=== PATIENT | male | born 1960 | race Caucasian/White ===

== ENCOUNTER 2022-08-03 06:51 | Outpatient (OUT) | payer BC, SELFPAY ==
[2022-08-03 07:19] LABS: Basophils Absolute Auto 0.1 10^3/uL (0.0-0.1); Basophils Percent Auto 0.8 % (0.2-2.0); Eosinophils Absolute Auto 0.3 10^3/uL (0.0-0.7); Hematocrit 49.6 % (42.0-54.0); Hemoglobin 17.1 g/dL (14.0-18.0); Immature Granulocytes Abs Auto 0.03 10^3/uL (0.00-0.03); Immature Granulocytes Pct Auto 0.4 % (0.0-0.5); Lymphocytes Absolute Auto 1.8 10^3/uL (1.2-3.8); Lymphocytes Percent Auto 22.9 % (20.5-60.0); Mean Corpuscular HGB Conc 34.5 g/dL (29.9-35.2); Mean Corpuscular Hemoglobin 31.5 pg (25.9-34.0); Mean Corpuscular Volume 91.5 fL (80.0-94.0); Mean Platelet Volume 8.3 fL (9.5-13.5); Monocytes Absolute Auto 0.8 10^3/uL (0.3-0.8); Monocytes Percent Auto 9.4 % (1.7-12.0); Neutrophils Percent Auto 62.5 % (43.0-75.0); Platelet Count 388 10^3/uL (150-450); Red Blood Count 5.42 10^6/uL (4.70-6.10); Red Cell Distribution Width 13.6 % (11.0-15.0)
[2022-08-03 07:29] LABS: Alanine Aminotransferase 37 U/L (16-63); Albumin Globulin Ratio 1.1; Albumin Level 3.7 g/dL (3.4-5.0); Alkaline Phosphatase 89 U/L (46-116); Anion Gap 12.3; Aspartate Amino Transferase 21 U/L (15-37); BUN Creatinine Ratio 7.9; Bilirubin Total 1.4 mg/dL (0.2-1.0); Calcium 9.3 mg/dL (8.5-10.1); Carbon Dioxide 29.2 mmol/L (21.0-32.0); Chloride 104 mmol/L (98-107); Chol HDL Ratio 2.3; Cholesterol 180 mg/dL (<=200); Estimated GFR (African America >60 (>=60); Estimated GFR (Non-African Ame >60 (>=60); Globulin 3.5 g/dL; Glucose 109 mg/dL (74-106); HDL Cholesterol 79 mg/dL (40-60); Potassium 4.5 mmol/L (3.5-5.1); Sodium 141 mmol/L (136-145); Total Protein 7.2 g/dL (6.4-8.2); Triglycerides 49 mg/dL (<=150); VLDL CHOLESTEROL 9.8 mg/dL
== END 2022-08-03 06:52 ==
LOC: LAB 06:57
PROVIDERS: PCP Internal Medicine; Visit Provider Internal Medicine
DX: Z00.00 Encounter for general adult medical examination without abnormal findings (principal)
CPT/HCPCS: 36415; 80053; 80061; 85025

== ENCOUNTER 2022-08-14 22:33 | Emergency (ER) | payer BC, SELFPAY | END 2022-08-14 23:55 | disposition left against medical advice (07) | PROVIDERS: Emergency Provider Internal Medicine; PCP Internal Medicine | DX: Z53.21 Procedure and treatment not carried out due to patient leaving prior to being seen by health care provider (principal) ==

== ENCOUNTER 2022-09-24 06:18 | Emergency (ER) | payer BC, SELFPAY ==
[2022-09-24 06:24] VITALS: BP 112/76; PULSE 62; RESP 20; TEMP 36.5; O2SAT 98; BMI 22.4
--- NOTE | 2022-09-24 06:39 | ED_ITS ---
Documented by User: Ponce Colon MD 09/24/22 09:25 HPI - General Adult General Chief complaint: Chest Pain Stated complaint: Dysphagia Time Seen by Provider: 09/24/22 06:38 History of Present Illness HPI narrative: Patient is a 62-year-old male who is presenting to the Emergency Room with chief complaint of midepigastric and midsternal Discomfort this been intermittent but consistent since yesterday morning. Patient states he drinks 3-4 beers at least a day, smokes half a pack of cigarettes a day. Patient works construction. Patient has never had a EGD. Patient has been told that he's had acid reflux years ago, patient uses Tums. Patient does not take daily antacid medication. Patient has never had EGD. Patient did have a scope by Dr. Dorantes 2 years ago secondary to M?ni?re's of rectal bleeding, no acute findings were noted, patient does have hemorrhoids. Patient still has his gallbladder and appendix. Patient's had no history of gallbladder issues, no hepatitis or gallbladder or liver problems in the past. Patient denies any melena, hematochezia, no other acute complaints. Patient states all his pain is centralized, no pain to the right upper or left upper quadrant, no other acute complaints. No history kidney stones. Patient is a sister of Isabelle FUENTES from [facility], she has been in room to see the pt. Patient does take Tylenol daily for diffuse chronic pain, arthralgia. Patient does not take significant, anti-inflammatories daily. patient's had previous enlargement of prostate,Patient will have to intermittently self catheter secondary to his bladder, pulse 70 mL of urine secondary to previous history of surgery with Dr. Muse, urology. Patient has no bowel or bladder changes or concerns or complaints today. . All systems are negative except as noted/marked. All systems reviewed and otherwise negative. . Nurses note and vital signs reviewed and patient is not hypoxic. General: The patient appears well and in no apparent distress. Patient is resting comfortably on cart. Patient is not toxic, lethargic, or listless Skin: Warm, dry, no pallor noted. There is no rash noted. No petechiae, purpura. Head: Normocephalic, atraumatic Eye: Normal conjunctiva, no drainage, EOMI. PERRL Ears, Nose, Mouth, and Throat: oral mucosa is moist. Nares patent. Mouth without vesicles. Cardiovascular: Regular Rate and Rhythm, no murmur, gallop, rub. Patient has no reproducible tenderness to palpation to the mid sternum. Anterior, lateral, posterior chest wall pain. Respiratory: Patient is in no distress, no accessory muscle use, lungs are clear to auscultation, no wheezing, rales or rhonchi Back: non-tender, no CVA tenderness bilaterally to percussion. No CT LS midline pain GI: soft, Midepigastric mild tenderness to palpation, no rash,No tenderness to palpation to the right upper quadrant and left upper quadrant, negative Nick sign, no flank pain bilateral, no peritoneal signs, otherwise no tenderness to palpation, no masses appreciated. No rebound, guarding, or rigidity noted. No flank pain bilateral, No distention Musculoskeletal: Patient has full range of motion of all of the extremities, no motor, sensory, or focal neurological deficits Neurological: A&O x3, normal speech Psychiatric: Cooperative Related Data Home Medications Medication Instructions Recorded Confirmed tramadol 50 mg tablet mg 09/24/22 Allergies Allergy/AdvReac Type Severity Reaction Status Date / Time ciprofloxacin [From Cipro] Allergy Unknown Verified 09/24/22 06:32 sulfamethoxazole Allergy Unknown Verified 09/24/22 06:32 [From Bactrim] trimethoprim [From Bactrim] Allergy Unknown Verified 09/24/22 06:32 [facility] Social History Smoking status: Current every day smoker Exam Constitutional Vital Signs, click to edit/add: Last Vital Signs Temp 97.7 F 09/24/22 06:24 Pulse 54 L 09/24/22 09:28 Resp 14 09/24/22 09:28 BP 110/78 09/24/22 09:28 Pulse Ox 97 09/24/22 09:28 O2 Del Method Room Air 09/24/22 08:15 Course Vital Signs Vital signs: Vital Signs Temperature 97.7 F 09/24/22 06:24 Pulse Rate 62 09/24/22 06:24 Respiratory Rate 20 09/24/22 06:24 Blood Pressure 112/76 09/24/22 06:24 Pulse Oximetry 98 09/24/22 06:24 Oxygen Delivery Method Room Air 09/24/22 06:24 Temperature 97.7 F 09/24/22 06:24 Pulse Rate 54 L 09/24/22 09:28 Respiratory Rate 14 09/24/22 09:28 Blood Pressure 110/78 09/24/22 09:28 Pulse Oximetry 97 09/24/22 09:28 Oxygen Delivery Method Room Air 09/24/22 08:15 Medical Decision Making MDM Narrative Medical decision making narrative: Patient was actually pleasant take care of. Patient was given gastrointestinal cocktail and Pepcid. Patient will start taking Pepcid daily [id number]. Patient will call Dr. Burger for follow-up for EGD if needed. Patient does drink alcohol and smoke daily. Patient's testing was negative. Patient has slight elevation of LFTs, he has no tenderness to palpation to the right upper quadrant, or significant midepigastric tenderness palpation at this time. Patient is given a copy of his x-ray report. Patient was educated that the slight elevation of these may be secondary to history of daily alcohol use. Patient will follow-up with PCP and Dr. fowler. No questions at discharge Lab Data Lab results reviewed: Yes I reviewed the patient's lab results Labs: Lab Results 09/24/22 Range/Units 06:45 WBC 10.9 (4.0-11.0) 10^3/uL RBC 4.91 (4.70-6.10) 10^6/uL Hgb 15.4 (14.0-18.0) g/dL Hct 45.2 (42.0-54.0) % MCV 92.1 (80.0-94.0) fL MCH 31.4 (25.9-34.0) pg MCHC 34.1 (29.9-35.2) g/dL RDW 13.5 (11.0-15.0) % Plt Count 355 (150-450) 10^3/uL MPV 8.5 L (9.5-13.5) fL Neut % (Auto) 68.7 (43.0-75.0) % Lymph % (Auto) 13.8 L (20.5-60.0) % Patrick % (Auto) 10.8 (1.7-12.0) % Eos % (Auto) 5.9 (0.9-7.0) % Baso % (Auto) 0.5 (0.2-2.0) % Neut # (Auto) 7.5 H (1.4-6.5) 10^3/uL Lymph # (Auto) 1.5 (1.2-3.8) 10^3/uL Patrick # (Auto) 1.2 H (0.3-0.8) 10^3/uL Eos # (Auto) 0.6 (0.0-0.7) 10^3/uL Baso # (Auto) 0.1 (0.0-0.1) 10^3/uL Abs Immat Gran (auto) 0.03 (0.00-0.03) 10^3/uL Imm/Tot Granulo (auto) 0.3 (0.0-0.5) % Sodium 137 (136-145) mmol/L Potassium 4.1 (3.5-5.1) mmol/L Chloride 104 (98-107) mmol/L Carbon Dioxide 27.7 (21.0-32.0) mmol/L Anion Gap 9.4 BUN 10.0 (7.0-18.0) mg/dL Creatinine 0.81 (0.70-1.30) mg/dL Est GFR ( Amer) >60 (>=60) Est GFR (Non-Af Amer) >60 (>=60) BUN/Creatinine Ratio 12.3 Glucose 109 H (74-106) mg/dL Calcium 8.8 (8.5-10.1) mg/dL Total Bilirubin 1.5 H (0.2-1.0) mg/dL AST 23 (15-37) U/L ALT 60 (16-63) U/L Alkaline Phosphatase 180 H (46-116) U/L Troponin I High Sens 4.9 (4.0-76.1) pg/mL Total Protein 6.5 (6.4-8.2) g/dL Albumin 3.4 (3.4-5.0) g/dL Globulin 3.1 g/dL Albumin/Globulin Ratio 1.1 Lipase 108.0 (73.0-393.0) U/L ECG Data Attestation: I personally reviewed and interpreted this ECG as follows: Interpretation: EKG interpretation. Normal sinus rhythm at 50 beats a minute. Left axis deviation. No acute ST elevation, no acute ectopy. Incomplete right bundle- branch block noted, QTC of 387. Discharge Plan Discharge Chief Complaint: Chest Pain Clinical Impression: Elevated LFTs, Gastritis, Atypical chest pain Patient Disposition: Home, Self-Care Condition: Good Prescriptions / Home Meds: No Action tramadol 50 mg tablet Instructions: Chest Pain (ED), Gastritis (ED), Esophagitis (ED) Additional Instructions: Start taking Pepcid daily, use [id number] generic Pepcid. Follow-up with Dr. Burger for outpatient EGD if needed. Attempt to limit smoking and alcohol intake daily if possible that may be causing issues to gastritis. Slight elevation in her liver function tests, . No pain to the right upper quadrant or any significant pain with the midepigastric area is with activity gallbladder issue. Follow-up with PCP or Dr. Burger if symptoms get worse as well. Stand Alone Forms: Portal Instructions Referrals: Claudio Soto DO [Primary Care Provider] - 1 week Lico Burger MD [Physician] - 1 week Discharge Date/Time: 09/24/22 09:46 Documented by User: Connie Parsons MD 09/30/22 00:43 HPI - General Adult General Chief complaint: Chest Pain Stated complaint: Dysphagia Time Seen by Provider: 09/24/22 06:38 Source: patient Mode of arrival: walk-in Limitations: no limitations Related Data Home Medications Medication Instructions Recorded Confirmed tramadol 50 mg tablet mg 09/24/22 Allergies Allergy/AdvReac Type Severity Reaction Status Date / Time ciprofloxacin [From Cipro] Allergy Unknown Verified 09/24/22 06:32 sulfamethoxazole Allergy Unknown Verified 09/24/22 06:32 [From Bactrim] trimethoprim [From Bactrim] Allergy Unknown Verified 09/24/22 06:32 PFSH PFSH Social History Smoking status: Current every day smoker Exam Constitutional Vital Signs, click to edit/add: Last Vital Signs Temp 97.7 F 09/24/22 06:24 Pulse 54 L 09/24/22 09:28 Resp 14 09/24/22 09:28 BP 110/78 09/24/22 09:28 Pulse Ox 97 09/24/22 09:28 O2 Del Method Room Air 09/24/22 08:15 Course Vital Signs Vital signs: Vital Signs Temperature 97.7 F 09/24/22 06:24 Pulse Rate 62 09/24/22 06:24 Respiratory Rate 20 09/24/22 06:24 Blood Pressure 112/76 09/24/22 06:24 Pulse Oximetry 98 09/24/22 06:24 Oxygen Delivery Method Room Air 09/24/22 06:24 Temperature 97.7 F 09/24/22 06:24 Pulse Rate 54 L 09/24/22 09:28 Respiratory Rate 14 09/24/22 09:28 Blood Pressure 110/78 09/24/22 09:28 Pulse Oximetry 97 09/24/22 09:28 Oxygen Delivery Method Room Air 09/24/22 08:15 Medical Decision Making Lab Data Labs: Lab Results 09/24/22 Range/Units 06:45 WBC 10.9 (4.0-11.0) 10^3/uL RBC 4.91 (4.70-6.10) 10^6/uL Hgb 15.4 (14.0-18.0) g/dL Hct 45.2 (42.0-54.0) % MCV 92.1 (80.0-94.0) fL MCH 31.4 (25.9-34.0) pg MCHC 34.1 (29.9-35.2) g/dL RDW 13.5 (11.0-15.0) % Plt Count 355 (150-450) 10^3/uL MPV 8.5 L (9.5-13.5) fL Neut % (Auto) 68.7 (43.0-75.0) % Lymph % (Auto) 13.8 L (20.5-60.0) % Patrick % (Auto) 10.8 (1.7-12.0) % Eos % (Auto) 5.9 (0.9-7.0) % Baso % (Auto) 0.5 (0.2-2.0) % Neut # (Auto) 7.5 H (1.4-6.5) 10^3/uL Lymph # (Auto) 1.5 (1.2-3.8) 10^3/uL Patrick # (Auto) 1.2 H (0.3-0.8) 10^3/uL Eos # (Auto) 0.6 (0.0-0.7) 10^3/uL Baso # (Auto) 0.1 (0.0-0.1) 10^3/uL Abs Immat Gran (auto) 0.03 (0.00-0.03) 10^3/uL Imm/Tot Granulo (auto) 0.3 (0.0-0.5) % Sodium 137 (136-145) mmol/L Potassium 4.1 (3.5-5.1) mmol/L Chloride 104 (98-107) mmol/L Carbon Dioxide 27.7 (21.0-32.0) mmol/L Anion Gap 9.4 BUN 10.0 (7.0-18.0) mg/dL Creatinine 0.81 (0.70-1.30) mg/dL Est GFR ( Amer) >60 (>=60) Est GFR (Non-Af Amer) >60 (>=60) BUN/Creatinine Ratio 12.3 Glucose 109 H (74-106) mg/dL Calcium 8.8 (8.5-10.1) mg/dL Total Bilirubin 1.5 H (0.2-1.0) mg/dL AST 23 (15-37) U/L ALT 60 (16-63) U/L Alkaline Phosphatase 180 H (46-116) U/L Troponin I High Sens 4.9 (4.0-76.1) pg/mL Total Protein 6.5 (6.4-8.2) g/dL Albumin 3.4 (3.4-5.0) g/dL Globulin 3.1 g/dL Albumin/Globulin Ratio 1.1 Lipase 108.0 (73.0-393.0) U/L Discharge Plan Discharge Chief Complaint: Chest Pain Clinical Impression: Elevated LFTs, Gastritis, Atypical chest pain Patient Disposition: Home, Self-Care Condition: Good Prescriptions / Home Meds: No Action tramadol 50 mg tablet Instructions: Chest Pain (ED), Gastritis (ED), Esophagitis (ED) Additional Instructions: Start taking Pepcid daily, use [id number] generic Pepcid. Follow-up with Dr. Burger for outpatient EGD if needed. Attempt to limit smoking and alcohol intake daily if possible that may be causing issues to gastritis. Slight elevation in her liver function tests, . No pain to the right upper quadrant or any significant pain with the midepigastric area is with activity gallbladder issue. Follow-up with PCP or Dr. Burger if symptoms get worse as well. Stand Alone Forms: Portal Instructions Referrals: Claudio Soto DO [Primary Care Provider] - 1 week Lico Burger MD [Physician] - 1 week Discharge Date/Time: 09/24/22 09:46
--- NOTE | 2022-09-24 06:54 | XR_ITS ---
The [address] [address] Patient Name: SHAW GALVAN MRN: [id number] date: 1960 Sex: M Assigned Patient Location: ER Current Patient Location: ER Accession/Order Number: [id number] Exam Date: 09/24/2022 07:11 Report Date: 09/24/2022 07:42 At the request of: ELVIA MARKER Procedure: XR acute abdomen series EXAMINATION: XR acute abdomen series HISTORY: CP/abd pain COMPARISON: No relevant comparison available. FINDINGS: LUNGS: No infiltrate, pneumothorax, or pleural effusion. MEDIASTINUM: No abnormal widening. BOWEL GAS PATTERN: Non-obstructed. Numerous loops of air-filled bowel throughout the abdomen; no abnormal dilation or suspicious fluid levels. FREE AIR: None. CALCIFICATIONS: None significant. BONES: No fracture or visible bone lesion. OTHER: Negative. XR/XR acute abdomen series IMPRESSION: 1. No acute cardiopulmonary process. 2. No bowel obstruction or appreciable acute abdominal findings. Electronically authenticated by: THALIA KERN Date: 09/24/2022 07:42
--- NOTE | 2022-09-24 06:54 | ECG_ITS ---
The [facility] Test Date: 2022-09-24 Pat Name: SHAW GALVAN Department: Room: - Gender: Male [employer] Work[employer]: : 1960 Requested By: PAULO POE Order Number: [id number] Reading MD: PAULO POE Measurements Intervals [place] Rate: 58 P: 66 MD: 198 QRS: 249 QRSD: 116 T: 61 QT: 390 QTc: 387 Interpretive Statements 1100 Sinus bradycardia 2440 Incomplete right bundle branch block 5130 Right ventricular hypertrophy 8003 Consistent with pulmonary disease 9150 abnormal ECG No previous ECG available for comparison Electronically Signed On 09-24-2022 7:24:29 EDT by PAULO POE
[2022-09-24 07:01] VITALS: BP 118/81
[2022-09-24 07:02] LABS: Basophils Absolute Auto 0.1 10^3/uL (0.0-0.1); Basophils Percent Auto 0.5 % (0.2-2.0); Eosinophils Absolute Auto 0.6 10^3/uL (0.0-0.7); Eosinophils Percent Auto 5.9 % (0.9-7.0); Hematocrit 45.2 % (42.0-54.0); Hemoglobin 15.4 g/dL (14.0-18.0); Immature Granulocytes Abs Auto 0.03 10^3/uL (0.00-0.03); Immature Granulocytes Pct Auto 0.3 % (0.0-0.5); Lymphocytes Absolute Auto 1.5 10^3/uL (1.2-3.8); Lymphocytes Percent Auto 13.8 % (20.5-60.0); Mean Corpuscular HGB Conc 34.1 g/dL (29.9-35.2); Mean Corpuscular Hemoglobin 31.4 pg (25.9-34.0); Mean Corpuscular Volume 92.1 fL (80.0-94.0); Mean Platelet Volume 8.5 fL (9.5-13.5); Monocytes Absolute Auto 1.2 10^3/uL (0.3-0.8); Monocytes Percent Auto 10.8 % (1.7-12.0); Neutrophils Absolute Auto 7.5 10^3/uL (1.4-6.5); Neutrophils Percent Auto 68.7 % (43.0-75.0); Platelet Count 355 10^3/uL (150-450); Red Blood Count 4.91 10^6/uL (4.70-6.10); Red Cell Distribution Width 13.5 % (11.0-15.0); White Blood Count 10.9 10^3/uL (4.0-11.0)
[2022-09-24 07:22] LABS: Alanine Aminotransferase 60 U/L (16-63); Albumin Globulin Ratio 1.1; Albumin Level 3.4 g/dL (3.4-5.0); Alkaline Phosphatase 180 U/L (46-116); Anion Gap 9.4; Aspartate Amino Transferase 23 U/L (15-37); BUN Creatinine Ratio 12.3; Bilirubin Total 1.5 mg/dL (0.2-1.0); Calcium 8.8 mg/dL (8.5-10.1); Carbon Dioxide 27.7 mmol/L (21.0-32.0); Chloride 104 mmol/L (98-107); Estimated GFR (African America >60 (>=60); Estimated GFR (Non-African Ame >60 (>=60); Globulin 3.1 g/dL; Glucose 109 mg/dL (74-106); Potassium 4.1 mmol/L (3.5-5.1); Sodium 137 mmol/L (136-145); Total Protein 6.5 g/dL (6.4-8.2); Troponin I High Sensitivity 4.9 pg/mL (4.0-76.1)
[2022-09-24 08:14] VITALS: PULSE 51
[2022-09-24 08:15] VITALS: BP 120/82; PULSE 54; RESP 12; O2SAT 97
[2022-09-24 09:28] VITALS: BP 110/78; PULSE 54; RESP 14; O2SAT 97
[2022-09-24] MEDS: FAMOTIDINE 20 MG TABLET 40 MG PO (09:33)
[2022-09-24] MEDS: HYOSCYAMINE SULFATE 0.125 MG TAB.SUBL 0.25 MG PO (09:40)
[2022-09-24] MEDS: MAALOX (MAG HYDROX/ALUMINUM HYD/SIMETH) 30 ML ORAL.SUSP PO (09:40)
[2022-09-24] MEDS: LIDOCAINE 2% JELLY 15 ML MM (09:40)
== END 2022-09-24 09:46 | disposition home or self-care (01) ==
PROVIDERS: Emergency Medicine; Emergency Provider Emergency Medicine; PCP Internal Medicine
DX: K29.70 Gastritis, unspecified, without bleeding (principal); R07.89 Other chest pain; R79.89 Other specified abnormal findings of blood chemistry; F17.210 Nicotine dependence, cigarettes, uncomplicated
CPT/HCPCS: 36415; 74022; 80053; 83690; 84484; 85025; 93005; 99285

== ENCOUNTER 2022-12-21 06:18 | Outpatient (OUT) | payer BC, SELFPAY ==
[2022-12-21 07:14] LABS: Bilirubin Urine NEGATIVE (NEGATIVE); Blood Urine NEGATIVE (NEGATIVE); Clarity Urine CLEAR (CLEAR); Color Urine LT. YELLOW (YELLOW); Glucose Urine UA NEGATIVE (NEGATIVE); Ketones Urine NEGATIVE (NEGATIVE); Leukocyte Esterase Urine TRACE (NEGATIVE); Nitrite Urine NEGATIVE (NEGATIVE); Protein Urine NEGATIVE (NEG/TRACE); Urobilinogen Urine 0.2 EU/dL (0.2-1.0); pH Urine 6.5 (5.0-9.0)
[2022-12-21 07:23] LABS: Bacteria Urine NONE SEEN #/HPF (NONE SEEN); Cast Seen? NONE SEEN #/LPF (NONE SEEN); Crystals Seen? None Seen #/HPF (None Seen); Mucus Urine NONE SEEN (NONE SEEN); RBC Urine NONE SEEN #/HPF (0-2); Squamous Epithelial Cell Urine RARE #/LPF (NONE/RARE)
== END 2022-12-21 06:19 | disposition home or self-care (01) ==
LOC: LAB 06:19
PROVIDERS: PCP Internal Medicine; Visit Provider Internal Medicine
DX: N41.0 Acute prostatitis (principal)
CPT/HCPCS: 81001; 87086; 87150; 87186

== ENCOUNTER 2023-03-04 08:52 | Outpatient (OUT) | payer BC, SELFPAY ==
--- OUTSIDE RECORDS SUMMARY | 2023-03-04 09:16 | XMS_ITS | CCD ---
Author Name Unknown Address [address] [place] [address] Organization [facility] Care Team Providers Care Matcher Offbearer Name Role Phone FRANCIA SHAW Unavailable Unavailable LURIA, CARLSON S Unavailable Unavailable LURIA, CARLSON S Unavailable Unavailable BALLNATASHA Unavailable Unavailab le LURIA, CARLSON S Unavailable Unavailable LURIA, CARLSON S Unavailable Unavailable CLAUDIO SOTO Primary Care Physician Claudio Soto Unavailable Patricia Olmos Unavailable MIGUELINA ., DR JOHNSON Attending Unavailable DEEPIKA, DR BATES Primary Care Unavailable MUSE ., DR JOHNSON Consulting Unavailable MUSE ., DR JOHNSON Admitting Unavailable DEEPIKA, DR BATES Primary Care Unavailable HILDA ANTOINE Admitting Unavailable ELINAHILDA VENTURA Attending Unavailable ELINAHILDA VENTURA Consulting Unavailable MUSE ., DR JOHNSON Admitting Unavailable MUSE ., DR JOHNSON Attending Unavailable DEEPIKA, DR BATES Primary Care Unavailable MUSE ., DR JOHNSON Consulting Unavailable SHAW BLEVINS Consulting Unavailable TERESA ., CARLOS Admitting Unavailable GERMAIN, DR PADMINI Shepherd Consulting Unavailable DEEPIKA, DR BATES Primary Care Unavailable TERESA ., CARLOS Attending Unavailable TERESA ., CARLOS Consulting Unavailable HAY ., DR RIOJAS Attending Unavailable HAY ., DR RIOJAS Admitting Unavailable NISHI ., DR RIOJAS Consulting Unavailable DEEPIKA, DR BATES Primary Care Unavailable MAY, DR MARK Kraft Admitting Unavailabl e MAY, DR MARK Kraft Attending Unavailabl e MAY, DR MARK Kraft Consulting Unavailabl e DEEPIKA, DR BATES Primary Care Unavailable MIGUELINA ., DR JOHNSON Attending Unavailable DEEPIKA, DR BATES Primary Care Unavailable MIGUELINA ., DR JOHNSON Consulting Unavailable MIGUELINA ., DR JOHNSON Admitting Unavailable DEEPIKA, DR BATES Attending Unavailable DEEPIKA, DR BATES Primary Care Unavailable DEEPIKA, DR BATES Admitting Unavailable DEEPIKA, DR BATES Primary Care Unavailable TERESA ., CARLOS Admitting Unavailable TERESA ., CARLOS Attending Unavailable TERESA ., CARLOS Consulting Unavailable NILAdenike, Lico Julien Attending Unavailable MUSEAlex Attending Unavailable MUSE, Alex Julien Attending Unavailable MUSE, Alex Julien Attending Unavailable HILDA ANTOINE Attending Unavailable MUSE, Alex Julien Attending Unavailable ELINA, HILDA Giron Admitting Unavailable ELINAHILDA VENTURA Attending Unavailable Alex MUSE Admitting Unavailable Alex MUSE Attending Unavailable Allergies Allergy Classification Reported Allergen(s) Allergy Type Date of Onset Reaction(s) Facility (20 sources) ciprofloxacin; Translations: [CIPROFLOXACIN] Drug Allergy 02-16-20 13 [facility] (disorder) [facility] Repository (2 sources) ondansetron; Translations: [ONDANSETRON HCL] Drug Allergy 07-26-19 15 [facility] Repository (2 sources) sulfamethoxazole / trimethoprim; Translations: [SULFAMETHOXAZOLE-TR IMETHOPRIM] Drug Allergy 07-23-19 15 [facility] Repository (7 sources) Sulfamethoxazole; Translations: [sulfamethoxazole] Drug Allergy Unknown (qualifier value) [facility] [employer] (16 sources) Sulfamethoxazole / Trimethoprim Drug Allergy Unknown [facility] Other (2 sources) Ciprofloxacin Drug Allergy 10-22-19 13 [facility] Repository (2 sources) Sulfamethoxazole / Trimethoprim Drug Allergy 07-03-19 15 [facility] Rep[facility] (1 source) Penicillin; Translations: [penicillin] Drug Allergy [facility] Repository Medications Current Medications Medication Drug Class(es) Dates Sig (Normalized) Sig (Original) cefdinir 300 mg oral capsule (4 sources) Cephalosporin Antibacterial Start: 12-23-2022 Cefdinir 300 MG as directed Orally bid for 28 days Nov, Active doxycycline hyclate 100 mg oral capsule (7 sources) Tetracycline-class Drug Start: 11-02-2022 take 1 capsule by mouth every twelve hours Doxycycline Hyclate 100 MG 1 capsule Orally Twice a day for 7 days Oct, Active Start: 05-21-2022 [facility]xy[facility]ine hyclate 100 mg Cap 100 mg = 1 cap(s), Oral, Daily, Take 1 pill the day before the procedure and 1 pill after the procedure, # 2 cap(s), Refills(s) 0, Pharmacy: [id number], 184, cm, 05/11/22 8:37:00 EDT, Height/Length Dosing, 76, kg, 05/11/22 8:37:00 EDT, Weigh... Start Date: 05/21/22 Status: Ordered hyoscyamine sulfate 0.12 mg / methenamine 118 mg / methylene blue 10 mg / phenyl salicylate 36 mg / sodium phosphate, monobasic 40.8 mg oral capsule (1 source) Oxidation-Reduction Agent Start: 06-23-2022 take 1 capsule by mouth four times daily Uribel oral capsule 1 cap(s), Oral, QID bladder spasms, 30 cap(s), Refill(s) 0, [facility], 184, cm, 05/11/22 8:37:00 EDT, Height/Length Dosing, 76, kg, 05/11/22 8:37:00 EDT, Weight Dosing Start Date: 06/23/22 Status: Ordered nitrofurantoin, macrocrystals 25 mg / nitrofurantoin, monohydrate 75 mg oral capsule (10 sources) Nitrofuran Antibacterial take 1 capsule by mouth every twelve hours Nitrofurantoin Monohyd Macro 100 MG 1 capsule Orally every 12 hrs w/ food for 7 days Active tamsulosin hydrochloride 0.4 mg oral capsule (16 sources) alpha-Adrenergic Alberto take 1 capsule by mouth every twenty-four hours Tamsulosin HCl 0.4 MG 1 capsule Orally Once a day Active traMADol hydrochloride 50 mg oral tablet (20 sources) Opioid Agonist Start: 01-28-2023 take 1 tablet by mouth every six hours traMADol HCl 50 MG 1 tablet as needed Orally qid for 30 days start 01/28 w/ 2RF Jan, Active Start: 11-02-2022 take 1 tablet by rachid th every six hours traMADol HCl 50 MG 1 tablet as needed Orally qid for 30 days p/u 10/28, start 10/30Oct, Active Start: 10-28-2022 take 1 tablet by rachid th every six hours traMADol HCl 50 MG 1 tablet as needed Orally qid for 30 days p/u 10/28, start 10/30Sep, Active Start: 08-20-2022 traMADOL 50 mg Tab Refills(s) 0 Start Date: 08/20/22 Status: Ordered Start: 08-02-2022 take 1 tablet by rachid th every six hours traMADol HCl 50 MG 1 tablet as needed Orally qid for 30 days p/u 06/30, start 07/02Jul, Active Start: 06-30-2022 take 1 tablet by rachid th every six hours traMADol HCl 50 MG 1 tablet as needed Orally qid p/u 06/30, start 07/02June, Active Start: 06-01-2022 take 1 tablet by rachid th four times daily traMADol HCl 50 mg 1 tablet Orally four times daily for 30 days p/u 06/01, start 06/02May, Active Start: 05-06-2022 TRAMADOL HYDRO CHLORIDE TRAMADOL HYDROCHLORIDE Start Date: 05/06/22 Status: Ordered Start: 05-03-2022 traMADol HCl 5 0 mg TAKE ONE TABLET BY MOUTH FOUR TIMES A DAY FOR 30 DAYS for 30 Apr, Active Completed/Discontinued Medications Medication Drug Class(es) Dates Sig (Normalized) Sig (Original) amoxicillin 875 mg / clavulanate 125 mg oral tablet (8 sources) Penicillin-class Antibacterial take 1 tablet by mouth every twelve hours Amoxicillin-Pot Clavulanate 875-125 MG 1 tablet Orally every 12 hrs Not-Taking Problems Active Problems Problem Classification Problem Date Documented Date Episodic/Chronic Complications of surgical procedures or medical care (16 sources) Other postprocedural complications and disorders of genitourinary system; Translations: [Other postprocedural complications and disorders of genitourinary system] Episodic Diseases of white blood cells (1 source) Elevated white blood cell count, unspecified; Translations: [ELEVATED WHITE BLOOD CELL COUNT UNS] Onset: 04-05-2022 Chronic Genitourinary symptoms and ill-defined conditions (20 sources) History of urinary tract infection; Translations: [Personal history of urinary (tract) infections] Onset: 08-19-2021 Episodic Hyperplasia of prostate (20 sources) Benign prostatic hypertrophy with outflow obstruction; Translations: [Benign prostatic hyperplasia with lower urinary tract symptoms] Onset: 08-19-2021 Chronic Inflammatory conditions of male genital organs (19 sources) Acute prostatitis; Translations: [Acute prostatitis] Episodic Nausea and vomiting (16 sources) Nausea and vomiting; Translations: [Nausea with vomiting, unspecified] Episodic Osteoarthritis (6 sources) Arthritis 05-08-2020 Chronic Other connective tissue disease (16 sources) Bursitis of right hip; Translations: [Other bursitis of hip, right hip] Episodic Other diseases of bladder and urethra (9 sources) Flaccid neurogenic bladder; Translations: [Flaccid neuropathic bladder, not elsewhere classified] Onset: 08-19-2021 Chronic Other diseases of bladder and urethra (11 sources) Neurogenic bladder; Translations: [Neuromuscular dysfunction of bladder, unspecified] Chronic Other diseases of bladder and urethra (4 sources) Neuromuscular dysfunction of bladder, unspecified; Translations: [NEUROMUSCULR DYSFNCTION BLADDER UNS] Onset: 06-14-2022 Chronic Other diseases of bladder and urethra (1 source) Other specified disorders of bladder; Translations: [OTHER SPECIFIED DISORDERS BLADDER] Onset: 06-15-2022 Chronic Other diseases of bladder and urethra (1 source) Diverticulum of bladder; Translations: [DIVERTICULUM OF BLADDER] Onset: 06-15-2022 Chronic Other diseases of kidney and ureters (7 sources) Hydronephrosis; Translations: [Unspecified hydronephrosis] Onset: 05-11-2022 Episodic Other diseases of kidney and ureters (2 sources) Acquired renal cyst without neoplastic change; Translations: [Cyst of kidney, acquired] Onset: 05-11-2022 Episodic Other diseases of kidney and ureters (5 sources) Cyst of kidney 05-11-2022 Episodic Other male genital disorders (7 sources) Induratio penis plastica; Translations: [Induration penis plastica] Onset: 05-11-2022 Chronic Other male genital disorders (1 source) Induration penis plastica; Translations: [INDURATION PENIS PLASTICA] Onset: 06-15-2022 Chronic Other male genital disorders (7 sources) Painful ejaculation; Translations: [Painful ejaculation] Onset: 05-11-2022 Episodic Other nervous system disorders (16 sources) Narcolepsy; Translations: [Narcolepsy without cataplexy] Chronic Other skin disorders (16 sources) Seborrheic keratosis of scalp; Translations: [Other seborrheic keratosis] Episodic Residual codes; unclassified (16 sources) Obstructive sleep apnea syndrome; Translations: [Obstructive sleep apnea (adult) (pediatric)] Chronic Residual codes; unclassified (2 sources) Obstructive sleep apnea (adult) (pediatric) Chronic Residual codes; unclassified (6 sources) Chronic back pain 05-08-2020 Episodic Spondylosis; intervertebral disc disorders; other back problems (20 sources) Lumbar spondylosis; Translations: [Spondylosis without myelopathy or radiculopathy, lumbar region] Chronic Spondylosis; intervertebral disc disorders; other back problems (20 sources) Neck pain; Translations: [Cervicalgia] Episodic Substance-related disorders (1 source) Nicotine dependence, cigarettes, uncomplicated; Translations: [NICOTINE DEPEND CIGARETTES UNCOMP] Onset: 06-15-2022 Chronic Unclassified (2 sources) Encounter for screening for other disorder; Translations: [Encounter for screening for malignant neoplasm of prostate] Onset: 03-11-2017 Episodic Unclassified (1 source) Unknown / UNK(Unknown) Onset: 06-28-2017 Unclassified (1 source) CONTACT W/AND (SUSP) EXPOS COVID-19; Translations: [CONTACT W/AND (SUSP) EXPOS COVID-19] Onset: 04-05-2022 Urinary tract infections (11 sources) Acute pyelonephritis; Translations: [Urinary tract infectious disease] Onset: 10-07-2021 Episodic Past or Other Problems Problem Classification Problem Date Documented Date Episodic/Chronic Fever of unknown origin (4 sources) Fever, unspecified; Translations: [FEVER UNSPECIFIED] Onset: 03-31-2022 Episodic Other diseases of kidney and ureters (1 source) Hydronephrosis with renal and ureteral calculous obstruction; Translations: [HYDRONPHROS RENL AND URETRL CALCUL OBST] Onset: 08-20-2021 Episodic Residual codes; unclassified (1 source) Procedure and treatment not carried out due to patient leaving prior to being seen by health care provider; Translations: [PROC AND TX NOT CARRIED OUT PT LEAVE] Onset: 04-02-2022 Episodic Results Test Name Value Interpretation Reference Range Facility Urinalysis - DIPSTICKon - Appearance (U) cloudy [employer] Other Bilirubin Ql (U) Negative [employer] Other Color (U) yellow [facility] Other Glucose Ql (U) Negative [employer] Other Hemoglobin Ql (U) Negative [facility] Other Ketones Ql (U) trace [employer] Other Leukocyte esterase Test strip Ql (U) small [employer] Other Nitrite Ql (U) Positive [employer] Other pH (U) 5.0 [pH] [facility] Other Protein Ql (U) Negative [employer] Other Specific gravity (U) [Rel density] 1.010 [facility] Other Urobilinogen (U) [Mass/Vol] 0.5 mg/dL [facility] Other Urinalysis - DIPSTICK [facility] Other ED Note-Physicianon 09-28-19 ED Note-Physician [id number]: 127 Normal [facility] Ambulatory Visit Summaryon 0 08-20-2022 Ambulatory Visit Summary SHAW GALVAN :1960 Visit Date:08/20/2022 Ambulatory Visit Instructions Your Diagnosis Neurogenic bladder, flaccid Benign prostatic hyperplasia (BPH) with post-void dribbling Painful ejaculation Renal cyst Peyronie's disease Hydronephrosis Your Care Team Attending Physician - MIGUELINA SNIDER, Alex Julein Primary Care Physician - CLAUDIO SOTO DO This Is Your Medications List tramadol (traMADOL 50 mg Tab) Procedures Performed Cystoscopy (06/14/2022), Cystoscopy (07/12/2014), Removal of stent (07/23/2008), Cystoscopy (04/25/2008), Tonsillectomy, Vasectomy. Discharge Vitals Heart Rate (Peripheral) 70 Respiratory Rate 16 Blood Pressure 120/68 Height 183 cm Height 72 in Weight 73 kg Weight 160.6 lb BMI 21.8 What to do next Scheduled Follow-Up Appointments Tuesday 8:00 AM EST With: MIGUELINA SNIDER, Alex Julien Where: [facility] [place] Normal [facility] CHEMISTRYOrdered By: SYSTEM SYSTEM on 08-20-2022 Prostate specific Ag [Mass/Vol] 0.8 ng/mL Normal 0.1 - 3.5 ng/mL [facility] Remisol PSA Totalon 08-20-2022 Prostate specific Ag [Mass/Vol] 0.8 ng/mL Normal 0.1-3.5 [facility] Comment on above: Result Comment: The concentration of PSA determined by different manufacturers can vary due to differences in assay methods and reagent specificity. Values obtained from different assay methods cannot be used interchangeably. The methodology used for this result was chemiluminescence using [employer] PSA reagent. Performed By: #### [id number] ####[facility] [id number] [place] [address] Patient Educationon 08-21-19 Patient Education Urology Clean Intermittent Catheterization, Male Clean intermittent catheterization (CIC) is a procedure to remove urine from the bladder by placing a small, flexible tube (catheter) into the bladder though the urethra. The urethra is a tube in the body that carries urine from the bladder out of the body. CIC may be done when: ? You cannot completely empty your bladder on your own. This may be due to a blockage in the bladder or urethra. ? Your bladder leaks urine. This may happen when the muscles or nerves near the bladder are not working normally, so the bladder overflows. Your health care provider will show you how to perform CIC and will help you to become comfortable performing this procedure at home. Your health care provider will also help you to get the home care supplies that are needed for this procedure. Supplies needed: ? Germ-free (sterile), water-based lubricant. ? A container for urine collection. You may also use the toilet to dispose of urine from the catheter. ? A catheter. Your health care provider will determine the best size for you. ? Use this catheter size: ? Clean gloves. ? Soap and water. ? Towel. How to perform this procedure: Most people need CIC at least 4 times per day to adequately empty the bladder. Your health care provider will tell you how often you should perform CIC. ? Number of times per day to perform CIC: To perform CIC, follow these steps: 1. Wash your hands with soap and water. If soap and water are not available, use hand trailer steerer. 2. Clean your penis with soap and water. Dry the tip of your penis completely. 3. Prepare the supplies that you will use during the procedure. Open the catheter package and lubricant. 4. Get in a comfortable position. Possible positions include: ? Sitting on a toilet, a chair, or the edge of a bed. ? Standing near a toilet. ? Lying down with your head raised on pillows and your knees pointing to the ceiling. You may wish to place a waterproof mat or pad under you. 5. If you are using a urine collection container, position it between your legs. 6. Urinate, if you are able. 7. Put on gloves. 8. Apply lubricant to about 2 inches (5 cm) of the tip of the catheter. 9. Set the catheter down on a clean, dry surface within reach. 10. Gently stretch your penis out from your body. Pull back any skin that covers the end of your penis (foreskin). Clean the end of your penis with medicated sterile swabs as told by your health care provider. 11. Hold your penis upward at a 45?60 degree angle. This helps to straighten the urethra. 12. Slowly insert the lubricated catheter straight into your urethra until urine flows freely. This is usually about 6?8 inches (15?20 cm). 13. When urine starts to flow freely, insert the catheter 1 inch (3 cm) more. Allow urine to drain into the toilet or the urine collection container. 14. When urine stops flowing, slowly remove the catheter. 15. Note the color, amount, and odor of the urine. 16. Measure your urine and note the amount, if told by your health care provider. 17. Discard the urine in the toilet. 18. Clean your penis using soap and water. 19. Move the foreskin back in place, if applicable. 20. If you are using a single-use catheter, discard the catheter and supplies. 21. Wash your hands with soap and water. 22. If you are using a reusable catheter, follow package instructions about how to clean the catheter after each use. How often should I perform this procedure? ? Do CIC to empty your bladder every 4?6 hours or as often as told by your health care provider. ? If you have symptoms of too much urine in your bladder (overdistension) and you are not able to urinate, perform CIC. Symptoms of overdistension may include: ? Restlessness. ? Sweating or chills. ? Headache. ? Flushed or pale skin. ? Bloated lower abdomen. What are the risks? Generally, this is a safe procedure, however problems may occur, including: ? Infection. ? Injury to the urethra. ? Irritation of the urethra. Follow these instructions at home General instructions ? Drink enough fluid to keep your urine pale yellow. ? Dispose of a multiple use catheter when it becomes dry, brittle, or cloudy. This usually happens after you use the catheter for 1 week. ? Avoid caffeine. Caffeine may make you need to urinate more frequently and more urgently. ? When traveling, bring extra supplies with you in case of delays. Keep supplies with you in a place that you can access easily. If traveling by plane: ? Make sure that the lubricant in your carry-on bag is less than 3.4 ounces (100 mL). ? Use a single-use catheter. It may be difficult to clean a reusable catheter in a small bathroom. ? Take [id number] and prescription medicines only as told by your he (more content not included)... Normal [facility] Urology Office/Clinic Noteon 08-20-2022 Urology Office/Clinic Note Chief Complaint S/P Cysto HPI Staff 1 year f/u to encounter with [facility] 08/19/21, with PSA. DX: neurogenic bladder, recurrent UTI, BPH. PSA 08/19/21- 1.01 BMP 08/19/21 Went to [facility] 10/06/21 due to UTI./Urinary Retention. Refused Catheter. [facility] 04/01/22 due to Lt flank pain & left without being treated. Last seen in our office by [facility] on 05/11/22 due to NGB, recurrent UTI, BPH, post void dribbling, painful ejaculation, renal cyst, Peyronie's disease and hydronephrosis.. CIC 3x/day at that time. +C&S at time of office visit. * Klebsiella oxytoca. Tx'd with Keflex 500mg BID x1wk Pt then had Cysto done by [facility] 06/14/22. Catheter was inserted at that time. Augmentin 500mg QD x2m Pt's had called 06/23/22 stating the pain was having bladder & kidney pain. As well as morning erections with catheter. Uribel was then sent to pt's pharmacy. Pt did not take due to cost. Renal US 07/12/22 Catheter changed in our office 07/13/22 Pt denies any complications with catheter. States he is here today to get catheter removed. Bladder/Kidney pain has subsided. PSA not drawn for today's appt. History of Present Illness Tests reviewed: reviewed UA, PSA I have reviewed the previous health record information and history for this patient from Dr. Muse. I have reviewed and verified the staff HPI to be accurate for this encounter. There have been no associated fever, chills, flank pain, or blood in the urine. Denies any urinary infections since last encounter. Review of Systems PHQ Score Initial Depression Screen Score: 0 ROS - Provider Constitutional: denies weight loss, denies hot flashes. Eyes: denies eye problems. Gastrointestinal: denies nausea, denies vomiting. Cardiovascular: denies chest pain or angina. Integumentary: no dryness Musculoskeletal: denies musculoskeletal symptoms. ENMT: denies otolaryngeal symptoms. Respiratory: no shortness of breath. Heme/Lymph: denies easy bleeding tendency, denies easy bruising tendency. Psychiatric: no confusion, no anxiety. Genitourinary: denies dysuria, denies hematuria, denies discharge, denies urinary frequency, denies urinary hesitancy, denies nocturia, denies incontinence, denies genital sores, denies decreased libido, and denies erectile dysfunction. Physical Exam Vitals & Measurements HR: 70(Peripheral) RR: 16 BP: 120/68 HT: 72 in HT: 183 cm WT: 73 kg WT: 160.6 lb BMI: 21.8 General Appearance: alert, no distress, well nourished, well developed male. Genitourinary: normal scrotum, normal testes, normal urethra, normal epididymis, normal vas deferens/spermatic cord. Flank Pain: none. Bladder: nonpalpable. Assessment/Plan 1. 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 Educated pt to consistently do catheterizations 4x/day to prevent further dysfunction of the kidneys. Pt states he was thinking about a suprapubic catheter but only like to proceed if catheter fails again. Recommended pt to increase fluid intake to ten to twelve 16oz bottles a day; preferably water, clear pop, and sugar free lemonade. Pt's catheter has been removed in office with no complications. They have been advised to drink plenty of fluids. Pt. has been instructed to call the office in the event that they are not able to void in the next 4-6 hrs. Advised pt. to go to the ER if they experience any severe bleeding, fever over 101, and/or shaking chills. Follow up in 6 months or sooner if needed. Pt understands and agrees with plan. 2. Benign prostatic hyperplasia (BPH) with post-void dribbling (N40.1: Benign prostatic hyperplasia with lower urinary tract symptoms) S/p TUIP 04/25/2008. S/p Cysto 06/14/22 - diffuse inflammatory changes throughout the bladder, severe bladder damage with thick exaggerated trabeculation and multiple deep diverticula, no evidence of bladder tumors. Pt denies any recent complications. Pt not taking any BPH medications at this time. PSA 08/19/21 - 1.01 Pt did not obtain PSA for today's visit. Pt to get blood drawn IO today. If unable to, will order PSA. 3. Painful ejaculation (N53.12: Painful ejaculation) Mentions he has pain with ejaculation, feels like I'm passing a kidney stone when I have an orgasm . Says the pain is at the tip of the penis, not perineal/rectal/prostate area. Denies pain with sitting for extended time, denies painful BMs, denies perineal pain at rest. No blood in ejaculate. No hx prostatitis. 4. Renal cyst (N28.1: Cyst of kidney, acquired) CT AP wo contrast 10/06/21 shows right renal cortical hypodensity is a cyst is favored. Neg for stones. No indication for tx. Metabolic workup 08/19/21 - Creatinine and EGFR within normal limits Renal US 07/12/22 - right renal 1.4 x 1.0 x 1.1cm anechoic lesion with posterior acoustic enhancement, consistent with a cyst. Neg for stones. 5. Peyronie's disease (N48.6: Induration penis plastica) Accident as a (more content not included)... Normal [facility] Comment on above: Result Comment: Elec tronically Signed By: Alex MUSE MD\.br\Date and Time Signed: 08/20/22 09:47 EDT\.br\Electronically Co-Signed By: Megha Schwarz\.br\Date and Time Co-Signed: 08/20/22 09:43 EDT RAD - Ultrasound Reporton RAD - Ultrasound Report [id number]#[id number]: 127 Normal [facility] Progress Note-Nurseon 2022 Progress Note-Nurse CARLJOSRSHAW :1960 Visit Date:07/12/2022 Ambulatory Visit Instructions Your Care Team Attending Physician - Alex MUSE MD Primary Care Physician - CLAUDIO SOTO DO This Is Your Medications List Misc Prescription (TRAMADOL HYDROCHLORIDE) doxycycline (doxycycline hyclate 100 mg Cap) hyoscyamine/methena/mblu e/phenylsal/sodbiphos (Uribel oral capsule) Procedures Performed Cystoscopy (07/12/2014), Removal of stent (07/23/2008), Cystoscopy (04/25/2008), Tonsillectomy, Vasectomy. What to do next Scheduled Follow-Up Appointments Tuesday 8:30 AM EDT With: MIGUELINA SNIDER, Alex Julien Where: [facility] US KIDNEYSon 07-12-2022 US KIDNEYS EXAM: US KIDNEYS HISTORY: Urinary tract infectious disease COMPARISON: None. TECHNIQUE: Real-time ultrasound imaging of the kidneys. Findings: The right and left kidneys measure 10.0 and 10.4 cm. Good corticomedullary differentiation bilaterally. No renal stones. Within the lower pole of the right kidney there is a 1.4 x 1.0 x 1.1 cm anechoic lesion with posterior acoustic enhancement most consistent with a cyst. Mild left-sided pelviectasis. No perinephric fluid collection. The bladder is decompressed and contains a Palm catheter. IMPRESSION: 1. Right renal cysts. 2. Mild left pelviectasis. Findings may relate to normal variant, obstruction or reflux. Electronically authenticated by: SHAW BLEVINS Date: 2022-07-12 10:09 Normal [facility] Historical Records Officeon 06-15-2022 Historical Records Office [id number]#[id number]: 127 [facility] Operative Reporton Operative Report [id number]#1.00CD: 127 [facility] Pre-Certification Formon Pre-Certification Form [id number]#[id number]:1 27 [facility] ED Note-Physicianon 05-22-19 ED Note-Physician [id number]#[id number]:1 27 [facility] Lab Reportson 05-21-2022 Lab Reports [id number]#1.00CD: 127 [facility] Coding Summary.on 05-20-2022 Coding Summary. CD:[id number] Ww+P GhlYWQ+XE5OELLuD06ghIEwv Q2oM6GFEEmWTsukMDEXKThVA nAczpSzXX4fzLAoGEJv IC8+MQ1iKPHnFfdgwEAxv3E4 mDO7N28trt5nMCijmTL4DKZf YhIqgupqn8hifYc1JCuvSjql OyBt QOFivN48VJA4rG67If38rJFu cWNbk9zkpFo7FyXsOBWvHWY1 sHdcXEcut9FlRPWxR88rnUHl c2U6 NBWspSynwSGhSmEzmPU0tE6p QXkwsmfot0mmrxthXyi1rm78 iZXyp3B0sXE4W4NvflH1YCAn bGQg ChjdnBQCyS4eqqwts3altvgy DcCzMLGhBRc5JEc1DBLyaGmm TuOdAC77GZD8KUXwqjMbT6Yo LWFs gJhzWrM1x8Q5Iz0AM4PVTxvi B1BJQSCOWUnwhTR+WM43pn94 J2NwXefzKfb2HAEyRGO7nVG1 aD0n JWYaHUgfd8E8lKP2Y3UduaXw yl2nu0kkWZOwGHosI06mcLHs k7C8KYChbQR9GNBhvWegYbLh aG93 Oyc+ODWstKuyd6AcKbfyc9sr h8odfMq7ZswlPWVnrlYnuDhy HWO6y4ZmYv3oGIAehKS2mZU4 aD0i OyNaEvE3LXqaN104VxHhcVNi LbrkI98zR4XyfVL+PHRyPjx0 MNRmzOluYL9zA5XsFEFxpjbu bGVm vRunEN7xSEHemlxaJEPfkJ6s PTMdT9k4JzVoLbI1IMjlA8Qa UUBlppesOn29mA9vYrIzViT1 MGlu R4HqeeW6PEXocXNiDSgdBQT0 A82wy2E4YOWsZUUqQEI6iWI5 wI0qhXpwejoikFVgrOpgquBg dGlj KQatLRsrL869WNOkgZvcZpBk ZGluZyBEYXRlOiAgMDMvMjMv MjAyMzwvdGQ+LBCaGUY9oPza PSAn vZBtNJxlWm9jwMzkeQbpKJ0r EAPncevlNXUjaS4qFBTbhEAc yWixCK1cYKQpawxtr373ZlCe MHB0 GHNdoZVhZ1SxuV9pUjKyWMXv JXUtI8ZrfLTkTWgdK345VJee OfO2PLBbajMpX4UzZQClyZmi OiB0 p0M0Lu1Ut1SljvzwN4VioZYz EmTgQxjqAYr0I3XkClddwPF+ JY69XZTkAI26WUl8KRW4cMzp PSdi NETuH8TnbP8jDfPeAGIiHCJc Oyc+PHRhYmxlIHdpZHRoPScx IVXyOkOkoKskCV3mLi7eTTLf LWNv jRzutZUeVsYee1twCSFtJAgz RA5ywKsjA9JklLG5FHIqo7j1 Uw39P57jL7UgvZC+PGNvbCB3 aWR0 aR2gXpGuGhT0UNbuA077AiEb yIIuCjars3acs8fdxEk2YvH5 IRQsfzDriSrdENJ0z3RbXc64 Y29s IHdpZHRoPSIxNSUiIHZhbGln wp5gfZ8aEu3+OUQvbJV9kMS7 iU9cXfNhYcT0UEtxV609KuGo cCIv Giapq2yay4vkgSz0ErNtFUCp exCqjWomXBX7y5JkVs49W0Zo jAaiy1EuPga5qc32nSBcd3R4 bGU9 M8HrBDYqnekouDYbiGhwGR2w CTLhgqczGDHkqV9vSTYvR9r1 CoTwXqX6LWqdS6QexrK4WSBn bGQg SIUzvSPHlA9erdqzu7ppcdvl GzNnTPQeZZg5AQi3RIGptMis OmKpHTY9OsW3FQI8kGHsnU1c bGln rdwpyM8pByd+LXN6jSKbqUMW JK6pHvazyLG+OTQrKNR9gXyz LQylOZFojM6kNAJgZ2x8TvLz LjA1 IFgeP6FyxyW0FBJvtLVhDERd wDKLrM7sthsrq3ccltctPjDe ZMMjVGr1NKe4GOOckGibYzWa ZWZ0 CfV9EIX5hVBjmY6srYklueia kO9bFlh+MaokgUbgBAL4IEn1 H3HeBgk1TQBxaXacLA3hkVWw ZGlu Zu0nyJyfdEyoNC3eMZQrguvj f731UsFis6dwSMFrdYYpQUkk DIG6S05tb9S8SJIeCYDmCUB4 dGV4 aS5qiCsqtockkLVmhBwoasBy uAikOTggRVcaY128JJOqtRqq WsEpVWe4G7VoSjk7UEPmxVna ZT0n nBZfCZfzCg8ffCcqrNvcNB9s DRAhxbeys825QrZbl1kgGEBd xULoKRxeLJM9U76yq1Z7SJMf MDAw NIQ0rDI8oO2heSonssqheKSw oKcbnvElsUjfQNuqAAchA759 JHYkeSysHjEquKa1J3KzRsl7 ZCBz eQslNJ6zjYRzBCbuUi0xeRfv qOnkKK1kMJKumvvkl476IuRb o4yuOUWzwIQoBVucWGT9D90q b3I6 QHMaKFNvDTB1oAN4jZ8gjLzv bjogbGVmdDsgdmVydGljYWwt GMeiC472PJEhgGseHiQmhEgc bnQg NGceUYe5N7IqDejtuRJ+PC90 XRMpKA75lHQhkLRfa9vkwTx0 KwCuDMXkDGE0tMmvUThtf0Sg ZXIt L25zmUZzg2X7PWStyQbkmEJc PqLogNC9wK8mWVtykvsiy2dw azglMoqpe0zvog21gX68D74w IHdp ONEzOBDwJAClBVYclQwkfn9q dX2lSm1+VJVqcGM1nBU4mJ6x UFHmAkV2VGtzZ097EuQdoOTd Pjxj e0ibd1thyWy8GzU0JSLeukNh nIkfEUK9i5EhVy98G11sNZwc GHUoTJSoJJFwEMYhkOgydy1x dG9w Ii8+TXPorBI0lOL7pT7zTqQx YwE6DGlbC999QxIcbEHwKxar V05iM3DowVA+PXFaGwu8JQVp dHls GS4wmXShGForIb4tBSE3BnGe GkXjDWteN7QlLFSqzkfszhjn qVD5MOJqJFEwdV71Dz5wiThl MTBw sYJIkU9lexwin4buqealByIl DNYeOMr4CWr6VTIalYhmZyOv UDW2PcP0NJU0pCFulL7oaMuq bjog qQ1zG8BoGFUoudztLj21sC7a KzIpEhW2HJfcKou+VElQUElF LDGVBG2JGvITQH15WJ20sNTo c3R5 sGD2J6IdBWJwrzpjjylmaNL0 KVSeGHCzdH85dUOeGXsgDu0d g6D8l324RXNmMUOyfT25Wg3l dDog PUXxrQZBzD9lruswc3lflyal XdKbCFRxNKl1VEr7DGVdlGvq BuAnYUE6GjL2ZVH4sNRkzD0w bGln omwsyY0mWzj+MDUvMDUvMTk2 MzwvdGQ+EAOkYYM3lDspBSqe YYShkA5kLYHfB7s5UzOnAyT7 MGlu T8DmTCOlvvvnWy98dX9dJwOi LgK3WYtpL4TdbmE0FOJmsMNr UOmcHDN6Q10uw8P4MLCjNZJp MDA7 nUA8mK6wsNcllukenGBtlSvv jhPrlJlrMAhmHUpaD430MNEt sVwjRgC4IMgoNMRfPG94US15 dGQg p3Y0gZT6L9UdVQQbvxdkihjy lTV2JCQpAGMfrM57sDWwXZjr Np4ht2T0i740HFTaSOJgzY16 Zm9u nOakYRKtqHQVoI5bhutgu2gs kvycWaWsPVWuVKr6BBr8NOXv dLdmSwIdEBT8LbQ3LTO1dPHr bC1h tOutwqydkA1jEsb+TWFsZTwv dGQ+UYHmCGL7iRbzANjzFCPg pQ9vUDViA4n3PnAcDlQ0MHsd O3Bh AURugvpdCk75kO5xFvPeKcP3 YDmwQ4OmyfW2TUWifLHiTRjw MDH1F82qt7V7XHBkGPBpPNG9 dGV4 aJ4htCrbnlowiAYkoRevcfHz tUpuCQfpNNiiQ123IBPnrGft ScftNuRHxw8mZL8pQwfmvYV+ PC90 km60A7RdKjkhXdn8FWQbPSI6 rHF5vU0uOAFkNDvey9J7iQM0 B3HjzpWlwo1dq6cvDRHnFObh Y29s jKHsm2J9YUNitMD1VCSzpHou VdTsoX13Wvi+OGMkvUmfz2Qx Bipki8sja2hmlAh7ZfUwNTJj dmFs qOuzRBA7k0XnWn86R61cUVba LFRiCXIlJERfCAKpwGhxod0q vB7kNb4+IRUxmOM1tXB9qQ3h MjAl YkU1DIapS669QyJxaLHqNkjn o0vjs4ltrLs1PyLjQLTtghBp jEgwUXE0e4SjIv53P0UbkVph b3Vw Iyl1nk70kDJqt9P0pXM9P6Nr PRRccmrzxPOcwOsiIT9bKXKt zhorAABbtS5cOYFeI9q9GdKo LjA1 MDopB0BmfwZ6OQAmkFVqYFMt bNPHfJ5zryhlm8evyvjpZdBy FDJtRUx8JQz1GYYkrTipOuYg ZWZ0 XxO3RPX0rASxoF9qoTdcmvit uU5zYlz+BDq6p2begUYdCQ1j jTC6RQ28AY74tWOqa6Z7tBK6 J3Bh RXYbpbqbrwomsTP5HMFiRQYb lM26Eo5tsNhdNg2hITQxOKM4 QCHvvZWrH1ItyL6mPlBqAPXj MDAw S9GmsJAvGMzjD761NQuaYwO1 OFQjzeOuG7YwPENgvIkzUmV9 n0V0Vv5TRV89JK13HE43rHNm c3R5 tIX9E5RsUFBfsaypykibtDZ3 RQVwIRUddZ92Yz5iqEqsSi4h NMOfQQS6SCPunWHaX3JwfX6w OiAj QQYaNAPrI1JidGHoFTamT453 QKjvGkN5MZTmkhRyB2VeVYOg aWdmXxB6a1Z0Fl9XBi52XQ50 ZD48 lUOsz4H0pMV9J6NnDAHlowib gttdbLF2GOPlUYGvmM32Oz0d sTlxIf1oUQYqYDR7QTWqaCUm O2Nv kS9rXfTwVXYxRBRyZ2AitYMz QEumH046WWxrIuM9LPCguuYw F6FtBFLewLwyKuS3p7S6Oz8U YXll tjd9O1BxKjbnyKN+MV54TPCr MW66nDXwcATpg3vlkHg1LwVt YPYmUXT3uFczAEros0TlMTSx Y29s cUJwg1V9 (more content not included)... [facility] May 18, 2022 SHAW GALVAN [address] [place] [address] SHAW GALVAN 1960 Dear Shaw Galvan , We have been trying to reach you with no success. It is important that you return our call upon receiving this letter. Also, at the time of your call, please provide us with your current information. Thank you for your prompt attention to this matter. Sincerely, [facility] [address] [place] [address] [place], [address] [facility] C Urineon 05-13-2022 Bacteria identified Cx Nom (U) Microbiology PROCEDURE: Urine Culture [R1] SOURCE: U Random BODY SITE: COLLECTED DATE/TIME: 05/11/2022 09:12 EDT RECEIVED DATE/TIME: 05/11/2022 18:10 EDT START DATE/TIME: 05/11/2022 18:10 EDT FREE TEXT SOURCE: HILDA ANTOINE PA-C, PA-C, JENNIFER E FINAL REPORTS Final Report [] Verified Date/Time: 05/13/2022 08:56 EDT >100,000 cfu/ml Klebsiella oxytoca SUSCEPTIBILITY RESULTS ___ LEGEND: S=Susceptible, N/R=Not Reported, Blank=Data not available, or drug not advisable or tested, I=Intermediate, ESBL=Extended spectrum beta-lactamase, R=Resistant, TFG=Thymidine-dependent strain, DESTINEY=Beta-lactamase positive, JIGNA=mcg/m;(mg/L), S*=Predicted susceptible interp, R*=Predicted resistant interp Kleoxy Antibiotic JIGNA Dilutn JIGNA Interp Amikacin <=16 S Ampicillin >16 R Ampicillin/ <=8/4 S Sulbactam Aztreonam <=4 S Cefazolin 8 S Cefepime <=2 S Cefoxitin <=8 S Ceftazidime <=1 S Ceftazidime/ <=8 S Avibactam Ceftriaxone <=1 S Ciprofloxacin <=1 S Ertapenem <=0.5 S Gentamicin <=4 S Levofloxacin <=2 S Meropenem <=1 S Nitrofurantoin >64 R Piperacillin/ <=16 S Tazobactam Tetracycline <=4 S Tigecycline <=2 S Tobramycin <=4 S Trimethoprim/ <=2/38 S Sulfa Performing Locations R1: This test was performed at: [facility], [address] [place] [address], [facility]- , , [facility] Comment on above: Performed By: #### [id number] ####[facility] [address] [place] [address] Ambulatory Visit Summaryon 0 05-11-2022 Ambulatory Visit Summary SHAW GALVAN :1960 Visit Date:05/11/2022 Ambulatory Visit Instructions Your Diagnosis Neurogenic bladder, flaccid Recurrent UTI Benign prostatic hyperplasia (BPH) with post-void dribbling Painful ejaculation Renal cyst Peyronie's disease Hydronephrosis Tests Performed Urnls Dip Stick Auto w/o Microscopy POC 69270 Your Care Team Attending Physician - ELINA PARIKH, HILDA Giron Primary Care Physician - CLAUDIO SOTO DO This Is Your Medications List Contact prescribing physician if questions or concerns Misc Prescription (TRAMADOL HYDROCHLORIDE) [Image Removed: STOP]Stop taking these medications tamsulosin (tamsulosin 0.4 mg Cap) Procedures Performed Cystoscopy (07/12/2014), Removal of stent (07/23/2008), Cystoscopy (04/25/2008), Tonsillectomy, Vasectomy. Discharge Vitals Heart Rate (Peripheral) 70 Blood Pressure 140/90 Height 184 cm Height 72 in Weight 76 kg Weight 167.2 lb BMI 22.45 What to do next Scheduled Follow-Up Appointments Tuesday 8:30 AM EDT With: MIGUELINA SNIDER, Alex Julien Where: [facility] Patient Educationon 05-12-19 Patient Education Obstetrics and Gynecology Urinary Tract Infection, Adult A urinary tract infection (UTI) is an infection of any part of the urinary tract. The urinary tract includes the kidneys, ureters, bladder, and urethra. These organs make, store, and get rid of urine in the body. Your health care provider may use other names to describe the infection. An upper UTI affects the ureters and kidneys (pyelonephritis). A lower UTI affects the bladder (cystitis) and urethra (urethritis). What are the causes? Most urinary tract infections are caused by bacteria in your genital area, around the entrance to your urinary tract (urethra). These bacteria grow and cause inflammation of your urinary tract. What increases the risk? You are more likely to develop this condition if: ? You have a urinary catheter that stays in place (indwelling). ? You are not able to control when you urinate or have a bowel movement (you have incontinence). ? You are female and you: ? Use a spermicide or diaphragm for control. ? Have low estrogen levels. ? Are . ? You have certain genes that increase your risk (genetics). ? You are sexually active. ? You take antibiotic medicines. ? You have a condition that causes your flow of urine to slow down, such as: ? An enlarged prostate, if you are male. ? Blockage in your urethra (stricture). ? A kidney stone. ? A nerve condition that affects your bladder control (neurogenic bladder). ? Not getting enough to drink, or not urinating often. ? You have certain medical conditions, such as: ? Diabetes. ? A weak disease-fighting system (immunesystem). ? Sickle cell disease. ? Gout. ? Spinal cord injury. What are the signs or symptoms? Symptoms of this condition include: ? Needing to urinate right away (urgently). ? Frequent urination or passing small amounts of urine frequently. ? Pain or burning with urination. ? Blood in the urine. ? Urine that smells bad or unusual. ? Trouble urinating. ? Cloudy urine. ? Vaginal discharge, if you are female. ? Pain in the abdomen or the lower back. You may also have: ? Vomiting or a decreased appetite. ? Confusion. ? Irritability or tiredness. ? A fever. ? Diarrhea. The first symptom in older adults may be confusion. In some cases, they may not have any symptoms until the infection has worsened. How is this diagnosed? This condition is diagnosed based on your medical history and a physical exam. You may also have other tests, including: ? Urine tests. ? Blood tests. ? Tests for sexually transmitted infections (STIs). If you have had more than one UTI, a cystoscopy or imaging studies may be done to determine the cause of the infections. How is this treated? Treatment for this condition includes: ? Antibiotic medicine. ? Zwuf-oee-pqxfaxn medicines to treat discomfort. ? Drinking enough water to stay hydrated. If you have frequent infections or have other conditions such as a kidney stone, you may need to see a health care provider who specializes in the urinary tract (urologist). In rare cases, urinary tract infections can cause sepsis. Sepsis is a life-threatening condition that occurs when the body responds to an infection. Sepsis is treated in the hospital with IV antibiotics, fluids, and other medicines. Follow these instructions at home: Medicines ? Take qgir-rug-owkvwwb and prescription medicines only as told by your health care provider. ? If you were prescribed an antibiotic medicine, take it as told by your health care provider. Do not stop using the antibiotic even if you start to feel better. General instructions ? Make sure you: ? Empty your bladder often and completely. Do not hold urine for long periods of time. ? Empty your bladder after sex. ? Wipe from front to back after a bowel movement if you are female. Use each tissue one time when you wipe. ? Drink enough fluid to keep your urine pale yellow. ? Keep all follow-up visits as told by your health care provider. This is important. Contact a health care provider if: ? Your symptoms do not get better after 1?2 days. ? Your symptoms go away and then return. Get help right away if you have: ? Severe pain in your back or your lower abdomen. ? A fever. ? Nausea or vomiting. Summary ? A urinary tract infection (UTI) is an infection of any part of the urinary tract, which includes the kidneys, ureters, bladder, and urethra. ? Most urinary tract infections are caused by bacteria in your genital area, around the entrance to your urinary tract (urethra). ? Treatment for this condition often includes antibiotic medicines. ? If you were prescribed an antibiotic medicine, take it as told by your health care provider. Do not stop using the antibiotic even if you start to feel better. ? Keep all follow-up visits as told by your health care provider. This is important. This in (more content not included)... Normal [facility] Urology Office/Clinic Noteon 05-11-2022 Urology Office/Clinic Note Chief Complaint Patient here for frequent UTI's HPI Staff PRW pt here today due to recurrent infections. Pt is CIC Pt went to [facility] ER 04/01/22 due to BL flank pain, muscle aches, dysuria, vomitting and diarrhea, 03/31/22 but left without being seen, & on 10/06/21 due to fever & generalized malaise. At the 04/01/22 visit, pt unable to provide urine for C&S, did culture the blood. (NEG) Pt was given IV Rocephin & Given Keflex script. CT done at time of visit on 10/06/21 Was given IV Rocephin at time of visit on 10/06/21. Advised to have indwelling cath, pt refused. Per ER note pt had reported he was CIC BID. NEG C&S at that time. Last seen in our office 08/19/2021 due to NGB, BPH & Hx of UTI. Last PSA done 08/19/21- 1.01 Pt is scheduled for annual f/u w/PSA 08/20/22 Dysuria: yes Incomplete bladder emptying: empty only if CIC Hematuria: no Urgency: no Abdominal pain: yes Flank pain: yes History of Present Illness staff HPI reviewed and agree. Review of Systems PHQ Score Initial Depression Screen Score: 0 no fever, chills, malaise, myalgia. no rash/lesions. no chest pain, palpitations, or SOB. no abdominal pain, nausea, vomiting. no unilateral calf swelling, redness, pain Physical Exam Vitals & Measurements HR: 70(Peripheral) BP: 140/90 HT: 72 in HT: 184 cm WT: 76 kg WT: 167.2 lb BMI: 22.45 General: nontoxic, NAD Mouth: moist mucosa Lungs: normal respiratory effort Cardio: regular rate, good distal perfusion Abdomen: nondistended, no suprapubic distention or tenderness, no CVA tenderness Neurologic: Grossly normal Skin: No rashes or suspicious lesions Assessment/Plan Recommend Cysto, agrees w/ plan. Will schedule with Dr. Muse. The risks and benefits for cystoscopy have been discussed. The risks include bleeding, infection, and irritation of the bladder and urinary channel, among others. The patient, after being informed of procedural details and after questions have been answered, wishes to proceed. Full informed consent has been obtained. Will order Local anesthesia. Will hold off on pre-op abx at this time as we are sending cx today to treat suspected current UTI. 1. 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 No issues with advancing catheter. Shares he does not measure output. Pt to be sent home with a graduated cylinder and to record times & volumes for at least a few days. Bring diary to next appointment. I suspect he may have to CIC more often. See #2. 2. Recurrent UTI (N39.0: Urinary tract infection, site not specified) At the 04/01/22 ER visit, pt unable to provide urine for C&S, blood culture obtained which was neg. Pt was given IV Rocephin and given Keflex script. Shares he has been getting infections at least monthly. C/o dysuria, cloudy urine, foul smelling urine, low back pain, abdominal pain. UA today shows trace blood, positive nitrates, and ANTONIO. Will send culture today, to be called with results and started on abx once sensitivity available. See #1, may need to CIC more often. Ordered: Urine Culture Urnls Dip Stick Auto w/o Microscopy POC 91204 3. Benign prostatic hyperplasia (BPH) with post-void dribbling (N40.1: Benign prostatic hyperplasia with lower urinary tract symptoms) S/p TUIP 04/25/2008. Not taking any prostate medications. Latest PSA 1.01 drawn 08/19/21. Appointment scheduled 08/20/22 w/ Dr. Muse for annual PSA check. 4. Painful ejaculation (N53.12: Painful ejaculation) Mentions he has pain with ejaculation, feels like I'm passing a kidney stone when I have an orgasm . Says the pain is at the tip of the penis, not perineal/rectal/prostate area. Denies pain with sitting for extended time, denies painful BMs, denies perineal pain at rest. No blood in ejaculate. No hx prostatitis. 5. Renal cyst (N28.1: Cyst of kidney, acquired) CT AP wo contrast 10/06/21 shows right renal cortical hypodensity is a cyst is favored. Neg for stones. No indication for tx. 6. 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 No pain w/ sexual intercourse. Able to penetrate despite curve. Does not seem to be worsening. 7. Hydronephrosis (N13.30: Unspecified hydronephrosis) CT AP wo contrast 10/06/21 - mild left hydroureteronephrosis extending to the urinary bladder, possibly related to adjacent bladder diverticulum, largest along the left adjacent to the ureter measuring 2.6 cm axial 3. Follow-up With When Contact Information MIGUELINA SNIDER, Alex Julien, URL [address] [place] [address]- Additional Instructions: Schedule Cysto w/ Dr. Muse Patient Education Urinary Tract Infection, Adult Documentation recorded by the scribe Gianna Maldonado accurately reflects the services(s) I performed and decisions made by me. Authenticated by Hilda Antoine PA-C on 05/11/2022 09:33:25. I, Gianna Maldonado, personally scribed (more content not included)... Normal [facility] Comment on above: Result Comment: Elec tronically Signed By: HILDA ANTOINE PA-C\.br\Date and Time Signed: 05/11/22 09:34 EDT\.br\Electronically Co-Signed By: Gianna Maldonado\.br\Date and Time Co-Signed: 05/11/22 09:00 EDT\.br\Electronically Co-Signed By: Gianna Maldonado\.br\Date and Time Co-Signed: 05/11/22 09:11 EDT [facility] Provider Letter [facility] May 05, 2022 SHAW GALVAN [address] [place] [address] SHAW GALVAN 1960 Dear Shaw Galvan, We have been trying to reach you with no success. It is important that you return our call upon receiving this letter. Also, at the time of your call, please provide us with your current information. Thank you for your prompt attention to this matter. Sincerely, [facility] [address] [facility] [place],[address] Normal [facility] CBC W MANUAL DIFFon 04-01-19 23 ATYPICAL LYMPH # Normal [facility] Comment on above: Performed By: #### C BCMAN #### [facility] [address] [place] [address] Dr. Destin López ATYPICAL LYMPH % Normal [facility] Comment on above: Performed By: #### C BCMAN #### [facility] [address] [address] [address] Destin López BAND # Normal 0.0-0.3 [facility] Comment on above: Performed By: #### C BCMAN #### [facility] [address] [address] [address] Destin López BAND % Normal 0-5 [facility] Comment on above: Performed By: #### C BCMAN #### [facility] [address] [address] [address] Destin López BASOM # 0.00 103/ul Normal 0.00-0.10 [facility] Comment on above: Performed By: #### C BCMAN #### [facility] [address] [address] [address] Destin López BASOM % 0.0 % Critically low 0.2-2.0 [facility] Comment on above: Performed By: #### C BCMAN #### [facility] [address] [address] [address] Destin López BLAST # Normal [facility] Comment on above: Performed By: #### C BCMAN #### [facility] [address] [place] [address] Dr. Destin López BLAST % Normal [facility] Comment on above: Performed By: #### C BCNORMA #### [facility] [address] [place] [address] Dr. Destin López CORRECTED WBC Normal 4.0-11.0 [facility] Comment on above: Performed By: #### C PRIMITIVO #### [facility] [address] [place] [address] Dr. Destin López EOS # 0.16 103/ul Normal 0.00-0.70 [facility] Comment on above: Performed By: #### C BCNORMA #### [facility] [address] [place] [address] Dr. Destin López EOS% 1.0 % Normal 0.9-7.0 [facility] Comment on above: Performed By: #### C PRIMITIVO #### [facility] [address] [place] [address] Dr. Destin López HCT 48.7 % Normal 42.0-54.0 [facility] - [place] Comment on above: Performed By: #### C BCNORMA #### [facility] [address] [place] [address] Dr. Destin López HGB 16.0 g/dl Normal 14.0-18.0 [facility] [place] Comment on above: Performed By: #### C BCMAN #### [facility] [address] [place] [address] Dr. Destin López LYMPHM # 0.65 103/ul Critically low 1.20-3.80 [facility] Comment on above: Performed By: #### C PRIMITIVO #### [facility] [address] [address] [address] Destin López LYMPHM% 4.0 % Critically low 20.5-60.0 [facility] Comment on above: Performed By: #### C PRIMITIVO #### [facility] [address] [place] [address] Dr. Destin López MCH 31.3 pg Normal 25.9-34.0 [facility] [place] Comment on above: Performed By: #### C PRIMITIVO #### [facility] [address] [address] [address] Destin López MCHC 32.9 g/dl Normal 29.9-35.2 [facility] [place] Comment on above: Performed By: #### C PRIMITIVO #### [facility] [address] [place] [address] Dr. Destin López MCV 95.3 fL Critically high 80.0-94.0 [facility] Comment on above: Performed By: #### C PRIMITIVO #### [facility] [address] [place] [address] Dr. Destin López METAMYELOCYTE # Normal [facility] Comment on above: Performed By: #### C PRIMITIVO #### [facility] [address] [place] [address] Dr. Destin López METAMYELOCYTE % Normal [facility] Comment on above: Performed By: #### C PRIMITIVO #### [facility] [address] [place] [address] Dr. Destin López MONOM# 0.81 103/ul Critically high 0.30-0.80 [facility] Comment on above: Performed By: #### C PRIMITIVO #### [facility] [address] [place] [address] Dr. Destin López MONOM% 5.0 % Normal 1.7-12.0 [facility] [place] Comment on above: Performed By: #### C PRIMITIVO #### [facility] [address] [place] [address] Dr. Destin López MPV 9.1 fL Critically low 9.5-13.5 [facility] Comment on above: Performed By: #### C PRIMITIVO #### [facility] [address] [address] [address] Destin Lpóez MYELOCYTE # Normal [facility] [place] Comment on above: Performed By: #### C PRIMITIVO #### [facility] [address] [address] [address] Destin López MYELOCYTE % Normal [facility] [place] Comment on above: Performed By: #### C PRIMITIVO #### [facility] [address] [address] [address] Destin López NRBC Normal [facility] [place] Comment on above: Performed By: #### C PRIMITIVO #### [facility] [address] [place] [address] Dr. Destin López PLT 291 103/ul Normal 150-450 [facility] [place] Comment on above: Performed By: #### C PRIMITIVO #### [facility] [address] [address] [address] Destin López RBC 5.11 106/ul Normal 4.70-6.10 [facility] [place] Comment on above: Performed By: #### C PRIMITIVO #### [facility] [address] [place] [address] Dr. Destin López RDW 13.3 % Normal 11.0-15.0 [facility] [place] Comment on above: Performed By: #### C PRIMITIVO #### [facility] [address] [place] [address] Dr. Destin López SEG # 14.58 103/ul Critically high 1.40-6.50 [facility] Comment on above: Performed By: #### C PRIMITIVO #### [facility] [address] [address] [address] Destin López SEG % 90.0 % Critically high 43.0-75.0 [facility] Comment on above: Performed By: #### C PRIMITIVO #### [facility] [address] [address] [address] Destin López WBC 16.2 103/ul Critically high 4.0-11.0 [facility] Comment on above: Performed By: #### C BCMAN #### [facility] [address] [place] [address] Dr. Destin López CULTURE BLOODon 04-01-2022 Microscopic examination of blood, culture Culture Observations: NO GROWTH AT 5 DAYS. Normal [facility] [place] Comment on above: Performed By: #### B [id number] #### [facility] [address] [place] [address] Dr. Destin López Microscopic examination of blood, culture Culture Observations: NO GROWTH AT 5 DAYS. Normal [facility] [place] Comment on above: Performed By: #### C MP #### [facility] [address] [place] [address] Dr. Destin López Covid-19 PCR (CVDTB)on SARS-CoV-2 (COVID-19) RNA ILSA+probe Ql (Unsp spec) Not detected Normal NOT DETECTED [facility] Comment on above: Result Comment: When diagnostic testing is negative, the possibility of a false negative should be considered in the context of a patient's recent exposures and the presence of clinical signs and symptoms consistent with SARS-CoV-2. This test is not yet approved or cleared by the [place] FDA. When there are no FDA-approved or cleared tests available, and other criteria are met, FDA can make tests available under an emergency access mechanism called an Emergency Use Authorization (EUA). The EUA for this test is supported by the [place] of Health and Human Service's declaration that circumstances exist to justify the emergency use of in vitro diagnostics for the detection and/or diagnosis of the virus that causes COVID-19. This EUA will remain in effect for the duration of the COVID-19 declaration justifying emergency of IVDs, unless it is terminated or revoked by the FDA (after which the test may no longer be used). Performed By: #### C VDTBH #### [facility] [address] [place] [address] Dr. Destin López INFLUENZA A AND B AGon 04-01 INFLUANEGH SEE BELOW Normal [facility] [place] Comment on above: Result Comment: Nega tive for Flu A protein angiten. Infection due to Flu A cannot be ruled out. Flu A angiten in the sample may be below the detection limit of the test. Performed By: #### C MP #### [facility] [address] [place] [address] Dr. Destin López [facility] SEE BELOW Normal [facility] [place] Comment on above: Result Comment: Nega tive for Flu B protein antigen. Infection due to Flu B cannot be ruled out. Flu B antigen in the sample may be below the detection limit of the test. Performed By: #### C MP #### [facility] [address] [place] [address] Dr. Destin López INFLUENZA A AG Negative Normal NEGATIVE SEE COMMENT [facility] [place] Comment on above: Performed By: #### C MP #### [facility] [address] [place] [address] Dr. Destin López INFLUENZA B AG Negative Normal NEGATIVE SEE COMMENT [facility] [place] Comment on above: Performed By: #### C MP #### [facility] [address] [place] [address] Dr. Destin López LACTATE/LACTIC ACIDon 2022 Lactate [Moles/Vol] 0.9 mmol/L Normal 0.4-1.9 [facility] Comment on above: Performed By: #### C MP #### [facility] [address] [place] [address] Dr. Destin López PROF 14(COMP METB)on 023 Albumin [Mass/Vol] 3.5 g/dL Normal 3.4-5.0 [facility] Comment on above: Performed By: #### C MP #### [facility] [address] [place] [address] Dr. Destin López Albumin/Globulin [Mass ratio] 1.1 {ratio} Normal [facility] [place] Comment on above: Performed By: #### C MP #### [facility] [address] [place] [address] Dr. Destin López ALP [Catalytic activity/Vol] 80 U/L Normal 46-116 [facility] [place] Comment on above: Performed By: #### C MP #### [facility] [address] [address] [address] Destin López ALT [Catalytic activity/Vol] 33 U/L Normal 16-63 [facility] Comment on above: Performed By: #### C MP #### [facility] [address] [place] [address] Dr. Destin López Anion gap [Moles/Vol] 11.6 mmol/L Normal [facility] [place] Comment on above: Performed By: #### C MP #### [facility] [address] [address] [address] Destin López AST [Catalytic activity/Vol] 19 U/L Normal 15-37 [facility] Comment on above: Performed By: #### C MP #### [facility] [address] [address] [address] Destin López Bilirubin [Mass/Vol] 1.4 mg/dL Critically high 0.2-1.0 [facility] [place] Comment on above: Performed By: #### C MP #### [facility] [address] [place] [address] Dr. Destin López Calcium [Mass/Vol] 9.0 mg/dL Normal 8.5-10.1 [facility] Comment on above: Performed By: #### C MP #### [facility] [address] [place] [address] Dr. Destin López Chloride [Moles/Vol] 101 mmol/L Normal 98-107 [facility] Comment on above: Performed By: #### C MP #### [facility] [address] [address] [address] Destin López CO2 [Moles/Vol] 26.9 mmol/L Normal 21.0-32.0 [facility] Comment on above: Performed By: #### C MP #### [facility] [address] [place] [address] Dr. Destin López Creatinine [Mass/Vol] 0.92 mg/dL Normal 0.70-1.30 [facility] Comment on above: Performed By: #### C MP #### [facility] [address] [place] [address] Dr. Destin López EGFR-AF NORWEGIAN >60 Normal >=60 [facility] Comment on above: Performed By: #### C MP #### [facility] [address] [address] [address] Destin López EGFR-NON AF NORWEGIAN >60 Normal >=60 [facility] [place] Comment on above: Performed By: #### C MP #### [facility] [address] [address] [address] Destin López Globulin (S) [Mass/Vol] 3.1 g/dL Normal [facility] [place] Comment on above: Performed By: #### C MP #### [facility] [address] [address] [address] Destin López Glucose [Mass/Vol] 120 mg/dL Critically high 74-106 [facility] Comment on above: Performed By: #### C MP #### [facility] [address] [address] [address] Destin López Potassium [Moles/Vol] 3.5 mmol/L Normal 3.5-5.1 [facility] [place] Comment on above: Performed By: #### C MP #### [facility] [address] [address] [address] Destin López Protein [Mass/Vol] 6.6 g/dL Normal 6.4-8.2 [facility] Comment on above: Performed By: #### C MP #### [facility] [address] [address] [address] Destin López Sodium [Moles/Vol] 136 mmol/L Normal 136-145 [facility] Comment on above: Performed By: #### C MP #### [facility] [address] [address] [address] Destin López Urea nitrogen [Mass/Vol] 7.0 mg/dL Normal 7.0-18.0 [facility] [place] Comment on above: Performed By: #### C MP #### [facility] [address] [address] [address] Destin López Urea nitrogen/Creatinine [Mass ratio] 7.6 mg/mg Normal [facility] [place] Comment on above: Performed By: #### C MP #### [facility] [address] [place] [address] Dr. Destin López XR Ribs w/ PA Chest Right*on 01-14-2022 XR Ribs w/ PA Chest Right* HISTORY: Right lateral rib pain. COMPARISON: None RESULT: No consolidation. No pleural effusion. No pneumothorax. Normal cardiomediastinal silhouette. No distinct acute osseous findings. No acute displaced rib fracture. No other significant abnormality. IMPRESSION: No acute radiographic abnormality. Report reported and signed by Berry Glover on 01/14/2022 1225 Normal [facility] [employer] CBC W MANUAL DIFFon 10-07-19 22 ATYPICAL LYMPH # Normal [facility] Comment on above: Performed By: #### C MP #### [facility] [address] [place] [address] Dr. Destin López ATYPICAL LYMPH % Normal [facility] Comment on above: Performed By: #### C MP #### [facility] [address] [place] [address] Dr. Destin López BAND # 0.4 103/ul Critically high 0.0-0.3 [facility] Comment on above: Performed By: #### C MP #### [facility] [address] [place] [address] Dr. Destin López BAND % 2 % Normal 0-5 [facility] [place] Comment on above: Performed By: #### C MP #### [facility] [address] [place] [address] Dr. Destin López BASOM # 0.00 103/ul Normal 0.00-0.10 [facility] [place] Comment on above: Performed By: #### C MP #### [facility] [address] [place] [address] Dr. Destin López BASOM % 0.0 % Critically low 0.2-2.0 [facility] Comment on above: Performed By: #### C MP #### [facility] [address] [place] [address] Dr. Destin López BLAST # Normal [facility] [place] Comment on above: Performed By: #### C MP #### [facility] [address] [address] [address] Destin López BLAST % Normal [facility] [place] Comment on above: Performed By: #### C MP #### [facility] [address] [address] [address] Destin López CORRECTED WBC Normal 4.0-11.0 [facility] Comment on above: Performed By: #### C MP #### [facility] [address] [place] [address] Dr. Destin López EOS # 0.00 103/ul Normal 0.00-0.70 [facility] [place] Comment on above: Performed By: #### C MP #### [facility] [address] [place] [address] Dr. Destin López EOS% 0.0 % Critically low 0.9-7.0 [facility] Comment on above: Performed By: #### C MP #### [facility] [address] [place] [address] Dr. Destin López HCT 44.6 % Normal 42.0-54.0 [facility] [place] Comment on above: Performed By: #### C MP #### [facility] [address] [place] [address] Dr. Destin López HGB 15.3 g/dl Normal 14.0-18.0 [facility] [place] Comment on above: Performed By: #### C MP #### [facility] [address] [place] [address] Dr. Destin López LYMPHM # 0.78 103/ul Critically low 1.20-3.80 [facility] Comment on above: Performed By: #### C MP #### [facility] [address] [place] [address] Dr. Destin López LYMPHM% 4.0 % Critically low 20.5-60.0 [facility] Comment on above: Performed By: #### C MP #### [facility] [address] [place] [address] Dr. Destin López MCH 31.7 pg Normal 25.9-34.0 [facility] [place] Comment on above: Performed By: #### C MP #### [facility] [address] [address] [address] Destin López MCHC 34.3 g/dl Normal 29.9-35.2 [facility] [place] Comment on above: Performed By: #### C MP #### [facility] [address] [address] [address] Destin López MCV 92.5 fL Normal 80.0-94.0 [facility] [place] Comment on above: Performed By: #### C MP #### [facility] [address] [address] [address] Destin López METAMYELOCYTE # Normal [facility] Comment on above: Performed By: #### C MP #### [facility] [address] [place] [address] Dr. Destin López METAMYELOCYTE % Normal [facility] Comment on above: Performed By: #### C MP #### [facility] [address] [place] [address] Dr. Destin López MONOM# 1.36 103/ul Critically high 0.30-0.80 [facility] Comment on above: Performed By: #### C MP #### [facility] [address] [place] [address] Dr. Destin López MONOM% 7.0 % Normal 1.7-12.0 [facility] [place] Comment on above: Performed By: #### C MP #### [facility] [address] [place] [address] Dr. Destin López MPV 8.6 fL Critically low 9.5-13.5 [facility] Comment on above: Performed By: #### C MP #### [facility] [address] [place] [address] Dr. Destin López MYELOCYTE # Normal [facility] Comment on above: Performed By: #### C MP #### [facility] [address] [place] [address] Dr. Destin López MYELOCYTE % Normal [facility] Comment on above: Performed By: #### C MP #### [facility] [address] [address] [address] Destin López NRBC Normal [facility] [place] Comment on above: Performed By: #### C MP #### [facility] [address] [address] [address] Destin López PLT 296 103/ul Normal 150-450 [facility] Comment on above: Performed By: #### C MP #### [facility] [address] [address] [address] Destin López RBC 4.82 106/ul Normal 4.70-6.10 [facility] [place] Comment on above: Performed By: #### C MP #### [facility] [address] [address] [address] Destin López RDW 13.2 % Normal 11.0-15.0 [facility] [place] Comment on above: Performed By: #### C MP #### [facility] [address] [address] [address] Destin López SEG # 16.96 103/ul Critically high 1.40-6.50 [facility] Comment on above: Performed By: #### C MP #### [facility] [address] [address] [address] Destin López SEG % 87.0 % Critically high 43.0-75.0 [facility] Comment on above: Performed By: #### C MP #### [facility] [address] [address] [address] Destin López WBC 19.5 103/ul Critically high 4.0-11.0 [facility] Comment on above: Performed By: #### C MP #### [facility] [address] [place] [address] Dr[address] Destin Ló[address] ABD/PELVIS WO CONon 10-06 CT ABD/PELVIS WO CON EXAMINATION: CT ABD/PELVIS WO CON, 10/06/2021 9:27 AM EDT HISTORY: CALCULUS OF KIDNEY COMPARISON: None. TECHNIQUE: CT scan of the abdomen and pelvis was performed without IV contrast. CT dose reduction technique was used, including Automated Exposure Control. FINDINGS: LUNG BASES: No visible pulmonary or pleural disease. LIVER: No enlargement, atrophy, abnormal density, or significant focal lesion. BILIARY: No dilatation or calcification. PANCREAS: No lesion, fluid collection, ductal dilatation, or atrophy. SPLEEN: Punctate calcifications, prior granulomatous process ADRENALS: 2.7 cm hypodense left adrenal nodule axial image 31, an adenoma is suspected KIDNEYS: Right renal cortical hypodensity is a cyst is favored. No obstructive nephrolithiasis. Mild left hydroureteronephrosis extending to the urinary bladder. BOWEL/MESENTERY: Mild colonic diverticulosis. Nonobstructive bowel gas pattern. Normal appendix. AORTA/VASCULAR: No aortic aneurysm. Atherosclerosis. RETROPERITONEUM: No mass or adenopathy. LYMPH NODES: No adenopathy. URINARY BLADDER: Irregularly mildly thickened urinary bladder wall measuring up to 4.5 mm. Multiple bladder diverticula the largest along the left adjacent to the ureter measuring 2.6 cm axial 3 PELVIC ORGANS: Enlarged heterogeneous prostate gland calcifications. The prostate measures 5.5 cm ABDOMINAL WALL: No mass or hernia. BONES: Mild to moderate diffuse degenerative changes. Severe disc space narrowing L4-5 OTHER: Negative. IMPRESSION: Moderately distended urinary bladder with mild wall thickening. Consider bladder outlet obstruction from prostate enlargement Mild left hydroureteronephrosis possibly related to adjacent bladder diverticulum No obstructing stones observed Electronically authenticated by: PADMINI GROVES Date: 2021-10-06 10:58 Normal [facility] CULTURE BLOODon 10-06-2021 Microscopic examination of blood, culture Culture Observations: NO GROWTH AT 5 DAYS. Normal [facility] [place] Comment on above: Performed By: #### C MP #### [facility] [address] [address] [address] Destin López Microscopic examination of blood, culture Culture Observations: NO GROWTH AT 5 DAYS. Normal [facility] Comment on above: Performed By: #### C MP #### [facility] [address] [address] [address] Destin López CULTURE URINEon 10-06-2021 CULTURE URINE Culture Observations : LIGHT GROWTH OF MIXED SKIN CORIN. NO POTENTIAL PATHOGENS SEEN. Normal [facility] [place] Comment on above: Performed By: #### C MP #### [facility] [address] [address] [address] Destin López Covid-19 PCR (CVDTBH)on SARS-CoV-2 (COVID-19) RNA ILSA+probe Ql (Unsp spec) Not detected Normal NOT DETECTED [facility] Comment on above: Result Comment: When diagnostic testing is negative, the possibility of a false negative should be considered in the context of a patient's recent exposures and the presence of clinical signs and symptoms consistent with SARS-CoV-2. This test is not yet approved or cleared by the [place] FDA. When there are no FDA-approved or cleared tests available, and other criteria are met, FDA can make tests available under an emergency access mechanism called an Emergency Use Authorization (EUA). The EUA for this test is supported by the [place] of Health and Human Service's declaration that circumstances exist to justify the emergency use of in vitro diagnostics for the detection and/or diagnosis of the virus that causes COVID-19. This EUA will remain in effect for the duration of the COVID-19 declaration justifying emergency of IVDs, unless it is terminated or revoked by the FDA (after which the test may no longer be used). Performed By: #### C VDTBH #### [facility] [address] [place] [address] Dr. Destin López ER URINE PROFILEon 2 Bilirubin Ql (U) Negative Normal NEGATIVE [facility] Comment on above: Performed By: #### U MICRO, ERUR #### [facility] [address] [place] [address] Dr. Destin López Clarity (U) CLEAR Normal CLEAR [facility] Comment on above: Performed By: #### U MICRO, ERUR #### [facility] [address] [place] [address] Dr. Destin López Color (U) YELLOW Normal YELLOW [facility] [place] Comment on above: Performed By: #### U MICRO, ERUR #### [facility] [address] [place] [address] Dr. Destin López ERUAHD A micrscopic examina tion will be performed if indicated. Normal [facility] Comment on above: Performed By: #### U MICRO, ERUR #### [facility] [address] [place] [address] Dr. Destin López Glucose Ql (U) Negative Normal NEGATIVE [facility] Comment on above: Performed By: #### U MICRO, ERUR #### [facility] [address] [address] [address] Destin López Hemoglobin Ql (U) SMALL Abnormal NEGATIVE [facility] Comment on above: Performed By: #### U MICRO, ERUR #### [facility] [address] [address] [address] Destin López Ketones Ql (U) Negative Normal NEGATIVE [facility] Comment on above: Performed By: #### U MICRO, ERUR #### [facility] [address] [address] [address] Destin López LEUKOCYTES SMALL Abnormal NEGATIVE [facility] [place] Comment on above: Performed By: #### U MICRO, ERUR #### [facility] [address] [place] [address] Dr. Destin López Nitrite Ql (U) Negative Normal NEGATIVE [facility] Comment on above: Performed By: #### U MICRO, ERUR #### [facility] [address] [place] [address] Dr. Destin López pH (U) 8.0 [pH] Normal 5-9 [facility] [place] Comment on above: Performed By: #### U MICRO, ERUR #### [facility] [address] [place] [address] Dr. Destin López SPEC GRAVITY 1.015 Normal 1.005-<=1.02 5 [facility] [place] Comment on above: Performed By: #### U MICRO, ERUR #### [facility] [address] [address] [address] Destin López UA PROTEIN TRACE Normal NEGATIVE/ TRACE [facility] Comment on above: Performed By: #### U MICRO, ERUR #### [facility] [address] [place] [address] Dr. Destin López UR MICRO IND INDICATED Normal [facility] Comment on above: Performed By: #### U MICRO, ERUR #### [facility] [address] [place] [address] Dr. Destin López Urobilinogen Qn (U) 0.2 {Irma'U}/dL Normal 0.2 - 1. 0 [facility] Comment on above: Performed By: #### U MICRO, ERUR #### [facility] [address] [place] [address] Dr. Destin López LACTATE/LACTIC ACIDon 2021 Lactate [Moles/Vol] 1.1 mmol/L Normal 0.4-1.9 [facility] Comment on above: Performed By: #### L ACT #### [facility] [address] [place] [address] Dr. Destin López PROF CHEM 8 (BAS METB)on Anion gap [Moles/Vol] 10.4 mmol/L Normal [facility] Comment on above: Performed By: #### B MP #### [facility] [address] [place] [address] Dr. Destin López Calcium [Mass/Vol] 8.7 mg/dL Normal 8.5-10.1 [facility] Comment on above: Performed By: #### B MP #### [facility] [address] [place] [address] Dr. Destin López Chloride [Moles/Vol] 101 mmol/L Normal 98-107 [facility] Comment on above: Performed By: #### B MP #### [facility] [address] [place] [address] Dr. Destin López CO2 [Moles/Vol] 25.4 mmol/L Normal 21.0-32.0 [facility] Comment on above: Performed By: #### B MP #### [facility] [address] [place] [address] Dr. Destin López Creatinine [Mass/Vol] 0.96 mg/dL Normal 0.70-1.30 [facility] Comment on above: Performed By: #### B MP #### [facility] [address] [place] [address] Dr. Destin López EGFR-AF NORWEGIAN >60 Normal >=60 [facility] Comment on above: Performed By: #### B MP #### [facility] [address] [address] [address] Destin López EGFR-NON AF NORWEGIAN >60 Normal >=60 [facility] Comment on above: Performed By: #### B MP #### [facility] [address] [address] [address] Destin López Glucose [Mass/Vol] 110 mg/dL Critically high 74-106 T [facility] Comment on above: Performed By: #### B MP #### [facility] [address] [place] [address] Dr. Destin López Potassium [Moles/Vol] 3.8 mmol/L Normal 3.5-5.1 [facility] Comment on above: Performed By: #### B MP #### [facility] [address] [place] [address] Dr. Destin López Sodium [Moles/Vol] 133 mmol/L Critically low 136-145 Th [facility] Comment on above: Performed By: #### B MP #### [facility] [address] [place] [address] Dr. Destin López Urea nitrogen [Mass/Vol] 12.0 mg/dL Normal 7.0-18.0 [facility] Comment on above: Performed By: #### B MP #### [facility] [address] [place] [address] Dr. Destin López Urea nitrogen/Creatinine [Mass ratio] 12.5 mg/mg Normal [facility] Comment on above: Performed By: #### B MP #### [facility] [address] [place] [address] Dr. Destin López URINE MICROSCOPIC ONLYon BACTERIA SMALL Abnormal NONE SEEN [facility] Comment on above: Performed By: #### U MICRO, ERUR #### [facility] [address] [place] [address] Dr. Destin López Bacteria identified Cx Nom (U) INDICATED Normal [facility] Comment on above: Performed By: #### U MICRO, ERUR #### [facility] [address] [place] [address] Dr. Destin López CAST NONE SEEN Normal NONE SEEN [facility] Comment on above: Performed By: #### U MICRO, ERUR #### [facility] [address] [place] [address] Dr. Destin López Crystals LM Nom (Urine sed) NONE SEEN Normal NONE SEEN [facility] Comment on above: Performed By: #### U MICRO, ERUR #### [facility] [address] [place] [address] Dr. Destin López Epithelial cells LM Ql (Urine sed) NONE SEEN Normal NONE SEEN /RARE [facility] Comment on above: Performed By: #### U MICRO, ERUR #### [facility] [address] [place] [address] Dr. Destin López MUCOUS NONE SEEN Normal NONE SEEN [facility] Comment on above: Performed By: #### U MICRO, ERUR #### [facility] [address] [place] [address] Dr. Destin López RBC 0-2 Normal 0-2 [facility] Comment on above: Performed By: #### U MICRO, ERUR #### [facility] [address] [place] [address] Dr. Destin López WBC 10-20 Abnormal NONE SEEN [facility] Comment on above: Performed By: #### U MICRO, ERUR #### [facility] [address] [place] [address] Dr. Destin López PROF CHEM 8 (BAS METB)on Anion gap [Moles/Vol] 10.7 mmol/L Normal [facility] Comment on above: Performed By: #### B MP #### [facility] [address] [place] [address] Dr. Destin López Calcium [Mass/Vol] 8.8 mg/dL Normal 8.5-10.1 [facility] Comment on above: Performed By: #### B MP #### [facility] [address] [place] [address] Dr. Destin López Chloride [Moles/Vol] 103 mmol/L Normal 98-107 [facility] Comment on above: Performed By: #### B MP #### [facility] [address] [address] [address] Destin López CO2 [Moles/Vol] 30.1 mmol/L Normal 21.0-32.0 [facility] Comment on above: Performed By: #### B MP #### [facility] [address] [address] [address] Destin López Creatinine [Mass/Vol] 1.02 mg/dL Normal 0.70-1.30 [facility] Comment on above: Performed By: #### B MP #### [facility] [address] [address] [address] Destin López EGFR-AF NORWEGIAN >60 Normal >=60 [facility] Comment on above: Performed By: #### B MP #### [facility] [address] [place] [address] Dr. Destin López EGFR-NON AF NORWEGIAN >60 Normal >=60 [facility] Comment on above: Performed By: #### B MP #### [facility] [address] [place] [address] Dr. Destin López Glucose [Mass/Vol] 96 mg/dL Normal 74-106 [facility] Comment on above: Performed By: #### B MP #### [facility] [address] [place] [address] Dr. Destin López Potassium [Moles/Vol] 3.8 mmol/L Normal 3.5-5.1 [facility] Comment on above: Performed By: #### B MP #### [facility] [address] [place] [address] Dr. Destin López Sodium [Moles/Vol] 140 mmol/L Normal 136-145 [facility] Comment on above: Performed By: #### B MP #### [facility] [address] [address] [address] Destin López Urea nitrogen [Mass/Vol] 15.0 mg/dL Normal 7.0-18.0 [facility] Comment on above: Performed By: #### B MP #### [facility] [address] [place] [address] Dr. Destin López Urea nitrogen/Creatinine [Mass ratio] 14.7 mg/mg Normal [facility] Comment on above: Performed By: #### B MP #### [facility] [address] [address] [address] Destin López Amylaseon 08-28-2020 Amylase [Catalytic activity/Vol] 33 U/L Normal 28-100 [facility] Comment on above: Performed By: #### H EPATIC, CBC, YOLANDA, LIPASE, BMP #### [facility] [address] Basic Metabolic Panelon Calcium [Mass/Vol] 9.1 mg/dL Normal 8.2-10.2 [facility] Comment on above: Performed By: #### H EPATIC, CBC, YOLANDA, LIPASE, BMP #### [facility] [address] Chloride [Moles/Vol] 104 mmol/L Normal 95-114 [facility] Comment on above: Performed By: #### H EPATIC, CBC, YOLANDA, LIPASE, BMP #### [facility] [address] CO2 [Moles/Vol] 25.9 mmol/L Normal 22.0-30.0 [facility] Comment on above: Performed By: #### H EPATIC, CBC, YOLANDA, LIPASE, BMP #### [facility] [address] Creatinine [Mass/Vol] 0.91 mg/dL Normal 0.64-1.27 [facility] Comment on above: Performed By: #### H EPATIC, CBC, YOLANDA, LIPASE, BMP #### [facility] [address] [place] [address] [place] Creatinine Clr Calc Pharmacy 91.99 Normal [facility] Comment on above: Performed By: #### H EPATIC, CBC, YOLANDA, LIPASE, BMP #### [facility] [address] Estimated GFR ( Kacey > 60 Normal [facility] Comment on above: Result Comment: GFR estimated reference range: According to KDOQI guidelines, <60 ml/min/1.73m2 is sufficient to diagnose a patient with chronic kidney disease. Performed By: #### H EPATIC, CBC, YOLANDA, LIPASE, BMP #### [address] Estimated GFR (Non- Am > 60 Normal [facility] Comment on above: Performed By: #### H EPATIC, CBC, YOLANDA, LIPASE, BMP #### [address] Glucose [Mass/Vol] 90 mg/dL Normal 70-100 [facility] Comment on above: Result Comment: [facility] Glucose Reference Range is dependent on time and content of last meal. Glucose of more than 200 mg/dL in a nonstressed, ambulatory subject supports the diagnosis of Diabetes Mellitus. ADA recommended reference range Performed By: #### H EPATIC, CBC, YOLANDA, LIPASE, BMP #### [address] Potassium [Moles/Vol] 4.1 mmol/L Normal 3.5-5.1 [facility] Comment on above: Performed By: #### H EPATIC, CBC, YOLANDA, LIPASE, BMP #### [address] Sodium [Moles/Vol] 138 mmol/L Normal 136-146 [facility] Comment on above: Performed By: #### H EPATIC, CBC, YOLANDA, LIPASE, BMP #### [address] Urea nitrogen [Mass/Vol] 11 mg/dL Normal 9-23 [facility] Comment on above: Performed By: #### H EPATIC, CBC, YOLANDA, LIPASE, BMP #### [address] abdomen pelvis wo conon 0 08-28-2020 CT abdomen pelvis wo [facility] [address] [place] [address] CT Scan Report Signed Patient: Shaw Galvan MR#: [id number] 13 : 1960 Acct:[id number] Age/Sex: 60 / M ADM Date: 08/28/20 Loc: ER Room: Type: [facility] ER Attending Dr: Ordering Provider: Abbey Underwood PA-C Date of Service: 08/28/20 CT/CT abdomen pelvis wo con: r/o kidney stone Copies to: Abbey Underwood PA-C CT ABDOMEN AND PELVIS WITHOUT CONTRAST CLINICAL DATA: Bilateral flank pain. Prior partial prostatectomy and kidney infections. COMPARISON: None Spiral images were obtained through the abdomen and pelvis without contrast. This CT exam was performed using one or more following dose reduction techniques: Automated exposure control, adjustment of the mA and/or kV according to patient size, or use of iterative reconstruction technique. Limited cuts through the lung bases show a left lower lobe calcified granuloma. Assessment of the intra-abdominal organs is slightly limited by the absence of contrast. No intrahepatic masses are noted. No calcified gallstones are seen. There are calcified splenic granulomas. No renal calculi are identified. There are prominent extrarenal pelves bilaterally as well as mild fullness of the collecting system on the left. There is slight hydroureter on the left however no obstructing stones. There is a cortical hypodensity involving the midpole the right kidney that may be a cyst. There is also a 2.2 cm cystic structure positioned between the superior pole of the left kidney, tail the pancreas and the adrenal gland, unclear etiology. There is no other adrenal or pancreatic abnormalities. The abdominal aorta is within normal limits for caliber. There is minor atherosclerotic plaque. There are small abdominal lymph nodes. The small bowel loops are not distended however they contain air and/or fluid. There is stool within the ascending colon. There is predominantly air at the transverse and descending colon. There are left-sided colonic diverticula. Slight levoscoliotic curvature and multilevel degenerative changes are visualized at the spine. Images through the pelvis show nondistended small bowel loops containing air or fluid. There is a normal appendix. There is air at the rectum. There is mild sigmoid air and stool as well as additional diverticulosis. The urinary bladder is well-distended and the wall appears thickened. There is a couple bladder diverticula on the left and a smaller one on the right. There is minor mass effect at the bladder trigone related to the prostate. The prostate contains calcifications and is slightly prominent. There are small inguinal lymph nodes. No free fluid is seen. Degenerative changes are visualized at the SI joints. There are some nonspecific lucencies involving the iliac bones. CT/CT abdomen pelvis wo con IMPRESSION: MILD LEFT HYDRONEPHROSIS AND HYDROURETER, WITHOUT OBSTRUCTING STONES. URINARY BLADDER WALL THICKENING. THIS MIGHT BE TRABECULATION RELATED TO PROSTATE HYPERTROPHY HOWEVER CYSTITIS IS NOT EXCLUDED. BLADDER DIVERTICULA. DIVERTICULOSIS. NO OTHER ACUTE FINDINGS. Impression dictated by: Caitlyn Trivedi M.D.08/28/2020 2:13 PM Dictation Location: [place] [address] Transcribed By: [facility] 08/28/20 1413 Dictated By: Caitlyn Trivedi MD 08/28/20 1400 Signed By: 08/28/20 1413 Normal [facility] Complete Blood Count Auto Di ffon 08-28-2020 Basophils (Bld) [#/Vol] 0.1 10*3/uL Normal 0.0-0.2 [facility] Comment on above: Result Comment: PERF ORMED BY: [place] [address] PATHOLOGIST OFFICE SUPERVISOR SINGH HERR M.D. Performed By: #### H EPATIC, CBC, YOLANDA, LIPASE, BMP #### [address] Basophils/100 WBC (Bld) 0.7 % Normal . [facility] Comment on above: Performed By: #### H EPATIC, CBC, YOLANDA, LIPASE, BMP #### [facility] [address] [place] [address] Eosinophils (Bld) [#/Vol] 0.1 10*3/uL Normal 0.0-0.45 [facility] Comment on above: Performed By: #### H EPATIC, CBC, YOLANDA, LIPASE, BMP #### [address] Eosinophils/100 WBC (Bld) 1.7 % Normal . [facility] Comment on above: Performed By: #### H EPATIC, CBC, YOLANDA, LIPASE, BMP #### [address] Erythrocyte distribution width (RBC) [Ratio] 14.0 % Normal 12.0-14.8 [facility] Comment on above: Performed By: #### H EPATIC, CBC, YOLANDA, LIPASE, BMP #### [address] Hematocrit (Bld) [Volume fraction] 45.1 % Normal 38.8-50.0 [facility] Comment on above: Performed By: #### H EPATIC, CBC, YOLANDA, LIPASE, BMP #### [address] Hemoglobin (Bld) [Mass/Vol] 15.0 g/dL Normal 13.0-17.0 [facility] Comment on above: Performed By: #### H EPATIC, CBC, YOLANDA, LIPASE, BMP #### [address] Lymphocytes (Bld) [#/Vol] 2.2 10*3/uL Normal 1.00-4.8 [facility] Comment on above: Performed By: #### H EPATIC, CBC, YOLANDA, LIPASE, BMP #### [address] Lymphocytes/100 WBC (Bld) 25.2 % Normal . [facility] Comment on above: Performed By: #### H EPATIC, CBC, YOLANDA, LIPASE, BMP #### [address] MCH (RBC) [Entitic mass] 31.7 pg Normal 27.5-35.2 [facility] Comment on above: Performed By: #### H EPATIC, CBC, YOLANDA, LIPASE, BMP #### [address] MCV (RBC) [Entitic vol] 95.0 fL Normal 83.5-101 [facility] Comment on above: Performed By: #### H EPATIC, CBC, YOLANDA, LIPASE, BMP #### [address] Mean Corpuscular HGB Conc 33.4 g/dL Normal 32.5-35.6 [facility] Comment on above: Performed By: #### H EPATIC, CBC, YOLANDA, LIPASE, BMP #### [facility] [address] [place] [address] Monocytes (Bld) [#/Vol] 0.7 10*3/uL Normal 0.0-0.8 [facility] Comment on above: Performed By: #### H EPATIC, CBC, YOLANDA, LIPASE, BMP #### [address] Monocytes/100 WBC (Bld) 8.0 % Normal . [facility] Comment on above: Performed By: #### H EPATIC, CBC, YOLANDA, LIPASE, BMP #### [address] Neutrophils (Bld) [#/Vol] 5.5 10*3/uL Normal 1.8-7.7 [facility] Comment on above: Performed By: #### H EPATIC, CBC, YOLANDA, LIPASE, BMP #### [address] Neutrophils/100 WBC (Bld) 64.4 % Normal . [facility] Comment on above: Performed By: #### H EPATIC, CBC, YOLANDA, LIPASE, BMP #### [address] Nucleated RBC/100 WBC (Bld) [Ratio] 0.0 % Normal 0-0.5 [facility] Comment on above: Performed By: #### H EPATIC, CBC, YOLANDA, LIPASE, BMP #### [address] Platelet mean volume (Bld) [Entitic vol] 6.4 fL Low 6.6-10.1 [facility] Comment on above: Performed By: #### H EPATIC, CBC, YOLANDA, LIPASE, BMP #### [address] Platelets (Bld) [#/Vol] 348 10*3/uL Normal 150-450 [facility] Comment on above: Performed By: #### H EPATIC, CBC, YOLANDA, LIPASE, BMP #### [facility] [address] [place] [address] RBC (Bld) [#/Vol] 4.75 10*6/uL Normal 3.90-5.[address] [facility] Comment on above: Performed By: #### H EPATIC, CBC, YOLANDA, LIPASE, BMP #### [address] WBC (Bld) [#/Vol] 8.6 10*3/uL Normal 4.5-11.0 [facility] Comment on above: Performed By: #### H EPATIC, CBC, YOLANDA, LIPASE, BMP #### [address] Hepatic Panelon 08-28-2020 Albumin [Mass/Vol] 3.9 g/dL Normal 3.2-5.5 [facility] Comment on above: Performed By: #### H EPATIC, CBC, YOLANDA, LIPASE, BMP #### [address] Albumin/Globulin [Mass ratio] 1.6 {ratio} Normal [facility] Comment on above: Performed By: #### H EPATIC, CBC, YOLANDA, LIPASE, BMP #### [address] ALP [Catalytic activity/Vol] 56 U/L Normal 32-92 [facility] Comment on above: Performed By: #### H EPATIC, CBC, YOLANDA, LIPASE, BMP #### [address] ALT [Catalytic activity/Vol] 26 U/L Normal 10-60 [facility] Comment on above: Performed By: #### H EPATIC, CBC, YOLANDA, LIPASE, BMP #### [address] AST [Catalytic activity/Vol] 23 U/L Normal 10-42 [facility] Comment on above: Performed By: #### H EPATIC, CBC, YOLANDA, LIPASE, BMP #### [address] Bilirubin [Mass/Vol] 1.4 mg/dL High 0.3-1.2 [facility] Comment on above: Result Comment: Samp les from patients who have taken Naproxen have shown spurious elevation in Total Bilirubin levels. A metabolite of Naproxen, O-desmethylnaproxen, has been shown to interfere with the Jendrassik-Grof method for measuring Total Bilirubin. Performed By: #### H EPATIC, CBC, YOLANDA, LIPASE, BMP #### [address] Bilirubin,Indirect 1.2 mg/dL Normal [facility] Comment on above: Performed By: #### H EPATIC, CBC, YOLANDA, LIPASE, BMP #### [address] Bilirubin.indirect [Mass/Vol] 0.2 mg/dL Normal 0.0-0.4 [facility] Comment on above: Performed By: #### H EPATIC, CBC, YOLANDA, LIPASE, BMP #### [address] Globulin (S) [Mass/Vol] 2.4 g/dL Normal [facility] Comment on above: Performed By: #### H EPATIC, CBC, YOLANDA, LIPASE, BMP #### [address] Protein [Mass/Vol] 6.3 g/dL Normal 6.1-7.9 [facility] Comment on above: Performed By: #### H EPATIC, CBC, YOLANDA, LIPASE, BMP #### [address] Lipaseon 08-28-2020 Lipase [Catalytic activity/Vol] 38.0 U/L Normal 22-51 [facility] Comment on above: Result Comment: PERF ORMED BY: [place] [address] PATHOLOGIST OFFICE SUPERVISOR SINGH HERR M.D. Performed By: #### C BC, LIPID, CMP, PSAS #### [facility] [address] [id number] [place] Urinalysison 08-28-2020 Appearance (U) Clear Normal Clear [facility] Comment on above: Order Comment: PT FA STED 12 HRS Performed By: #### C BC, LIPID, CMP, PSAS #### [facility] [address] [place] [id number] [place] Bilirubin,Urine Negative Normal Negative [facility] Comment on above: Order Comment: PT FA STED 12 HRS Performed By: #### C BC, LIPID, CMP, PSAS #### [facility] [address] [place] [address] [place] Color (U) Yellow Normal Yellow [facility] Comment on above: Order Comment: PT FA STED 12 HRS Performed By: #### C BC, LIPID, CMP, PSAS #### [facility] [address] Glucose Ql (U) Normal Normal Normal [facility] Comment on above: Order Comment: PT FA STED 12 HRS Performed By: #### C BC, LIPID, CMP, PSAS #### [facility] [address] [place] [address] [place] Ketones Ql (U) Negative Normal Negative [facility] Comment on above: Order Comment: PT FA STED 12 HRS Performed By: #### C BC, LIPID, CMP, PSAS #### [facility] [address] [place] [address] [place] Leukocyte esterase Test strip Ql (U) Negative Normal Negative [facility] Comment on above: Order Comment: PT FA STED 12 HRS Performed By: #### C BC, LIPID, CMP, PSAS #### [facility] [address] [place] [address] [place] Nitrite,Urine Negative Normal Negative [facility] Comment on above: Order Comment: PT FA STED 12 HRS Performed By: #### C BC, LIPID, CMP, PSAS #### [facility] [address] [place] [id number] [place] Occult Blood,Urine Negative Normal Negative [facility] Comment on above: Order Comment: PT FA STED 12 HRS Result Comment: PERF ORMED BY: [place] [address] PATHOLOGIST OFFICE SUPERVISOR SINGH HERR M.D. Performed By: #### C BC, LIPID, CMP, PSAS #### [facility] [address] [place] [address] pH (U) 7.0 [pH] Normal 5.0-9.0 [facility] Comment on above: Order Comment: PT FA STED 12 HRS Performed By: #### C BC, LIPID, CMP, PSAS #### [facility] [address] [place] [address] Protein,Urine Negative Normal Negative [facility] Comment on above: Order Comment: PT FA STED 12 HRS Performed By: #### C BC, LIPID, CMP, PSAS #### [facility] [address] [place] [address] Specificy [place],Urine 1.011 Normal 1.001-1.030 [facility] Comment on above: Order Comment: PT FA STED 12 HRS Performed By: #### C BC, LIPID, CMP, PSAS #### [facility] [address] [place] [address] Urobilinogen,Urine Normal Normal Normal [facility] Comment on above: Order Comment: PT FA STED 12 HRS Performed By: #### C BC, LIPID, CMP, PSAS #### [facility] [address] [place] [address] COVID-19 Antigenon 1 COVID-19 Antigen Reason for Exam Screening for colon cancer Nasal Reason for Exam: Screening for colon cancer Healthcare Worker?: N : Nasal [place]ana Reference Keyana Reference Negative SARS-CoV+SARS-CoV-2 (COVID-19) Ag [Presence] in Respiratory specimen by Rapid immunoassay Negative for SARS Antigen by RICHARD COVID19 Blank Space ------ Keyana Disclaimer Negative results, from patients with symptom Key[place] Disclaimer onset beyond five days, should be treated as [place] Disclaimer presumptive and confirmation with a molecular [place] Disclaimer assay, if necessary, for patient management, Keyana Disclaimer may be performed. Negative results do not rule Key[place] Disclaimer out COVID-19 and should not be used as the sole [place] Disclaimer basis for treatment or patient management Keyana Disclaimer decisions, including infection control decisions. Keyana Disclaimer Negative results should be considered in the Keyana Disclaimer context of a patient's recent exposures, history Keyana Disclaimer and the presence of clinical signs and symptoms Keyana Disclaimer consistent with COVID-19. COVID19 Blank Space ------ Keyana Disclaimer The Keyana SARS Antigen RICHARD does not differentiate Keyana Disclaimer between SARS-CoV and SARS-CoV-2. COVID19 Blank Space ------ Keyana Disclaimer This test was developed and its performance Keyana Disclaimer characteristic determined by [employer] and Keyana Disclaimer validated at [facility]. This Keyana Disclaimer test has not been FDA cleared or approved. This Keyana Disclaimer test has been authorized by FDA under an Emergency Use Keyana Disclaimer Authorization (EUA). This test has been validated Keyana Disclaimer in accordance with the FDA's Guidance Document (Policy Keyana Disclaimer for Diagnostics Testing in Laboratories Certified to Keyana Disclaimer Perform High Complexity Testing under CLIA prior to Keyana Disclaimer Emergency Use Authorization for Coronavirus Keyana Disclaimer isease-2019 during the Public Health Emergency) Keyana Disclaimer issued on May 31, 2019. This test is only authorized Keyana Disclaimer for the duration of time the declaration that Keyana Disclaimer circumstances exist justifying the authorization of Keyana Disclaimer the emergency use of in vitro diagnostic tests for Keyana Disclaimer detection of SARS-CoV-2 virus and/or diagnosis of [place] Disclaimer COVID-19 infection under section 564(b)(1) of the [place] Disclaimer Act, 21 U.S.C. 360bbb-3(b)(1), unless the Keyana Disclaimer authorization is terminated or revoked sooner. PERFORMED BY: [place] [phone] PATHOLOGIST OFFICE SUPERVISOR SINGH HERR M.D. Normal [facility] Comment on above: Performed By: #### C OVID-19 KEYANA, SOFIANEG #### [address] Keyana Ag Negativeon 05-21-19 21 Keyana Ag Negative Negative Normal Negative [facility] Comment on above: Result Comment: This is a duplicate Keyana SARS Antigen (RICHARD) result to be used for statistical tracking purpose only. PERFORMED BY: [place] [phone] PATHOLOGIST OFFICE SUPERVISOR SINGH HERR M.D. Performed By: #### C OVID-19 KEYANA, SOFIANEG #### [address] Complete Blood Count Auto Di ffon 05-05-2020 Basophils (Bld) [#/Vol] 0.0 10*3/uL Normal 0.0-0.2 [facility] Comment on above: Order Comment: PT FA STED 12 HRS Result Comment: PERF ORMED BY: [place] [address] PATHOLOGIST OFFICE SUPERVISOR SINGH HERR M.D. Performed By: #### C BC, LIPID, CMP, PSAS #### [address] Basophils/100 WBC (Bld) 0.5 % Normal . [facility] Comment on above: Order Comment: PT FA STED 12 HRS Performed By: #### C BC, LIPID, CMP, PSAS #### [facility] [address] Eosinophils (Bld) [#/Vol] 0.2 10*3/uL Normal 0.0-0.45 [facility] Comment on above: Order Comment: PT FA STED 12 HRS Performed By: #### C BC, LIPID, CMP, PSAS #### [address] Eosinophils/100 WBC (Bld) 3.2 % Normal . [facility] Comment on above: Order Comment: PT FA STED 12 HRS Performed By: #### C BC, LIPID, CMP, PSAS #### [address] Erythrocyte distribution width (RBC) [Ratio] 13.8 % Normal 12.0-14.8 [facility] Comment on above: Order Comment: PT FA STED 12 HRS Performed By: #### C BC, LIPID, CMP, PSAS #### [address] Hematocrit (Bld) [Volume fraction] 48.4 % Normal 38.8-50.0 [facility] Comment on above: Order Comment: PT FA STED 12 HRS Performed By: #### C BC, LIPID, CMP, PSAS #### [address] Hemoglobin (Bld) [Mass/Vol] 16.6 g/dL Normal 13.0-17.0 [facility] Comment on above: Order Comment: PT FA STED 12 HRS Performed By: #### C BC, LIPID, CMP, PSAS #### [address] Lymphocytes (Bld) [#/Vol] 1.6 10*3/uL Normal 1.00-4.8 [facility] Comment on above: Order Comment: PT FA STED 12 HRS Performed By: #### C BC, LIPID, CMP, PSAS #### [address] Lymphocytes/100 WBC (Bld) 20.6 % Normal . [facility] Comment on above: Order Comment: PT FA STED 12 HRS Performed By: #### C BC, LIPID, CMP, PSAS #### [address] MCH (RBC) [Entitic mass] 32.6 pg Normal 27.5-35.2 [facility] Comment on above: Order Comment: PT FA STED 12 HRS Performed By: #### C BC, LIPID, CMP, PSAS #### [address] MCV (RBC) [Entitic vol] 95.0 fL Normal 83.5-101 [facility] Comment on above: Order Comment: PT FA STED 12 HRS Performed By: #### C BC, LIPID, CMP, PSAS #### [address] Mean Corpuscular HGB Conc 34.3 g/dL Normal 32.5-35.6 [facility] Comment on above: Order Comment: PT FA STED 12 HRS Performed By: #### C BC, LIPID, CMP, PSAS #### [address] Monocytes (Bld) [#/Vol] 0.7 10*3/uL Normal 0.0-0.8 [facility] Comment on above: Order Comment: PT FA STED 12 HRS Performed By: #### C BC, LIPID, CMP, PSAS #### [facility] [address] [place] [address] Monocytes/100 WBC (Bld) 8.5 % Normal . [facility] Comment on above: Order Comment: PT FA STED 12 HRS Performed By: #### C BC, LIPID, CMP, PSAS #### [address] Neutrophils (Bld) [#/Vol] 5.1 10*3/uL Normal 1.8-7.7 [facility] Comment on above: Order Comment: PT FA STED 12 HRS Performed By: #### C BC, LIPID, CMP, PSAS #### [address] [place] [address] [place] Neutrophils/100 WBC (Bld) 67.2 % Normal . [facility] Comment on above: Order Comment: PT FA STED 12 HRS Performed By: #### C BC, LIPID, CMP, PSAS #### [facility] [address] Nucleated RBC/100 WBC (Bld) [Ratio] 0.1 % Normal 0-0.5 [facility] Comment on above: Order Comment: PT FA STED 12 HRS Performed By: #### C BC, LIPID, CMP, PSAS #### [facility] [address] Platelet mean volume (Bld) [Entitic vol] 7.1 fL Normal 6.6-10.1 [facility] Comment on above: Order Comment: PT FA STED 12 HRS Performed By: #### C BC, LIPID, CMP, PSAS #### [facility] [address] [place] [address] [place] Platelets (Bld) [#/Vol] 328 10*3/uL Normal 150-450 [facility] Comment on above: Order Comment: PT FA STED 12 HRS Performed By: #### C BC, LIPID, CMP, PSAS #### [facility] [address] RBC (Bld) [#/Vol] 5.09 10*6/uL Normal 3.90-5.[address] [facility] Comment on above: Order Comment: PT FA STED 12 HRS Performed By: #### C BC, LIPID, CMP, PSAS #### [facility] [address] [place] [address] [place] WBC (Bld) [#/Vol] 7.7 10*3/uL Normal 4.5-11.0 [facility] Comment on above: Order Comment: PT FA STED 12 HRS Performed By: #### C BC, LIPID, CMP, PSAS #### [facility] [address] Comprehensive Metabolic Pane juan alberto 05-05-2020 Albumin [Mass/Vol] 3.9 g/dL Normal 3.2-5.5 [facility] Comment on above: Order Comment: PT FA STED 12 HRS Performed By: #### C BC, LIPID, CMP, PSAS #### [facility] [address] Albumin/Globulin [Mass ratio] 1.7 {ratio} Normal [facility] Comment on above: Order Comment: PT FA STED 12 HRS Performed By: #### C BC, LIPID, CMP, PSAS #### [facility] [address] ALP [Catalytic activity/Vol] 66 U/L Normal 32-92 [facility] Comment on above: Order Comment: PT FA STED 12 HRS Performed By: #### C BC, LIPID, CMP, PSAS #### [facility] [address] ALT [Catalytic activity/Vol] 30 U/L Normal 10-60 [facility] Comment on above: Order Comment: PT FA STED 12 HRS Performed By: #### C BC, LIPID, CMP, PSAS #### [facility] [address] [place] [address] [place] AST [Catalytic activity/Vol] 26 U/L Normal 10-42 [facility] Comment on above: Order Comment: PT FA STED 12 HRS Performed By: #### C BC, LIPID, CMP, PSAS #### [facility] [address] [place] [address] [place] Bilirubin [Mass/Vol] 0.6 mg/dL Normal 0.3-1.2 [facility] Comment on above: Order Comment: PT FA STED 12 HRS Performed By: #### C BC, LIPID, CMP, PSAS #### [facility] [address] [place] [address] [place] Calcium [Mass/Vol] 9.1 mg/dL Normal 8.2-10.2 [facility] Comment on above: Order Comment: PT FA STED 12 HRS Performed By: #### C BC, LIPID, CMP, PSAS #### [facility] [address] [place] [address] [place] Chloride [Moles/Vol] 106 mmol/L Normal 95-114 [facility] Comment on above: Order Comment: PT FA STED 12 HRS Performed By: #### C BC, LIPID, CMP, PSAS #### [facility] [address] CO2 [Moles/Vol] 26.5 mmol/L Normal 22.0-30.0 [facility] Comment on above: Order Comment: PT FA STED 12 HRS Performed By: #### C BC, LIPID, CMP, PSAS #### [facility] [address] Creatinine [Mass/Vol] 1.02 mg/dL Normal 0.64-1.27 [facility] Comment on above: Order Comment: PT FA STED 12 HRS Performed By: #### C BC, LIPID, CMP, PSAS #### [address] Estimated GFR ( Kacey > 60 [facility] Comment on above: Order Comment: PT FA STED 12 HRS Result Comment: GFR estimated reference range: According to KDOQI guidelines, <60 ml/min/1.73m2 is sufficient to diagnose a patient with chronic kidney disease. Performed By: #### C BC, LIPID, CMP, PSAS #### [facility] [address] [place] [address] Estimated GFR (Non- Am > 60 [facility] Comment on above: Order Comment: PT FA STED 12 HRS Performed By: #### C BC, LIPID, CMP, PSAS #### [facility] [address] [place] [address] [place] Globulin (S) [Mass/Vol] 2.3 g/dL [facility] Comment on above: Order Comment: PT FA STED 12 HRS Performed By: #### C BC, LIPID, CMP, PSAS #### [facility] [address] [place] [address] [place] Glucose [Mass/Vol] 92 mg/dL Normal 70-100 [facility] Comment on above: Order Comment: PT FA STED 12 HRS Result Comment: [place] om Glucose Reference Range is dependent on time and content of last meal. Glucose of more than 200 mg/dL in a nonstressed, ambulatory subject supports the diagnosis of Diabetes Mellitus. ADA recommended reference range Performed By: #### C BC, LIPID, CMP, PSAS #### [address] Potassium [Moles/Vol] 4.0 mmol/L Normal 3.5-5.1 [facility] Comment on above: Order Comment: PT FA STED 12 HRS Performed By: #### C BC, LIPID, CMP, PSAS #### [address] Protein [Mass/Vol] 6.2 g/dL Normal 6.1-7.9 [facility] Comment on above: Order Comment: PT FA STED 12 HRS Performed By: #### C BC, LIPID, CMP, PSAS #### [address] Sodium [Moles/Vol] 141 mmol/L Normal 136-146 [facility] Comment on above: Order Comment: PT FA STED 12 HRS Performed By: #### C BC, LIPID, CMP, PSAS #### [address] Urea nitrogen [Mass/Vol] 16 mg/dL Normal 9-23 [facility] Comment on above: Order Comment: PT FA STED 12 HRS Performed By: #### C BC, LIPID, CMP, PSAS #### [address] Lipid Panelon 05-05-2020 Cholesterol [Mass/Vol] 175 mg/dL Normal 140-200 [facility] Comment on above: Order Comment: PT FA STED 12 HRS Result Comment: Chol less than 200 mg/dl low risk Chol 201-239 mg/dl borderline risk Chol 240 mg/dl and greater high risk Performed By: #### C BC, LIPID, CMP, PSAS #### [address] Cholesterol in HDL [Mass/Vol] 55 mg/dL Normal 29-71 [facility] Comment on above: Order Comment: PT FA STED 12 HRS Result Comment: HDL CHOL ATP-III CLASSIFICATION Cardiovascular Risk HDL > or equal to 60 mg/dL LOW HDL < 40 mg/dL HIGH Performed By: #### C BC, LIPID, CMP, PSAS #### [facility] [address] Cholesterol.total/C holesterol in HDL [Mass ratio] 3.2 {ratio} Normal <5.0 [facility] Comment on above: Order Comment: PT FA STED 12 HRS Result Comment: PERF ORMED BY: [place] [address] PATHOLOGIST OFFICE SUPERVISOR SINGH HERR M.D. Performed By: #### C BC, LIPID, CMP, PSAS #### [address] LDL Cholesterol,Calcula cassi 112 mg/dL High 0-100 [facility] Comment on above: Order Comment: PT FA STED 12 HRS Result Comment: LDL ATP III CLASSIFICATION LDL less than 100 mg/dL Optimal LDL 100-129 mg/dL Near or above optimal LDL 130-159 mg/dL Borderline high LDL 160-189 mg/dL High LDL greater than 189 mg/dL Very high Performed By: #### C BC, LIPID, CMP, PSAS #### [facility] [address] [place] [address] Triglyceride w/Reflex 39 mg/dL Normal 35-149 [facility] Comment on above: Order Comment: PT FA STED 12 HRS Result Comment: TRIG ATP III CLASSIFICATION TRIG less than 150 mg/dL Normal TRIG 150-199 mg/dL Borderline high TRIG 200-500 mg/dL High TRIG greater than 500 mg/dL Very high Standard traceable to the Center for Disease Conrtrol and Prevention (CDC) test method. Performed By: #### C BC, LIPID, CMP, PSAS #### [facility] [address] VLDL CHOLESTEROL 7 mg/dL Normal [facility] Comment on above: Order Comment: PT FA STED 12 HRS Performed By: #### C BC, LIPID, CMP, PSAS #### [facility] [address] [place] [id number] [facility] PSA Screen (Yearly Only)on 0 05-05-2020 PSA Screen (Yearly Only) 0.870 ng/mL Normal 0.000-4.000 [facility] Comment on above: Order Comment: PT FA STED 12 HRS What is the date of the last PSA Screen?: NONE ON FILE Is Medicare the insurance?: N Did you verify eligibility (Dx Time) check TestViewGp: YES TO ALL Result Comment: PERF ORMED BY: [address] [place] [address] PATHOLOGIST OFFICE SUPERVISOR SINGH HERR M.D. Performed By: #### C BC, LIPID, CMP, PSAS #### [address] CNOVon 06-28-2017 CNOV Office Visit ([facility] Olga GALVAN ([id number]) 1960 MDate Time Provider Department06/28/17 1:30 PM ALDO FRANKLIN [facility] During your visit today, we recorded the following information about you: Pulse Blood pressure 62/minute 129/90Litzy Gusman LPN, LPN 06/28/2017 5:04 PM SignedPRE CYSTO PROCEDUREID Verified by: HAILEY Chamorrorocedure Indication:Cystoscopy/Ur odynamicsLatex Allergy: NoBetadine Allergy: NoLidocaine allergy: NoAllergies reviewed and updated.Pre-Procedure Vital Signs: Blood pressure 129/90, pulse 62.Heart valve replacement:NoJoint replacement: NoPre-Procedure Antibiotics: NonePatient Prep: Betadine Scrub to perineum and placement of Sterile Drape.Anesthetic Given: Sheldon Gusman LPN POST PROCEDURE NURSEAudible Time Out: 310Procedure Start Time: 311Procedure/Indication Cystoscopy/UrodynamicsIn struction sheet given and reviewed and patient verbalizes understanding: yesPost-Procedure Vital Signs: BP 139/91 Pulse 88Post Procedure Antibiotic: N/AIs the patient having any pain? No 0 on a scale of 0 to 10EVELYN Chamorrocheyennekristie Kearns Contract Scribe 06/28/2017 5:04 PM SignedPHYSICIANS NOTE: CYSTOSCOPY PROCEDURE: June 28, 2017Sign In: 3:10 PMHistory and Physical Exam reviewed and is unchanged.Primary Diagnosis: Recurrent UTI, urinary retention and neurogenic bladderInformed Consent Discussed: Yes. Risks, benefits, alternatives and personneldiscussed with patient who consents to proceed.Sign in Communication: CompletedTime Out: Team Confirms the Correct Patient,Correct Procedure; Cystoscopy, Correct Site and Site Marking (not applicable),Correct Position.Affirmation of Time Out: YESSign Out: 3:17 PMSign Out Discussion: CompletedDetails of Procedure:After sterile prep and drape. The flexible cystoscope was placed through theurethra which was examined in its entirety. There are no urethral strictures.The entire mucosa was examined. The scope was flexed in the dome of the bladderand used to look at the bladder in retroverted fashion. The scope was removedwith a repeat examination of the prostate and penile urethra done duringremoval.Cystoscopy Findings: Non-obstructive prostate. Bladder has multiple trabecula.UAI: Patient was unable to void after bladder was filled. 2500 cc's instilledin the bladder; patient could only void 100 cc's and had a residual of 2400cc's.CMG shows flat-line detrusor activity.Sphincters are non-existent on EMG.Voiding pressure is non-existent.UPP normal.Discussed with patient.ALLERGIESAllerge n Reactions- Ciprofloxacin Hives- Ondansetron Hcl Other: See Comments Pt reports bradycardia- Sulfamethoxazole-Tr* HivesMedications Given: None.Urine culture ordered.Patient will continue intermittent self-cath. Will obtain US kidney/bladder andurine NURSE EPIDEMIOLOGIST for further evaluation of recurrent UTI's.We will follow up pending US results and urine culture.Scribe Attestation:By signing my name below, Socorro Michelle Contract Scribe, attest that thisdocumentation has been prepared under the direction and in the presence of Dr.Sanford Darcy MD.Electronically Signed:Socorro Kearns ash Steel, June 28, 2017 3:33 PMProvider Attestation:I, Dr. Aldo Franklin MD, personally performed the services described in thisdocumentation. All medical record entries made by the ash were at mydirection and in my presence. I have reviewed the chart and dischargeinstructions (if applicable) and agree that the record reflects my personalperformance and is accurate and complete. Dr. Aldo Franklin MD, June 28, 20173:33 PMReferring Provider: NATASHA SOTO [[id number]]Allergies As of Date: 06/28/2017 Noted Allergy ReactionCIPROFLOXACIN 07/22/2014 4 - HivesONDANSETRON HCL 07/25/2014 14 - Other: See Comments Comments: Pt reports bradycardiaSULFAMETHOXAZ OLE-TRIMETHOPRIM 07/22/2014 4 - HivesDate Reviewed: 06/28/2017Reviewed by: Aldo Franklin - Fully AssessedReason for Visit: Procedure [88] Cmt: Cystoscopy/UrodynamicsPr imary Visit Diagnosis:Urinary tract infection without hematuria, site unspecified [N39.0] Other Visit Diagnosis:Neurogenic bladder [N31.9]Order(s):URINE CULTURE [SQURCUL] Order #: [id number] KIDNEY/BLADDER [[id number]] Order #: [id number] FUTUREPrescriptions as of 06/28/2017 Sig: TRAMADOL 50 MG TABLETProblem List As Of Date: 06/28/2017(None)Level of Service: EST PATIENT VISIT LEVEL 4 [[id number]]Follow-up and Disposition History RecordedLetter TextTHE [facility], ED[facility] SHAWUROLOGICAL INSTITUTEAFTER YOUR CYSTOSCOPYYou have undergone a cystoscopy. Your doctor has inserted a telescope intoyour urinary bladder through your urethra to view the inside of your bladderand/or urethra.WHAT TO EXPECT * Possible burning during urination and/or blood-tinged urine.WHAT TO DO * Resume normal activity and medications. * Drink 6-8 glasses of fluid each day for 3 days to help flush yoururinary system.MEDICATIONS * If an antibiotic is prescribed, take it until ALL the medicationis gone. (If you miss a dose, continue when you remember and finish themedication completely.) * Other medication instructions: as prescribedWHEN TO CALL THE DOCTOR * If you have a fever over 100* Fahrenheit. * If you are unable to urinate. * If blood clots form in your urine. * If your urine becomes very bloody and does not clear with drinkingextra fluids.Between the hours of 9AM and 5PM call your doctor's office: Dr. Aldo Franklin M.D., Office Phone #: [phone] 5 PM and on weekends for [place] physicians only:Call [phone] and ask for the urologist aqua ammonia operator. The doctor will needto know that you have had a cystoscopy and what symptoms you are having. Status:Closed by ALDO FRANKLIN MD on 06/28/17 [facility] 06-28-2017 CNPN Telephone ([facility]) Olga GALVAN ([id number]) 1960 [facility] Time Provider Department06/28/17 ALDO FRANKLIN [facility] During your visit today, we recorded the following information about you:Elizabeth Strange, RN, RN 06/29/2017 2:32 PM SignedI spoke with Priya Flowers. She had concerns regarding her 's visit withDr. Franklin on June 15, 2017. She was under the impression that a urine culturewas ordered at that visit. When she called for the results, she was told thatthe urine was lost. I informed her that after reading Dr. Franklin's note fromthe 06/15/17 visit, no urine culture was actually ordered. I did inform herthat a urine culture was ordered during yesterday's office visit.She went on to say that Dr. Franklin wanted her to have a renal ultrasoundbut was not given a requisition to have done. She said that the patient had abladder ultrasound done yesterday. I informed her that both a bladder andrenal ultrasound were performed yesterday.I informed her that Dr. Franklin or the office will call with the urine cultureand ultrasound results once available. I informed her that urine cultureresults can take 48-72 hours. She states understanding.Allergies As of Date: 06/28/2017 Noted Allergy ReactionCIPROFLOXACIN 07/22/2014 4 - HivesONDANSETRON HCL 07/25/2014 14 - Other: See Comments Comments: Pt reports bradycardiaSULFAMETHOXAZ OLE-TRIMETHOPRIM 07/22/2014 4 - HivesDate Reviewed: 06/28/2017Reviewed by: Aldo Franklin - Fully AssessedReason for Visit: Returning Patient's Call [[id number]]Prescriptions as of 06/28/2017 Sig: TRAMADOL 50 MG TABLETProblem List As Of Date: 06/28/2017(None)Encounte r Number: [id number] Status:Closed by ELIZBAETH STRANGE on 06/28/17 [facility] PROGRESSon 06-28-2017 PROGRESS HNO ID: [id number]: Socorro Kearns Contract ScribeService: (none)Author Type: (none)Type: Progress NotesFiled: 06/28/2017 5:04 PMNote Text:PHYSICIANS NOTE: CYSTOSCOPY PROCEDURE: June 28, 2017Sign In: 3:10 PMHistory and Physical Exam reviewed and is unchanged.Primary Diagnosis: Recurrent UTI, urinary retention and neurogenic bladderInformed Consent Discussed: Yes. Risks, benefits, alternatives andpersonnel discussed with patient who consents to proceed.Sign in Communication: CompletedTime Out: Team Confirms the Correct Patient,Correct Procedure; Cystoscopy, Correct Site and Site Marking (notapplicable), Correct Position.Affirmation of Time Out: YESSign Out: 3:17 PMSign Out Discussion: CompletedDetails of Procedure:After sterile prep and drape. The flexible cystoscope was placed throughthe urethra which was examined in its entirety. There are no urethralstrictures.The entire mucosa was examined. The scope was flexed in the dome of thebladder and used to look at the bladder in retroverted fashion. The scopewas removed with a repeat examination of the prostate and penile urethradone during removal.Cystoscopy Findings: Non-obstructive prostate. Bladder has multipletrabecula.UAI: Patient was unable to void after bladder was filled. 2500 cc'sinstilled in the bladder; patient could only void 100 cc's and had aresidual of 2400 cc's.CMG shows flat-line detrusor activity.Sphincters are non-existent on EMG.Voiding pressure is non-existent.UPP normal.Discussed with patient.ALLERGIESAllerge n Reactions- Ciprofloxacin Hives- Ondansetron Hcl Other: See Comments Pt reports bradycardia- Sulfamethoxazole-Tr* HivesMedications Given: None.Urine culture ordered.Patient will continue intermittent self-cath. Will obtain USkidney/bladder and urine NURSE EPIDEMIOLOGIST for further evaluation of recurrent UTI's.We will follow up pending US results and urine culture.Scribe Attestation:By signing my name below, Socorro Michelle, attnikita thatthis documentation has been prepared under the direction and in thepresence of Dr. Aldo Franklin MD.Electronically Signed:ash Teague, June 28, 20173:33 PMProvider Attestation:I, Dr. Aldo Franklin MD, personally performed the services described inthis documentation. All medical record entries made by the scribe were atmy direction and in my presence. I have reviewed the chart and dischargeinstructions (if applicable) and agree that the record reflects mypersonal performance and is accurate and complete. Dr. Aldo Franklin MD,June 28, 2017 3:33 PM Normal [facility] PROGRESS HNO ID: [id number]: Litzy Wynn) JACKY GusmanNService: (none)Author Type: LICENSED NURSEType: Progress NotesFiled: 06/28/2017 5:04 PMNote Text:PRE CYSTO PROCEDUREID Verified by: Litzy Gusman LPNProcedure Indication:Cystoscopy/Ur odynamicsLatex Allergy: NoBetadine Allergy: NoLidocaine allergy: NoAllergies reviewed and updated.Pre-Procedure Vital Signs: Blood pressure 129/90, pulse 62.Heart valve replacement:NoJoint replacement: NoPre-Procedure Antibiotics: NonePatient Prep: Betadine Scrub to perineum and placement of Sterile Drape.Anesthetic Given: Sheldon Gusman LPN POST PROCEDURE NURSEAudible Time Out: 310Procedure Start Time: 311Procedure/Indication Cystoscopy/UrodynamicsIn struction sheet given and reviewed and patient verbalizes understanding: yesPost-Procedure Vital Signs: BP 139/91 Pulse 88Post Procedure Antibiotic: N/AIs the patient having any pain? No 0 on a scale of 0 to 10Litzy Gusman LPN Normal [facility] US KIDNEY/BLADDERon 06-29-19 US KIDNEY/BLADDER * * *Final Report* * *DATE OF EXAM: Jun 28 2017 1:10PM [facility] 1055 - KIDNEY/BLADDER / REASON: urinary retention * * * * Physician Interpretation * * * *RESULT: EXAMINATION: RENAL ULTRASOUNDHISTORY: Urinary retention, neurogenic bladderTECHNIQUE: Sonography of the kidneys and urinary bladder was performed. Images were obtained and stored in a permanent archive.MQ: UR_1COMPARISON: NoneRESULT:Right Kidney: -Renal length: 10.5 cm -Parenchyma: Normal parenchymal echogenicity. Areas of mild cortical thinning of the right kidney. -Collecting system: No hydronephrosis. -Calculus: No echogenic, shadowing calculus. -Lesion: 1.2 x 1.1 x 1.1 cm simple cyst.Left Kidney: -Renal length: 12.9 cm -Parenchyma: Normal parenchymal echogenicity. Normal parenchymal thickness. -Collecting system: No hydronephrosis. -Calculus: No echogenic, shadowing calculus. -Lesion: None.Bladder: Trabeculation of the urinary bladder wall with small diverticuli.IMPRESSION:N o hydronephrosis. Areas of mild cortical thinning of the right kidney.Urinary bladder trabeculations/small diverticuli.Transcribed Using Voice RecognitionTranscribe Date/Time: Jun 28 2017 3:30PDictated by: JAY CROWDER MDThis examination was interpreted and the report reviewed and electronically signed by: JAY CROWDER MD on Jun 28 2017 3:33PM [id number] N [facility] CNOVon 06-15-2017 CNOV Office Visit ([facility]) Olga GALVAN ([id number]) 1960 MDate Time Provider Department06/15/17 2:00 PM ALDO FRANKLIN [facility] During your visit today, we recorded the following information about you:Marques Echevarria Ma 06/15/2017 2:20 PM SignedUrology ClinicApril 2017Chief Complaint: Urinary retentionHPI: This is a 56 year old male who presents to the clinic today for evaluationof urinary retention and neurogenic bladder. 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 Patient is s/p vasectomy 20 years ago.Patient is allergic to Bactrim and Cipro.Denies fever, chills, nausea, vomiting, modifying factors.ROS:All systems reviewed and otherwise negative, except as noted in the HPI.History:No past medical history on file.No past surgical history on file.Social History Marital status: Spouse name: Years of education: Number of children:Social History Main Topics Smoking status: Never Smoker Smokeless status: Never UsedALLERGIESAllergen Reactions- Ciprofloxacin Hives- Ondansetron Hcl Other: See Comments Pt reports bradycardia- Sulfamethoxazole-Tr* HivesNo current outpatient prescriptions on file prior to visit.No current facility-administered medications on file prior to visit.PHYSICAL EXAMINATION:GENERAL: Alert, Awake, Well developed, well nourished,healthy appearingHEENT: PERRLA. EOMI. MMM.RESP: NL effort, no retractions or purse-lip breathing.CV: No extremity swelling, varices, edema, pallor, erythemaABDOMEN: Soft, nontender, nondistended, no masses.HERNIAS: NoneSKIN/LYMPH: No rash, lesions.NEURO: Alert and oriented x3. Normal Speech.PSYCH: No signs of depression, anxiety, or agitation.EXTREMITIES: Extremities normal. No deformities, edema, clubbing or skindiscoloration. FROM.GENITOURINARY: No scrotal lesions, cysts, rashes.Epididymes ANDamp; testes normalsize, position, without mass, Urethra ANDamp; meatus normal size ANDamp; positionw/o lesion or discharge, Penis w/o plaques, lesions, masses, or deformities.Rectal Exam:Prostate: normal size for age, symmetrical, nontender, w/o nodules.Sphincter tone normal, no mass. Anus and perineum wnl.Results:UA: Small leukocytes, discussed with patientNo results found for: PSAAssessment and Plan:This is a 56 year old male who presents to the office today for evaluation ofurinary retention and neurogenic bladder. UA shows small leukocytes, discussedwith patient.Will order a US kidney, cystoscopy, and urodynamics.Follow up in pending results.The patient will return sooner if he develops any concerning or worseningsymptoms.Scribe Attestation:By signing my name below, I, Marques Echevarria, attest that this documentation hasbeen prepared under the direction and in the presence of Dr. Aldo Franklin MD.Electronically Signed:ash Myles, June 15, 2017 2:10 PMProvider Attestation:I, Aldo Franklin, personally performed the services described in thisdocumentation. All medical record entries made by the scribe were at mydirection and in my presence. I have reviewed the chart and dischargeinstructions (if applicable) and agree that the record reflects my personalperformance and is accurate and complete. Dr. Aldo Franklin MD June 15, 20172:10 PMReferring Provider: SELF [200]Allergies As of Date: 06/15/2017 Noted Allergy ReactionCIPROFLOXACIN 07/22/2014 4 - HivesONDANSETRON HCL 07/25/2014 14 - Other: See Comments Comments: Pt reports bradycardiaSULFAMETHOXAZ OLE-TRIMETHOPRIM 07/22/2014 4 - HivesDate Reviewed: 06/15/2017Reviewed by: Aldo Franklin - Fully AssessedReason for Visit: New Patient [172]Primary Visit Diagnosis:Urinary retention [R33.9] Other Visit Diagnosis:Neurogenic bladder [N31.9]Order(s):UA DIP, URINE (POC) [[id number]] Order #: [id number]. #:[id number] 5-LAB US KIDNEY/BLADDER [[id number]] Order #: [id number] FUTURE CYSTO.PANENDO [[id number]] Order #: [id number] URODYNAMICS [[id number]] Order #: [id number] as of 06/15/2017 Sig: TRAMADOL 50 MG TABLETMedication notes this encounter TRAMADOL 50 MG TABLET >> Malik L Vrbancic Ma 06/15/2017 1:57 PM >> VRBANCIC MA, MALIK L TueJun 15, 2017 1:57 PM Received from: External PharmacyProblem List As Of Date: 06/15/2017(None)Follow-u p and Disposition History RecordedEncounter Number: [id number] Status:Closed by ALDO FRANKLIN MD on 06/15/17 [facility] PROGRESSon 06-15-2017 PROGRESS HNO ID: [id number]: Marques Zamoraice: (none)Author Type: (none)Type: Progress NotesFiled: 06/15/2017 2:20 PMNote Text:Urology ClinicApril 2017Chief Complaint: Urinary retentionHPI: This is a 56 year old male who presents to the clinic today forevaluation of urinary retention and neurogenic bladder. Patient has a hxof TURP and diverticuli in the bladder. Patient is s/p vasectomy 20 yearsago.Patient is allergic to Bactrim and Cipro.Denies fever, chills, nausea, vomiting, modifying factors.ROS:All systems reviewed and otherwise negative, except as noted in the HPI.History:No past medical history on file.No past surgical history on file.Social History Marital status: Spouse name: Years of education: Number of children:Social History Main Topics Smoking status: Never Smoker Smokeless status: Never UsedALLERGIESAllergen Reactions- Ciprofloxacin Hives- Ondansetron Hcl Other: See Comments Pt reports bradycardia- Sulfamethoxazole-Tr* HivesNo current outpatient prescriptions on file prior to visit.No current facility-administered medications on file prior to visit.PHYSICAL EXAMINATION:GENERAL: Alert, Awake, Well developed, well nourished,healthy appearingHEENT: PERRLA. EOMI. MMM.RESP: NL effort, no retractions or purse-lip breathing.CV: No extremity swelling, varices, edema, pallor, erythemaABDOMEN: Soft, nontender, nondistended, no masses.HERNIAS: NoneSKIN/LYMPH: No rash, lesions.NEURO: Alert and oriented x3. Normal Speech.PSYCH: No signs of depression, anxiety, or agitation.EXTREMITIES: Extremities normal. No deformities, edema, clubbing or skindiscoloration. FROM.GENITOURINARY: No scrotal lesions, cysts, rashes.Epididymes AND testesnormal size, position, without mass, Urethra AND meatus normal size ANDposition w/o lesion or discharge, Penis w/o plaques, lesions, masses, ordeformities.Rectal Exam:Prostate: normal size for age, symmetrical, nontender, w/onodules. Sphincter tone normal, no mass. Anus and perineum wnl.Results:UA: Small leukocytes, discussed with patientNo results found for: PSAAssessment and Plan:This is a 56 year old male who presents to the office today for evaluationof urinary retention and neurogenic bladder. UA shows small leukocytes,discussed with patient.Will order a US kidney, cystoscopy, and urodynamics.Follow up in pending results.The patient will return sooner if he develops any concerning or worseningsymptoms.Scribe Attestation:By signing my name below, IMarques, attest that this documentationhas been prepared under the direction and in the presence of Dr. Brittany MD.Electronically Signed:ash Myles, June 15, 2017 2:10 PMProvider Attestation:IAldo, personally performed the services described in thisdocumentation. All medical record entries made by the scribbree were at mydirection and in my presence. I have reviewed the chart and dischargeinstructions (if applicable) and agree that the record reflects mypersonal performance and is accurate and complete. Dr. Aldo Franklin, MEGANprca 2017 2:10 PM Normal [facility] CNOVon 03-11-2017 CNOV Office Visit ([facility]) HANNAHBreeOlga Hernandez ([id number]) 1960 MDate Time Provider Department03/11/17 8:00 AM SHAW NEFF During your visit today, we recorded the following information about you:Shaw Neff MD 03/11/2017 1:41 PM Signedpt no Marcelo Trejo Provider: SELF [200]Allergies As of Date: 03/11/2017(Not on File)Date Reviewed: Never ReviewedReason for Visit: Initial Consult [665] Cmt: bladder infection or UTIPrimary Visit Diagnosis:NO SHOW Other Visit Diagnosis:Screening for genitourinary condition [Z13.89]Order(s):UA DIP, URINE (POC) [[id number]] Order #: [id number] URINE SEDIMENT B/O [[id number]] Order #: [id number] List As Of Date: 03/11/2017(None)[facility] r Number: [id number] Status:Closed by SHAW NEFF MD on 03/11/[address] [facility] PROGRESSon 03-09-2017 PROGRESS HNO ID: [id number] Author: Shaw Neff Service: (none) Author Type: Physician Type: Progress Notes Filed: 03/11/2017 1:41 PM Note Text: pt no show Shaw Neff MD Normal [facility] Vital Signs Date Time Vital Sign Value Performing Clinician Facility 11-02-2022 15:15-0400 Body height 182.88 cm Claudio Soto Other [facility] Other 11-02-2022 15:15-0400 Body mass index (BMI) [Ratio] 21.97 kg/m2 Claudio Soto Other [facility] Other 11-02-2022 15:15-0400 Body weight 73.48 kg Claudio Ball Other [facility] Other 11-02-2022 15:15-0400 Diastolic blood pressure 83 mm[Hg] Claudio Ball Other [facility] Other 11-02-2022 15:15-0400 Respiratory rate 12 /min Claudio Ball Other [facility] Other 11-02-2022 15:15-0400 Systolic blood pressure 132 mm[Hg] Claudio Ball Other [facility] Other 08-20-2022 09:11-0400 Blood Pressure Location Alex MUSE [facility] 08-20-2022 09:11-0400 Diastolic blood pressure 68 mm[Hg] Alex MUSE [facility] 08-20-2022 09:11-0400 Heart rate 70 /min Alex MUSE [facility] 08-20-2022 09:11-0400 Respiratory rate 16 /min Alex MUSE [facility] 08-20-2022 09:11-0400 Systolic blood pressure 120 mm[Hg] Alex MUSE [facility] 08-02-2022 15:15-0400 Body height 182.88 cm Claudio Ball Other [facility] Other 08-02-2022 15:15-0400 Body mass index (BMI) [Ratio] 22.46 kg/m2 Claudio Ball Other [facility] Other 08-02-2022 15:15-0400 Body weight 75.12 kg Claudio Ball Other [email or web address] Other 08-02-2022 15:15-0400 Diastolic blood pressure 82 mm[Hg] Claudio Ball Other [email or web address] Other 08-02-2022 15:15-0400 Respiratory rate 12 /min Claudio Ball Other [email or web address] Other 08-02-2022 15:15-0400 Systolic blood pressure 121 mm[Hg] Claudio Ball Other [email or web address] Other 05-11-2022 08:32-0400 Blood Pressure Location HILDA ELINA [facility] 05-11-2022 08:32-0400 Diastolic blood pressure 90 mm[Hg] HILDA ELINA [facility] 05-11-2022 08:32-0400 Heart rate 70 /min HILDA ELINA [facility] 05-11-2022 08:32-0400 Systolic blood pressure 140 mm[Hg] HILDA ELINA [facility] 08-19-2021 15:19-0400 Blood Pressure Location HILDA ELINA [facility] 08-19-2021 15:19-0400 Heart rate 82 /min HILDA ELINA [facility] 08-19-2021 15:19-0400 Respiratory rate 16 /min HILDA ELINA [facility] Encounters Encounter Date Encounter Type Care Provider Facility Start: 03-04-2023 ambulatory Alex MUSE Facili ty:[facility] Start: 01-28-2023 End: 01-28-2023 ambulatory Claudio Soto Other [facility] Other Start: 01-28-2023 Telephone encounter Claudio Soto [facility] Start: 12-24-2022 End: 12-24-2022 ambulatory Claudio Soto Other [facility] Other Start: 12-24-2022 Telephone encounter Claudio Soto [facility] Start: 12-23-2022 End: 12-23-2022 ambulatory Claudio Soto Other [facility] Other Start: 12-23-2022 Telephone encounter Claudio Soto [facility] Start: 11-23-2022 End: 11-23-2022 ambulatory Claudio Soto Other [facility] Other Start: 11-23-2022 Telephone encounter Claudio Soto [facility] Start: 11-02-2022 End: 11-02-2022 ambulatory Claudio Soto Other [facility] Other Start: 11-02-2022 Office outpatient vi sit 25 minutes Claudio Soto [facility] Start: 10-26-2022 End: 10-26-2022 ambulatory Claudio Soto Other [facility] Other Start: 10-26-2022 Telephone encounter Claudio Soto [facility] Start: 10-22-2022 ambulatory Lico CARUSO Facility :[facility] Start: 09-27-2022 ambulatory Lico CARUSO Facility:[facility] Start: 08-20-2022 End: 08-21-2022 ambulatory Alex MUSE Facility:[facility] Start: 08-20-2022 End: 08-21-2022 ambulatory Alex MUSE Facility:[facility] Start: 08-20-2022 End: 08-20-2022 Lab Drop off Alex MUSE [facility] Start: 08-20-2022 End: 08-20-2022 Patient encounter procedure Alex MUSE [facility] Start: 08-02-2022 End: 08-02-2022 ambulatory Claudio Soto Other [facility] Other Start: 08-02-2022 Encounter for genera l adult medical examination without abnormal findings Claudio Soto [facility] Start: 08-02-2022 Periodic preventive med est patient 40-64yrs Claudio Soto [facility] Start: 07-28-2022 End: 07-28-2022 ambulatory Claudio Deepika Other [facility] Other Start: 07-28-2022 Telephone encounter Claudio BAHENA [facility] Start: 07-12-2022 End: 07-13-[address] ALEX MUSE . Facility: Start: 07-12-2022 End: 07-12-2022 Patient encounter procedure Alex MUSE [facility] Start: 06-30-2022 End: 06-30-2022 ambulatory Claudio Soto Other [facility] Other Start: 06-30-2022 Telephone encounter Claudio BAHENA [facility] Start: 06-14-2022 Telephone encounter Claudio Deepika JOSEF [facility] Start: 06-14-2022 End: 06-15-[address] ALEX MUSE . [facility] Other Start: 05-11-2022 End: 05-12-2022 ambulatory HILDA ANTOINE Facility:[facility] Start: 05-11-2022 End: 05-11-2022 Lab Drop off HILDA ANTOINE [facility] Start: 05-11-2022 End: 05-11-2022 Patient encounter procedure HILDA ANTOINE [facility] Start: 05-03-2022 End: 05-03-2022 ambulatory Claudio Soto Other [facility] Other Start: 05-03-2022 Telephone encounter Claudio BAHENA [facility] Start: 04-05-2022 End: 04-05-2022 ambulatory Claudio Soto Other [facility] Other Start: 04-05-2022 Telephone encounter Claudio Soto [facility] Start: 04-01-2022 Nursing evaluation o f patient and report Patricia MACHADO [facility] Start: 04-01-2022 End: 04-01-[address] SHINE ALMODOVAR . [email or web address] Other Start: 03-31-2022 End: 03-31-[address] MARK OLVERA Facility:[facility] Start: 10-07-2021 End: 10-10-[address] CLAUDIO SOTO Facility:[facility] Start: 10-06-2021 End: 10-06-2021 ambulatory CARLOS MOORE . Facility:[facility] Start: 09-03-[address] CLAUDIO SOTO Facili ty:[facility] Start: 08-19-2021 End: 08-20-[address] ALEX MUSE . Facility:[facility] Start: 08-19-2021 End: 08-19-2021 Patient encounter procedure HILDA Bree PENNYRY [facility] Start: 06-28-2017 End: 06-30-2017 Ambulatory [facility] Start: 06-28-2017 Ambulatory [facility] Start: 06-15-2017 End: 06-20-2017 Ambulatory ALDO FRANKLIN [facility] Start: 03-11-2017 End: 03-11-2017 Ambulatory SHAW NEFF [facility] Procedures Date Procedure Procedure Detail Performing Clinician Start: 06-14-2022 Cystoscopy Alex MEI Start: 08-19-[address] FLOYD MUSE . Comment on above: Performed By: #### C MP #### [facility] [address] [place] [address] Dr. Destin López Start: 07-12-2014 Cystoscopy HILDA Harika CHRISTIAN Start: 07-23-2008 Removal of stent ADALBERTOROLAN GOVEA ELINA Start: 04-25-2008 Cystoscopy HILDA GONZALES Start: 04-25-2008 Prostatotomy by transurethral approach Alex MUSE Tonsillectomy HILDA ANTOINE Vasectomy HILDA ANTOINE Payers Date Payer Category Payer Unknown [id number] 2.16.84 [id number] 1960 Unknown [id number] 2.16.84 0.1.372823.3.579.2.59 1960 Unknown [id number] 2.16.84 0.1.152596.3.579.259 1960 Unknown [id number] 2.16.84 0.1.233214.3.579.2.59 1960 Unknown [id number] 2.16.84 0.1.433912.3.579.2.59 1960 Unknown [id number] 2.16.84 0.1.673854.3.579.2.593 1960 Unknown [id number] 2.16.84 0.1.213968.3.579.2.59 1960 Unknown [id number] 2.16.84 0.1.762856.3.579.2.593 1960 Unknown [id number] 2.16.84 0.1.695318.3.579.2.593 1960 Unknown [id number] 2.16.8 40.1.808019.3.579.2.727 1960 Unknown [id number] 2.16.8 40.1.165744.3.579.2.727 1960 Unknown [id number] 2.16.8 40.1.180218.3.579.2.727 1960 Unknown [id number] 2.16.8 40.1.161215.3.579.2.7 1960 Unknown [id number] 2.16.8 40.1.746734.3.579.2.727 1960 Unknown [id number] 2.16.8 40.1.520495.3.579.2.727 1960 Unknown [id number] 2.16.8 40.1.871957.3.579.2.727 1960 Unknown [id number] 2.16.8 40.1.846074.3.579.2.727 1957 [facility] ALIE [id number] 1957 Self-pay [id number] Social History Date Type Detail Facility Start: 08-19-2021 End: 08-20-2022 Tobacco smoking status Light tobacco smoker (finding) [facility] Sex Assigned At Male [facility] Tobacco smoking status Never [facility] Functional Status Date Assessment Result Facility 08-20-2022 Functional Status N/A [facility] 05-11-2022 Functional Status N/A [facility] 08-19-2021 Functional Status N/A [facility] Clinical Notes 08-19-2021 to 01-28-2023 Note Date & Type Note Facility 01-28-2023 Evaluation note Encounter Date Diagnosis Assessment Notes Jan, Lumbar spondylosis (ICD-10 - M47.816) [facility] Other 10-26-2023 Evaluation note* Encounter Date Diagnosis Assessment Notes Treatment Notes Treatment Clinical Notes Nov, Acute prostatitis (ICD-10 - N41.0) [facility] Other 09-26-2023 Evaluation note* Encounter Date Diagnosis Assessment Notes Treatment Notes Treatment Clinical Notes Oct, Acute prostatitis (ICD-10 - N41.0) [facility] Other 09-05-2023 Evaluation note* Encounter Date Diagnosis Assessment Notes Treatment Notes Treatment Clinical Notes Oct, Obstructive sleep apnea (ICD-10 - G47.33) This patient is aware of the benefits associated with SONIA: With continued use, the patient reduces the risk for OH, CVA, HTN, cardiac dysrhythmias and sudden cardiac deaths.The patient is also aware of the association between SONIA and morning headaches, daytime somnolence, fatigue and obesity, which also has been improved with continued use.The patient is compliant with treatment, wearing the equipment every night for greater than 4 hours.The patient is instructed to continue use of the CPAP for SONIA treatment. Oct, Acute prostatitis with hematuria (ICD-10 - N41.0) Instructed to consume up to 64 oz fluids daily d/c Macrobid due to persistent symptoms despite >48 hours of antibiotic coverage Initiate Doxycycline _update in 72 hours Oct, Lumbar spondylosis (ICD-10 - M47.816) The patient is instructed to avoid bending, twisting or lifting. They are to use intermittent heat and ice as needed. They may schedule a massage or gentle manipulation. They may safely use Tylenol as needed. Oct, Benign prostatic hyperplasia with lower urinary tract symptoms (ICD-10 - N40.1) Symptoms not measurable due to neurogenic bladder. Chronic urinary retention, requiring self cath to empty bladder Oct, Other retention of urine (ICD-10 - R33.8) Continue self catheterization to empty bladder. Instructed to use sterile technique [facility] Other 08-29-2023 Evaluation note* Encounter Date Diagnosis Assessment Notes Treatment Notes Treatment Clinical Notes Sep, Lumbar spondylosis (ICD-10 - M47.816) Sep, Dysuria (ICD-10 - R30.0) [facility] Other 06-23-2023 Hospital Discharge instructions Patient Education 08/20/2022 09:42:11 Clean Intermittent Catheterization, Male Clean Intermittent Catheterization, Male Clean intermittent catheterization (CIC) is a procedure to remove urine from the bladder by placinga small, flexible tube (catheter) into the bladder though the urethra. The urethra is a tube in thebody that carries urine from the bladder out of the body. CIC may be done when: You cannot completely empty your bladder on your own. This may be due to a blockage in the bladder or urethra. Your bladder leaks urine. This may happen when the muscles or nerves near the bladder are not working normally, so the bladder overflows. Your health care provider will show you how to perform CIC and will help you to become comfortable performing this procedure at home. Your health care provider will also help you to get the home caresupplies that are needed for this procedure. Supplies needed: Germ-free (sterile), water-based lubricant. A container for urine collection. You may also use the toilet to dispose of urine from the catheter. A catheter. Your health care provider will determine the best size for you. ?Use this catheter size: Clean gloves. Soap and water. Towel. How to perform this procedure: Most people need CIC at least 4 times per day to adequately empty the bladder. Your health care provider will tell you how often you should perform CIC. Number of times per day to perform CIC: To perform CIC, follow these steps: 1.Wash your hands with soap and water. If soap and water are not available, use hand trailer steerer. 2.Clean your penis with soap and water. Dry the tip of your penis completely. 3.Prepare the supplies that you will use during the procedure. Open the catheter package and lubricant. 4.Get in a comfortable position. Possible positions include: Sitting on a toilet, a chair, or the edge of a bed. Standing near a toilet. Lying down with your head raised on pillows and your knees pointing to the ceiling. You may wish toplace a waterproof mat or pad under you. 5.If you are using a urine collection container, position it between your legs. 6.Urinate, if you are able. 7.Put on gloves. 8.Apply lubricant to about 2 inches (5 cm) of the tip of the catheter. 9.Set the catheter down on a clean, dry surface within reach. 10.Gently stretch your penis out from your body. Pull back any skin that covers the end of your penis (foreskin). Clean the end of your penis with medicated sterile swabs as told by your health care provider. 11.Hold your penis upward at a 45 60 degree angle. This helps to straighten the urethra. 12.Slowly insert the lubricated catheter straight into your urethra until urine flows freely. This is usually about 6 8 inches (15 20 cm). 13.When urine starts to flow freely, insert the catheter 1 inch (3 cm) more. Allow urine to drain into the toilet or the urine collection container. 14.When urine stops flowing, slowly remove the catheter. 15.Note the color, amount, and odor of the urine. 16.Measure your urine and note the amount, if told by your health care provider. 17.Discard the urine in the toilet. 18.Clean your penis using soap and water. 19.Move the foreskin back in place, if applicable. 20.If you are using a single-use catheter, discard the catheter and supplies. 21.Wash your hands with soap and water. 22.If you are using a reusable catheter, follow package instructions about how to clean the catheter after each use. How often should I perform this procedure? Do CIC to empty your bladder every 4 6 hours or as often as told by your health care provider. If you have symptoms of too much urine in your bladder (overdistension) and you are not able to urinate, perform CIC. Symptoms of overdistension may include: ?Restlessness. ?Sweating or chills. ?Headache. ?Flushed or pale skin. ?Bloated lower abdomen. What are the risks? Generally, this is a safe procedure, however problems may occur, including: Infection. Injury to the urethra. Irritation of the urethra. Follow these instructions at home General instructions Drink enough fluid to keep your urine pale yellow. Dispose of a multiple use catheter when it becomes dry, brittle, or cloudy. This usually happens after you use the catheter for 1 week. Avoid caffeine. Caffeine may make you need to urinate more frequently and more urgently. When traveling, bring extra supplies with you in case of delays. Keep supplies with you in a place that you can access easily. If traveling by plane: ?Make sure that the lubricant in your carry-on bag is less than 3.4 ounces (100 mL). ?Use a single-use catheter. It may be difficult to clean a reusable catheter in a small bathroom. Take jtil-syn-urhulol and prescription medicines only as told by your health care provider. Keep all follow-up visits as told by your health care provider. This is important. Contact a health care provider if you: Have difficulty performing CIC. Have urine leaking during CIC. Have: ?Dark or cloudy urine. ?Blood in your urine or in your catheter. ?A change in the smell of your urine or discharge. ?A burning feeling while you urinate. Feel nauseous or you vomit. Have pain in your abdomen, your back, or your sides below your ribs. Have swelling or redness around the opening of your urethra. Develop a rash or sores on your skin. Get help right away if you have: A fever. Symptoms that do not go away after 3 days. Symptoms that suddenly get worse. Severe pain. A decrease in the amount of urine that drains from your bladder. Summary Clean intermittent catheterization (CIC) is a procedure to remove urine from the bladder by placinga small, flexible tube (catheter) into the bladder though the urethra. Your health care provider will show you how to perform CIC and will help you to become comfortable performing this procedure at home. Most people need CIC at least 4 times per day to adequately empty the bladder. This information is not intended to replace advice given to you by your health care provider. Make sure you discuss any questions you have with your health care provider. Document Revised: 12/21/2021 Document Reviewed: 12/21/2021 [employer] Patient Education 2022 [employer]. Follow Up Care 08/19/2021 15:46:45 With:MIGUELINA SNIDER, Alex Julien, URL Address: [facility] [address], [place] [address]- [phone] When:Within 6 Month(s) [facility] 06-05-2023 Evaluation note* Encounter Date Diagnosis Assessment Notes Treatment Notes Treatment Clinical Notes Jul, Obstructive sleep apnea (ICD-10 - G47.33) This patient is aware of the benefits associated with SONIA: With continued use, the patient reduces the risk for OH, CVA, HTN, cardiac dysrhythmias and sudden cardiac deaths.The patient is also aware of the association between SONIA and morning headaches, daytime somnolence, fatigue and obesity, which also has been improved with continued use.The patient is compliant with treatment, wearing the equipment every night for greater than 4 hours.The patient is instructed to continue use of the CPAP for SONIA treatment. Jul, Wellness examination (ICD-10 - Z00.00) Healthy diet and exercise. Reviewed age-appropriate preventive testing recommended. Jul, Lumbar spondylosis (ICD-10 - M47.816) The patient is instructed to avoid bending, twisting or lifting. They are to use intermittent heat and ice as needed. They may schedule a massage or gentle manipulation. They may safely use Tylenol as needed. Jul, Other retention of urine (ICD-10 - R33.8) Jul, Benign prostatic hyperplasia with lower urinary tract symptoms (ICD-10 - N40.1) Palm catheter in place, soon to be removed and resuming self catheterization [facility] Other 05-31-2023 Evaluation note* Encounter Date Diagnosis Assessment Notes Treatment Notes Treatment Clinical Notes June, Lumbar spondylosis (ICD-10 - M47.816) [facility] Other 05-03-2023 Evaluation note* Encounter Date Diagnosis Assessment Notes Treatment Notes Treatment Clinical Notes June, Lumbar spondylosis (ICD-10 - M47.816) [facility] Other 03-14-2023 Hospital Discharge instructions Patient Education 05/11/2022 08:57:33 Urinary Tract Infection, Adult Urinary Tract Infection, Adult A urinary tract infection (UTI) is an infection of any part of the urinary tract. The urinary tractincludes the kidneys, ureters, bladder, and urethra. These organs make, store, and get rid of urinein the body. Your health care provider may use other names to describe the infection. An upper UTI affects the ureters and kidneys (pyelonephritis). A lower UTI affects the bladder (cystitis) and urethra (urethritis). What are the causes? Most urinary tract infections are caused by bacteria in your genital area, around the entrance to your urinary tract (urethra). These bacteria grow and cause inflammation of your urinary tract. What increases the risk? You are more likely to develop this condition if: You have a urinary catheter that stays in place (indwelling). You are not able to control when you urinate or have a bowel movement (you have incontinence). You are female and you: ?Use a spermicide or diaphragm for control. ?Have low estrogen levels. ?Are . You have certain genes that increase your risk (genetics). You are sexually active. You take antibiotic medicines. You have a condition that causes your flow of urine to slow down, such as: ?An enlarged prostate, if you are male. ?Blockage in your urethra (stricture). ?A kidney stone. ?A nerve condition that affects your bladder control (neurogenic bladder). ?Not getting enough to drink, or not urinating often. You have certain medical conditions, such as: ?Diabetes. ?A weak disease-fighting system (immunesystem). ?Sickle cell disease. ?Gout. ?Spinal cord injury. What are the signs or symptoms? Symptoms of this condition include: Needing to urinate right away (urgently). Frequent urination or passing small amounts of urine frequently. Pain or burning with urination. Blood in the urine. Urine that smells bad or unusual. Trouble urinating. Cloudy urine. Vaginal discharge, if you are female. Pain in the abdomen or the lower back. You may also have: Vomiting or a decreased appetite. Confusion. Irritability or tiredness. A fever. Diarrhea. The first symptom in older adults may be confusion. In some cases, they may not have any symptoms until the infection has worsened. How is this diagnosed? This condition is diagnosed based on your medical history and a physical exam. You may also have other tests, including: Urine tests. Blood tests. Tests for sexually transmitted infections (STIs). If you have had more than one UTI, a cystoscopy or imaging studies may be done to determine the cause of the infections. How is this treated? Treatment for this condition includes: Antibiotic medicine. Gkvm-bkc-cskfsig medicines to treat discomfort. Drinking enough water to stay hydrated. If you have frequent infections or have other conditions such as a kidney stone, you may need to see a health care provider who specializes in the urinary tract (urologist). In rare cases, urinary tract infections can cause sepsis. Sepsis is a life- threatening condition that occurs when the body responds to an infection. Sepsis is treated in the hospital with IV antibiotics, fluids, and other medicines. Follow these instructions at home: Medicines Take lwvy-lgv-bcaehue and prescription medicines only as told by your health care provider. If you were prescribed an antibiotic medicine, take it as told by your health care provider. Do notstop using the antibiotic even if you start to feel better. General instructions Make sure you: ?Empty your bladder often and completely. Do not hold urine for long periods of time. ?Empty your bladder after sex. ?Wipe from front to back after a bowel movement if you are female. Use each tissue one time when you wipe. Drink enough fluid to keep your urine pale yellow. Keep all follow-up visits as told by your health care provider. This is important. Contact a health care provider if: Your symptoms do not get better after 1 2 days. Your symptoms go away and then return. Get help right away if you have: Severe pain in your back or your lower abdomen. A fever. Nausea or vomiting. Summary A urinary tract infection (UTI) is an infection of any part of the urinary tract, which includes the kidneys, ureters, bladder, and urethra. Most urinary tract infections are caused by bacteria in your genital area, around the entrance to your urinary tract (urethra). Treatment for this condition often includes antibiotic medicines. If you were prescribed an antibiotic medicine, take it as told by your health care provider. Do notstop using the antibiotic even if you start to feel better. Keep all follow-up visits as told by your health care provider. This is important. This information is not intended to replace advice given to you by your health care provider. Make sure you discuss any questions you have with your health care provider. Document Released: 11/24/2005 Document Revised: 02/01/2019 Document Reviewed: 08/24/2018 [employer] Patient Education 2020 [employer]. Follow Up Care 04/27/2022 09:21:57 With:MIGUELINA SNIDER, Alex Julien, URL Address: [address] [place] [phone]- When: Unknown [facility]* Encounter Date Diagnosis Assessment Notes Treatment Notes Treatment Clinical Notes Mar, Acute pyelonephritis (ICD-10 - N10) [facility] Other 02-02-2023 Evaluation note* Encounter Date Diagnosis Assessment Notes Treatment Notes Treatment Clinical Notes Mar, Dysuria (ICD-10 - R30.0) Nurse advised him to go to ER [facility] Other 06-22-2022 Hospital Discharge instructions Patient Education 08/19/2021 15:40:40 Benign Prostatic Hyperplasia Benign Prostatic Hyperplasia Benign prostatic hyperplasia (BPH) is an enlarged prostate gland that is caused by the normal agingprocess and not by cancer. The prostate is a walnut-sized gland that is involved in the production of semen. It is located in front of the rectum and below the bladder. The bladder stores urine and the urethra is the tube that carries the urine out of the body. The prostate may get bigger as a man gets older. An enlarged prostate can press on the urethra. This can make it harder to pass urine. The build-up of urine in the bladder can cause infection. Back pressure and infection may progress to bladder damage and kidney (renal) failure. What are the causes? This condition is part of a normal aging process. However, not all men develop problems from this condition. If the prostate enlarges away from the urethra, urine flow will not be blocked. If it enlarges toward the urethra and compresses it, there will be problems passing urine. What increases the risk? This condition is more likely to develop in men over the age of 50 years. What are the signs or symptoms? Symptoms of this condition include: Getting up often during the night to urinate. Needing to urinate frequently during the day. Difficulty starting urine flow. Decrease in size and strength of your urine stream. Leaking (dribbling) after urinating. Inability to pass urine. This needs immediate treatment. Inability to completely empty your bladder. Pain when you pass urine. This is more common if there is also an infection. Urinary tract infection (UTI). How is this diagnosed? This condition is diagnosed based on your medical history, a physical exam, and your symptoms. Tests will also be done, such as: A post-void bladder scan. This measures any amount of urine that may remain in your bladder after you finish urinating. A digital rectal exam. In a rectal exam, your health care provider checks your prostate by putting a lubricated, gloved finger into your rectum to feel the back of your prostate gland. This exam detects the size of your gland and any abnormal lumps or growths. An exam of your urine (urinalysis). A prostate specific antigen (PSA) screening. This is a blood test used to screen for prostate cancer. An ultrasound. This test uses sound waves to electronically produce a picture of your prostate gland. Your health care provider may refer you to a specialist in kidney and prostate diseases (urologist). How is this treated? Once symptoms begin, your health care provider will monitor your condition (active surveillance or watchful waiting). Treatment for this condition will depend on the severity of your condition. Treatment may include: Observation and yearly exams. This may be the only treatment needed if your condition and symptoms are mild. Medicines to relieve your symptoms, including: ?Medicines to shrink the prostate. ?Medicines to relax the muscle of the prostate. Surgery in severe cases. Surgery may include: ?Prostatectomy. In this procedure, the prostate tissue is removed completely through an open incision or with a laparoscope or robotics. ?Transurethral resection of the prostate (TURP). In this procedure, a tool is inserted through the opening at the tip of the penis (urethra). It is used to cut away tissue of the inner core of the prostate. The pieces are removed through the same opening of the penis. This removes the blockage. ?Transurethral incision (TUIP). In this procedure, small cuts are made in the prostate. This lessens the prostate's pressure on the urethra. ?Transurethral microwave thermotherapy (TUMT). This procedure uses microwaves to create heat. The heat destroys and removes a small amount of prostate tissue. ?Transurethral needle ablation (TUNA). This procedure uses radio frequencies to destroy and remove a small amount of prostate tissue. ?Interstitial laser coagulation (ILC). This procedure uses a laser to destroy and remove a small amount of prostate tissue. ?Transurethral electrovaporization (TUVP). This procedure uses electrodes to destroy and remove a small amount of prostate tissue. ?Prostatic urethral lift. This procedure inserts an implant to push the lobes of the prostate away from the urethra. Follow these instructions at home: Take miyw-zef-rwjsvlb and prescription medicines only as told by your health care provider. Monitor your symptoms for any changes. Contact your health care provider with any changes. Avoid drinking large amounts of liquid before going to bed or out in public. Avoid or reduce how much caffeine or alcohol you drink. Give yourself time when you urinate. Keep all follow-up visits as told by your health care provider. This is important. Contact a health care provider if: You have unexplained back pain. Your symptoms do not get better with treatment. You develop side effects from the medicine you are taking. Your urine becomes very dark or has a bad smell. Your lower abdomen becomes distended and you have trouble passing your urine. Get help right away if: You have a fever or chills. You suddenly cannot urinate. You feel lightheaded, or very dizzy, or you faint. There are large amounts of blood or clots in the urine. Your urinary problems become hard to manage. You develop moderate to severe low back or flank pain. The flank is the side of your body between the ribs and the hip. These symptoms may represent a serious problem that is an emergency. Do not wait to see if the symptoms will go away. Get medical help right away. Call your local emergency services (911 in the [place] Do not drive yourself to the hospital. Summary Benign prostatic hyperplasia (BPH) is an enlarged prostate that is caused by the normal aging process and not by cancer. An enlarged prostate can press on the urethra. This can make it hard to pass urine. This condition is part of a normal aging process and is more likely to develop in men over the age of 50 years. Get help right away if you suddenly cannot urinate. This information is not intended to replace advice given to you by your health care provider. Make sure you discuss any questions you have with your health care provider. Document Released: 02/14/2006 Document Revised: 01/09/2019 Document Reviewed: 03/21/2017 [employer] Patient Education 2020 [employer]. Follow Up Care 07/06/2021 10:21:43 With:HILDA ANTOINE PA-C, URL Address: [address] [place] [address] When:1 year Comments:PSA [facility] evaluation + Plan note Future Appointments Appointment Date:08/20/2022 08:30:00 AM Scheduled Provider:Alex MUSE MD Location:[facility] Appointment Type:URO Office Visit Diagnostic Tests Pending * PSA Total 08/19/21 * PSA Total 08/19/21 Future Scheduled Tests Laboratory* Basic Metabolic Panel 08/19/21 * Basic Metabolic Panel 08/19/21 * Basic Metabolic Panel 08/19/21 [facility] evaluation + Plan note Future Appointments Appointment Date:08/20/2022 08:30:00 AM Scheduled Provider:Alex MUSE MD Location:[facility] Appointment Type:URO Office Visit Future Scheduled Tests Laboratory* Basic Metabolic Panel 08/19/21 * Basic Metabolic Panel 08/19/21 * Basic Metabolic Panel 08/19/21 [facility] evaluation + Plan note Future Appointments Appointment Date:08/20/2022 08:30:00 AM Scheduled Provider:Alex MUSE MD Location:[facility] Appointment Type:URO Office Visit Diagnostic Tests Pending * Urine Culture 05/11/22 Future Scheduled Tests Laboratory* Basic Metabolic Panel 08/19/21 * Basic Metabolic Panel 08/19/21 * [facility] Appointment Date:03/04/2023 08:00:00 AM Scheduled Provider:Alex MUSE MD Location:[facility] Appointment Type:URO Office Visit [facility] Other History general Narrative - Reported* Type Description Date Medical History Dysuria Medical History Seborrheic keratosis of scalp Medical History Obstructive sleep apnea Medical History Lumbar spondylosis Medical History Bursitis of right hip Medical History Nausea and vomiting in adult Medical History 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 Medical History HISTORY OF CEREBRAL HEMORRHAGE Medical History Other postprocedural complications and disorders of genitourinary system Medical History Acute prostatitis Medical History Thoracic back pain Medical History Cervicalgia Surgical History COLONOSCOPY/EGD 2007 Surgical History URETHRSCOPY URETHERAL STENT 200 9 Surgical History COLONOSCOPY 2020 Hospitalization History SEE SURGICAL HX [facility] Other Hisjwxg general Narrative - Reported* Type Description Date Medical History Dysuria Medical History Seborrheic keratosis of scalp Medical History Obstructive sleep apnea Medical History Lumbar spondylosis Medical History Bursitis of right hip Medical History Nausea and vomiting in adult Medical History 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 Medical History HISTORY OF CEREBRAL HEMORRHAGE Medical History Other postprocedural complications and disorders of genitourinary system Medical History Acute prostatitis Medical History Thoracic back pain Medical History Cervicalgia Medical History Neurogenic bladder Surgical History COLONOSCOPY/EGD 2007 Surgical History URETHRSCOPY URETHERAL STENT 200 9 Surgical History COLONOSCOPY 2020 Surgical History Cystoscopy 05/2022 Hospitalization History SEE SURGICAL [facility] Other Hospital course Narrative No data available for this section [facility] Hospital Discharge instructions No data available for this section [facility] No data available for this section [facility] Summary Purpose Family History No Family History Records FoundNo Family History Records FoundNo Family History Records FoundNo Family History Records FoundNo Family History Records FoundNo Family History Records Found Advance Directives No Advanced Directives Records FoundNo Advanced Directives Records FoundNo Advanced Directives Records FoundNo Advanced Directives Records FoundNo Advanced Directives Records FoundNo Advanced Directives Records Found Additional Source Comments (unrecognized sect ion and content) No Status Records FoundNo Status Records FoundNo Status Records FoundNo Status Records FoundNo Status Records FoundNo Status Records Found INFORMATION SOURCE (unrecogn ized section and content) DATE CREATED AUTHOR 08/17/[address] [facility] DATE CREATED AUTHOR AUTHOR'S ORGANIZ ATION 08/18/2017 [facility] DATE CREATED AUTHOR AUTHOR'S ORGANIZ ATION 02/15/2021 [facility] DATE CREATED AUTHOR AUTHOR'S ORGANIZ ATION 01/15/2022 [facility] dical Specialist DATE CREATED AUTHOR AUTHOR'S ORGANIZ ATION 07/13/2022 [facility] DATE CREATED AUTHOR AUTHOR'S ORGANIZ ATION 03/03/2023 Jose Antonio Escamilla [facility] Care Team (unrecognized sect ion and content) Personnel Name: CLAUDIO SOTO DO Address: [address] [place] [address] Personnel Name: CLAUDIO SOTO DO Address: Address: [address] [place] [address] Personnel Name: CLAUDIO SOTO DO Address: Address: [address] [place] [address] Personnel Name: CLAUDIO SOTO DO Address: Address: [address] [place] [address] Personnel Name: CLAUDIO SOTO DO Address: Address: [address] [place] [address] Personnel Name: CLAUDIO SOTO DO Address: Address: [address] [place] [address] REASON FOR VISIT (unrecogniz ed section and content) Results3 monthwellness / gary ck up for pain medicationUA- Fever, Back PainATB FOR RECORDS PERTAINING TO PATIENTS WHO ARE OR HAVE BEEN ENROLLED IN A CHEMICAL DEPENDENCY/SUBSTANCEABUSE PROGRAM, SOME INFORMATION MAY BE OMITTED. This clinical summary was aggregated from multiple sources. Caution should be exercised in using it in the provision of clinical care. This summary normalizes information from multiple sources, and as a consequence, information in this document may materially change the coding, format and clinical context of patient data. In addition, data may be omitted in some cases. CLINICAL DECISIONS SHOULD BE BASED ON THE PRIMARY CLINICAL RECORDS. [facility] [employer] [facility]. provides no warranty or guarantee of the accuracy or completeness of information in this document.
[2023-03-04 11:02] LABS: Estimated GFR (African America >60 (>=60); Estimated GFR (Non-African Ame >60 (>=60)
== END 2023-03-04 08:53 | disposition home or self-care (01) ==
LOC: LAB 08:54
PROVIDERS: PCP Internal Medicine; Visit Provider Urology
DX: N13.30 Unspecified hydronephrosis (principal)
CPT/HCPCS: 36415; 82565; 84520

== ENCOUNTER 2023-08-03 06:33 | Outpatient (OUT) | payer BC, SELFPAY ==
--- OUTSIDE RECORDS SUMMARY | 2023-08-03 06:34 | XMS_ITS | CCD ---
Author Organization [facility] Care Team Providers Care Stripper Cutter Machine Name Role Phone PRISCILAVAL SHAW Unavailable Unavailable LURIA, CARLSON S Unavailable Unavailable LURIA, CARSLON S Unavailable Unavailable BALLNATASHA Unavailable Unavailab le LURIA, CARLSON S Unavailable Unavailable LURIA, CARLSON S Unavailable Unavailable DEEPIKA, CLAUDIO Primary Care Physician Deepika, Claudio Unavailable Patricia Olmos Unavailable MIGUELINA ., DR JOHNSON Attending Unavailable DEEPIKA, DR BATES Primary Care Unavailable MUSE ., DR JOHNSON Consulting Unavailable MUSE ., DR JOHNSON Admitting Unavailable BALL, DR BATES Primary Care Unavailable ELINAHILDA VENTURA Admitting Unavailable ELINAHILDA VENTURA Attending Unavailable ELINAHILDA VENTURA Consulting Unavailable MUSE ., DR JOHNSON Admitting Unavailable MUSE ., DR JOHNSON Attending Unavailable BALL, DR BATES Primary Care Unavailable MUSE ., DR JOHNSON Consulting Unavailable SHAW BLEVINS Consulting Unavailable TERESA ., CARLOS Admitting Unavailable GERMAIN, DR PADIMNI Shepherd Consulting Unavailable DEEPIKA, DR BATES Primary Care Unavailable TERESA ., CARLOS Attending Unavailable TERESA ., CARLOS Consulting Unavailable NISHI ., DR RIOJAS Attending Unavailable HAY ., DR RIOJAS Admitting Unavailable NISHI ., DR RIOJAS Consulting Unavailable DEEPIKA, DR BATES Primary Care Unavailable MAY, DR MARK Kraft Admitting Unavailabl e MAY, DR MARK Kraft Attending Unavailabl e MAY, DR MARK Kraft Consulting Unavailabl e DEEPIKA, DR BATES Primary Care Unavailable UMSE ., DR JOHNSON Attending Unavailable DEEPIKA, DR BATES Primary Care Unavailable MUSE ., DR JOHNSON Consulting Unavailable MIGUELINA ., DR JOHNSON Admitting Unavailable DEEPIKA, DR BATES Attending Unavailable DEEPIKA, DR BATES Primary Care Unavailable DEEPKIA, DR BATES Admitting Unavailable DEEPIKA, DR BATES Primary Care Unavailable TERESA ., CARLOS Admitting Unavailable TERESA ., CARLOS Attending Unavailable TERESA ., CARLOS Consulting Unavailable NILL, Lico R Attending Unavailable MUSE, Alex Julien Attending Unavailable HILDA ANTOINE Attending Unavailable MIGUELINA, Alex Julien Attending Unavailable MUSE, Alex Julien Attending Unavailable MUSE, Alex Julien Attending Unavailable MUSE, Alex Julien Attending Unavailable MUSE, Alex Julien Attending Unavailable MUSE, Alex Julien Admitting Unavailable Allergies Allergy Classification Reported Allergen(s) Allergy Type Date of Onset Reaction(s) Facility (20 sources) ciprofloxacin; Translations: [CIPROFLOXACIN] Drug Allergy 3 Weal (disorder) [facility] Repository (2 sources) ondansetron; Translations: [ONDANSETRON HCL] Drug Allergy 5 [facility] Repository (2 sources) sulfamethoxazole / trimethoprim; Translations: [SULFAMETHOXAZOLE-TR IMETHOPRIM] Drug Allergy 5 [facility] Repository (10 sources) Sulfamethoxazole; Translations: [sulfamethoxazole] Drug Allergy 4 Unknown (qualifier value) [facility] (17 sources) Sulfamethoxazole / Trimethoprim; Translations: [sulfamethoxazole-tr imethoprim] Drug Allergy Weal (disorder) [facility] (2 sources) Ciprofloxacin Drug Allergy 3 [facility] Repository (2 sources) Sulfamethoxazole / Trimethoprim Drug Allergy 5 [facility] Repository (1 source) Penicillin; Translations: [penicillin] Drug Allergy [facility] Repository (1 source) Trimethoprim Drug Allergy 4 [facility] Medications Current Medications Medication Drug Class(es) Dates Sig (Normalized) Sig (Original) cefdinir 300 mg oral capsule (4 sources) Cephalosporin Antibacterial Start: 12-23-2022 Cefdinir 300 MG as directed Orally bid for 28 days Nov, Active doxycycline hyclate 100 mg oral capsule (9 sources) Tetracycline-class Drug Start: 05-02-2023 End: 08-02-2023 take 100 mg by mouth twice daily Doxycycline Hyclate Active 100 MG PO Twice daily 21 12August 02, 2023 3:13pm Start: 11-02-2022 take 1 capsule by [facility] every twelve hours Doxycycline Hyclate 100 MG 1 capsule Orally Twice a day for 7 days Oct, Active Start: 05-21-2022 take 1 capsule by [facility] once daily doxycycline hyclate 100 mg Cap [...] Active tamsulosin hydrochloride 0.4 mg oral capsule (17 sources) alpha-Adrenergic Alberto Start: 05-02-2023 take 0.4 mg by mouth once daily Tamsulosin Active 0.4 MG PO Daily May 02, 2023 1:00am take 1 capsule by [facility] every twenty-four hours Tamsulosin HCl 0.4 MG 1 capsule Orally Once a day Active traMADol hydrochloride 50 mg oral tablet (20 sources) Opioid Agonist Start: 05-02-2023 End: 08-02-2023 take 50 mg by mouth four times daily Tramadol Active 50 MG PO Four times daily 120 30 August 014 3:08pm start 08/01 Start: 01-28-2023 take 1 tablet by rachid th every [...] qid p/u 06/30, start 07/02June, Active Start: 05-06-2022 TRAMADOL HYDRO CHLORIDE TRAMADOL HYDROCHLORIDE Start Date: 05/06/22 Status: Ordered Start: 05-21-2020 End: 05-02-2023 take 1 tablet by mouth four times daily traMADol HCl 50 mg 1 tablet Orally four times daily for 30 days p/u 06/01, start 06/02May, Active Completed/Discontinued Medications Medication Drug Class(es) Dates Sig (Normalized) Sig (Original) amoxicillin 875 mg / clavulanate 125 mg oral tablet (8 sources) Penicillin-class Antibacterial take 1 tablet by mouth every twelve hours Amoxicillin-Pot Clavulanate 875-125 MG 1 tablet Orally every 12 hrs Not-Taking Problems Active Problems Problem Classification Problem Date Documented Date Episodic/Chronic Alcohol-related disorders (2 sources) Alcohol abuse 10-18-2022 Chronic Complications of surgical procedures or medical care [...] Translations: [Nausea with vomiting, unspecified] Episodic Osteoarthritis (8 sources) Arthritis 05-08-2020 Chronic Other aftercare (1 source) Drug therapy finding; Translations: [longterm (current) use of opiate analgesic] 07-31-2023 Episodic Other aftercare (1 source) longterm (current) use of opiate analgesic; Translations: [Long-term (current) use of other medications] 08-02-2023 Episodic Other connective tissue disease (16 sources) Bursitis of right hip; Translations: [Other bursitis of hip, right hip] Episodic Other diseases of bladder and urethra (13 sources) Flaccid neurogenic bladder; Translations: [Flaccid neuropathic [...] Chronic Other diseases of kidney and ureters (11 sources) Hydronephrosis; Translations: [Unspecified hydronephrosis] Onset: 05-11-2022 Episodic Other diseases of kidney and ureters (3 sources) Acquired renal cyst without neoplastic change; Translations: [Cyst of kidney, acquired] Onset: 05-11-2022 Episodic Other diseases of kidney and ureters (7 sources) Cyst of kidney 05-11-2022 Episodic Other male genital disorders (11 sources) Induratio penis plastica; Translations: [Induration penis plastica] Onset: 05-11-2022 Chronic Other male genital disorders (1 source) Induration penis plastica; Translations: [INDURATION PENIS PLASTICA] Onset: 06-15-2022 Chronic Other male genital disorders (10 sources) Painful ejaculation; Translations: [Painful ejaculation] Onset: 05-11-2022 Episodic Other nervous system disorders (16 sources) Narcolepsy; Translations: [Narcolepsy without cataplexy] Chronic Other skin disorders (16 sources) Seborrheic keratosis of scalp; Translations: [Other seborrheic keratosis] Episodic Residual codes; unclassified (19 sources) Obstructive sleep apnea syndrome; Translations: [Obstructive sleep apnea (adult) (pediatric)] 10-18-2022 Chronic Residual codes; unclassified (3 sources) Obstructive sleep apnea (adult) (pediatric); Translations: [Obstructive sleep apnea (adult)(pediatric)] Chronic Residual codes; unclassified (8 sources) Chronic back pain 05-08-2020 Episodic Spondylosis; intervertebral disc disorders; other back problems (20 sources) Lumbar spondylosis; Translations: [Spondylosis without myelopathy or radiculopathy, lumbar region] Chronic Spondylosis; intervertebral disc disorders; other back problems (20 sources) Neck pain; Translations: [Cervicalgia] Episodic Substance-related disorders (3 sources) Nicotine dependence, cigarettes, uncomplicated; Translations: [Nicotine dependence] Onset: 06-15-2022 10-18-2022 Chronic Unclassified (5 sources) Encounter for screening for other disorder; Translations: [Encounter for screening for malignant neoplasm of prostate] Onset: 03-11-2017 Episodic Unclassified (1 source) Unknown / UNK(Unknown) Onset: 06-28-2017 Unclassified (1 source) CONTACT W/AND (SUSP) EXPOS COVID-19; Translations: [CONTACT W/AND (SUSP) EXPOS COVID-19] Onset: 04-05-2022 Unclassified (2 sources) Patient encounter status 03-04-2023 Urinary tract infections (14 sources) Acute pyelonephritis; Translations: [Urinary tract infectious [...] Test Name Value Interpretation Reference Range Facility [facility] 05-20-2023 Lab Reports [id number] F [facility] Ambulatory Visit Summaryon 0 05-19-2023 Ambulatory Visit Summary CARLJOSRSHAW :1960 Visit Date:05/19/2023 Ambulatory Visit Instructions Your Diagnosis Recurrent UTI Painful ejaculation Neurogenic bladder, flaccid Hydronephrosis BPH with urinary obstruction Renal cyst Peyronie's disease Screening PSA (prostate specific antigen) Your Care Team Attending Physician - HILDA ANTOINE PA-C Primary Care Physician - DEEPIKA QUINTERO, CLAUDIO This Is Your Medications List Contact prescribing physician if questions or concerns tramadol (traMADOL 50 mg Tab) Procedures Performed Cystoscopy (06/14/2022), Colonoscopy (2020), Cystoscopy (07/12/2014), Removal of stent (07/23/2008), Cystoscopy (04/25/2008), TUIP - Transurethral incision of prostate (04/25/2008), Colonoscopy (2007), Tonsillectomy, Vasectomy. What to do next Scheduled Follow-Up Appointments Tuesday 9:15 AM EST With: MIGUELINA SNIDER, Aelx Julien Where: [facility] Patient Educationon 05-19-19 Patient Education Obstetrics and Gynecology Urinary Tract Infection, Adult A urinary tract infection (UTI) is an infection of any part of the urinary tract. The urinary tract includes: ? The kidneys. ? The ureters. ? The bladder. ? The urethra. These organs make, store, and get rid of pee (urine) in the body. What are the causes? This infection is caused by germs (bacteria) in your genital area. These germs grow and cause swelling (inflammation) of your urinary tract. What increases the risk? The following factors may make you more likely to develop this condition: ? Using a small, thin tube (catheter) to drain pee. ? Not being able to control when you pee or poop (incontinence). ? Being female. If you are female, these things can increase the risk: ? Using these methods to prevent : ? A medicine that kills sperm (spermicide). ? A device that blocks sperm (diaphragm). ? Having low levels of a female hormone (estrogen). ? Being . You are more likely to develop this condition if: ? You have genes that add to your risk. ? You are sexually active. ? You take antibiotic medicines. ? You have trouble peeing because of: ? A prostate that is bigger than normal, if you are male. ? A blockage in the part of your body that drains pee from the bladder. ? A kidney stone. ? A nerve condition that affects your bladder. ? Not getting enough to drink. ? Not peeing often enough. ? You have other conditions, such as: ? Diabetes. ? A weak disease-fighting system (immune system). ? Sickle cell disease. ? Gout. ? Injury of the spine. What are the signs or symptoms? Symptoms of this condition include: ? Needing to pee right away. ? Peeing small amounts often. ? Pain or burning when peeing. ? Blood in the pee. ? Pee that smells bad or not like normal. ? Trouble peeing. ? Pee that is cloudy. ? Fluid coming from the vagina, if you are female. ? Pain in the belly or lower back. Other symptoms include: ? Vomiting. ? Not feeling hungry. ? Feeling mixed up (confused). This may be the first symptom in older adults. ? Being tired and grouchy (irritable). ? A fever. ? Watery poop (diarrhea). How is this treated? ? Taking antibiotic medicine. ? Taking other medicines. ? Drinking enough water. In some cases, you may need to see a specialist. Follow these instructions at home: Medicines ? Take fzyz-emz-rhipori and prescription medicines only as told by your doctor. ? If you were prescribed an antibiotic medicine, take it as told by your doctor. Do not stop taking it even if you start to feel better. General instructions ? Make sure you: ? Pee until your bladder is empty. ? Do not hold pee for a long time. ? Empty your bladder after sex. ? Wipe from front to back after peeing or pooping if you are a female. Use each tissue one time when you wipe. ? Drink enough fluid to keep your pee pale yellow. ? Keep all follow-up visits. Contact a doctor if: ? You do not get better after 1?2 days. ? Your symptoms go away and then come back. Get help right away if: ? You have very bad back pain. ? You have very bad pain in your lower belly. ? You have a fever. ? You have chills. ? You feeling like you will vomit or you vomit. Summary ? A urinary tract infection (UTI) is an infection of any part of the urinary tract. ? This condition is caused by germs in your genital area. ? There are many risk factors for a UTI. ? Treatment includes antibiotic medicines. ? Drink enough fluid to keep your pee pale yellow. This information is not intended to replace advice given to you by your health care provider. Make sure you discuss any questions you have with your health care provider. Document Revised: 09/26/2020 Document Reviewed: 09/26/2020 [employer] Patient Education ? 2022 [employer]. Abiodun [facility] Urology Office/Clinic Noteon 05-19-2023 Urology Office/Clinic Note Chief Complaint UTI HPI Staff Shaw is a 62 y.o. male here for possible UTI. Last seen PRW on 03/04/23. Previous Dx: BPH w/ urinary obstruction, history of UTI, hydronephrosis, neurogenic bladder, painful ejaculation, Peyronie's disease, recurrent UTI, renal cyst, urinary retention. S/P cystoscopy done on 06/14/22, TUIP done on 04/25/08. BUN 16 & CRE 1.01 done on 03/04/23. Looked in [facility] no UA or urine culture done. Pt unable to give urine sample today. Pt was treated by Dr. Claudio Soto w/ Doxycycline, Pt states he finished entire course of medication. Dysuria: denies pain and burning Incomplete bladder emptying: denies Hematuria: Pt states he last seen blood about 3 weeks ago when he removed catheter Frequency: CIC 4-5x a day Urgency: denies Nocturia: CIC once a night Stream: denies Leaking: denies Post void dripping: denies Wearing pads/ Depends: denies Urge incontinence: denies Stress incontinence: denies Incontinence without Sensory Awareness: denies Abdominal pain: denies Flank pain: sometimes bilateral pain Sexual complaints: Pt states he only gets an infection after an orgasm History of Present Illness staff HPI reviewed and agree. Review of Systems no fever, chills, malaise, myalgia. no rash/lesions. no chest pain, palpitations, or SOB. no abdominal pain, nausea, vomiting. no unilateral calf swelling, redness, pain Physical Exam General: nontoxic, NAD Mouth: moist mucosa Lungs: normal respiratory effort Cardio: regular rate, good distal perfusion Abdomen: nondistended, no suprapubic distention or tenderness, no CVA tenderness Neurologic: Grossly normal Skin: No rashes or suspicious lesions Assessment/Plan Dr. Muse pt OZZIE 24. 1. Recurrent UTI (N39.0: Urinary tract infection, site not specified) UCx 12/21/22 - 30k-40k Klebsiella oxytoca. States he was recently treated w/ doxycycline x10d (05/01-05/12/23) by his PCP due to UTI sxs of burning and cloudy urine. No UA or urine culture was found. Sxs improved after abx course. Currently asx. Pt reports he gets infection a few days-1 week after he ejaculates. Says this has been happening for years. We discussed risks/benefits/side effects of starting post-coital suppressive abx. Pt very pleased w this idea. Says he tolerated the doxy really well, would like to use that. 2. Neurogenic bladder, flaccid (N31.2: Flaccid neuropathic bladder, not elsewhere classified) Catheter removed 08/20/22. Voids on his own and occasionally does CIC 4-5x/day to ensure he is empty. Not voicing any complications with insertion. 3. Hydronephrosis (N13.30: Unspecified hydronephrosis) CT AP wo contrast 10/06/21 - mild left hydroureteronephrosis extending to the urinary bladder, possibly related to adjacent bladder diverticulum, largest along the left adjacent to the ureter measuring 2.6 cm axial 3. VASQUEZ 07/12/22 - mild left pelviectasis. Findings may relate to normal variant, obstruction or reflux. 03/04/23 - BUN 16. Cr 1.01. eGFR >60. Lab results are wnl. 4. BPH with urinary obstruction (N40.1: Benign prostatic hyperplasia with lower urinary tract symptoms) S/p TUIP 04/25/08. S/p Cysto 06/14/22 - diffuse inflammatory changes throughout the bladder, severe bladder damage with thick exaggerated trabeculation and multiple deep diverticula, no evidence of bladder tumors. IPSS 16, QoL 3. Not taking any BPH meds. See #1. 5. 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 No pain w/ sexual intercourse. Able to penetrate despite curve. Does not seem to be worsening. [1] Concerned this could be contributing to recurrent UTI. I did find some literature that it can increase risk for prostatitis but not bladder infection. Follow-up With When Contact Information ELINA PARIKH, HILDA Giron, URL [address] [place] [address] [id number] Additional Instructions: 1 yr Patient Education Urinary Tract Infection, Adult, [id number] Documentation recorded by the ash Schwarz accurately reflects the services(s) I performed and decisions made by me. Authenticated by Hilda Antoine PA-C on 05/19/2023 15:50:55. Megha Michelle, personally scribed for Hilda Antoine PA-C on 05/19/2023 15:45:13. . Problem List/Past Medical History Ongoing Alcohol abuse Arthritis Back pain, chronic Benign prostatic hyperplasia (BPH) with post-void dribbling BPH with urinary obstruction History of UTI Hydronephrosis Neurogenic bladder, flaccid Nicotine dependence SONIA (obstructive sleep apnea) Painful ejaculation Peyronie's disease Recurrent UTI Renal cyst Screening PSA (prostate specific antigen) Urinary retention Historical No qualifying data Procedure/Surgical History Cystoscopy (06/14/2022), Colonoscopy (2020), Cystoscopy (07/12/2014), Removal of stent (07/23/2008), Cystoscopy (04/25/2008), TUIP - Transurethral incision of pr (more content not included)... Normal [facility] Comment on above: Result Comment: Elec tronically Signed By: HILDA ANTOINE PA-C\.br\Date and Time Signed: 05/19/23 15:51 EDT\.br\Electronically Co-Signed By: Megha Schwarz\.br\Date and Time Co-Signed: 05/19/23 15:45 EDT [facility] 03-07-2023 Lab Reports [id number] F [facility] Ambulatory Visit Summaryon 0 03-04-2023 Ambulatory Visit Summary SHAW GALVAN :1960 Visit Date:03/04/2023 Ambulatory Visit Instructions Your Diagnosis Neurogenic bladder, flaccid BPH with urinary obstruction Painful ejaculation Hydronephrosis Renal cyst Peyronie's disease Screening PSA (prostate specific antigen) Tests Performed Urnls Dip Stick Auto w/o Microscopy POC [id number] Your Care Team Attending Physician - MIGUELINA SNIDER, Alex Julien Primary Care Physician - CLAUDIO SOTO DO This Is Your Medications List Contact prescribing physician if questions or concerns tramadol (traMADOL 50 mg Tab) Procedures Performed Cystoscopy (06/14/2022), Colonoscopy (2020), Cystoscopy (07/12/2014), Removal of stent (07/23/2008), Cystoscopy (04/25/2008), TUIP - Transurethral incision of prostate (04/25/2008), Colonoscopy (2007), Tonsillectomy, Vasectomy. Discharge Vitals Heart Rate (Peripheral) 61 Respiratory Rate 16 Blood Pressure 128/76 Height 183 cm Height 72 in Weight 73 kg Weight 160.6 lb BMI 21.8 What to do next Scheduled Follow-Up Appointments Tuesday 9:15 AM EST With: Alex MUSE MD Where: [facility] [place] Normal [facility] Patient Educationon 03-04-19 24 Patient Education Urology Neurogenic Bladder Neurogenic bladder is a bladder control disorder. It is usually caused by problems with the nerves that control the bladder. The brain sends signals through the spinal cord to the muscles in the bladder that start and stop urine flow. With neurogenic bladder, the nerves and muscles do not work together the way they should. This condition may make the bladder overactive, meaning you have trouble holding urine. In other cases, it may make the bladder underactive. This means that you have trouble passing urine. What are the causes? This condition may be caused by nerve damage or a condition that disrupts the signals from your brain to your bladder. Many things can cause these nerve problems, including: ? A disease that affects the nervous system, such as: ? Alzheimer's disease. ? Cerebral palsy. ? Multiple sclerosis. ? Diabetes. ? Parkinson's disease. ? Damage to your brain or spinal cord. This can come from: ? Trauma. ? Tumors. ? Infection. ? Surgery. ? Alcohol abuse. ? Stroke. ? A congenital disability that affects the spinal cord. What increases the risk? You are more likely to develop this condition if you have nerve damage or a nerve disorder. What are the signs or symptoms? Signs and symptoms of this condition include: ? Leaking or gushing urine (incontinence). ? A sudden, strong urge to pass urine (urgency). ? Frequent urination during the day and night. ? Being unable to empty your bladder completely (urinary retention). ? Frequent urinary tract infections. How is this diagnosed? This condition may be diagnosed based on: ? Your symptoms and medical history. ? A physical exam. ? Records from a bladder diary. You may be asked to keep a record or log of your bladder symptoms and the times that you urinate. You may also have tests, such as: ? A urine test to check for infection. ? A bladder scan after you urinate to see how much urine is left in your bladder. ? Tests to measure your urine flow and see how well the flow is controlled (urodynamic tests). ? A procedure that uses a small device with a camera to look through your urethra into your bladder (cystoscopy). A health care provider who specializes in the urinary tract (urologist) may do this test. ? Imaging tests of your brain or spine, such as MRI or CT scan. How is this treated? Treatment for this condition depends on the cause and the symptoms that you have. Work closely with your health care provider to find the treatments that will improve your quality of life. Treatment options include: ? Learning ways to control when you urinate, such as: ? Urinating at scheduled times. ? Training yourself to delay urination. ? Exercises to strengthen the muscles that control urine flow (Kegel exercises). ? Avoiding foods or drinks that make your symptoms worse. ? Taking medicines to: ? Stimulate an underactive bladder. ? Relax an overactive bladder. ? Treat a urinary tract infection. ? Learning how to use a thin tube (catheter) to empty your bladder. A catheter is a hollow tube that you pass through your urethra. ? Procedures to stimulate the nerves that control your bladder. ? Surgery, if other treatments do not help. Follow these instructions at home: Lifestyle ? Keep a bladder diary to find out which foods, liquids, or activities make your symptoms worse. ? Use your bladder diary to schedule bathroom trips. If you are away from home, plan to be near a bathroom when your schedule says you will need one. ? Limit beverages that stimulate urination. These include soda, coffee, and tea. ? After urinating, wait a few minutes and try again. ? Make sure you urinate just before you leave the house and just before you go to bed. Kegel exercises Do Kegel exercises to strengthen the muscles that control the passing of urine. These muscles are the ones you use to try to hold urine when you need to urinate. To do Kegel exercises: 1. Squeeze your pelvic floor muscles tight, as if you are trying to stop the flow of urine. You should feel a tight lift in your rectal area. If you are female, you should also feel a tightness in your vaginal area. Keep your stomach, buttocks, and legs relaxed. 2. Hold the muscles tight for 5?10 seconds. 3. Relax your muscles for the same amount of time. 4. Repeat 10 times. Repeat this exercise 3 times a day or as many times as told by your health care provider. General instructions ? Take ncny-biu-izjyeya and prescription medicines only as told by your health care provider. ? Keep all follow-up visits. This is important. Contact a health care provider if: ? You are having a hard time controlling your symptoms. ? Your symptoms are getting worse. ? You have signs of a urinary tract infection. These may include: ? A burning feeling when you urinate. ? Fever or chills. ? Cloudy or bloody urine. (more content not included)... Normal [facility] Urology Office/Clinic Noteon 03-04-2023 Urology Office/Clinic Note Chief Complaint 6m HPI Staff 6m DX: NGB, BPH, painful ejaculation, Renal Cyst, Peyronie's disease & Hydronephrosis. S/p TUIP 04/25/2008. S/p Cysto 06/14/22 Catheter removed at time of last encounter. CIC 5x/day Does also get the urge, and does void on his own. Will occasionally CIC to ensure he is empty. Denies any concerns at this time. PSA 08/20/22- 0.8 History of Present Illness Tests reviewed: reviewed UA, renal US and PSA. I have reviewed the previous health record information and history for this patient from Dr. Muse. I have reviewed and verified the staff HPI to be accurate for this encounter. There have been no associated fever, chills, flank pain, or blood in the urine. Denies any urinary infections since last encounter. Review of Systems PHQ Score Initial Depression Screen Score: 0 SCORE ROS - Provider Constitutional: denies weight loss, denies hot flashes. Eyes: denies eye problems. Gastrointestinal: denies nausea, denies vomiting. Cardiovascular: denies chest pain or angina. Integumentary: no dryness Musculoskeletal: denies musculoskeletal symptoms. ENMT: denies otolaryngeal symptoms. Respiratory: no shortness of breath. Heme/Lymph: denies easy bleeding tendency, denies easy bruising tendency. Psychiatric: no confusion, no anxiety. Genitourinary: See HPI. Physical Exam Vitals & Measurements HR: 61(Peripheral) RR: 16 BP: 128/76 HT: 72 in HT: 183 cm WT: 73 kg WT: 160.6 lb BMI: 21.8 General Appearance: alert, no distress, well nourished, well developed male. Genitourinary: normal scrotum, normal testes, normal urethra, normal epididymis, normal vas deferens/spermatic cord. Flank Pain: none. Bladder: nonpalpable. Assessment/Plan 1. 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 Typically gets up once during the night and CIC at that time. Palm removed at last visit 08/20/22. Mentions he gets the urge, and does void on his own. Will occasionally CIC to ensure he is empty. CIC volumes approx 10 cc. Receives supplies through [employer]. States PCP treated him for an infection 3 months ago. Urine was culture and pt was prescribed an abx for 1 month. States he is sometimes dirty when he CIC and he thinks that is why he gets infections. UA today trace leuks. Denies any concerns at this time. -F/up in 1 year 2. BPH with urinary obstruction (N40.1: Benign prostatic hyperplasia with lower urinary tract symptoms) TUIP 04/25/2008 Cysto 06/14/22 shows diffuse inflammatory changes throughout the bladder, severe bladder damage with thick exaggerated trabeculation and multiple deep diverticula, no evidence of bladder tumors. Not taking any BPH meds. See #1. 3. Painful ejaculation (N53.12: Painful ejaculation) Mentions he has pain with ejaculation, feels like I'm passing a kidney stone when I have an orgasm . Says the pain is at the tip of the penis, not perineal/rectal/prostate area. Denies pain with sitting for extended time, denies painful BMs, denies perineal pain at rest. No blood in ejaculate. No hx prostatitis. 4. Hydronephrosis (N13.30: Unspecified hydronephrosis) CT AP wo contrast 10/06/21 - mild left hydroureteronephrosis extending to the urinary bladder, possibly related to adjacent bladder diverticulum, largest along the left adjacent to the ureter measuring 2.6 cm axial 3. Renal US 07/12/22 shows mild left pelviectasis. Findings may relate to normal variant, obstruction or reflux. No recent lab work. -Will order BUN & Cr 5. Renal cyst (N28.1: Cyst of kidney, [...] consistent with a cyst. Neg for stones. 6. 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 No pain w/ sexual intercourse. Able to penetrate despite curve. Does not seem to be worsening. 7. Screening PSA (prostate specific antigen) (Z12.5: Encounter for screening for malignant neoplasm of prostate) PSA 08/19/21 - 1.01 08/20/22 - 0.8 -Continue annual prostate cancer screening Follow-up With When Contact Information Alex MUSE MD, [address] [place] [address]- Additional Instructions: 1 year Patient Education Neurogenic Bladder IGianna, personally scribed for Dr. Muse on 03/04/2023 08:44:44. . Documentation recorded by the scribe, Gianna Maldonado, accurately reflects the services(s) I performed and decisions made by me. Authenticated by Dr. Muse on 03/04/2023 08:49:48. Problem List/Past Medical History Ongo (more content not included)... Normal [facility] Comment on above: Result Comment: Elec tronically Signed By: Alex MUSE MD\.br\Date and Time Signed: 03/04/23 08:49 EST\.br\Electronically Co-Signed By: Gianna Maldonadobr\Date and Time Co-Signed: 03/04/23 08:46 EST Urinalysis - DIPSTICKon Appearance (U) cloudy [employer] Other Bilirubin Ql (U) Negative [email or web address] Other Color (U) yellow [employer] Other Glucose Ql (U) Negative [employer] Other Hemoglobin Ql (U) Negative modu Other Ketones Ql (U) trace [employer] Other Leukocyte esterase Test strip Ql (U) small [employer] Other Nitrite Ql (U) Positive [employer] Other pH (U) 5.0 [pH] [employer] Other Protein Ql (U) Negative [employer] Other Specific gravity (U) [Rel density] 1.010 [employer] Other Urobilinogen (U) [Mass/Vol] 0.5 mg/dL [employer] Other Urinalysis - DIPSTICK [employer] Other ED Note-Physicianon 09-28-19 ED Note-Physician [id number]#[id number]: 127 Normal [facility] Ambulatory Visit Summaryon 0 08-20-2022 Ambulatory Visit Summary SHAW GALVAN :1960 Visit Date:08/20/2022 Ambulatory Visit Instructions Your Diagnosis Neurogenic bladder, flaccid Benign prostatic hyperplasia (BPH) with post-void dribbling Painful ejaculation Renal cyst Peyronie's disease Hydronephrosis Your Care Team Attending Physician - MIGUELINA SNIDER, Alex Julien Primary Care Physician - CLAUDIO SOTO DO [...] SNIDER, Alex Julien Where: [facility] Meron Normal [facility] CHEMISTRYOrdered By: SYSTEM SYSTEM on 08-20-2022 Prostate specific Ag [Mass/Vol] 0.8 ng/mL Normal 0.1 - 3.5 ng/mL [facility] Remisol PSA Totalon 08-20-2022 Prostate specific Ag [Mass/Vol] 0.8 ng/mL Normal 0.1-3.5 [facility] Comment on above: Result Comment: The concentration of PSA determined by different manufacturers can vary due to differences in assay methods and reagent specificity. Values obtained from different assay methods cannot be used interchangeably. The methodology used for this result was chemiluminescence using [employer] PSA reagent. Performed By: #### 1 [id number] ####[facility] [id number] [place] [address] Patient Educationon 08-21-19 Patient Education Urology Clean [...] and water are not available, use hand certified real estate appraiser. 2. Clean your penis with soap and [...] catheter in a small bathroom. ? Take wlnw-koq-emtyzjy and prescription medicines only as told by your he (more content not included)... Normal [facility] Urology Office/Clinic Noteon 08-20-2022 Urology Office/Clinic Note Chief Complaint S/P Cysto HPI Staff 1 year f/u to encounter with [facility] 08/19/21, with PSA. DX: neurogenic bladder, recurrent UTI, BPH. PSA 08/19/21- 1.01 BMP 08/19/21 Went to [place] [facility] 10/06/21 due to UTI./Urinary Retention. Refused Catheter. [place] [facility] 04/01/22 due to Lt flank pain [...] (more content not included)... Normal [facility] Comment on above: Result Comment: Elec tronically Signed By: Alex MUSE MD\.br\Date and Time Signed: 08/20/22 09:47 EDT\.br\Electronically Co-Signed By: Megha Schwarz\.br\Date and Time Co-Signed: 08/20/22 09:43 EDT RAD - Ultrasound Reporton RAD - Ultrasound Report [id number]: 127 Normal [facility] Progress Note-Nurseon 2022 Progress Note-Nurse CARLJOSRSHAW [...] SNIDER, Alex Julien Where: [facility] US KIDNEYSon 07-12-2022 US KIDNEYS EXAM: US [...] by: SHAW BLEVINS Date: 2022-07-12 10:09 Normal [facility] Historical Records Officeon 06-15-2022 Historical Records Office [id number]: 127 [facility] Operative Reporton Operative Report [id number]: 127 [facility] Pre-Certification Formon Pre-Certification Form [id number]#[id number]:1 27 [facility] Coding Summary.on 05-20-2022 Coding Summary. CD:[id number] Ww+P GhlYWQ+BG8TPJCiR76rkMNxm Z5vV1XJOBoVCilwENDEMEjBN aAsxtLnFH0ylDJnBREi IC8+JL1eEKLdTvndrPBaa3X9 qLB3L35xjo0dZMqyfDM8CYLv PtIosrqgh1mysQr2DImrDqod OyBt HDAbsI34FQJ8fN14Oc09jSFf bUMgp8rewAd2AyWhHMMjXKC9 mXyaELieo1DfZDHrH17vyVNj c2U6 ZYZnjWhjdZYlKyLcmFD3zI2l LQqajggmt1siexyrWcz2da17 fTIae3H3vOF3E4JippC1EEKq bGQg SkddyMEBzN8sbluic2pcwieg LiNpSHKrEPo5MOc3CAJkeOqi LdGhIH88OVK5QCMjblQfD9Ib LWFs xUsdUyO7r0Y0Zo6IG8GKKssb U1WDFWSCIMapiPY+SW91ne18 U7QzEgxhQso8ATKnAZU2uRW5 aD0n HMZnGExyp6R1rJT0F5AsotLc yq9se9quRTOtZOrlC04mkEWs v6V1BEMspHI1FDRibFbsAfEj aG93 Oyc+QIMicCoyv7MbShnti3rx n0snrCx2MijrMXLjwnSvnNor BTI7g5DhHj4oIFJjaRZ9dZT4 aD0i IcCxJcR3IRrmC906AfOpvOFb BuwgM65gO0MqnXV+PHRyPjx0 AQXzsKjiWO5cE0DpSYZeofey bGVm gDlkWL2kFYZlpnfrJNQtuC3r NLXjL9u3MyCjXuO8RZzoQ8Cm KRQkswflWp10tR9rRxJsXfM1 MGlu O4CujqO7FJCljCYwFAvyVRC7 T41gm5B5KRQjAISbPEM9vML9 rD7ehItkxmrlaWCfiVvyyiFf dGlj LCipBRpoK246WSOmeIvqVaFr ZGluZyBEYXRlOiAgMDMvMjMv MjAyMzwvdGQ+YZDqPEE3mMhi PSAn pBCvNPlrKi3yoEjqtIylYL7x BVZhinflTQArsC8wNFMugEQt uWqmLK7gIHTihlsae156ZqLe MHB0 EFVgnGDsY2KymB0zMuMvJSIl TRBfT6FfbQWgXAjgL408ZXbf QpD1EYRufzVdK9MbBPTnfOfx OiB0 k1Y1Gq3Az1KtkskpP1TxkBFs JwRmDskiJSt2Y5AqLuwujYK+ WY84CJVsAL38QDv6DKP9qHzx PSdi GSLoZ0TisD5hBtCzXXUaYJCf Oyc+PHRhYmxlIHdpZHRoPScx IPSjGkFnmBuyID3zAc6yBQEo LWNv wYddfDUhLoUma2ojDNFdCAro JM8jsUyhY2MwlTI3EAElq3n6 Xl69R61nA7BolBB+PGNvbCB3 aWR0 uN9vUnBbBqT9UMdlT871QeYj rTQoKcqux0rqp1txqUq9NwT8 QZKexjRhcFzdURM4v1TqKs58 Y29s IHdpZHRoPSIxNSUiIHZhbGln af2fuA5jIq7+AQIyjFP2iND9 mG9fEkIuFlC6HWvdI839WqPl cCIv Nfkty6kcu0wciNh5QjEpQWTk mcOsxKsyKAJ2d7SpKc98G7Kp zYuht0TwRsn1bu56rUXme9G5 bGU9 N9RnEBPrwuqqoCXxdFhoRY0s VAHefvfgATYdxT9zRAYiH5t8 XkBrFeQ2HDqgZ1FrzeS9XSZd bGQg UOQnzCOJuO8njbhuy6bxesdv ExArDPRuSFl1SBa0QMQetBkz GxSmUSR6EgG6XMF5sTXlfA9b bGln zeshfA5gVmn+QCC2lHQjsTPA XZ2gIgnfeIO+AFDoIMQ4oJsi BQksYTYjsY3xGCFvD4z2PqDf LjA1 URwoR0WleaA7VNVvmUEcPNHh iFHSdA9vpwnct4dcgqnqQmTr OLAgYGw4ZCo6QQIqnKglUaMr ZWZ0 ZqF0LWS3fJCrsO7gcYorjvar cO4xCxs+WaeotOyhKWR9NQa3 L4ZqBhr2IJEjxQysAJ3ivDFo ZGlu Ft5ttCiwoQwpNV6oHMGiplkh z082FdVao6ojTYLbyIEmTLcl TBQ6L73ml5K9GXLpBIUyVUV8 dGV4 wK4xvOmduijtnTOqsFeyycJo yWbuABiwVNjhF178RBFmpZjd NsWiPRq8B3WzPoa0ZKKcwUsu ZT0n gBXsDYdbJh9onTewjYjcOU4t UEXzybvwi008WfZnx5gkHSCs dUGeALolZWC5S38rp0Q0XYLx MDAw QUD7wRR0uG1vgKpzafnonTGh lHkjrpSlfQyrMXspCGhrR210 MYAmvCjcTvCpvZg6T8DdRdz9 ZCBz eMiyCM6wvWIlOKspLw4oaRls sCxfWS1tZWBrhapvo201QyHu q1nzMDIsgZNpXNvpWRH2X76v b3I6 VAIuGEYnLOU6yKD3dW8jxNjr bjogbGVmdDsgdmVydGljYWwt NKhvL561UHKrwXnhLpPeoQbo bnQg TOdoNRi7Z1YzKlqyhEN+PC90 QVIbXU84vWSzfIZdh9xenRr5 UgMaTBNcRYD1sUbkHSurq0Zd ZXIt N98yoWNpb2Z9CZJftMsfcOGp KpJnmMW9mH2dGCwjygbnc7jj wkjfSbktd0bknn06cO20A64m IHdp KMEpOOJzBURuJCOrjRsjlh4b rX3oBe4+ONOaaGH1iBQ1nD6q LYOuTuG3MFabM637RyOuhDAp Pjxj m4kjh2dkxPc9VpH0IKRbaiTg qZwbXBA6x9KbBb15H92aKErc QGXsFUXeYIYnKBXyjAppfe3w dG9w Ii8+DFPlvKU9nBZ8yJ0rSwYo NtK1TAjuX209SvDmsELkNoro F47tO1QozLE+XEHkYcc1DUAa dHls SY6pdLYwSGkhSy7dKJM0StSa LaXlPKvlZ9DcXERvmuqrejhd lGS9LVZtJKWuvE89Fn1ykEmh MTBw nNVVsW0wuagro7gshoqlBiNb CVQtNXg7FSk0BJIktNmfLaBf EPM7YfH2IXV3pZGlyB4alEjg bjog kZ9rQ7MuEMWpdyauGt50hA7v FqWaGkM4ALnvRkq+VElQUElF VKZZGU0KQpUSSP11SW36vUPn c3R5 xZQ5N5WiBYYyvwhmjquikDS3 MNZwLDPhmI24dYXrXTbzEc5d q5E9b253CJNaEJFhtK44Ku3q dDog VWVdiNFNqW7ybbjud7lyvnxs DhGvNDVjXAv4JVn3GEMdxNmu YuQuPLM3QkP4PPA9jVTvyU8o bGln bffggC0vKvy+MDUvMDUvMTk2 MzwvdGQ+DZVyUNP4gMzwROom KWUxnJ9aDXFwE2j8AaYvJnO7 MGlu H1PhVSZccjgqNp52mO3aEoQi YnW9OVggD7ZkvwX7AXZsfRMv ZSjpQQI2P02pm0I3FORsXXYc MDA7 zQJ6jK7xcLrybrhkjPXwzGne qqYwbFtdURpuVVnsB499HPTm xUzwBwE0LGdjITSbEA64YU14 dGQg g0M3qCH3I5LxKCQfpazrydku rWF1YCOwZYUmgI17xBGiBDyy Ad4uj9B7p616FHOgUCTbbN54 Zm9u gDfqUUDbrVZFmL5fpifyx5tm oxmaZyQtHQDhRPv7TLv9JFWq tGypVsLlLSF5VlL4UGG0cCKf bC1h aCjrcrsblN8aBxi+TWFsZTwv dGQ+JKCyCLU5vPhmKHemWDSi iR7oBOCkY4q0KtEhEjX7CRim O3Bh YTAjtjkfJj35sB5dFoKfHhS5 VNxhX6KijlS5KARjbEVwZVqc XWO1A35uq0U2BPTbCQRiOFI5 dGV4 rO2viZbxgoickMIhfCsxxrUe tXvkFPooMCbaF228DRMtxBha HpocJeFJro8hCF0nDuigdPB+ PC90 te81L6ToQridXrd3HOLxGGY5 kLX6tR1vIQIaLDxvs2N3bBY6 Q3QrhdBpya8up4elVFCfRSyh Y29s dEAks0B1EVXmeWC0VXGmoLvm VuKdyP96Eqz+QOJaxRxaq1Md Udrpo7luy7euaLn3YxErMAVy dmFs qGxsOIC8k3OsQj74H36iBDfw ETJpSWZaQAZnFWOkuQyybn7j tA4mSb8+ZGAedEU0kMU4lS6i MjAl QtL5VUgaZ703DpBluVRdQxtd r9iah1mrmQi4AhMvJPHillQg gVbdDBD9b9DgYg94Y1EqqXvu b3Vw Jen1ai94jPMml2B3bXZ3J8Fe TTVmznqsiJJxfVlsPX5rIFJh zxdoQKWgpZ4lUMQpR8q2AePc LjA1 HHniP4NgztP9YGWztDGdNGOf uLGDtP0aulwku5yjpbddLwYz YYBvGHm6BJe2LUDvdNdtIhFp ZWZ0 JhB8GKO4dCLysL3tqVwbgorm zR9lHki+DIu3o6jkoNGvAZ9c qPT9DC59WL05lNEgs3I9xZR8 J3Bh JZJqoqihgjymfYM7ZPJdGLOf mW15Qj0baGsgQn3qUIKzLCE7 YNTgpNUkJ8KllP4rVeVcJHIv MDAw M0CvoRFfMXfmA508TVedFyV5 VQQgxfXqR6UjNDVajPmqBwW5 h4N3Lh3RNO80DO94BR66dJPq c3R5 iWD5I6KuARHkfmkywcykhXH6 GIHjACTxqG67Gq7ayMcjYo6o BEWoCPM8BTEnaMZoZ4MzxS4w OiAj HYZaIVToX0AmoNKgWOmlR019 PNekCiC3LIHgkxHuK4BvEVPg kIgrEsC5a8R2Wk7SKg58BG90 ZD48 zBBwg5K6pIZ0M9SkGAGkcsdh jiigqWS6KFGrIOUarG74Xj1c sIadCg5yOESyJOP1TUCvsDNu O2Nv vN5kOcUvYNIiJRIkC8JniLYu ACpcH740DWvzHoW0LUWaiyIk W9LiVZHqhAsrXfO4l9R5Zv8K YXll pmj6O5AlQdqzaVF+GX22NANr UI67gGFxiJKci6wayXp7TqDg CXQfZME2cRdtQOtxj2VpYWTv Y29s dQFvt3B6 (more content not included)... Normal [facility] CBC W MANUAL DIFFon 04-01-19 23 ATYPICAL LYMPH # Normal [facility] Comment on above: Performed By: #### C PRIMITIVO #### [facility] [address] [place] [address] Dr. Destin López ATYPICAL LYMPH % Normal [facility] Comment on above: Performed By: #### C PRIMITIVO #### [facility] [address] [place] [address] Dr. Destin López BAND # Normal 0.0-0.3 [facility] Comment on above: Performed By: #### C PRIMITIVO #### [facility] [address] [place] [address] Dr. Destin López BAND % Normal 0-5 [facility] Comment on above: Performed By: #### C PRIMITIVO #### [facility] [address] [place] [address] Dr. Destin López BASOM # 0.00 103/ul Normal 0.00-0.10 [facility] Comment on above: Performed By: #### C PRIMITIVO #### [facility] [address] [place] [address] Dr. Destin López BASOM % 0.0 % Critically low 0.2-2.0 [facility] Comment on above: Performed By: #### C PRIMITIVO #### [facility] [address] [place] [address] Dr. Destin López BLAST # Normal [facility] Comment on above: Performed By: #### C PRIMITIVO #### [facility] [address] [place] [address] Dr. Destin López BLAST % Normal [facility] Comment on above: Performed By: #### C PRIMITIVO #### [facility] [address] [place] [address] Dr. Destin López CORRECTED WBC Normal 4.0-11.0 [facility] Comment on above: Performed By: #### C PRIMITIVO #### [facility] [address] [place] [address] Dr. Destin López EOS # 0.16 103/ul Normal 0.00-0.70 [facility] Comment on above: Performed By: #### C BCNORMA #### [facility] [address] [address] [address] Destin López EOS% 1.0 % Normal 0.9-7.0 [facility] Comment on above: Performed By: #### C BCNORMA #### [facility] [address] [address] [address] Destin López HCT 48.7 % Normal 42.0-54.0 [facility] Comment on above: Performed By: #### C BCNORMA #### [facility] [address] [address] [address] Destin López HGB 16.0 g/dl Normal 14.0-18.0 [facility] Comment on above: Performed By: #### C PRIMITIVO #### [facility] [address] [place] [address] Dr. Destin López LYMPHM # 0.65 103/ul Critically low 1.20-3.80 [facility] Comment on above: Performed By: #### C PRIMITIVO #### [facility] [address] [place] [address] Dr. Destin López LYMPHM% 4.0 % Critically low 20.5-60.0 [facility] Comment on above: Performed By: #### C PRIMITIVO #### [facility] [address] [place] [address] Dr. Destin López MCH 31.3 pg Normal 25.9-34.0 [facility] Comment on above: Performed By: #### C BCNORMA #### [facility] [address] [place] [address] Dr. Destin López MCHC 32.9 g/dl Normal 29.9-35.2 [facility] Comment on above: Performed By: #### C BCNORMA #### [facility] [address] [address] [address] Destin López MCV 95.3 fL Critically high 80.0-94.0 [facility] Comment on above: Performed By: #### C PRIMITIVO #### [facility] [address] [address] [address] Destin López METAMYELOCYTE # Normal [facility] Comment on above: Performed By: #### C PRIMITIVO #### [facility] [address] [place] [address] Dr. Destin López METAMYELOCYTE % Normal [facility] Comment on above: Performed By: #### C PRIMITIVO #### [facility] [address] [address] [address] Destin López MONOM# 0.81 103/ul Critically high 0.30-0.80 [facility] Comment on above: Performed By: #### C PRIMITIVO #### [facility] [address] [place] [address] Dr. Destin López MONOM% 5.0 % Normal 1.7-12.0 [facility] Comment on above: Performed By: #### C PRIMITIVO #### [facility] [address] [place] [address] Dr. Destin López MPV 9.1 fL Critically low 9.5-13.5 [facility] Comment on above: Performed By: #### Franky LANGFORD #### [facility] [address] [place] [address] Dr. Destin López MYELOCYTE # Normal [facility] Comment on above: Performed By: #### C PRIMITIVO #### [facility] [address] [place] [address] Dr. Destin López MYELOCYTE % Normal [facility] Comment on above: Performed By: #### C PRIMITIVO #### [facility] [address] [place] [address] Dr. Destin López NRBC Normal [facility] Comment on above: Performed By: #### C PRIMITIVO #### [facility] [address] [place] [address] Dr. Destin López PLT 291 103/ul Normal 150-450 [facility] Comment on above: Performed By: #### C PRIMITIVO #### [facility] [address] [place] [address] Dr. Destin López RBC 5.11 106/ul Normal 4.70-6.10 [facility] Comment on above: Performed By: #### Franky LANGFORD #### [facility] [address] [place] [address] Dr. Destin López RDW 13.3 % Normal 11.0-15.0 [facility] Comment on above: Performed By: #### Franky LANGFORD #### [facility] [address] [place] [address] Dr. Destin López SEG # 14.58 103/ul Critically high 1.40-6.50 [facility] Comment on above: Performed By: #### Franky LANGFORD #### [facility] [address] [place] [address] Dr. Destin López SEG % 90.0 % Critically high 43.0-75.0 [facility] Comment on above: Performed By: #### Franky LANGFORD #### [facility] [address] [place] [address] Dr. Destin López WBC 16.2 103/ul Critically high 4.0-11.0 [facility] Comment on above: Performed By: #### Franky LANGFORD #### [facility] [address] [place] [address] Dr. Destin López CULTURE BLOODon 04-01-2022 Microscopic examination of blood, culture Culture Observations: NO GROWTH AT 5 DAYS. Normal [facility] Comment on above: Performed By: #### B [id number] #### [facility] [address] [place] [address] Dr. Destin López Microscopic examination of blood, culture Culture Observations: NO GROWTH AT 5 DAYS. Normal [facility] Comment on above: Performed By: #### Franky MP #### [facility] [address] [place] [address] Dr. Destin López Covid-19 PCR (CVDTB)on SARS-CoV-2 (COVID-19) RNA ILSA+probe Ql (Unsp spec) Not detected Normal NOT DETECTED [facility] Comment on above: Result Comment: When diagnostic [...] for this test is supported by the [employer] Manager of [employer] and Human Service's declaration that [...] longer be used). Performed By: #### C VDTB #### [facility] [address] [place] [address] Dr. Destin López INFLUENZA A AND B AGon 04-01 [facility] SEE BELOW Normal [facility] Comment on above: Result Comment: Nega tive for Flu A protein angiten. Infection due to Flu A cannot be ruled out. Flu A angiten in the sample may be below the detection limit of the test. Performed By: #### C MP #### [facility] [address] [place] [address] Dr. Destin López [facility] SEE BELOW Normal [facility] Comment on above: Result Comment: Nega tive for Flu B protein antigen. Infection due to Flu B cannot be ruled out. Flu B antigen in the sample may be below the detection limit of the test. Performed By: #### C MP #### [facility] [address] [place] [address] Dr. Destin López INFLUENZA A AG Negative Normal NEGATIVE SEE COMMENT [facility] Comment on above: Performed By: #### C MP #### [facility] [address] [place] [address] Dr. Destin López INFLUENZA B AG Negative Normal NEGATIVE SEE COMMENT [facility] Comment on above: Performed By: #### C MP #### [facility] [address] [place] [address] Dr. Destin López LACTATE/LACTIC ACIDon 2022 Lactate [Moles/Vol] 0.9 mmol/L Normal 0.4-1.9 [facility] Comment on above: Performed By: #### C MP #### [facility] [address] [address] [address] Destin López PROF 14(COMP METB)on 023 Albumin [Mass/Vol] 3.5 g/dL Normal 3.4-5.0 [facility] Comment on above: Performed By: #### C MP #### [facility] [address] [place] [address] Dr. Destin López Albumin/Globulin [Mass ratio] 1.1 {ratio} Normal [facility] Comment on above: Performed By: #### C MP #### [facility] [address] [place] [address] Dr. Destin López ALP [Catalytic activity/Vol] 80 U/L Normal 46-116 [facility] Comment on above: Performed By: #### C MP #### [facility] [address] [address] [address] Destin López ALT [Catalytic activity/Vol] 33 U/L Normal 16-63 [facility] Comment on above: Performed By: #### C MP #### [facility] [address] [place] [address] Dr. Destin López Anion gap [Moles/Vol] 11.6 mmol/L Normal [facility] Comment on above: Performed By: #### C MP #### [facility] [address] [place] [address] Dr. Destin López AST [Catalytic activity/Vol] 19 U/L Normal 15-37 [facility] Comment on above: Performed By: #### C MP #### [facility] [address] [place] [address] Dr. Destin López Bilirubin [Mass/Vol] 1.4 mg/dL Critically high 0.2-1.0 [facility] Comment on above: Performed By: #### C MP #### [facility] [address] [address] [address] Destin López Calcium [Mass/Vol] 9.0 mg/dL Normal 8.5-10.1 [facility] Comment on above: Performed By: #### C MP #### [facility] [address] [place] [address] Dr. Destin López Chloride [Moles/Vol] 101 mmol/L Normal 98-107 [facility] Comment on above: Performed By: #### C MP #### [facility] [address] [place] [address] Dr. Destin López CO2 [Moles/Vol] 26.9 mmol/L Normal 21.0-32.0 [facility] Comment on above: Performed By: #### C MP #### [facility] [address] [place] [address] Dr. Destin López Creatinine [Mass/Vol] 0.92 mg/dL Normal 0.70-1.30 [facility] Comment on above: Performed By: #### C MP #### [facility] [address] [place] [address] Dr. Destin López EGFR-AF LIBERIAN >60 Normal >=60 [facility] Comment on above: Performed By: #### C MP #### [facility] [address] [place] [address] Dr. Destin López EGFR-NON AF LIBERIAN >60 Normal >=60 [facility] Comment on above: Performed By: #### C MP #### [facility] [address] [place] [address] Dr. Destin López Globulin (S) [Mass/Vol] 3.1 g/dL Normal [facility] Comment on above: Performed By: #### C MP #### [facility] [address] [place] [address] Dr. Destin López Glucose [Mass/Vol] 120 mg/dL Critically high 74-106 [facility] Comment on above: Performed By: #### C MP #### [facility] [address] [place] [address] Dr. Destin López Potassium [Moles/Vol] 3.5 mmol/L Normal 3.5-5.1 [facility] Comment on above: Performed By: #### C MP #### [facility] [address] [address] [address] Destin López Protein [Mass/Vol] 6.6 g/dL Normal 6.4-8.2 [facility] Comment on above: Performed By: #### C MP #### [facility] [address] [address] [address] Destin López Sodium [Moles/Vol] 136 mmol/L Normal 136-145 [facility] Comment on above: Performed By: #### C MP #### [facility] [address] [place] [address] Dr. Destin López Urea nitrogen [Mass/Vol] 7.0 mg/dL Normal 7.0-18.0 [facility] Comment on above: Performed By: #### C MP #### [facility] [address] [place] [address] Dr. Destin López Urea nitrogen/Creatinine [Mass ratio] 7.6 mg/mg Normal [facility] Comment on above: Performed By: #### C MP #### [facility] [address] [place] [address] Dr. Destin López XR Ribs w/ PA [...] by Berry Glover on 01/14/2022 1225 Normal [facility] [employer] CBC W MANUAL DIFFon 10-07-19 22 ATYPICAL LYMPH # Normal [facility] Comment on above: Performed By: #### C MP #### [facility] [address] [place], [place] [id number] Dr. Destin López ATYPICAL LYMPH % Normal [facility] Comment on above: Performed By: #### C MP #### [facility] [address] [place] [address] Dr. Destin Lóepz BAND # 0.4 103/ul Critically high 0.0-0.3 [facility] Comment on above: Performed By: #### C MP #### [facility] [address] [place] [address] Dr. Destin López BAND % 2 % Normal 0-5 [facility] Comment on above: Performed By: #### C MP #### [facility] [address] [place] [address] Dr. Destin López BASOM # 0.00 103/ul Normal 0.00-0.10 [facility] Comment on above: Performed By: #### C MP #### [facility] [address] [place] [address] Dr. Destin López BASOM % 0.0 % Critically low 0.2-2.0 [facility] Comment on above: Performed By: #### C MP #### [facility] [address] [place] [address] Dr. Destin López BLAST # Normal [facility] Comment on above: Performed By: #### C MP #### [facility] [address] [place] [address] Dr. Destin López BLAST % Normal [facility] Comment on above: Performed By: #### C MP #### [facility] [address] [place] [address] Dr. Destin López CORRECTED WBC Normal 4.0-11.0 [facility] Comment on above: Performed By: #### C MP #### [facility] [address] [place] [address] Dr. Destin López EOS # 0.00 103/ul Normal 0.00-0.70 [facility] Comment on above: Performed By: #### C MP #### [facility] [address] [place] [address] Dr. Destin López EOS% 0.0 % Critically low 0.9-7.0 [facility] Comment on above: Performed By: #### C MP #### [facility] [address] [place] [address] Dr. Destin López HCT 44.6 % Normal 42.0-54.0 [facility] Comment on above: Performed By: #### C MP #### [facility] [address] [place] [address] Dr. Destin López HGB 15.3 g/dl Normal 14.0-18.0 [facility] Comment on above: Performed By: #### C MP #### [facility] [address] [address] [address] Destin López LYMPHM # 0.78 103/ul Critically low 1.20-3.80 [facility] Comment on above: Performed By: #### C MP #### [facility] [address] [place] [address] Dr. Destin López LYMPHM% 4.0 % Critically low 20.5-60.0 [facility] Comment on above: Performed By: #### C MP #### [facility] [address] [place] [address] Dr. Destin López MCH 31.7 pg Normal 25.9-34.0 [facility] Comment on above: Performed By: #### C MP #### [facility] [address] [place] [address] Dr. Destin López MCHC 34.3 g/dl Normal 29.9-35.2 [facility] Comment on above: Performed By: #### C MP #### [facility] [address] [place] [address] Dr. Destin López MCV 92.5 fL Normal 80.0-94.0 [facility] Comment on above: Performed By: #### C MP #### [facility] [address] [place] [address] Dr. Destin López METAMYELOCYTE # Normal [facility] Comment on above: Performed By: #### C MP #### [facility] [address] [place] [address] Dr. Destin López METAMYELOCYTE % Normal [facility] Comment on above: Performed By: #### C MP #### [facility] [address] [place] [address] Dr. Destin López MONOM# 1.36 103/ul Critically high 0.30-0.80 [facility] Comment on above: Performed By: #### C MP #### [facility] [address] [place] [address] Dr. Destin López MONOM% 7.0 % Normal 1.7-12.0 [facility] Comment on above: Performed By: #### C MP #### [facility] [address] [place] [address] Dr. Destin López MPV 8.6 fL Critically low 9.5-13.5 [facility] Comment on above: Performed By: #### C MP #### [facility] [address] [place] [address] Dr. Destin López MYELOCYTE # Normal [facility] Comment on above: Performed By: #### C MP #### [facility] [address] [place] [address] Dr. Destin López MYELOCYTE % Normal [facility] Comment on above: Performed By: #### C MP #### [facility] [address] [place] [address] Dr. Destin López NRBC Normal [facility] Comment on above: Performed By: #### C MP #### [facility] [address] [place] [address] Dr. Destin López PLT 296 103/ul Normal 150-450 [facility] Comment on above: Performed By: #### C MP #### [facility] [address] [place] [address] Dr. Destin López RBC 4.82 106/ul Normal 4.70-6.10 [facility] Comment on above: Performed By: #### C MP #### [facility] [address] [place] [address] Dr. Destin López RDW 13.2 % Normal 11.0-15.0 [facility] Comment on above: Performed By: #### C MP #### [facility] [address] [place] [address] Dr. Destin López SEG # 16.96 103/ul Critically high 1.40-6.50 [facility] Comment on above: Performed By: #### C MP #### [facility] [address] [place], [place] [address] Dr. Destin López SEG % 87.0 % Critically high 43.0-75.0 [facility] Comment on above: Performed By: #### C MP #### [facility] [address] [place], [place] [address] Dr. Destin López WBC 19.5 103/ul Critically high 4.0-11.0 [facility] Comment on above: Performed By: #### C MP #### [facility] [address] [place], [place] [address] [address] Destin López [address] ABD/PELVIS WO CONon [...] PADMINI GROVES Date: 2021-10-06 10:58 Normal [facility] CULTURE BLOODon 10-06-2021 Microscopic examination of blood, culture Culture Observations: NO GROWTH AT 5 DAYS. Normal [facility] Comment on above: Performed By: #### C MP #### [facility] [address] [place] [address] Dr. Destin López Microscopic examination of blood, culture Culture Observations: NO GROWTH AT 5 DAYS. Normal [facility] Comment on above: Performed By: #### C MP #### [facility] [address] [place] [address] Dr. Destin López CULTURE URINEon 10-06-2021 CULTURE URINE Culture Observations : LIGHT GROWTH OF MIXED SKIN CORIN. NO POTENTIAL PATHOGENS SEEN. Normal [facility] Comment on above: Performed By: #### C MP #### [facility] [address] [place] [address] Dr. Destin López Covid-19 PCR (CVDTB)on SARS-CoV-2 (COVID-19) RNA ILSA+probe Ql (Unsp spec) Not detected Normal NOT DETECTED [facility] Comment on above: Result Comment: When diagnostic [...] for this test is supported by the [place] of Health and Human Service's declaration that [...] used). Performed By: #### C VDTBH #### [facility] [address] [address] [address] Destin López ER URINE PROFILEon 2 Bilirubin Ql (U) Negative Normal NEGATIVE [facility] Comment on above: Performed By: #### U MICRO, ERUR #### [facility] [address] [address] [address] Destin López Clarity (U) CLEAR Normal CLEAR [facility] Comment on above: Performed By: #### U MICRO, ERUR #### [facility] [address] [address] [address] Destin López Color (U) YELLOW Normal YELLOW [facility] Comment on above: Performed By: #### U MICRO, ERUR #### [facility] [address] [place] [address] Dr. Destin López ERUAHD A micrscopic examina tion will be performed if indicated. Normal [facility] Comment on above: Performed By: #### U MICRO, ERUR #### [facility] [address] [place] [address] Dr. Destin López Glucose Ql (U) Negative Normal NEGATIVE The [facility] Comment on above: Performed By: #### U MICRO, ERUR #### [facility] [address] [place] [address] Dr. Destin López Hemoglobin Ql (U) SMALL Abnormal NEGATIVE [facility] Comment on above: Performed By: #### U MICRO, ERUR #### [facility] [address] [address] [address] Destin López Ketones Ql (U) Negative Normal NEGATIVE The [facility] Comment on above: Performed By: #### U MICRO, ERUR #### [facility] [address] [address] [address] Destin López LEUKOCYTES SMALL Abnormal NEGATIVE [facility] Comment on above: Performed By: #### U MICRO, ERUR #### [facility] [address] [place] [address] Dr. Destin López Nitrite Ql (U) Negative Normal NEGATIVE [facility] Comment on above: Performed By: #### U MICRO, ERUR #### [facility] [address] [place] [address] Dr. Destin López pH (U) 8.0 [pH] Normal 5-9 [facility] Comment on above: Performed By: #### U MICRO, ERUR #### [facility] [address] [place] [address] Dr. Destin López SPEC GRAVITY 1.015 Normal 1.005-<=1.02 5 [facility] Comment on above: Performed By: #### U MICRO, ERUR #### [facility] [address] [place] [address] Dr. Destin López UA PROTEIN TRACE Normal NEGATIVE/ TRACE [facility] Comment on above: Performed By: #### U MICRO, ERUR #### [facility] [address] [place] [address] Dr. Destin López UR MICRO IND INDICATED Normal [facility] Comment on above: Performed By: #### U MICRO, ERUR #### [facility] [address] [place] [address] Dr. Destin López Urobilinogen Qn (U) 0.2 {Irma'U}/dL Normal 0.2 - 1. 0 [facility] Comment on above: Performed By: #### U MICRO, ERUR #### [facility] [address] [place] [address] Dr. Destin López LACTATE/LACTIC ACIDon 2021 Lactate [Moles/Vol] 1.1 mmol/L Normal 0.4-1.9 [facility] Comment on above: Performed By: #### L ACT #### [facility] [address] [place] [address] Dr. Destin López PROF CHEM 8 (BAS METB)on Anion gap [Moles/Vol] 10.4 mmol/L Normal [facility] Comment on above: Performed By: #### B MP #### [facility] [address] [place] [address] Dr. Destin López Calcium [Mass/Vol] 8.7 mg/dL Normal 8.5-10.1 [facility] Comment on above: Performed By: #### B MP #### [facility] [address] [address] [address] Destin López Chloride [Moles/Vol] 101 mmol/L Normal 98-107 [facility] Comment on above: Performed By: #### B MP #### [facility] [address] [address] [address] Destin López CO2 [Moles/Vol] 25.4 mmol/L Normal 21.0-32.0 [facility] Comment on above: Performed By: #### B MP #### [facility] [address] [address] [address] Destin López Creatinine [Mass/Vol] 0.96 mg/dL Normal 0.70-1.30 [facility] Comment on above: Performed By: #### B MP #### [facility] [address] [place] [address] Dr. Destin López EGFR-AF LIBERIAN >60 Normal >=60 [facility] Comment on above: Performed By: #### B MP #### [facility] [address] [address] [address] Destin López EGFR-NON AF LIBERIAN >60 Normal >=60 [facility] Comment on above: Performed By: #### B MP #### [facility] [address] [address] [address] Destin López Glucose [Mass/Vol] 110 mg/dL Critically high 74-106 [facility] Comment on above: Performed By: #### B MP #### [facility] [address] [address] [address] Destin López Potassium [Moles/Vol] 3.8 mmol/L Normal 3.5-5.1 [facility] Comment on above: Performed By: #### B MP #### [facility] [address] [address] [address] Destin López Sodium [Moles/Vol] 133 mmol/L Critically low 136-[address] [facility] Comment on above: Performed By: #### B MP #### [facility] [address] [address] [address] Destin López Urea nitrogen [Mass/Vol] 12.0 mg/dL Normal 7.0-18.0 [facility] Comment on above: Performed By: #### B MP #### [facility] [address] [place] [address] Dr. Destin López Urea nitrogen/Creatinine [Mass ratio] 12.5 mg/mg Normal [facility] Comment on above: Performed By: #### B MP #### [facility] [address] [place] [address] Dr. Destin López URINE MICROSCOPIC ONLYon BACTERIA SMALL Abnormal NONE SEEN [facility] Comment on above: Performed By: #### U MICRO, ERUR #### [facility] [address] [place] [address] Dr. Destin López Bacteria identified Cx Nom (U) INDICATED Normal [facility] Comment on above: Performed By: #### U MICRO, ERUR #### [facility] [address] [place] [address] Dr. Destin López CAST NONE SEEN Normal NONE SEEN [facility] Comment on above: Performed By: #### U MICRO, ERUR #### [facility] [address] [place] [address] Dr. Destin López Crystals LM Nom (Urine sed) NONE SEEN Normal NONE SEEN [facility] Comment on above: Performed By: #### U MICRO, ERUR #### [facility] [address] [place] [address] Dr. Destin López Epithelial cells LM Ql (Urine sed) NONE SEEN Normal NONE SEEN /RARE [facility] Comment on above: Performed By: #### U MICRO, ERUR #### [facility] [address] [place] [address] Dr. Destin López MUCOUS NONE SEEN Normal NONE SEEN [facility] Comment on above: Performed By: #### U MICRO, ERUR #### [facility] [address] [place] [address] Dr. Destin López RBC 0-2 Normal 0-2 [facility] Comment on above: Performed By: #### U MICRO, ERUR #### [facility] [address] [address] [address] Destin López WBC 10-20 Abnormal NONE SEEN [facility] Comment on above: Performed By: #### U MICRO, ERUR #### [facility] [address] [address] [address] Destin López PROF CHEM 8 (BAS METB)on Anion gap [Moles/Vol] 10.7 mmol/L Normal [facility] Comment on above: Performed By: #### B MP #### [facility] [address] [address] [address] Destin López Calcium [Mass/Vol] 8.8 mg/dL Normal 8.5-10.1 [facility] Comment on above: Performed By: #### B MP #### [facility] [address] [address] [address] Destin López Chloride [Moles/Vol] 103 mmol/L Normal 98-107 [facility] Comment on above: Performed By: #### B MP #### [facility] [address] [address] [address] Destin López CO2 [Moles/Vol] 30.1 mmol/L Normal 21.0-32.0 [facility] Comment on above: Performed By: #### B MP #### [facility] [address] [address] [address] Destin López Creatinine [Mass/Vol] 1.02 mg/dL Normal 0.70-1.30 [facility] Comment on above: Performed By: #### B MP #### [facility] [address] [address] [address] Destin López EGFR-AF LIBERIAN >60 Normal >=60 [facility] Comment on above: Performed By: #### B MP #### [facility] [address] [address] [address] Destin López EGFR-NON AF LIBERIAN >60 Normal >=60 [facility] Comment on above: Performed By: #### B MP #### [facility] [address] [address] [address] Destin López Glucose [Mass/Vol] 96 mg/dL Normal 74-106 [facility] Comment on above: Performed By: #### B MP #### [facility] [address] [address] [address] Destin López Potassium [Moles/Vol] 3.8 mmol/L Normal 3.5-5.1 [facility] Comment on above: Performed By: #### B MP #### [facility] [address] [address] [address] Destin López Sodium [Moles/Vol] 140 mmol/L Normal 136-145 [facility] Comment on above: Performed By: #### B MP #### [facility] [address] [address] [address] Destin López Urea nitrogen [Mass/Vol] 15.0 mg/dL Normal 7.0-18.0 [facility] Comment on above: Performed By: #### B MP #### [facility] [address] [address] [address] Destin López Urea nitrogen/Creatinine [Mass ratio] 14.7 mg/mg Normal [facility] Comment on above: Performed By: #### B MP #### [facility] [address] [address] [address] Destin López Amylaseon 08-28-2020 Amylase [Catalytic activity/Vol] 33 U/L Normal 28-100 [facility] [place] Comment on above: Performed By: #### H EPATIC, CBC, YOLANDA, LIPASE, BMP #### [facility] [address] Basic Metabolic Panelon Calcium [Mass/Vol] 9.1 mg/dL Normal 8.2-10.2 [facility] Comment on above: Performed By: #### H EPATIC, CBC, YOLANDA, LIPASE, BMP #### [facility] [address] Chloride [Moles/Vol] 104 mmol/L Normal 95-114 [facility] [place] Comment on above: Performed By: #### H EPATIC, CBC, YOLANDA, LIPASE, BMP #### [facility] [address] CO2 [Moles/Vol] 25.9 mmol/L Normal 22.0-30.0 [facility] Comment on above: Performed By: #### H EPATIC, CBC, YOLANDA, LIPASE, BMP #### [address] Creatinine [Mass/Vol] 0.91 mg/dL Normal 0.64-1.27 [facility] Comment on above: Performed By: #### H EPATIC, CBC, YOLANDA, LIPASE, BMP #### [address] Creatinine Clr Calc Pharmacy 91.99 [facility] Comment on above: Performed By: #### H EPATIC, CBC, YOLANDA, LIPASE, BMP #### [address] Estimated GFR ( Kacey > 60 [facility] Comment on above: Result Comment: GFR estimated reference range: According to KDOQI guidelines, <60 ml/min/1.73m2 is sufficient to diagnose a patient with chronic kidney disease. Performed By: #### H EPATIC, CBC, YOLANDA, LIPASE, BMP #### [address] Estimated GFR (Non- Am > 60 [facility] Comment on above: Performed By: #### H EPATIC, CBC, YOLANDA, LIPASE, BMP #### [address] Glucose [Mass/Vol] 90 mg/dL Normal 70-100 [facility] Comment on above: Result Comment: [place] om Glucose Reference Range is dependent on time and content of last meal. Glucose of more than 200 mg/dL in a nonstressed, ambulatory subject supports the diagnosis of Diabetes Mellitus. ADA recommended reference range Performed By: #### H EPATIC, CBC, YOLANDA, LIPASE, BMP #### [address] Potassium [Moles/Vol] 4.1 mmol/L Normal 3.5-5.1 [facility] Comment on above: Performed By: #### H EPATIC, CBC, YOLANDA, LIPASE, BMP #### [facility] [address] Sodium [Moles/Vol] 138 mmol/L Normal 136-146 [facility] Comment on above: Performed By: #### H EPATIC, CBC, YOLANDA, LIPASE, BMP #### [facility] [address] Urea nitrogen [Mass/Vol] 11 mg/dL Normal 9-23 [facility] Comment on above: Performed By: #### H EPATIC, CBC, YOLANDA, LIPASE, BMP #### [address] abdomen pelvis wo conon 0 08-28-2020 CT abdomen pelvis wo [facility] [place] [address] [place] [address] CT Scan Report Signed Patient: Shaw Galvan MR#: [id number] 13 : 1960 Acct:[id number] Age/Sex: 60 / M ADM Date: 08/28/20 Loc: ER Room: Type: [facility] ER Attending Dr: Ordering Provider: Abbey Underwood [...] Caitlyn Trivedi M.D.08/28/2020 2:13 PM Dictation Location: [place] [address] Transcribed By: [facility] 08/28/20 1413 Dictated By: Caitlyn Trivedi MD 08/28/20 1400 Signed By: 08/28/20 1413 Normal [facility] Complete Blood Count Auto Di ffon 08-28-2020 Basophils (Bld) [#/Vol] 0.1 10*3/uL Normal 0.0-0.2 [facility] Comment on above: Result Comment: PERF ORMED BY: [facility] [address] [place] [address] PATHOLOGIST JEWEL [employer]LE [employer] OPENER SINGH HERR M.D. Performed By: #### H EPATIC, CBC, YOLANDA, LIPASE, BMP #### [address] Basophils/100 WBC (Bld) 0.7 % Normal . [facility] Comment on above: Performed By: #### H EPATIC, CBC, YOLANDA, LIPASE, BMP #### [address] Eosinophils (Bld) [#/Vol] 0.1 10*3/uL Normal 0.0-0.45 [facility] Comment on above: Performed By: #### H EPATIC, CBC, YOLANDA, LIPASE, BMP #### [address] Eosinophils/100 WBC (Bld) 1.7 % Normal . [facility] Comment on above: Performed By: #### H EPATIC, CBC, YOLANDA, LIPASE, BMP #### [address] Erythrocyte distribution width (RBC) [Ratio] 14.0 % Normal 12.0-14.8 [facility] Comment on above: Performed By: #### H EPATIC, CBC, YOLANDA, LIPASE, BMP #### [address] Hematocrit (Bld) [Volume fraction] 45.1 % Normal 38.8-50.0 [facility] Comment on above: Performed By: #### H EPATIC, CBC, YOLANDA, LIPASE, BMP #### [address] Hemoglobin (Bld) [Mass/Vol] 15.0 g/dL Normal 13.0-17.0 [facility] Comment on above: Performed By: #### H EPATIC, CBC, YOLANDA, LIPASE, BMP #### [address] Lymphocytes (Bld) [#/Vol] 2.2 10*3/uL Normal 1.00-4.8 [facility] Comment on above: Performed By: #### H EPATIC, CBC, YOLANDA, LIPASE, BMP #### [address] Lymphocytes/100 WBC (Bld) 25.2 % Normal . [facility] Comment on above: Performed By: #### H EPATIC, CBC, YOLANDA, LIPASE, BMP #### [address] MCH (RBC) [Entitic mass] 31.7 pg Normal 27.5-35.2 [facility] Comment on above: Performed By: #### H EPATIC, CBC, YOLANDA, LIPASE, BMP #### [address] MCV (RBC) [Entitic vol] 95.0 fL Normal 83.5-101 [facility] Comment on above: Performed By: #### H EPATIC, CBC, YOLANDA, LIPASE, BMP #### [address] Mean Corpuscular HGB Conc 33.4 g/dL Normal 32.5-35.6 [facility] Comment on above: Performed By: #### H EPATIC, CBC, YOLANDA, LIPASE, BMP #### [address] Monocytes (Bld) [#/Vol] 0.7 10*3/uL Normal 0.0-0.8 [facility] Comment on above: Performed By: #### H EPATIC, CBC, YOLANDA, LIPASE, BMP #### [address] Monocytes/100 WBC (Bld) 8.0 % Normal . [facility] Comment on above: Performed By: #### H EPATIC, CBC, YOLANDA, LIPASE, BMP #### [address] Neutrophils (Bld) [#/Vol] 5.5 10*3/uL Normal 1.8-7.7 [facility] Comment on above: Performed By: #### H EPATIC, CBC, YOLANDA, LIPASE, BMP #### [address] Neutrophils/100 WBC (Bld) 64.4 % Normal . [facility] Comment on above: Performed By: #### H EPATIC, CBC, YOLANDA, LIPASE, BMP #### [address] Nucleated RBC/100 WBC (Bld) [Ratio] 0.0 % Normal 0-0.5 [facility] Comment on above: Performed By: #### H EPATIC, CBC, YOLANDA, LIPASE, BMP #### [address] Platelet mean volume (Bld) [Entitic vol] 6.4 fL Low 6.6-10.1 [facility] Comment on above: Performed By: #### H EPATIC, CBC, YOLANDA, LIPASE, BMP #### [address] Platelets (Bld) [#/Vol] 348 10*3/uL Normal 150-450 [facility] Comment on above: Performed By: #### H EPATIC, CBC, YOLANDA, LIPASE, BMP #### [address] RBC (Bld) [#/Vol] 4.75 10*6/uL Normal 3.90-5.60 [facility] Comment on above: Performed By: #### H EPATIC, CBC, YOLANDA, LIPASE, BMP #### [address] WBC (Bld) [#/Vol] 8.6 10*3/uL Normal 4.5-11.0 [facility] Comment on above: Performed By: #### H EPATIC, CBC, YOLANDA, LIPASE, BMP #### [address] Hepatic Panelon 08-28-2020 Albumin [Mass/Vol] 3.9 g/dL Normal 3.2-5.5 [facility] Comment on above: Performed By: #### H EPATIC, CBC, YOLANDA, LIPASE, BMP #### [facility] [address] [place] [address] Albumin/Globulin [Mass ratio] 1.6 {ratio} Normal [facility] Comment on above: Performed By: #### H EPATIC, CBC, YOLANDA, LIPASE, BMP #### [facility] [address] ALP [Catalytic activity/Vol] 56 U/L Normal 32-92 [facility] Comment on above: Performed By: #### H EPATIC, CBC, YOLANDA, LIPASE, BMP #### [facility] [address] [place] [address] ALT [Catalytic activity/Vol] 26 U/L Normal 10-60 [facility] Comment on above: Performed By: #### H EPATIC, CBC, YOLANDA, LIPASE, BMP #### [facility] [address] [place] [address] AST [Catalytic activity/Vol] 23 U/L Normal 10-42 [facility] Comment on above: Performed By: #### H EPATIC, CBC, YOLANDA, LIPASE, BMP #### [facility] [address] [place] [address] Bilirubin [Mass/Vol] 1.4 mg/dL High 0.3-1.2 [facility] Comment on above: Result Comment: Samp les from patients who have taken Naproxen have shown spurious elevation in Total Bilirubin levels. A metabolite of Naproxen, O-desmethylnaproxen, has been shown to interfere with the Jendrassik-Grof method for measuring Total Bilirubin. Performed By: #### H EPATIC, CBC, YOLANDA, LIPASE, BMP #### [facility] [address] [place] [address] [place] Bilirubin,Indirect 1.2 mg/dL Normal [facility] Comment on above: Performed By: #### H EPATIC, CBC, YOLANDA, LIPASE, BMP #### [facility] [address] [place] [address] Bilirubin.indirect [Mass/Vol] 0.2 mg/dL Normal 0.0-0.4 [facility] Comment on above: Performed By: #### H EPATIC, CBC, YOLANDA, LIPASE, BMP #### [facility] [address] Globulin (S) [Mass/Vol] 2.4 g/dL Normal [facility] Comment on above: Performed By: #### H EPATIC, CBC, YOLANDA, LIPASE, BMP #### [facility] [address] Protein [Mass/Vol] 6.3 g/dL Normal 6.1-7.9 [facility] Comment on above: Performed By: #### H EPATIC, CBC, YOLANDA, LIPASE, BMP #### [address] Lipaseon 08-28-2020 Lipase [Catalytic activity/Vol] 38.0 U/L Normal 22-51 [facility] Comment on above: Result Comment: PERF ORMED BY: [place] [address] PATHOLOGIST JEWEL [employer] OPENER SINGH HERR M.D. Performed By: #### C BC, LIPID, CMP, PSAS #### [address] Urinalysison 08-28-2020 Appearance (U) Clear Normal Clear [facility] Comment on above: Order Comment: PT FA STED 12 HRS Performed By: #### C BC, LIPID, CMP, PSAS #### [address] Bilirubin,Urine Negative Normal Negative [facility] Comment on above: Order Comment: PT FA STED 12 HRS Performed By: #### C BC, LIPID, CMP, PSAS #### [address] Color (U) Yellow Normal Yellow [facility] Comment on above: Order Comment: PT FA STED 12 HRS Performed By: #### C BC, LIPID, CMP, PSAS #### [facility] [address] Glucose Ql (U) Normal Normal Normal [facility] Comment on above: Order Comment: PT FA STED 12 HRS Performed By: #### C BC, LIPID, CMP, PSAS #### [facility] [address] Ketones Ql (U) Negative Normal Negative [facility] Comment on above: Order Comment: PT FA STED 12 HRS Performed By: #### C BC, LIPID, CMP, PSAS #### [facility] [address] Leukocyte esterase Test strip Ql (U) Negative Normal Negative [facility] Comment on above: Order Comment: PT FA STED 12 HRS Performed By: #### C BC, LIPID, CMP, PSAS #### [facility] [address] Nitrite,Urine Negative Normal Negative [facility] Comment on above: Order Comment: PT FA STED 12 HRS Performed By: #### C BC, LIPID, CMP, PSAS #### [facility] [address] [place] [address] Occult Blood,Urine Negative Normal Negative [facility] Comment on above: Order Comment: PT FA STED 12 HRS Result Comment: PERF ORMED BY: [place] [address] PATHOLOGIST JEWEL [employer]LE FIN[employer] OPENER SINGH HERR M.D. Performed By: #### C BC, LIPID, CMP, PSAS #### [facility] [address] [place] [address] pH (U) 7.0 [pH] Normal 5.0-9.0 [facility] Comment on above: Order Comment: PT FA STED 12 HRS Performed By: #### C BC, LIPID, CMP, PSAS #### [facility] [address] [place] [address] [place] Protein,Urine Negative Normal Negative [facility] Comment on above: Order Comment: PT FA STED 12 HRS Performed By: #### C BC, LIPID, CMP, PSAS #### [facility] [address] [place] [address] Specificy [place],Urine 1.011 Normal 1.001-1.030 [facility] Comment on above: Order Comment: PT FA STED 12 HRS Performed By: #### C BC, LIPID, CMP, PSAS #### [facility] [address] [place] [address] [place] Urobilinogen,Urine Normal Normal Normal [facility] Comment on above: Order Comment: PT FA STED 12 HRS Performed By: #### C BC, LIPID, CMP, PSAS #### [facility] [address] [place] [id number] [facility] COVID-19 Antigenon 1 COVID-19 Antigen Reason for [...] its performance Keyana Disclaimer characteristic determined by [employer] and Key[place] Disclaimer validated at [facility]. This Keyana Disclaimer test has not been [...] Emergency Use Authorization for Coronavirus [place] Disclaimer is during the Public Health Emergency) Keyana Disclaimer [...] is terminated or revoked sooner. PERFORMED BY: [place] [address] PATHOLOGIST JEWEL [employer]LE FINISH OPENER SINGH HERR M.D. Normal [facility] Comment on above: Performed By: #### C OVID-19 KEYANA, SOFIANEG #### [address] [place] Ag Negativeon 05-21-19 21 [place] Ag Negative Negative Normal Negative [facility] Comment on above: Result Comment: This is a duplicate [place] SARS Antigen (RICHARD) result to be used for statistical tracking purpose only. PERFORMED BY: [place] [address] PATHOLOGIST JEWEL [employer]LE FINISH OPENER SINGH HERR M.D. Performed By: #### C OVID-19 KEYANA, SOFIANEG #### [address] Complete Blood Count Auto Di ffon 05-05-2020 Basophils (Bld) [#/Vol] 0.0 10*3/uL Normal 0.0-0.2 [facility] Comment on above: Order Comment: PT FA STED 12 HRS Result Comment: PERF ORMED BY: [place] [address] PATHOLOGIST JEWEL [employer]LE FINISH OPENER SINGH HERR M.D. Performed By: #### C BC, LIPID, CMP, PSAS #### [address] Basophils/100 WBC (Bld) 0.5 % Normal . [facility] Comment on above: Order Comment: PT FA STED 12 HRS Performed By: #### C BC, LIPID, CMP, PSAS #### [address] Eosinophils (Bld) [#/Vol] 0.2 10*3/uL Normal 0.0-0.45 [facility] Comment on above: Order Comment: PT FA STED 12 HRS Performed By: #### C BC, LIPID, CMP, PSAS #### [address] Eosinophils/100 WBC (Bld) 3.2 % Normal . [facility] Comment on above: Order Comment: PT FA STED 12 HRS Performed By: #### C BC, LIPID, CMP, PSAS #### [address] Erythrocyte distribution width (RBC) [Ratio] 13.8 % Normal 12.0-14.8 [facility] Comment on above: Order Comment: PT FA STED 12 HRS Performed By: #### C BC, LIPID, CMP, PSAS #### [place] [id number] [place] Hematocrit (Bld) [Volume fraction] 48.4 % Normal 38.8-50.0 [facility] Comment on above: Order Comment: PT FA STED 12 HRS Performed By: #### C BC, LIPID, CMP, PSAS #### [facility] [address] [place] [address] Hemoglobin (Bld) [Mass/Vol] 16.6 g/dL Normal 13.0-17.0 [facility] Comment on above: Order Comment: PT FA STED 12 HRS Performed By: #### C BC, LIPID, CMP, PSAS #### [facility] [address] [place] [address] Lymphocytes (Bld) [#/Vol] 1.6 10*3/uL Normal 1.00-4.8 [facility] Comment on above: Order Comment: PT FA STED 12 HRS Performed By: #### C BC, LIPID, CMP, PSAS #### [address] Lymphocytes/100 WBC (Bld) 20.6 % Normal . [facility] Comment on above: Order Comment: PT FA STED 12 HRS Performed By: #### C BC, LIPID, CMP, PSAS #### [address] MCH (RBC) [Entitic mass] 32.6 pg Normal 27.5-35.2 [facility] Comment on above: Order Comment: PT FA STED 12 HRS Performed By: #### C BC, LIPID, CMP, PSAS #### [address] MCV (RBC) [Entitic vol] 95.0 fL Normal 83.5-101 [facility] Comment on above: Order Comment: PT FA STED 12 HRS Performed By: #### C BC, LIPID, CMP, PSAS #### [address] Mean Corpuscular HGB Conc 34.3 g/dL Normal 32.5-35.6 [facility] Comment on above: Order Comment: PT FA STED 12 HRS Performed By: #### C BC, LIPID, CMP, PSAS #### [facility] [address] [place] [address] [place] Monocytes (Bld) [#/Vol] 0.7 10*3/uL Normal 0.0-0.8 [facility] Comment on above: Order Comment: PT FA STED 12 HRS Performed By: #### C BC, LIPID, CMP, PSAS #### [facility] [address] [place] [address] [place] Monocytes/100 WBC (Bld) 8.5 % Normal . [facility] Comment on above: Order Comment: PT FA STED 12 HRS Performed By: #### C BC, LIPID, CMP, PSAS #### [place] [address] [place] Neutrophils (Bld) [#/Vol] 5.1 10*3/uL Normal 1.8-7.7 [facility] Comment on above: Order Comment: PT FA STED 12 HRS Performed By: #### C BC, LIPID, CMP, PSAS #### [place] [address] [place] Neutrophils/100 WBC (Bld) 67.2 % Normal . [facility] Comment on above: Order Comment: PT FA STED 12 HRS Performed By: #### C BC, LIPID, CMP, PSAS #### [place] [address] [place] Nucleated RBC/100 WBC (Bld) [Ratio] 0.1 % Normal 0-0.5 [facility] Comment on above: Order Comment: PT FA STED 12 HRS Performed By: #### C BC, LIPID, CMP, PSAS #### [facility] [address] [place] [address] [place] Platelet mean volume (Bld) [Entitic vol] 7.1 fL Normal 6.6-10.1 [facility] Comment on above: Order Comment: PT FA STED 12 HRS Performed By: #### C BC, LIPID, CMP, PSAS #### [facility] [address] [place] [address] [place] Platelets (Bld) [#/Vol] 328 10*3/uL Normal 150-450 [facility] Comment on above: Order Comment: PT FA STED 12 HRS Performed By: #### C BC, LIPID, CMP, PSAS #### [facility] [address] RBC (Bld) [#/Vol] 5.09 10*6/uL Normal 3.90-5.60 [facility] Comment on above: Order Comment: PT FA STED 12 HRS Performed By: #### C BC, LIPID, CMP, PSAS #### [facility] [address] WBC (Bld) [#/Vol] 7.7 10*3/uL Normal 4.5-11.0 [facility] Comment on above: Order Comment: PT FA STED 12 HRS Performed By: #### C BC, LIPID, CMP, PSAS #### [facility] [address] [place] [address] Comprehensive Metabolic Pane juan alberto 05-05-2020 Albumin [Mass/Vol] 3.9 g/dL Normal 3.2-5.5 [facility] Comment on above: Order Comment: PT FA STED 12 HRS Performed By: #### C BC, LIPID, CMP, PSAS #### [facility] [address] [place] [address] Albumin/Globulin [Mass ratio] 1.7 {ratio} Normal [facility] Comment on above: Order Comment: PT FA STED 12 HRS Performed By: #### C BC, LIPID, CMP, PSAS #### [facility] [address] ALP [Catalytic activity/Vol] 66 U/L Normal 32-92 [facility] Comment on above: Order Comment: PT FA STED 12 HRS Performed By: #### C BC, LIPID, CMP, PSAS #### [facility] [address] [place] [address] ALT [Catalytic activity/Vol] 30 U/L Normal 10-60 [facility] Comment on above: Order Comment: PT FA STED 12 HRS Performed By: #### C BC, LIPID, CMP, PSAS #### [facility] [address] AST [Catalytic activity/Vol] 26 U/L Normal 10-42 [facility] Comment on above: Order Comment: PT FA STED 12 HRS Performed By: #### C BC, LIPID, CMP, PSAS #### [facility] [address] Bilirubin [Mass/Vol] 0.6 mg/dL Normal 0.3-1.2 [facility] Comment on above: Order Comment: PT FA STED 12 HRS Performed By: #### C BC, LIPID, CMP, PSAS #### [facility] [address] Calcium [Mass/Vol] 9.1 mg/dL Normal 8.2-10.2 [facility] Comment on above: Order Comment: PT FA STED 12 HRS Performed By: #### C BC, LIPID, CMP, PSAS #### [facility] [address] [place] [address] Chloride [Moles/Vol] 106 mmol/L Normal 95-114 [facility] Comment on above: Order Comment: PT FA STED 12 HRS Performed By: #### C BC, LIPID, CMP, PSAS #### [facility] [address] [place] [address] CO2 [Moles/Vol] 26.5 mmol/L Normal 22.0-30.0 [facility] Comment on above: Order Comment: PT FA STED 12 HRS Performed By: #### C BC, LIPID, CMP, PSAS #### [facility] [address] [place] [address] [place] Creatinine [Mass/Vol] 1.02 mg/dL Normal 0.64-1.27 [facility] Comment on above: Order Comment: PT FA STED 12 HRS Performed By: #### C BC, LIPID, CMP, PSAS #### [facility] [address] [place] [address] [place] Estimated GFR ( Kacey > 60 Normal [facility] Comment on above: Order Comment: PT FA STED 12 HRS Result Comment: GFR estimated reference range: According to KDOQI guidelines, <60 ml/min/1.73m2 is sufficient to diagnose a patient with chronic kidney disease. Performed By: #### C BC, LIPID, CMP, PSAS #### [facility] [address] Estimated GFR (Non- Am > 60 Normal [facility] Comment on above: Order Comment: PT FA STED 12 HRS Performed By: #### C BC, LIPID, CMP, PSAS #### [facility] [address] [place] [address] [place] Globulin (S) [Mass/Vol] 2.3 g/dL Normal [facility] Comment on above: Order Comment: PT FA STED 12 HRS Performed By: #### C BC, LIPID, CMP, PSAS #### [address] Glucose [Mass/Vol] 92 mg/dL Normal 70-100 [facility] Comment on above: Order Comment: PT FA STED 12 HRS Result Comment: [place] Glucose Reference Range is dependent on time and content of last meal. Glucose of more than 200 mg/dL in a nonstressed, ambulatory subject supports the diagnosis of Diabetes Mellitus. ADA recommended reference range Performed By: #### C BC, LIPID, CMP, PSAS #### [address] Potassium [Moles/Vol] 4.0 mmol/L Normal 3.5-5.1 [facility] Comment on above: Order Comment: PT FA STED 12 HRS Performed By: #### C BC, LIPID, CMP, PSAS #### [facility] [address] [place] [address] [place] Protein [Mass/Vol] 6.2 g/dL Normal 6.1-7.9 [facility] Comment on above: Order Comment: PT FA STED 12 HRS Performed By: #### C BC, LIPID, CMP, PSAS #### [place] [address] [place] Sodium [Moles/Vol] 141 mmol/L Normal 136-146 [facility] Comment on above: Order Comment: PT FA STED 12 HRS Performed By: #### C BC, LIPID, CMP, PSAS #### [facility] [address] Urea nitrogen [Mass/Vol] 16 mg/dL Normal 9-23 [facility] Comment on above: Order Comment: PT FA STED 12 HRS Performed By: #### C BC, LIPID, CMP, PSAS #### [facility] [address] Lipid Panelon 05-05-2020 Cholesterol [Mass/Vol] 175 mg/dL Normal 140-200 [facility] Comment on above: Order Comment: PT FA STED 12 HRS Result Comment: Chol less than 200 mg/dl low risk Chol 201-239 mg/dl borderline risk Chol 240 mg/dl and greater high risk Performed By: #### C BC, LIPID, CMP, PSAS #### [facility] [address] Cholesterol in HDL [Mass/Vol] 55 mg/dL Normal 29-71 [facility] Comment on above: Order Comment: PT FA STED 12 HRS Result Comment: HDL CHOL ATP-III CLASSIFICATION Cardiovascular Risk HDL > or equal to 60 mg/dL LOW HDL < 40 mg/dL HIGH Performed By: #### C BC, LIPID, CMP, PSAS #### [facility] [address] Cholesterol.total/C holesterol in HDL [Mass ratio] 3.2 {ratio} Normal <5.0 [facility] Comment on above: Order Comment: PT FA STED 12 HRS Result Comment: PERF ORMED BY: [place] [address] PATHOLOGIST JEWEL HOLE FINISH OPENER SINGH HERR M.D. Performed By: #### C BC, LIPID, CMP, PSAS #### [facility] [address] LDL Cholesterol,Calcula cassi 112 mg/dL High 0-100 [facility] Comment on above: Order Comment: PT FA STED 12 HRS Result Comment: LDL ATP III CLASSIFICATION LDL less than 100 mg/dL Optimal LDL 100-129 mg/dL Near or above optimal LDL 130-159 mg/dL Borderline high LDL 160-189 mg/dL High LDL greater than 189 mg/dL Very high Performed By: #### C BC, LIPID, CMP, PSAS #### [address] Triglyceride w/Reflex 39 mg/dL Normal 35-149 [facility] Comment on above: Order Comment: PT FA STED 12 HRS Result Comment: TRIG ATP III CLASSIFICATION TRIG less than 150 mg/dL Normal TRIG 150-199 mg/dL Borderline high TRIG 200-500 mg/dL High TRIG greater than 500 mg/dL Very high Standard traceable to the Center for Disease Conrtrol and Prevention (CDC) test method. Performed By: #### C BC, LIPID, CMP, PSAS #### [address] VLDL CHOLESTEROL 7 mg/dL Normal [facility] Comment on above: Order Comment: PT FA STED 12 HRS Performed By: #### C BC, LIPID, CMP, PSAS #### [address] PSA Screen (Yearly Only)on 0 - PSA Screen (Yearly Only) 0.870 ng/mL Normal 0.000-4.000 [facility] Comment on above: Order Comment: PT FA STED 12 HRS What is the date of the last PSA Screen?: NONE ON FILE Is Medicare the insurance?: N Did you verify eligibility (Dx Time) check TestViewGp: YES TO ALL Result Comment: PERF ORMED BY: [place] [address] PATHOLOGIST JEWEL HOLE FINISH OPENER SINGH HERR M.D. Performed By: #### C BC, LIPID, CMP, PSAS #### [address] CNOVon 06-28-2017 CNOV Office Visit ([facility]) Olga GALVAN ([id number]) 1960 MDate Time Provider Department06/28/17 1:30 PM ALDO FRANKLIN [facility] During your visit today, we recorded the [...] 0 on a scale of 0 to 10Katelyn Chamorro Contract Scribe 06/28/2017 5:04 PM SignedPHYSICIANS NOTE: [...] intermittent self-cath. Will obtain US kidney/bladder andurine CLIENT ACCOUNT SPECIALIST for further evaluation of recurrent UTI's.We will follow up pending US results and urine culture.Scribe Attestation:By signing my name below, Socorro Michelle, attest that thisdocumentation has been prepared under the direction and in the presence of Dr.Sanford Darcy MD.Electronically Signed:ash Teague, June 28, 2017 3:33 PMProvider Attestation:I, Dr. [...] June 28, 20173:33 PMReferring Provider: NATASHA SOTO [[id number]]Allergies As of Date: 06/28/2017 Noted Allergy ReactionCIPROFLOXACIN 07/22/2014 4 - HivesONDANSETRON HCL 07/25/2014 14 - Other: See Comments Comments: Pt reports bradycardiaSULFAMETHOXAZ OLE-TRIMETHOPRIM 07/22/2014 4 - HivesDate Reviewed: 06/28/2017Reviewed by: Aldo Franklin - Fully AssessedReason for Visit: Procedure [88] Cmt: Cystoscopy/UrodynamicsPr imary Visit Diagnosis:Urinary tract infection without hematuria, site unspecified [N39.0] Other Visit Diagnosis:Neurogenic bladder [N31.9]Order(s):URINE CULTURE [SQURCUL] Order #: [id number] KIDNEY/BLADDER [[id number]] Order #: [id number] FUTUREPrescriptions as of 06/28/2017 Sig: TRAMADOL 50 MG TABLETProblem List As Of Date: 06/28/2017(None)Level of Service: EST PATIENT VISIT LEVEL 4 [11856]Follow-up and Disposition History RecordedLetter TextTHE SOUTHVIEW MEDICAL CENTERUROLOGICAL INSTITUTEAFTER YOUR CYSTOSCOPYYou have undergone a cystoscopy. [...] Dr. Aldo Franklin M.D., Office Phone #: [phone] 5 PM and on weekends for Main [place] physicians only:Call [phone] and ask for the urologist project controller. The doctor will needto know that you have had a cystoscopy and what symptoms you are having. Status:Closed by ALDO FRANKLIN MD on 06/28/17 Normal [facility] [place] 06-28-2017 CNPN Telephone ([facility]) Olga GALVAN ([id number]) 1960 MDate Time Provider Department06/28/17 ALDO FRANKLIN [facility] During your visit today, we recorded the following information about you:Elizabeth Strange, RN, RN 06/29/2017 2:32 PM SignedI spoke with Priya Lionel. She had concerns regarding her 's visit [...] List As Of Date: 06/28/2017(None)Encounte r Number: [id number] Status:Closed by ELIZABETH STRANGE on 06/28/17 [facility] PROGRESSon 06-28-2017 PROGRESS HNO ID: [id number]: Socorro Kearns Contract ScribeService: (none)Author Type: (none)Type: [...] intermittent self-cath. Will obtain USkidney/bladder and urine CLIENT ACCOUNT SPECIALIST for further evaluation of recurrent UTI's.We will follow up pending US results and urine culture.Scribe Attestation:By signing my name below, IKarinkristie Kearns Contract Scribe, attest thatthis documentation has been prepared under the direction and in thepresence of Dr. Aldo Franklin MD.Electronically Signed:Socorro Kearns Wu ash Pederson, June 28, 20173:33 PMProvider Attestation:I, Dr. Aldo Franklin MD, personally performed the services described inthis documentation. All medical record entries made by the scribe were atmy direction and in my presence. I have reviewed the chart and dischargeinstructions (if applicable) and agree that the record reflects mypersonal performance and is accurate and complete. Dr. Aldo Franklin MD,June 28, 2017 3:33 PM Normal [facility] PROGRESS HNO ID: [id number]: Litzy Wynn) EVELYN Gusmanervice: (none)Author Type: LICENSED NURSEType: Progress NotesFiled: 06/28/2017 5:04 PMNote Text:PRE CYSTO PROCEDUREID Verified by: HAILEY Chamorrorocedure Indication:Cystoscopy/Ur [...] of 0 to 10Litzy Gusman LPN Normal [facility] US KIDNEY/BLADDERon 06-29-19 18 US KIDNEY/BLADDER * * *Final Report* * *DATE OF EXAM: Jun 28 2017 1:10PM [facility] 1055 - US KIDNEY/BLADDER / REASON: urinary retention * * [...] CROWDER MD on Jun 28 2017 3:33PM [id number] N [facility] 06-15-2017 [facility] Ol[facility] GALV[facility] ([id number]) 1960 MDate Time Provider Department06/15/17 2:00 PM [facility] visit today, we recorded the [...] my name below, IMarques, attest that this documentation hasbeen prepared under [...] Visit Diagnosis:Neurogenic bladder [N31.9]Order(s):UA DIP, URINE (POC) [[id number]] Order #: [id number]. #:[id number] 5-LAB KIDNEY/BLADDER [[id number]] Order #: [id number] FUTURE CYSTO.PANENDO [[id number]] Order #: [id number] URODYNAMICS [[id number]] Order #: [id number] as of 06/15/2017 Sig: TRAMADOL 50 MG TABLETMedication notes this encounter TRAMADOL 50 MG TABLET >> Malik L Vrbancic Ma 06/15/2017 1:57 PM >> VRBANCIC MA, MALIK L Wed Jun 15, 2017 1:57 PM Received from: External PharmacyProblem List As Of Date: 06/15/2017(None)Follow-u p and Disposition History RecordedEncounter Number: [id number] Status:Closed by ALDO FRANKLIN MD on 06/15/17 Normal [facility] PROGRESSon 06-15-2017 PROGRESS HNO ID: [id number]: Mraques Wale MaService: (none)Author Type: (none)Type: Progress NotesFiled: 06/15/2017 2:20 [...] below, I, Marques Echevarria, attest that this documentationhas been prepared under the direction and in the presence of Dr. Brittany MD.Electronically Signed:ash Myles, June 15, 2017 2:10 PMProvider Attestation:I, Aldo Franklin, personally performed the services described in thisdocumentation. All medical record entries made by the markibitalo were at mydirection and in my presence. I have reviewed the chart and dischargeinstructions (if applicable) and agree that the record reflects mypersonal performance and is accurate and complete. Dr. Aldo Franklin, Ammyia 2017 2:10 PM Normal [facility] CNOVon 03-11-2017 CNOV Office Visit ([facility]) Olga GALVAN ([id number]) 1960 MDate Time Provider Department03/11/17 8:00 AM SHAW NEFF UROAYANA During your visit today, we recorded the following information about you:Shaw Neff MD 03/11/2017 1:41 PM Signedpt no Marcelo Trejo Provider: SELF [200]Allergies As of Date: 03/11/2017(Not on File)Date Reviewed: Never ReviewedReason for Visit: Initial Consult [665] Cmt: bladder infection or UTIPrimary Visit Diagnosis:NO SHOW Other Visit Diagnosis:Screening for genitourinary condition [Z13.89]Order(s):UA DIP, URINE (POC) [[id number]] Order #: [id number] URINE SEDIMENT B/O [[id number]] Order #: [id number] List As Of Date: 03/11/2017(None)[facility] Number: [id number] Status:Closed by SHAW NEFF MD on 03/11/17 [facility] PROGRESSon 03-09-2017 PROGRESS HNO ID: [id number] Author: Shaw Neff Service: (none) Author Type: Physician Type: Progress Notes Filed: 03/11/2017 1:41 PM Note Text: pt no show Shaw Neff MD [facility] Vital Signs Date Time Vital Sign Value Performing Clinician Facility 08-02-2023 14:53-0400 Body height 182.88 cm [facility] 08-02-2023 14:53-0400 Body mass index (BMI) [Ratio] 22.4 kg/m2 [facility] 08-02-2023 14:53-0400 Body weight 75.01 kg [facility] 08-02-2023 14:53-0400 Diastolic blood pressure 80 mm[Hg] [facility] 08-02-2023 14:53-0400 Heart rate 66 /min [facility] 08-02-2023 14:53-0400 Respiratory rate 12 /min [facility] 08-02-2023 14:53-0400 Systolic blood pressure 136 mm[Hg] [facility] 03-04-2023 08:11-0500 Blood Pressure Location Alex MUSE [facility] 03-04-2023 08:11-0500 Diastolic blood pressure 76 mm[Hg] Alex MUSE [facility] 03-04-2023 08:11-0500 Heart rate 61 /min Alex MUSE [facility] 03-04-2023 08:11-0500 Respiratory rate 16 /min Alex MUSE [facility] 03-04-2023 08:11-0500 Systolic blood pressure 128 mm[Hg] Alex MUSE [facility] 11-02-2022 15:15-0400 Body height 182.88 cm Claudio Ball Other [employer] Other 11-02-2022 15:15-0400 Body mass index (BMI) [Ratio] 21.97 kg/m2 Claudio Ball Other [employer] Other 11-02-2022 15:15-0400 Body weight 73.48 kg Claudio Ball Other [employer] Other 11-02-2022 15:15-0400 Diastolic blood pressure 83 mm[Hg] Claudio Ball Other [employer] Other 11-02-2022 15:15-0400 Respiratory rate 12 /min Claudio Ball Other [employer] Other 11-02-2022 15:15-0400 Systolic blood pressure 132 mm[Hg] Claudio Ball Other [employer] Other 08-20-2022 09:11-0400 Blood Pressure Location Alex MUSE [facility] 08-20-2022 09:11-0400 Diastolic blood pressure 68 mm[Hg] Alex MUSE [facility] 08-20-2022 09:11-0400 Heart rate 70 /min Alex MUSE [facility] 08-20-2022 09:11-0400 Respiratory rate 16 /min Alex MUSE [facility] 08-20-2022 09:11-0400 Systolic blood pressure 120 mm[Hg] Alex MUSE [facility] 08-02-2022 15:15-0400 Body height 182.88 cm Claudio Ball Other [employer] Other 08-02-2022 15:15-0400 Body mass index (BMI) [Ratio] 22.46 kg/m2 Claudio Ball Other [employer] Other 08-02-2022 15:15-0400 Body weight 75.12 kg Claudio Ball Other [employer] Other 08-02-2022 15:15-0400 Diastolic blood pressure 82 mm[Hg] Claudio Ball Other [employer] Other 08-02-2022 15:15-0400 Respiratory rate 12 /min Claudio Ball Other [employer] Other 08-02-2022 15:15-0400 Systolic blood pressure 121 mm[Hg] Claudio Ball Other [employer] Other 05-11-2022 08:32-0400 Blood Pressure Location HILDA ELINA [facility] 05-11-2022 08:32-0400 Diastolic blood pressure 90 mm[Hg] HILDA ELINA [facility] 05-11-2022 08:32-0400 Heart rate 70 /min HILDA ELINA [facility] 05-11-2022 08:32-0400 Systolic blood pressure 140 mm[Hg] HILDA ELINA [facility] 08-19-2021 15:19-0400 Blood Pressure Location [facility] 08-19-2021 15:19-0400 Heart rate 82 /min [facility]TO[facility] 08-19-2021 15:19-0400 Respiratory rate 16 /min HILDA ANTOINE [facility] Encounters Encounter Date Encounter Type Care Provider Facility Start: 08-02-2023 End: 08-02-2023 ambulatory [facility] Work Phone: Start: 08-02-2023 End: 08-02-2023 Encounter for general adult medical examination without abnormal findings [facility] Start: 08-02-2023 End: 08-02-2023 Patient encounter procedure [facility] Work Phone: Start: 05-19-2023 End: 05-20-2023 ambulatory HILDA ANTOINE Facility:[facility] Start: 05-19-2023 End: 05-19-2023 Patient encounter procedure HILDA ANTOINE [facility] Start: 03-04-2023 End: 03-05-2023 ambulatory Alex MUSE Facility:[facility] [place] Start: 03-04-2023 End: 03-04-2023 Patient encounter procedure [facility] Start: 01-28-2023 End: 01-28-2023 ambulatory Claudio Soto Other [employer] Other Start: 01-28-2023 Telephone encounter Claudio Soto [facility] Start: 12-24-2022 End: 12-24-2022 ambulatory Claudio Soto Other [employer] Other Start: 12-24-2022 Telephone encounter Claudio Soto [facility] Start: 12-23-2022 End: 12-23-2022 ambulatory Claudio Soto Other [employer] Other Start: 12-23-2022 Telephone encounter Claudio Soto [facility] Start: 11-23-2022 End: 11-23-2022 ambulatory Claudio Soto Other [employer] Other Start: 11-23-2022 Telephone encounter Claudio Soto [facility] Start: 11-02-2022 End: 11-02-2022 ambulatory Claudio Soto Other [employer] Other Start: 11-02-2022 Office outpatient vi sit 25 minutes Claudio Soto [facility] Start: 10-26-2022 End: 10-26-2022 ambulatory Claudio Soto Other [employer] Other Start: 10-26-2022 Telephone encounter Claudio Soto [facility] Start: 10-22-2022 ambulatory Lico CARUSO Facility :[facility] Start: 09-27-2022 ambulatory Lico CARUSO Facility:[facility] Start: 08-20-2022 End: 08-21-2022 ambulatory Alex MUSE [facility] Start: 08-20-2022 End: 08-21-2022 ambulatory Alex MUSE Facility:[facility] [place] Start: 08-20-2022 End: 08-20-2022 Lab Drop off Alex MUSE [facility] Start: 08-20-2022 End: 08-20-2022 Patient encounter procedure Alex MUSE [facility] Start: 08-02-2022 End: 08-02-2022 ambulatory Claudio Soto Other [employer] Other Start: 08-02-2022 Encounter for genera l adult medical examination without abnormal findings Claudio Soto [facility] Start: 08-02-2022 Periodic preventive med est patient 40-64yrs Claudio Soto [facility] Start: 07-28-2022 End: 07-28-2022 ambulatory Claudio Soto Other [employer] Other Start: 07-28-2022 Telephone encounter Claudio BAHENA [facility] Start: 07-12-2022 End: 07-13-[address] ALEX MUSE . Facility: Start: 07-12-2022 End: 07-12-2022 Patient encounter procedure Alex MUSE [facility] Start: 06-30-2022 End: 06-30-2022 ambulatory Claudio Soto Other [employer] Other Start: 06-30-2022 Telephone encounter Claudio BAHENA [facility] Start: 06-14-2022 Telephone encounter Claudio BAHENA [facility] Start: 06-14-2022 End: 06-15-[address] ALEX MUSE . [employer] Other Start: 05-11-2022 End: 05-11-2022 Lab Drop off HILDA ANTOINE [facility] Start: 05-11-2022 End: 05-11-2022 Patient encounter procedure HILDA ANTOINE [facility] Start: 05-03-2022 End: 05-03-2022 ambulatory Claudio Soto Other [facility] [employer] [facility] [employer] Other Start: 05-03-2022 Telephone encounter Claudio BAHENA [facility] Start: 04-05-2022 End: 04-05-2022 ambulatory Claudio Soto Other [employer] Other Start: 04-05-2022 Telephone encounter Claudio BAHENA [facility] Start: 04-01-2022 Nursing evaluation o f patient and report Patricia Olmos [facility] Start: 04-01-2022 End: 04-01-[address] SHINE ALMODOVAR . [facility] [employer] Other Start: 03-31-2022 End: 03-31-[address] MARK OLVERA Facility:[facility] Start: 10-07-2021 End: 10-10-[address] CLAUDIO SOTO Facility:[facility] Start: 10-06-2021 End: 10-06-2021 ambulatory CARLOS MOORE . Facility:[facility] Start: 09-03-[address] CLAUDIO SOTO Facili ty:[facility] Start: 08-19-2021 End: 08-20-[address] ALEX MUSE . Facility:[facility] Start: 08-19-2021 End: 08-19-2021 Patient encounter procedure HILDA ANTOINE [facility] Start: 06-28-2017 End: 06-30-2017 Ambulatory [facility] Start: 06-28-[address] [facility] Start: 06-15-2017 End: 06-20-2017 Ambulatory [facility] Start: 03-11-2017 End: 03-11-2017 Ambulatory SHAW NEFF [facility] Procedures Date Procedure Procedure Detail Performing Clinician Start: 06-14-2022 Cystoscopy Alex MEI Start: 08-19-[address] FLOYD MUSE . Comment on above: Performed By: #### C MP #### [facility] [address] [address] [address] Destin López Start: 02-29-2020 Colonoscopy Alex MEI Start: 07-12-2014 Cystoscopy HILDA GONZALES Start: 07-23-2008 Removal of stent FRITZ ANTOINE Start: 04-25-2008 Cystoscopy HILDA GONZALES Start: 04-25-2008 Prostatotomy by transurethral approach Alex MUSE Start: 2007 Colonoscopy Alex MEI H/O: surgery History of surgery Tonsillectomy HILDA ANTOINE Vasectomy HILDA ANTOINE Plan of Treatment Date Care Activity Detail Author Start: 03-05-2024 ambulatory Ambulatory Facility:[facility] 2000 panel - Serum or Plasma [facility] Payers Date Payer Category Payer Unknown [id number] 2.16.84 [id number] 1960 Unknown [id number] 2.16.84 [id number] 1960 Unknown [id number] 2.16.84 0.1.185221.3.579.2.59 1960 Unknown [id number] 2.16.84 0.1.154195.3.579.2.593 1960 Unknown [id number] 2.16.84 0.1.407429.3.579.2.59 1960 Unknown [id number] 2.16.84 0.1.476784.3.579.2.593 1960 Unknown [id number] 2.16.84 0.1.542626.3.579.2.59 1960 Unknown [id number] 2.16.84 0.1.319401.3.579.2.593 1960 Unknown [id number] 2.16.84 0.1.632264.3.579.2.593 1960 Unknown [id number] 2.16.8 40.1.160459.3.579.2.727 1960 Unknown [id number] 2.16.8 40.1.002323.3.579.2.72 1960 Unknown [id number] 2.16.8 40.1.016348.3.579.2.727 1960 Unknown [id number] 2.16.8 40.1.291331.3.579.2.72 1960 Unknown [id number] 2.16.8 40.1.736887.3.579.2.727 1960 Unknown [id number] 2.16.8 40.1.263625.3.579.2.727 1960 Unknown [id number] 2.16.8 40.1.609930.3.579.2.727 1960 Unknown [id number] 2.16.8 40.1.718311.3.579.2.727 1957 [facility] [id number] [id number] 1957 Self-pay [id number] Self-pay Self Pay [id number] Unknown [facility] [id number] Social History Date Type Detail Facility Start: 08-19-2021 End: 05-19-2023 Tobacco smoking status Light tobacco smoker (finding) [facility] Sex Assigned At Male [facility] Tobacco smoking status Never [facility] Start: 08-28-2020 Tobacco smoking stat us AZIS Never smoked tobacco (finding) [facility] Start: 1960 Sex Assigned At Male [facility] Functional Status Date Assessment Result Facility 03-04-2023 Functional Status N/A [facility] 08-20-2022 Functional Status N/A [facility] 05-11-2022 Functional Status N/A [facility] 08-19-2021 Functional Status N/A [facility] Clinical Notes 08-19-2021 to 05-19-2023 Note Date & Type Note Facility 05-19-2023 Hospital Discharg e instructions Patient Education 05/19/2023 15:44:34 Urinary Tract Infection, Adult, Lgos-lq-Kvtn Urinary Tract Infection, Adult A urinary tract infection (UTI) is an infection of any part of the urinary tract. The urinary tract includes: The kidneys. The ureters. The bladder. The urethra. These organs make, store, and get rid of pee (urine) in the body. What are the causes? This infection is caused by germs (bacteria) in your genital area. These germs grow and cause swelling (inflammation) of your urinary tract. What increases the risk? The following factors may make you more likely to develop this condition: Using a small, thin tube (catheter) to drain pee. Not being able to control when you pee or poop (incontinence). Being female. If you are female, these things can increase the risk: ?Using these methods to prevent : ?A medicine that kills sperm (spermicide). ?A device that blocks sperm (diaphragm). ?Having low levels of a female hormone (estrogen). ?Being . You are more likely to develop this condition if: You have genes that add to your risk. You are sexually active. You take antibiotic medicines. You have trouble peeing because of: ?A prostate that is bigger than normal, if you are male. ?A blockage in the part of your body that drains pee from the bladder. ?A kidney stone. ?A nerve condition that affects your bladder. ?Not getting enough to drink. ?Not peeing often enough. You have other conditions, such as: ?Diabetes. ?A weak disease-fighting system (immune system). ?Sickle cell disease. ?Gout. ?Injury of the spine. What are the signs or symptoms? Symptoms of this condition include: Needing to pee right away. Peeing small amounts often. Pain or burning when peeing. Blood in the pee. Pee that smells bad or not like normal. Trouble peeing. Pee that is cloudy. Fluid coming from the vagina, if you are female. Pain in the belly or lower back. Other symptoms include: Vomiting. Not feeling hungry. Feeling mixed up (confused). This may be the first symptom in older adults. Being tired and grouchy (irritable). A fever. Watery poop (diarrhea). How is this treated? Taking antibiotic medicine. Taking other medicines. Drinking enough water. In some cases, you may need to see a specialist. Follow these instructions at home: Medicines Take veqy-mhr-ckfyisb and prescription medicines only as told by your doctor. If you were prescribed an antibiotic medicine, take it as told by your doctor. Do not stop taking it even if you start to feel better. General instructions Make sure you: ?Pee until your bladder is empty. ?Do not hold pee for a long time. ?Empty your bladder after sex. ?Wipe from front to back after peeing or pooping if you are a female. Use each tissue one time when you wipe. Drink enough fluid to keep your pee pale yellow. Keep all follow-up visits. Contact a doctor if: You do not get better after 1 2 days. Your symptoms go away and then come back. Get help right away if: You have very bad back pain. You have very bad pain in your lower belly. You have a fever. You have chills. You feeling like you will vomit or you vomit. Summary A urinary tract infection (UTI) is an infection of any part of the urinary tract. This condition is caused by germs in your genital area. There are many risk factors for a UTI. Treatment includes antibiotic medicines. Drink enough fluid to keep your pee pale yellow. This information is not intended to replace advice given to you by your health care provider. Make sure you discuss any questions you have with your health care provider. Document Revised: 09/26/2020 Document Reviewed: 09/26/2020 [employer] Patient Education 2022 Protection Plus. Follow Up Care 05/03/2023 15:04:48 With:HILDA ANTOINE PA-C, URL Address: [address] [place] [address] [phone] When: Unknown [facility] [place] 03-04-2023 Hospital Discharg e instructions Patient Education 03/04/2023 08:44:29 Neurogenic Bladder Neurogenic Bladder Neurogenic bladder is a bladder control disorder. It is usually caused by problems with the nerves that control the bladder. The brain sends signals through the spinal cord to the muscles in the bladder that start and stop urine flow. With neurogenic bladder, the nerves and muscles do not work together the way they should. This condition may make the bladder overactive, meaning you have trouble holding urine. In other cases, it may make the bladder underactive. This means that you have trouble passing urine. What are the causes? This condition may be caused by nerve damage or a condition that disrupts the signals from your brain to your bladder. Many things can cause these nerve problems, including: A disease that affects the nervous system, such as: ?Alzheimer's disease. ?Cerebral palsy. ?Multiple sclerosis. ?Diabetes. ?Parkinson's disease. Damage to your brain or spinal cord. This can come from: ?Trauma. ?Tumors. ?Infection. ?Surgery. ?Alcohol abuse. ?Stroke. ?A congenital disability that affects the spinal cord. What increases the risk? You are more likely to develop this condition if you have nerve damage or a nerve disorder. What are the signs or symptoms? Signs and symptoms of this condition include: Leaking or gushing urine (incontinence). A sudden, strong urge to pass urine (urgency). Frequent urination during the day and night. Being unable to empty your bladder completely (urinary retention). Frequent urinary tract infections. How is this diagnosed? This condition may be diagnosed based on: Your symptoms and medical history. A physical exam. Records from a bladder diary. You may be asked to keep a record or log of your bladder symptoms and the times that you urinate. You may also have tests, such as: A urine test to check for infection. A bladder scan after you urinate to see how much urine is left in your bladder. Tests to measure your urine flow and see how well the flow is controlled (urodynamic tests). A procedure that uses a small device with a camera to look through your urethra into your bladder (cystoscopy). A health care provider who specializes in the urinary tract (urologist) may do this test. Imaging tests of your brain or spine, such as MRI or CT scan. How is this treated? Treatment for this condition depends on the cause and the symptoms that you have. Work closely with your health care provider to find the treatments that will improve your quality of life. Treatment options include: Learning ways to control when you urinate, such as: ?Urinating at scheduled times. ?Training yourself to delay urination. ?Exercises to strengthen the muscles that control urine flow (Kegel exercises). ?Avoiding foods or drinks that make your symptoms worse. Taking medicines to: ?Stimulate an underactive bladder. ?Relax an overactive bladder. ?Treat a urinary tract infection. Learning how to use a thin tube (catheter) to empty your bladder. A catheter is a hollow tube that you pass through your urethra. Procedures to stimulate the nerves that control your bladder. Surgery, if other treatments do not help. Follow these instructions at home: Lifestyle Keep a bladder diary to find out which foods, liquids, or activities make your symptoms worse. Use your bladder diary to schedule bathroom trips. If you are away from home, plan to be near a bathroom when your schedule says you will need one. Limit beverages that stimulate urination. These include soda, coffee, and tea. After urinating, wait a few minutes and try again. Make sure you urinate just before you leave the house and just before you go to bed. Kegel exercises Do Kegel exercises to strengthen the muscles that control the passing of urine. These muscles are the ones you use to try to hold urine when you need to urinate. To do Kegel exercises: 1.Squeeze your pelvic floor muscles tight, as if you are trying to stop the flow of urine. You should feel a tight lift in your rectal area. If you are female, you should also feel a tightness in your vaginal area. Keep your stomach, buttocks, and legs relaxed. 2.Hold the muscles tight for 5 10 seconds. 3.Relax your muscles for the same amount of time. 4.Repeat 10 times. Repeat this exercise 3 times a day or as many times as told by your health care provider. General instructions Take qcel-ool-jpgixpu and prescription medicines only as told by your health care provider. Keep all follow-up visits. This is important. Contact a health care provider if: You are having a hard time controlling your symptoms. Your symptoms are getting worse. You have signs of a urinary tract infection. These may include: ?A burning feeling when you urinate. ?Fever or chills. ?Cloudy or bloody urine. Get help right away if: You cannot pass urine. Summary Neurogenic bladder is a bladder control disorder caused by problems with the nerves that control the bladder. This condition may make the bladder overactive or underactive. This condition may be caused by nerve damage or a condition that disrupts the signals from your brain to your bladder. Treatment depends on the cause of your neurogenic bladder and the symptoms that you have. Work closely with your health care provider to find the treatments that will improve your quality of life. This information is not intended to replace advice given to you by your health care provider. Make sure you discuss any questions you have with your health care provider. Document Revised: 10/30/2020 Document Reviewed: 10/30/2020 [employer] Patient Education 2022 Protection Plus. Follow Up Care 08/20/2022 09:53:00 With:MIGUELINA SNIDER, Alex Julien, URL Address: [address] [place] [phone]- When: Unknown [facility] 01-28-2023 Evaluation note Encounter Date Diagnosis Assessment Notes Jan, Lumbar spondylosis (ICD-10 - M47.816) [employer] [facility] [employer] [facility] Other 10-26-2023 Evaluation note* Encounter Date Diagnosis Assessment Notes Treatment Notes Treatment Clinical Notes Nov, Acute prostatitis (ICD-10 - N41.0) [facility] Other 09-26-2023 Evaluation note* Encounter Date Diagnosis Assessment Notes Treatment Notes Treatment Clinical Notes Oct, Acute prostatitis (ICD-10 - N41.0) [facility] Other 09-05-2023 Evaluation note* Encounter Date Diagnosis Assessment Notes Treatment Notes Treatment Clinical Notes Oct, Obstructive sleep apnea (ICD-10 - G47.33) This patient is aware of the benefits associated with SONIA: With continued use, the patient reduces the risk for SD, CVA, HTN, cardiac dysrhythmias and sudden cardiac [...] empty bladder. Instructed to use sterile technique [facility] Other 08-29-2023 Evaluation note* Encounter Date Diagnosis Assessment Notes Treatment Notes Treatment Clinical Notes Sep, Lumbar spondylosis (ICD-10 - M47.816) Sep, Dysuria (ICD-10 - R30.0) [facility] Other 06-23-2023 Hospital Discharge instructions Patient Education [...] and water are not available, use hand certified real estate appraiser. 2.Clean your penis with soap and water. [...] reusable catheter in a small bathroom. Take wpuv-tor-kxsmzaa and prescription medicines only as told by [...] provider. Document Revised: 12/21/2021 Document Reviewed: 12/21/2021 [employer] Patient Education 2022 Protection Plus. Follow Up Care 08/19/2021 15:46:45 With:MIGUELINA SNIDER, Alex Julien, URL Address: [facility] [address] , [place] [address]- [phone] When:Within 6 Month(s) [facility] 06-05-2023 Evaluation note* Encounter Date Diagnosis Assessment Notes Treatment Notes Treatment Clinical Notes Jul, Obstructive sleep apnea (ICD-10 - G47.33) This patient is aware of the benefits associated with SONIA: With continued use, the patient reduces the risk for SD, CVA, HTN, cardiac dysrhythmias and sudden cardiac [...] to be removed and resuming self catheterization [facility] [facility] Other 05-31-2023 Evaluation note* Encounter Date Diagnosis Assessment Notes Treatment Notes Treatment Clinical Notes June, Lumbar spondylosis (ICD-10 - M47.816) [facility] [facility] Other 05-03-2023 Evaluation note* Encounter Date Diagnosis Assessment Notes Treatment Notes Treatment Clinical Notes June, Lumbar spondylosis (ICD-10 - M47.816) [facility] Other 03-14-2023 Hospital Discharge instructions Patient Education [...] Treatment for this condition includes: Antibiotic medicine. Pzza-fqs-slcwafo medicines to treat discomfort. Drinking enough water [...] Follow these instructions at home: Medicines Take mapx-ccn-jdadomo and prescription medicines only as told by [...] 11/24/2005 Document Revised: 02/01/2019 Document Reviewed: 08/24/2018 [employer] Patient Education 2020 Protection Plus. Follow Up Care 04/27/2022 09:21:57 With:MIGUELINA SNIDER, Alex Julien, URL Address: [address] [place] [phone]- When: Unknown [facility] [place] 02-06-2023 Evaluation note* Encounter Date Diagnosis Assessment Notes Treatment Notes Treatment Clinical Notes Mar, Acute pyelonephritis (ICD-10 - N10) [facility] Other 02-02-2023 Evaluation note* Encounter Date Diagnosis Assessment Notes Treatment Notes Treatment Clinical Notes Mar, Dysuria (ICD-10 - R30.0) Nurse advised him to go to [facility] Other 06-22-2022 Hospital Discharge instructions Patient Education [...] urethra. Follow these instructions at home: Take idlt-wrz-zmexsed and prescription medicines only as told by [...] 02/14/2006 Document Revised: 01/09/2019 Document Reviewed: 03/21/2017 [employer] Patient Education 2020 Protection Plus. Follow Up Care 07/06/2021 10:21:43 With:ELINA PARIKH, HILDA Giron, URL Address: [address] [place] [address] When:1 year Comments:PSA [facility] evaluation + Plan note Future Appointments Appointment Date:08/20/2022 08:30:00 AM Scheduled Provider:Alex MUSE MD Location:[facility] Appointment Type:URO Office Visit Diagnostic Tests Pending * PSA Total 08/19/21 * PSA Total 08/19/21 Future Scheduled Tests Laboratory* Basic Metabolic Panel 08/19/21 * Basic Metabolic Panel 08/19/21 * Basic Metabolic Panel 08/19/21 [facility] evaluation + Plan note Future Appointments Appointment Date:08/20/2022 08:30:00 AM Scheduled Provider:Alex MUSE MD Location:[facility] Appointment Type:URO Office Visit Future Scheduled Tests Laboratory* Basic Metabolic Panel 08/19/21 * Basic Metabolic Panel 08/19/21 * Basic Metabolic Panel 08/19/21 [facility] evaluation + Plan note Future Appointments Appointment Date:08/20/2022 08:30:00 AM Scheduled Provider:Alex MUSE MD Location:[facility] Appointment Type:URO Office Visit Diagnostic Tests Pending * Urine Culture 05/11/22 Future Scheduled Tests Laboratory* Basic Metabolic Panel 08/19/21 * Basic Metabolic Panel 08/19/21 * [facility]ments Appointment Date:03/04/2023 08:00:00 AM Scheduled Provider:Alex MUSE MD Location:[facility] Appointment Type:URO Office Visit [facility] evaluation + Plan note Future Appointments Appointment Date:03/05/2024 09:15:00 AM Scheduled Provider:Alex MUSE MD Location:[facility] Appointment Type:URO Office Visit Diagnostic Tests Pending * BUN 03/04/23 * Creatinine 03/04/23 [facility] evaluation + Plan note Future Appointments Appointment Date:03/05/2024 09:15:00 AM Scheduled Provider:Alex MUSE MD Location:[facility] Appointment Type:URO Office Visit [facility] Evaluation noteNo InformationNowestern [facility] [employer] Other Evaluation note* Diagnosis Onset Date Resolution Status Benign prostatic hyperplasia with lower urinary tract symptoms acute Lumbar spondylosis acute Obstructive sleep apnea acut e Opiate analgesic use agreement exists acute Screening PSA (prostate specific antigen) noneactive Wellness examination noneact alissa [facility] Work Phone: [facility]iss[employer] general Narrative - Reported* Type Description Date [...] COLONOSCOPY 2020 Hospitalization History SEE SURGICAL HX [facility] [employer] [facility] Other Hisdqgp general Narrative - Reported* Type Description Date [...] History Cystoscopy 05/2022 Hospitalization History SEE SURGICAL HX [facility] Other Hospital course Narrative No data available for this section [facility] Discharge instructions No data available for this section [facility] No data available for this section [facility] Summary Purpose Family History Relationship Condition Age at Onset Recorded Date/T dayana Not Specified Malignant neoplasm of lung Unknown Advance Directives Advance Directive Response Recorded Date/ Time Advance Directives No May 05 8:41am Chief Complaint and Reason for Visit Chief Complaint 3 month follow up Reason for Visit Benign prostatic hyp erplasia with lower urinary tract symptoms Lumbar spondylosis Obstructive sleep apnea Opiate analgesic use agreement exists Screening PSA (prostate specific antigen) Wellness examination Additional Source Comments (unrecognized sect ion and content) No Status Records FoundNo Status Records FoundNo Status Records FoundNo Status Records FoundNo Status Records FoundNo Status Records Found INFORMATION SOURCE (unrecogn ized section and content) DATE CREATED AUTHOR 08/17/2017 [facility] DATE CREATED AUTHOR AUTHOR'S ORGANIZ ATION 08/18/2017 [facility] DATE CREATED AUTHOR AUTHOR'S ORGANIZ ATION 02/15/2021 [facility] DATE CREATED AUTHOR AUTHOR'S ORGANIZ ATION 01/15/2022 [facility] dical Specialist DATE CREATED AUTHOR AUTHOR'S ORGANIZ ATION 07/13/2022 [facility] pital DATE CREATED AUTHOR AUTHOR'S ORGANIZ ATION 05/20/2023 [facility] Care Team (unrecognized sect ion and content) Team Status: Active Member Role Status Dates Claudio Soto DO Primary Care Provider Active Team Status: Inactive Member Role Status Dates Claudio Soto DO Primary Care Provide r, Attending Provider Active Start: August 02, 2023 End: August 02, 2023 REASON FOR VISIT (unrecogniz ed section and content) Results3 monthwellness / gary ck up for pain medicationUA- Fever, Back PainATB Goals (unrecognized section and content) Goals may be documented in a n alternate section FOR RECORDS PERTAINING TO PATIENTS WHO ARE [...] BE BASED ON THE PRIMARY CLINICAL RECORDS. [facility] [employer] [facility]. provides no warranty or guarantee of the accuracy or completeness of information in this document.
[2023-08-03 07:01] LABS: Basophils Absolute Auto 0.1 10^3/uL (0.0-0.1); Basophils Percent Auto 0.7 % (0.2-2.0); Eosinophils Absolute Auto 0.4 10^3/uL (0.0-0.7); Eosinophils Percent Auto 4.8 % (0.9-7.0); Hematocrit 46.1 % (42.0-54.0); Hemoglobin 15.7 g/dL (14.0-18.0); Immature Granulocytes Abs Auto 0.03 10^3/uL (0.00-0.03); Immature Granulocytes Pct Auto 0.3 % (0.0-0.5); Lymphocytes Percent Auto 21.9 % (20.5-60.0); Mean Corpuscular HGB Conc 34.1 g/dL (29.9-35.2); Mean Corpuscular Hemoglobin 31.7 pg (25.9-34.0); Mean Corpuscular Volume 93.1 fL (80.0-94.0); Mean Platelet Volume 8.4 fL (9.5-13.5); Monocytes Absolute Auto 0.8 10^3/uL (0.3-0.8); Monocytes Percent Auto 9.1 % (1.7-12.0); Neutrophils Absolute Auto 5.8 10^3/uL (1.4-6.5); Neutrophils Percent Auto 63.2 % (43.0-75.0); Platelet Count 371 10^3/uL (150-450); Red Blood Count 4.95 10^6/uL (4.70-6.10); Red Cell Distribution Width 13.8 % (11.0-15.0); White Blood Count 9.2 10^3/uL (4.0-11.0)
[2023-08-03 07:12] LABS: Alanine Aminotransferase 33 U/L (16-63); Albumin Globulin Ratio 1.1; Albumin Level 3.7 g/dL (3.4-5.0); Alkaline Phosphatase 83 U/L (46-116); Anion Gap 12.4; Aspartate Amino Transferase 24 U/L (15-37); BUN Creatinine Ratio 18.2; Bilirubin Total 0.8 mg/dL (0.2-1.0); Carbon Dioxide 27.8 mmol/L (21.0-32.0); Chloride 103 mmol/L (98-107); Chol HDL Ratio 2.2; Cholesterol 179 mg/dL (<=200); Estimated GFR (African America >60 (>=60); Estimated GFR (Non-African Ame >60 (>=60); Globulin 3.3 g/dL; Glucose 107 mg/dL (74-106); HDL Cholesterol 82 mg/dL (40-60); Potassium 4.2 mmol/L (3.5-5.1); Sodium 139 mmol/L (136-145); Triglycerides 38 mg/dL (<=150); VLDL CHOLESTEROL 7.6 mg/dL
== END 2023-08-03 06:34 | disposition home or self-care (01) ==
LOC: LAB 06:33
PROVIDERS: PCP Internal Medicine; Visit Provider Internal Medicine
DX: Z00.00 Encounter for general adult medical examination without abnormal findings (principal)
CPT/HCPCS: 36415; 80053; 80061; 85025; G0103

== ENCOUNTER 2023-10-14 06:31 | Outpatient (OUT) | payer BC, SELFPAY ==
[2023-10-15 04:10] LABS: Prostate Specific Ag 1.3 ng/mL (0.0-4.0)
== END 2023-10-14 06:32 | disposition home or self-care (01) ==
LOC: LAB 06:32
PROVIDERS: PCP Internal Medicine; Visit Provider Internal Medicine
DX: R97.20 Elevated prostate specific antigen [PSA] (principal)
CPT/HCPCS: 36415; 84153; 84154

== ENCOUNTER 2023-10-24 08:20 | Emergency (ER) | payer BC, SELFPAY ==
[2023-10-24] VITALS (25 sets, daily range): BP systolic 135–159; BP diastolic 84–99; PULSE 51–66; TEMP 37.1; O2SAT 97–100; BMI 21.7
--- NOTE | 2023-10-24 08:45 | ECG_ITS ---
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
[2023-10-24 08:56] LABS: Basophils Absolute Auto 0.1 10^3/uL (0.0-0.1); Basophils Percent Auto 0.5 % (0.2-2.0); Eosinophils Absolute Auto 0.1 10^3/uL (0.0-0.7); Eosinophils Percent Auto 0.5 % (0.9-7.0); Hematocrit 43.6 % (42.0-54.0); Hemoglobin 15.4 g/dL (14.0-18.0); Immature Granulocytes Abs Auto 0.04 10^3/uL (0.00-0.03); Immature Granulocytes Pct Auto 0.4 % (0.0-0.5); Lymphocytes Absolute Auto 1.9 10^3/uL (1.2-3.8); Lymphocytes Percent Auto 18.1 % (20.5-60.0); Mean Corpuscular HGB Conc 35.3 g/dL (29.9-35.2); Mean Corpuscular Hemoglobin 31.8 pg (25.9-34.0); Mean Corpuscular Volume 90.1 fL (80.0-94.0); Mean Platelet Volume 8.4 fL (9.5-13.5); Monocytes Absolute Auto 0.9 10^3/uL (0.3-0.8); Monocytes Percent Auto 8.5 % (1.7-12.0); Neutrophils Absolute Auto 7.6 10^3/uL (1.4-6.5); Platelet Count 370 10^3/uL (150-450); Red Blood Count 4.84 10^6/uL (4.70-6.10); Red Cell Distribution Width 12.6 % (11.0-15.0); White Blood Count 10.5 10^3/uL (4.0-11.0)
--- NOTE | 2023-10-24 09:04 | XR_ITS ---
The [address] [address] Patient Name: SHAW GALVAN MRN: [id number] date: 1960 Sex: M Assigned Patient Location: ER Current Patient Location: ED.MAIN Accession/Order Number: [id number] Exam Date: 10/24/2023 08:58 Report Date: 10/24/2023 09:24 At the request of: COLETTE NOLAND Procedure: XR chest 1V EXAM: XR chest 1V HISTORY: Chest pain COMPARISON: None. TECHNIQUE: Single view of the chest. FINDINGS: Heart and vascularity are unremarkable. Lungs are free of focal infiltrates. Calcified granuloma noted in both hilar regions. Grossly no acute bony abnormality is appreciated. EKG leads overlie the chest. XR/XR chest 1V IMPRESSION: No acute heart or lung disease identified. Electronically authenticated by: PADMINI DIAZ Date: 10/24/2023 09:24
--- NOTE | 2023-10-24 09:08 | CT_ITS ---
The [address] [address] Patient Name: SHAW GALVAN MRN: [id number] date: 1960 Sex: M Assigned Patient Location: ER Current Patient Location: .[facility] Accession/Order Number: [id number] Exam Date: 10/24/2023 08:58 Report Date: 10/24/2023 09:23 At the request of: COLETTE NOLAND Procedure: CT head/brain wo con EXAM: CT head/brain wo con, CT cervical spine wo con HISTORY: headache, hx of bleed, pain COMPARISON: None. TECHNIQUE: Axial noncontrast CT imaging of the head and cervical spine was performed with coronal and sagittal reformats. This CT exam was performed using one or more of the following dose reduction techniques: Automated exposure control, adjustment of the MA and/or kV according to patient size, or use of iterative reconstruction technique. FINDINGS: CT head Calvarium/skull base: No evidence of acute fracture or destructive lesion. Paranasal sinuses: Moderate mucosal thickening of the ethmoid air cells with mild involvement of the sphenoid and inferior left greater than right frontal sinuses with associated frothy secretions. Brain: No acute intracranial hemorrhage. No acute large vascular territory infarct. No mass lesion or mass effect. No hydrocephalus. CT cervical spine Alignment: Reversal of normal cervical lordosis with minimal anterolisthesis of C4 on C5. Vertebrae: Vertebral body heights are maintained. No fracture. Craniocervical junction: No focal abnormality. Degenerative changes: Mild degenerative changes of cervical spine are present most prominently involving the left uncovertebral joints with eccentric moderate left uncovertebral arthropathy at multiple levels. There is mild to moderate bilateral uncovertebral arthropathy at C5-C6 with moderate disc height loss and vacuum disc noted. There is associated mild to moderate left greater than right foraminal stenosis at multiple levels. Additional Comments: Mild vascular sclerosis. Visualized portion of the upper lungs are clear. CT/CT head/brain wo con IMPRESSION: 1. No acute intracranial process. 2. Paranasal sinus disease detailed above. 3. No fracture or substantial malalignment of the cervical spine. Mild degenerative change. Electronically authenticated by: VANDANA SALAMANCA Date: 10/24/2023 09:23
--- NOTE | 2023-10-24 09:08 | CT_ITS ---
The [address] [address] Patient Name: SHAW GALVAN MRN: [id number] date: 1960 Sex: M Assigned Patient Location: ER Current Patient Location: .[facility] Accession/Order Number: [id number] Exam Date: 10/24/2023 08:58 Report Date: 10/24/2023 09:23 At the request of: COLETTE NOLAND Procedure: CT cervical spine wo con EXAM: CT head/brain wo con, CT cervical spine wo con HISTORY: headache, hx of bleed, pain COMPARISON: None. TECHNIQUE: Axial noncontrast CT imaging of the head and cervical spine was performed with coronal and sagittal reformats. This CT exam was performed using one or more of the following dose reduction techniques: Automated exposure control, adjustment of the MA and/or kV according to patient size, or use of iterative reconstruction technique. FINDINGS: CT head Calvarium/skull base: No evidence of acute fracture or destructive lesion. Paranasal sinuses: Moderate mucosal thickening of the ethmoid air cells with mild involvement of the sphenoid and inferior left greater than right frontal sinuses with associated frothy secretions. Brain: No acute intracranial hemorrhage. No acute large vascular territory infarct. No mass lesion or mass effect. No hydrocephalus. CT cervical spine Alignment: Reversal of normal cervical lordosis with minimal anterolisthesis of C4 on C5. Vertebrae: Vertebral body heights are maintained. No fracture. Craniocervical junction: No focal abnormality. Degenerative changes: Mild degenerative changes of cervical spine are present most prominently involving the left uncovertebral joints with eccentric moderate left uncovertebral arthropathy at multiple levels. There is mild to moderate bilateral uncovertebral arthropathy at C5-C6 with moderate disc height loss and vacuum disc noted. There is associated mild to moderate left greater than right foraminal stenosis at multiple levels. Additional Comments: Mild vascular sclerosis. Visualized portion of the upper lungs are clear. CT/CT cervical spine wo con IMPRESSION: 1. No acute intracranial process. 2. Paranasal sinus disease detailed above. 3. No fracture or substantial malalignment of the cervical spine. Mild degenerative change. Electronically authenticated by: VANDANA SALAMANCA Date: 10/24/2023 09:23
[2023-10-24 09:13] LABS: Alanine Aminotransferase 30 U/L (16-63); Albumin Globulin Ratio 1.2; Albumin Level 3.5 g/dL (3.4-5.0); Alkaline Phosphatase 81 U/L (46-116); Aspartate Amino Transferase 24 U/L (15-37); BUN Creatinine Ratio 18.2; Bilirubin Total 1.4 mg/dL (0.2-1.0); Calcium 8.9 mg/dL (8.5-10.1); Carbon Dioxide 24.5 mmol/L (21.0-32.0); Estimated GFR (African America >60 (>=60); Estimated GFR (Non-African Ame >60 (>=60); Glucose 95 mg/dL (74-106); Total Protein 6.5 g/dL (6.4-8.2); Troponin I High Sensitivity 6.2 pg/mL (4.0-76.1)
[2023-10-24] MEDS: KETOROLAC TROMETHAMINE 30 MG/ML VIAL 15 MG IVP (09:23)
[2023-10-24 09:27] LABS: Potassium 4.3 mmol/L (3.5-5.1)
[2023-10-24 09:33] LABS: Anion Gap 12.8
[2023-10-24] MEDS: MORPHINE SULFATE 2 MG/ML SYRINGE IV (10:16)
[2023-10-24] MEDS: METHYLPREDNISOLONE SOD SUCC PF 40 MG/ML VIAL IVP (10:34)
--- NOTE | 2023-10-24 11:02 | CT_ITS ---
The [address] [address] Patient Name: SHAW GALVAN MRN: [id number] date: 1960 Sex: M Assigned Patient Location: ER Current Patient Location: ER Accession/Order Number: [id number] Exam Date: 10/24/2023 10:50 Report Date: 10/24/2023 11:48 At the request of: COLETTE NOLAND Procedure: CT angio head EXAM: CT angio head HISTORY: right eye blurry vision COMPARISON: CT head performed contemporaneously reported separately. TECHNIQUE: Axial postcontrast CTA imaging of the head was performed with coronal and sagittal as well as maximum intensity projection and 3-D reformats which were performed on a separate workstation. This CT exam was performed using one or more of the following dose reduction techniques: Automated exposure control, adjustment of the MA and/or kV according to patient size, or use of iterative reconstruction technique. FINDINGS: Anterior circulation: No evidence of aneurysm, significant stenosis, or occlusion. Vertebrobasilar system: No evidence of aneurysm, significant stenosis, or occlusion. Venous sinuses: Grossly patent. Asymmetric small size of the left transverse and sigmoid sinus. Additional comments: Mucosal thickening of the paranasal sinuses. Remote fracture of the right lamina Propecia. No abnormal intracranial enhancement. CT/CT angio head IMPRESSION: No significant stenosis, large vessel occlusion or aneurysm involving the intracranial arterial vasculature. Electronically authenticated by: VANDANA SALAMANCA Date: 10/24/2023 11:48
--- NOTE | 2023-10-24 12:51 | ED_ITS ---
HPI - Dizziness General Chief Complaint: Dizziness Stated Complaint: STIFF NECK BLURR VISION DIZZY Time Seen by Provider: 10/24/23 08:44 Source: patient Mode of arrival: walk-in Limitations: no limitations History of Present Illness HPI Narrative: The patient is a 63 years old male who is coming to us with a right-sided neck pain at the main concern, the patient is coming to us with a right-sided neck pain that started last night there was no fall or trauma or any other complaints, but the patient mentioned that he had a fall and intracranial bleeding almost 10 years ago., Patient mentioned that since then he has been having blurry vision in his right eye on and off and is not an acute issue But for some reason the patient is coming to the ER today with a concern that the blurry vision and neck pain are related, he mentioned that the blurry vision comes and goes in his right eye since he fell down 10 years ago there is no headache Patient mentioned that he feels a spasm in the right side of his neck there is no numbness or tingling down his hand there is no weakness there is no chest pain and there is no shortness of breath Pain gets worse with movement Related Data Home Medications ?Medication ?Instructions ?Recorded ?Confirmed tramadol 50 mg tablet 50 mg PO Q6H PRN pain 09/24/22 10/24/23 Previous Rx's ?Medication ?Instructions ?Recorded famotidine 20 mg tablet (Pepcid) 20 mg PO BID #10 tabs 10/24/23 orphenadrine citrate 100 mg 100 mg PO BID PRN muscle spasm #14 10/24/23 tablet,extended release tabs prednisone 20 mg tablet 40 mg (2 x 20 mg) PO DAILY 5 days 10/24/23 #10 tabs Allergies Allergy/AdvReac Type Severity Reaction Status Date / Time ciprofloxacin [From Cipro] Allergy Unknown Verified 09/24/22 06:32 sulfamethoxazole Allergy Unknown Verified 09/24/22 06:32 [From Bactrim] trimethoprim [From Bactrim] Allergy Unknown Verified 09/24/22 06:32 Review of Systems ROS Status of ROS 10 or more systems reviewed and unremark able except as noted in history and below PFSH PFSH Social History Smoking status: Current every day smoker Exam Narrative Exam Narrative: Nurses notes and vital signs reviewed and patient is not hypoxic. General: Well-appearing and in no apparent distress. Skin: Warm, dry, no pallor noted. No rash. Head: Normocephalic, atraumatic. Neck: No intervertebral line tenderness the patient have only right paraspinal muscle tenderness mostly in the right upper and lower part of the cervical spine as well as at the occipital area Eye: Pupils are equal, round and EOMI. No scleral icterus. Ears, Nose, Mouth, and Throat: TM are clear, no nasal mucosal hypertrophy. Oral mucosa is moist, no posterior oropharynx erythema, uvula is mid-line Cardiovascular: Regular Rate and Rhythm without murmur, gallop or rub. Respiratory: No accessory muscle use or respiratory distress. Lungs are clear to auscultation, no wheezing, rales or rhonchi Chest Wall: no tenderness Back: No midline thoracic or lumbar vertebral tenderness. No CVA tenderness Musculoskeletal: normal ROM, no calf or popliteal tenderness, no lower extremity edema/swelling GI: Abdomen is soft, non-distended. Normal bowel sounds. No masses appreciated. No tenderness to palpation. No rebound, guarding, or rigidity noted. Neurological: A&O x4. No cranial nerve dysfunction observed. No truncal ataxia. Moves all extremities. Sensation intact. Psychiatric: Cooperative and interactive. Normal mood and affect. Constitutional Vital Signs, click to edit/add: Last Vital Signs Temp 98.7 F 10/24/23 08:35 Pulse 59 L 10/24/23 12:14 Resp 13 10/24/23 12:14 BP 146/84 H 10/24/23 12:00 Pulse Ox 97 10/24/23 12:14 O2 Del Method Room Air 10/24/23 08:35 Course Vital Signs Vital signs: Vital Signs Pulse Oximetry 100 10/24/23 08:33 Temperature 98.7 F 10/24/23 08:35 Pulse Rate 59 L 10/24/23 12:14 Respiratory Rate 13 10/24/23 12:14 Blood Pressure 146/84 H 10/24/23 12:00 Pulse Oximetry 97 10/24/23 12:14 Oxygen Delivery Method Room Air 10/24/23 08:35 MDM - Dizziness MDM Narrative Medical decision making narrative: The patient complete examination was benign including his eye exam in the ER except for the fact that he have right paraspinal muscle tenderness and he is having torticollis like spasm in his right side of the neck For some reason the patient was presented to us he started complaining about possible bleed although this happened after a trauma and also he mentioned the blurry vision that he also has been having for the last 10 years The patient is not having any double vision at any time there is no headache and according to him the only acute complaint is the neck pain The patient CT head as well as CT neck and CT angio of the head showed no acute pathology CBC and chemistry showed no acute pathology as well and the patient already taking tramadol at home provided with Solu-Medrol Toradol and morphine in the ER after which she was feeling better Patient was discharged home with prednisone as well as Norflex with instruction not to over take his tramadol and Norflex together so he does not get sedated The patient also to follow-up with his primary care doctor within few days for further evaluation and need for MRI in case needed Also the patient was instructed about not ignoring his symptoms of blurry vision that he been going on for the last and is and follow-up with ophthalmology wit hin few days The patient is to follow up with primary care physician in next 2-3 days or to return to the emergency department should any of the signs or symptoms worsen or new symptoms develop. The patient agrees with the following Diagnosis and Treatment plan and the patient will be discharged home. Lab Data Labs: Lab Results 10/24/23 Range/Units 08:47 WBC 10.5 (4.0-11.0) 10^3/uL RBC 4.84 (4.70-6.10) 10^6/uL Hgb 15.4 (14.0-18.0) g/dL Hct 43.6 (42.0-54.0) % MCV 90.1 (80.0-94.0) fL MCH 31.8 (25.9-34.0) pg MCHC 35.3 H (29.9-35.2) g/dL RDW 12.6 (11.0-15.0) % Plt Count 370 (150-450) 10^3/uL MPV 8.4 L (9.5-13.5) fL Neut % (Auto) 72.0 (43.0-75.0) % Lymph % (Auto) 18.1 L (20.5-60.0) % [place] % (Auto) 8.5 (1.7-12.0) % Eos % (Auto) 0.5 L (0.9-7.0) % Baso % (Auto) 0.5 (0.2-2.0) % Neut # (Auto) 7.6 H (1.4-6.5) 10^3/uL Lymph # (Auto) 1.9 (1.2-3.8) 10^3/uL [place] # (Auto) 0.9 H (0.3-0.8) 10^3/uL Eos # (Auto) 0.1 (0.0-0.7) 10^3/uL Baso # (Auto) 0.1 (0.0-0.1) 10^3/uL Abs Immat Gran (auto) 0.04 H (0.00-0.03) 10^3/uL Imm/Tot Granulo (auto) 0.4 (0.0-0.5) % Sodium (136-145) mmol/L Potassium 4.3 (3.5-5.1) mmol/L Chloride (98-107) mmol/L Carbon Dioxide 24.5 (21.0-32.0) mmol/L Anion Gap 12.8 BUN 16.0 (7.0-18.0) mg/dL Creatinine 0.88 (0.70-1.30) mg/dL Est GFR ( Amer) >60 (>=60) Est GFR (Non-Af Amer) >60 (>=60) BUN/Creatinine Ratio 18.2 Glucose 95 (74-106) mg/dL Calcium 8.9 (8.5-10.1) mg/dL Total Bilirubin 1.4 H (0.2-1.0) mg/dL AST 24 (15-37) U/L ALT 30 (16-63) U/L Alkaline Phosphatase 81 (46-116) U/L Troponin I High Sens 6.2 (4.0-76.1) pg/mL Total Protein 6.5 (6.4-8.2) g/dL Albumin 3.5 (3.4-5.0) g/dL Globulin 3.0 g/dL Albumin/Globulin Ratio 1.2 Discharge Plan Discharge Stand Alone Forms: Work/School Release, Portal Instructions Chief Complaint: Dizziness Clinical Impression: Neck pain, Vision blurred Patient Disposition: Home, Self-Care Time of Disposition Decision: 12:11 Condition: Good Prescriptions / Home Meds: New orphenadrine citrate 100 mg tablet extended release 100 mg PO BID PRN (Reason: muscle spasm) Qty: 14 0RF prednisone 20 mg tablet 40 mg PO DAILY 5 Days Qty: 10 0RF famotidine [Pepcid] 20 mg tablet 20 mg PO BID Qty: 10 0RF No Action tramadol 50 mg tablet 50 mg PO Q6H PRN (Reason: pain) Print Language: Occitan Instructions: Blurred Vision (ED), Neck Pain (ED) Referrals: Claudio Soto DO [Primary Care Provider] - 1 week Discharge Date/Time: 10/24/23 12:23
== END 2023-10-24 12:23 | disposition home or self-care (01) ==
PROVIDERS: Emergency Provider Emergency Medicine; PCP Internal Medicine
DX: M54.2 Cervicalgia (principal); H53.8 Other visual disturbances; F17.200 Nicotine dependence, unspecified, uncomplicated
CPT/HCPCS: 36415; 70450; 70496; 71045; 72125; 80053; 84484; 85025; 93005; 96374; 96375; 99285; J1885; J2270; J2919; Q9967

== ENCOUNTER 2024-09-03 15:14 | Outpatient (OUT) | payer BC, SELFPAY ==
--- OUTSIDE RECORDS SUMMARY | 2024-05-17 09:47 | XMS_ITS ---
Author Name Auto Generated Organization OHIP Care Team Providers Care Inserter Name Role Phone DANO HERNANDEZ Attending Unavailable Claudio Soto Primary Care Unavailable Urmila Styles Attending Unavailable Urmila Styles Admitting Unavailable Karthikeyan MUSE Attending Unavailable Karthikeyan MUSE Attending Unavailable Karthikeyan MUSE Admitting Unavailable PROBLEMS DATE TYPE CONDITION / CODE [facility] Unknown Unspecified abdo john pain / R10.9(ICD-10) Urmila Styles Active [facility] PROCEDURES No Procedure Records Found RESULTS DIPSTICK AND MICROSCOPIC Collected: 12:04 PM Status: F Source: [facility] Order Comment: Name Collecti on Type:: Straight Catheter TYPE CODE TESTS RESULT OUT OF RANGE REFERENCE UNITS LAB UCOL Color,Urine Light-Yellow Yellow LAB UAPP Appearance,Uri ne Cloudy Abnormal Alert Clear LAB USG Specificy [place]lman,Urine 1.015 Normal 1.001-1.030 LAB UPH pH,Urine 7.0 Normal 5.0-9.0 LAB ULE Leukocyte Esterase,Urine 3+ High Negative LAB UNIT Nitrite,Urine Positive High Negative LAB UPRO Protein,Urine Negative Negative LAB UGL Glucose,Urine (UA) Normal Normal LAB UKET Ketones,Urine Negative Negative LAB UURO Urobilinogen,U rine Normal Normal LAB UBIL Bilirubin,Urin e Negative Negative LAB UBLD Occult Blood,Urine Negative Negative Result Comment: PERFORMED BY : [place] [address] [place] [address] PATHOLOGIST SLUBBER TENDER MIKY BOO M.D. LAB URBC RBC,Urine 3-4 0-4 [HPF] LAB UWBC WBC,Urine 50-100 High 0-4 [HPF] LAB UCLUMPWBC WBC CLUMP, Urine Moderate High None Seen LAB USQEPI Squamous Epithelial Cell,Urine 1-2 0-2 [HPF] LAB UBACT Bacteria,Urine 3+ High None Seen LAB UHYALC Hyaline Casts,Urine None 0-8 LAB MUCUS Mucus,Urine Rare Result Comment: PERFORMED BY : [place] [address] PATHOLOGIST SLUBBER TENDER MIKY BOO M.D. Performed By: #### ADDONUAPL , CUU #### [address] URINE CULTURE Observed: 05/17/2024 12:04 PM Status: F Source: [facility] ORGANISM: Klebsiella oxytoca (O:KLEOXY) Mcdade Count >100,000 Aerobic JIGNA Charge ([id number]) SUSCEPTIBILITY ORGANISM: O:KLEOXY ANTIBIOTIC INTERPRETATION JIGNA Amikacin S <16 Amoxacillin/K Clavulanate S <8 Ampicillin/Sulbactam S 88/4 Aztreonam S <4 Cefazolin S 4 Cefepime S <2 Ceftazidime S <1 Ceftazidime/Avibactam S <4 Ceftolozane/Tazobactam S <2 Ceftriaxone S <1 Cefuroxime S <4 Ciprofloxacin S <0.25 Ertapenem S <0.5 Gentamicin S <2 Levofloxacin S <0.5 Meropenem S <1 Meropenem/Vaborbactam S <2 Nitrofurantoin I 64 Piperacillin/Tazobactam S <8 Tetracycline S <4 Tigecycline S <2 Tobramycin S <2 Trimethoprim/Sulfamethoxazole S <0.5 S = SUSCEPTIBLE I = INTERMEDIATE R = RESISTANT BLANK = DATA NOT AVAILABLE, OR DRUG NOT ADVISABLE OR TESTED R* = RESISTANCE DUE TO EXTENDED SPECTRUM BETA-LACTAMASES ESBL = EXTENDED SPECTRUM BETA-LACTAMASE TFG = THYMIDINE-DEPENDENT STRAIN DESTINEY = BETA-LACTAMASE POSITIVE IB = INDUCIBLE BETA-LACTAMASE. APPEARS IN PLACE OF 'S' WITH SPECIES KNOWN TO POSSESS INDUCIBLE BETA-LACTAMASES. POTENTIALLY THEY MAY BECOME RESISTANT TO ALL B-LACTAM DRUGS. PERFORMED BY: [place] [address] PATHOLOGIST SLUBBER TENDER MIKY BOO M.D. Performed By: #### SERA SULLIVAN #### [address] ABDOMEN PELVIS WO CON Observed: 05/17 11:29 AM Status: COMPLETED Source: [facility] [place] [address] CT Scan Report Signed Patient: Shaw Galvan MR#: [id number] 13 : 1960 Acct:[id number] Age/Sex: 63 / M ADM Date: 05/17/24 Loc: ER Room: Type: [facility] ER Attending Dr: Copies to: Urmila Styles Do Ordering Provider: Urmila Styles Do Date of Service: 05/17/24 CT/CT abdomen pelvis wo con: flank pain CT ABDOMEN AND PELVIS WITHOUT INTRAVENOUS CONTRAST: CLINICAL HISTORY: Right flank pain radiating into ribs. COMPARISON: CT abdomen and pelvis 08/28/2020 TECHNIQUE: Spiral images were obtained through the abdomen and pelvis without intravenous contrast. This CT exam was performed using one or more following dose reduction techniques: Automated exposure control, adjustment of the mA and/or kV according to patient size, or use of iterative reconstruction technique. FINDINGS: Lung Bases: [Bibasilar atelectasis.] Organs:Suboptimal evaluation due to lack of IV contrast. Liver gallbladder pancreas and right adrenal gland appears unremarkable. Splenic granulomas. Left adrenal adenoma. Kidneys demonstrate no stone or hydronephrosis. Cysts right kidney. Left extrarenal pelvis. Aorta appears normal in caliber.[ GI: Stomach is grossly unremarkable. Small bowel appears nondilated. No acute colonic abnormality. Left colon diverticulosis.[ Pelvis:[Urinary bladder wall thickening with left lateral wall diverticulum. Prostatomegaly.] Peritoneum/Retroperitoneum:No free air or free fluid or lymphadenopathy.[ Abd wall/Bones:No acute findings. Osseous structures demonstrate degenerative change.[ CT/CT abdomen pelvis wo con IMPRESSION: Evidence of bladder outlet obstruction with left lateral wall diverticulum likely due to prostatomegaly. No hydronephrosis or obstructing calculus. Impression dictated by: Jerry Peters Jr., D.OEmerson05/17/2024 11:32 AM Dictation Location: [place] [address] Transcribed By: PWS 05/17/24 1132 Dictated By: Jerry Peters Jr, DO 05/17/24 1129 Signed By: <Electronically signed by Jerry Peters Jr, DO in OV> 05/17/24 1132 COMPLETE BLOOD COUNT AUTO DIFF Collected: 05/17/2024 10:48 AM Status: F Source: [facility] TYPE CODE TESTS RESULT OUT OF RANGE REFERENCE UNITS LAB WBC White Blood Count 8.3 Normal 4.1-10.5 10*3/uL LAB UNWBC Uncorrected WBC 8.3 Normal 4.1-10.5 10*3/uL LAB RBC Red Blood Count 5.27 Normal 3.90-5.60 10*6/u L LAB HGB Hemoglobin 17.1 High 13.0-17.0 g/dL LAB HCT Hematocrit 50.6 High 38.8-50.0 % LAB MCV Mean Corpuscular Volume 95.9 Normal 83.5-101 fL LAB MCH Mean Corpuscular Hemoglobin 32.5 Normal 27.5-35.2 pg LAB MCHC Mean Corpuscular HGB Conc 33.8 Normal 32.5-35.6 g/dL LAB RDW Red Cell Distribution Width 13.9 Normal 12.0-14.8 % LAB PLT Platelet Count 364 Normal 150-450 10*3/uL LAB MPV Mean Platelet Volume 6.9 Normal 6.6-10.1 fL LAB MDW Monocyte Distribution Width 20.28 High 0.00-20.00 % Result Comment: For adults i n ED, MDW > 20.0 may be associated with a higher risk of sepsis during the first 12 hrs of hospital admission LAB NE% Neutrophils % (Auto) 73.0 . % LAB LY% Lymphocytes % (Auto) 17.3 . % LAB MO% Monocytes % (Auto) 7.5 . % LAB EO% Eosinophils % (Auto) 1.6 . % LAB BA% Basophils % (Auto) 0.6 . % LAB NRBC% NRBC% 0.1 Normal 0-0.5 /100{WBC } LAB NE# Neutrophils # (Auto) 6.1 Normal 1.8-7.7 10*3/uL LAB LY# Lymphocytes # (Auto) 1.4 Normal 1.00-4.8 10*3/uL LAB MO# Monocytes # (Auto) 0.6 Normal 0.0-0.8 10*3/uL LAB EO# Eosinophils # (Auto) 0.1 Normal 0.0-0.45 10*3/uL LAB BA# Basophils # (Auto) 0.0 Normal 0.0-0.2 10*3/uL Result Comment: PERFORMED BY : [place] [address] PATHOLOGIST SLUBBER TENDER MIKY BOO M.D. Performed By: #### LIPASE, C BC, BMP, HEPATIC #### [address] HEPATIC PANEL Collected: 05/17/2024 10:48 AM Status: F Source: [facility] TYPE CODE TESTS RESULT OUT OF RANGE REFERENCE UNITS LAB TP Total Protein 7.6 Normal 6.4-8.9 g/dL LAB ALB Albumin Level 4.7 Normal 3.5-5.7 g/dL LAB GLOB Globulin 2.9 g/dL LAB AGRATIO Albumin/Globulin Ratio 1.6 LAB BILIT Bilirubin,Total 1.2 High 0.3-1.0 mg/dL LAB BILID Bilirubin,Direct 0.20 High 0.03-0.18 mg/dL LAB BILII Bilirubin,Indirect 1.0 mg/dL LAB AST Aspartate Amino Transferase 25 Normal 13-39 U/L LAB ALT Alanine Aminotransferase 23 Normal 7-52 U/L LAB ALP Alkaline Phosphatase 71 Normal 34-104 U/L Performed By: #### LIPASE, C BC, BMP, HEPATIC #### [address] BASIC METABOLIC PANEL Collected: 2024 10:48 AM Status: F Source: [facility] TYPE CODE TESTS RESULT OUT OF RANGE REFERENCE UNITS LAB GLU Glucose 93 Normal 70-100 mg/dL Result Comment: Random Gluco se Reference Range is dependent on time and content of last meal. Glucose of more than 200 mg/dL in a nonstressed, ambulatory subject supports the diagnosis of Diabetes Mellitus. ADA recommended reference range LAB BUN Blood Urea Nitrogen 14 Normal 7-25 mg/dL LAB CREATT Creatinine 0.93 Normal 0.70-1.30 mg/dL LAB GFReNR Estimated GFR >60.0 mL/Min LAB NA Sodium 138 Normal 136-145 mmol/L LAB K Potassium 4.7 Normal 3.5-5.1 mmol/L Result Comment: Hemolysis is present at a level that could interfere with the result. Contact lab if redraw is required LAB CL Chloride 104 Normal 98-107 mmol/L LAB CO2 Carbon Dioxide 28.3 Normal 21.0-31.0 mmol/L LAB GAP Anion Gap 10.4 Normal 6.0-15.0 meq/L LAB CA Calcium 10.1 Normal 8.6-10.3 mg/dL LAB CRCLPHA Creatinine Clr Calc Pharmacy 85.24 Performed By: #### LIPASE, C BC, BMP, HEPATIC #### [facility] [address] [id number] [facility] LIPASE Collected: 10:48 AM Status: F Source: [facility] TYPE CODE TESTS RESULT OUT OF RANGE REFERENCE UNITS LAB LIPASE Lipase 25.0 Normal 11.0-82.0 U/L Result Comment: PERFORMED BY : [place] [address] PATHOLOGIST SLUBBER TENDER MIKY BOO M.D. Performed By: #### LIPASE, C BC, BMP, HEPATIC #### [facility] [address] [id number] [facility] AMBULATORY VISIT SUMMARY Observed: 03/05 1:45 PM Status: F Source: [facility] Ambulatory Visit Summary SHAW GALVAN :1960 Visit Date:03/05/2024 Ambulatory Visit Instructions Your Diagnosis Acute UTI Neurogenic bladder, flaccid Hydronephrosis BPH with urinary obstruction Peyronie's disease Your Care Team Attending Physician - MIGUELINA SNIDER, Karthikeyan Julien Primary Care Physician - BALL DO, CLAUDIO This Is Your Medications List cephalexin (Keflex 500 mg Cap) Contact prescribing physician if questions or concerns tramadol (traMADOL 50 mg Tab) Procedures Performed Cystoscopy (06/14/2022), Colonoscopy (2020), Cystoscopy (07/12/2014), Removal of stent (07/23/2008), Cystoscopy (04/25/2008), TUIP - Transurethral incision of prostate (04/25/2008), Colonoscopy (2007), Tonsillectomy, Vasectomy. Discharge Vitals Temperature (Oral) 37 ???C Heart Rate (Peripheral) 58 Respiratory Rate 18 Blood Pressure 125/83 Height 180 cm Height 71 in Weight 75 kg Weight 165.347 lb BMI 23.15 What to do next You Need to Schedule the Following Appointments Follow Up with MIGUELINA SNIDER, NATHANAEL Sparks When: Where: [facility] [address] [place] [address]- Medications What How Much When Instructions New cephalexin (Keflex 500 mg Cap) 1 Capsules By Mouth Every 12 hours Duration: 10 Days Pickup at [facility] Unchanged tramadol (traMADOL 50 mg Tab) Contact prescribing physician if questions or concerns Pharmacy Information [facility]: [address], [place] [id number] [phone] Allergies Bactrim (Hives) ciprofloxacin (Hives) sulfamethoxazole (Unknown) Problems Ongoing - Any problem that you are currently receiving treatment for. Acute UTI Alcohol abuse Arthritis Back pain, chronic Benign prostatic hyperplasia (BPH) with post-void dribbling BPH with urinary obstruction History of UTI Hydronephrosis Neurogenic bladder, flaccid Nicotine dependence SONIA (obstructive sleep apnea) Painful ejaculation Peyronie's disease Recurrent UTI Renal cyst Screening PSA (prostate specific antigen) Urinary retention Patient Survey You may receive a survey via text or e-mail asking about your office visit. Please share your experience with us by completing your survey. We appreciate your feedback and thank you for choosing us for your care. Education Materials Clean Intermittent Catheterization, Male Clean intermittent catheterization (CIC) is a procedure to drain pee (urine) from the bladder by placing a soft tube (catheter) into the bladder though the urethra. The urethra is a tube in the body that carries pee from the bladder out of the body. CIC reduces the risk of infection and other problems that may arise when pee is not completely emptied from the bladder. CIC may be done when: ??? You cannot completely empty your bladder on your own. This may be due to a blockage in the bladder or urethra. ??? Your bladder leaks pee. This may happen when the muscles or nerves near the bladder are not working normally, so the bladder overflows. Your health care provider will show you how to do the procedure. You will also be given the supplies you need to do the procedure. Supplies needed: ??? Germ-free (sterile), water-based lubricant. ??? A container for pee collection. You may also use the toilet to dispose of pee from the catheter. ??? A catheter. Your provider will determine the best size for you. ? Use this catheter size: ??? Clean gloves. ??? Soap and water. ??? Clean washcloth and towel. How to perform this procedure: Most people need CIC at least 4 times per day to completely empty the bladder. Your provider will tell you how often you should do CIC. ??? Number of times per day to perform CIC: To perform CIC, follow these steps: 1. Wash your hands with soap and water for 20 seconds. If soap and water are not available, use hand nut orchardist. 2. Clean your penis with soap and water. Dry the tip of your penis completely. 3. Prepare the supplies that you will use during the procedure. Open the catheter package and lubricant. 4. Get in a comfortable position. Possible positions include: ??? Sitting on a toilet, a chair, or the edge of a bed. ??? Standing near a toilet. ??? Lying down with your head raised on pillows and your knees pointing to the ceiling. You may wish to place a waterproof mat or pad under you. 5. If you are using a pee collection container, position it between your legs. 6. Pee, if you are able. 7. Put on gloves. 8. Apply lubricant to about 2 inches (5 cm) of the tip of the catheter. 9. Set the catheter down on a clean, dry surface within reach. 10. Gently stretch your penis out from your body. Pull back any skin that covers the end of your penis (foreskin). Clean the end of your penis with sterile swabs as told by your provider. 11. Hold your penis upward at a 45???60 degree angle. This helps to straighten the urethra. 12. Slowly insert the lubricated catheter straight into your urethra until pee flows freely. This is usually about 6???8 inches (15???20 cm). 13. When pee starts to flow freely, insert the catheter 1 inch (3 cm) more. Allow pee to drain into the toilet or the pee collection container. 14. When pee stops flowing, slowly remove the catheter. 15. Note the color, amount, and odor of the pee. 16. Measure your pee and note the amount, if told by your provider. 17. Discard the pee in the toilet. 18. Clean your penis [...] after each use. How often should I do this procedure? Do CIC to empty your bladder every 4???6 hours or as often as told by your provider. ??? If you have symptoms of too much pee in your bladder (overdistension) and you are not able to pee, perform CIC. Symptoms of overdistension may include: ? Restlessness. ? Sweating or chills. ? Headache. ? Flushed or pale skin. ? Bloated lower abdomen. What are the risks? The provider will talk with you about the risks. These may include: ??? Infection. ??? Injury to the urethra. ??? Irritation of the urethra. Follow these instructions at home General instructions ??? Drink enough fluid to keep your pee pale yellow. ??? Throw away a catheter when it becomes dry, brittle, or cloudy. This usually happens after you use the catheter for 1 week. ??? Avoid caffeine. Caffeine may make you need to pee more frequently and more urgently. ??? When traveling, bring extra supplies with you in case of delays. Keep supplies with you in a place that you can access easily. If traveling by plane: ? Make sure that the lubricant in your carry-on bag is less than 3.4 ounces (100 mL). ? Use a single-use catheter. It may be difficult to clean a reusable catheter in a small bathroom. ??? Take [id number]-maw-olfhwdx and prescription medicines only as told by your provider. Contact a health care provider if: ??? You have difficulty doing CIC. ??? You have pee leaking around the catheter during CIC. ??? You have: ? Dark or cloudy pee. ? Blood in your pee or in your catheter. ? A change in the smell of your pee or discharge. ? A burning feeling while you pee. ??? You vomit or feel like you may vomit. ??? You have pain in your abdomen, your back, or your sides below your ribs. ??? You have swelling or redness around the opening of your urethra. ??? You develop a rash or sores on your skin. Get help right away if: ??? You have a fever. ??? You have symptoms that do not go away after 3 days. ??? You have symptoms that suddenly get worse. ??? You have severe pain. ??? You start passing a little pee, or a little pee drains from your bladder. This information is not intended to replace advice given to you by your health care provider. Make sure you discuss any questions you have with your health care provider. Document Revised: 10/11/2022 Document Reviewed: 10/11/2022 [employer] Patient Education ??? 2023 [employer]. C URINE Observed: 03/05/2024 12:31 PM Status: F Source: [facility] Microbiology PROCEDURE: Urine Culture [R1] SOURCE: U Random BODY SITE: COLLECTED DATE/TIME: 03/05/2024 12:31 EST RECEIVED DATE/TIME: 03/05/2024 17:55 EST START DATE/TIME: 03/05/2024 17:55 EST FREE TEXT SOURCE: MIGUELINA SNIDER, Karthikeyan MUSE MD, Karthikeyan Julien FINAL REPORTS Final Report [] Verified Date/Time: 03/07/2024 08:39 EST >100,000 cfu/ml Klebsiella oxytoca SUSCEPTIBILITY RESULTS LEGEND: S=Susceptible, N/R=Not Reported, Blank=Data not available, or drug not advisable or tested, I=Intermediate, ESBL=Extended spectrum beta-lactamase, R=Resistant, TFG=Thymidine-dependent strain, DESTINEY=Beta-lactamase positive, JIGNA=mcg/m;(mg/L), S*=Predicted susceptible interp, R*=Predicted resistant interp Kleoxy Antibiotic JIGNA Dilutn JIGNA Interp Ampicillin >16 R Ampicillin/ <=8/4 S Sulbactam Aztreonam <=4 S Cefazolin 8 S Cefepime <=2 S Ceftazidime <=1 S Ceftazidime/ <=8 S Avibactam Ceftriaxone <=1 S Cefuroxime <=4 S Ciprofloxacin <=0.25 S Ertapenem <=0.5 S Gentamicin <=2 S Levofloxacin <=0.5 S Meropenem <=1 S Nitrofurantoin <=32 S Piperacillin/ <=8 S Tazobactam Tetracycline <=4 S Tobramycin <=2 S Trimethoprim/ <=2/38 S Sulfa Performing Locations R1: This test was performed at: [facility], [address] [place] [address], [id number] , , Performed By: #### [id number] # ### [facility] [address] [place] [id number] C URINE Observed: 03/05/2024 12:31 PM Status: F Source: [facility] Microbiology PROCEDURE: Urine Culture [R1] SOURCE: U Random BODY SITE: COLLECTED DATE/TIME: 03/05/2024 12:31 EST RECEIVED DATE/TIME: 03/05/2024 17:55 EST START DATE/TIME: 03/05/2024 17:55 EST FREE TEXT SOURCE: MIGUELINA SNIDER, Karthikeyan MUSE MD, Karthikeyan Julien FINAL REPORTS Final Report [] Verified Date/Time: 03/07/2024 08:39 EST >100,000 cfu/ml Klebsiella oxytoca SUSCEPTIBILITY RESULTS LEGEND: S=Susceptible, N/R=Not Reported, Blank=Data not available, or drug not advisable or tested, I=Intermediate, ESBL=Extended spectrum beta-lactamase, R=Resistant, TFG=Thymidine-dependent strain, DESTINEY=Beta-lactamase positive, JIGNA=mcg/m;(mg/L), S*=Predicted susceptible interp, R*=Predicted resistant interp Kleoxy Antibiotic JIGNA Dilutn JIGNA Interp Ampicillin >16 R Ampicillin/ <=8/4 S Sulbactam Aztreonam <=4 S Cefazolin 8 S Cefepime <=2 S Ceftazidime <=1 S Ceftazidime/ <=8 S Avibactam Ceftriaxone <=1 S Cefuroxime <=4 S Ciprofloxacin <=0.25 S Ertapenem <=0.5 S Gentamicin <=2 S Levofloxacin <=0.5 S Meropenem <=1 S Nitrofurantoin <=32 S Piperacillin/ <=8 S Tazobactam Tetracycline <=4 S Tobramycin <=2 S Trimethoprim/ <=2/38 S Sulfa Performing Locations R1: This test was performed at: [facility], [address] [place] [address], [facility] , , Performed By: #### [id number] # ### [facility] [address] [place] [address] UROLOGY OFFICE/CLINIC NOTE Observed: 07/2024 10:23 AM Status: F Source: [facility] Urology Office/Clinic Note Chief Complaint 1yr f/u HPI Staff 63yr old male pt here for 1yr f/u visit. Does CIC 4-5x/day. Pt states he had PSA drawn at [facility] through PCP. No complains today. S/p TUIP 04/25/08, S/p Cysto 06/14/22. Previous Dx: recurrent UTI, neurogenic bladder, hydronephrosis, BPH with urinary obstruction, Peyronie's disease PSA: 08/19/21 - 1.01 08/20/22 - 0.8 Dysuria: denies Incomplete bladder emptying: yes, CIC Hematuria: denies Frequency: CIC 4-5x per day Urgency: denies Nocturia: denies Stream: denies Leaking: denies Post void dripping: denies Wearing pads/ Depends: denies Urge incontinence: denies Stress incontinence: denies Incontinence without Sensory Awareness: denies Abdominal pain: denies Flank pain: denies Sexual complaints: _ History of Present Illness Tests reviewed: UA, PSA I have reviewed the previous health record information and history for this patient from Dr. Muse. I have reviewed and verified the staff HPI to be accurate for this encounter. Review of Systems PHQ Score Initial [...] See HPI. Physical Exam Vitals & Measurements T: 37 ???C(Oral) HR: 58(Peripheral) RR: 18 BP: 125/83 HT: 71 in HT: 180 cm WT: 75 kg WT: 165.347 lb BMI: 23.15 General Appearance: alert, no distress, well nourished, well developed male. Assessment/Plan Last seen by ERIC. 1. Acute UTI (N39.0: Urinary tract infection, site not specified) UA shows + nitrites and small leuks. No pain but shares urine does have an odor all the time. Given malodorous urine, sign of infection, will tx. Pt usually has his see if his urine has an odor. Shares that he did become septic once due to using the same cath over and over again and cleaning with alcohol. Now uses single use caths wo issue. Pt has appt with PCP today as well. -Will send urine for cx. Start empiric Keflex 500 mg bid x 10 days based on last ucx. SEs discussed. Sent to TMS. -Monitor odor or have monitor odor. Monitor for UTI sxs, notify office if experiencing. -Sterile CIC technique. 2. 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 Does not feel infected. Reminded pt that he will be colonized due to CIC so his urine will look infected. However, will not tx unless symptomatic. Does CIC 5x/day wo issues. Counseled pt on sxs to monitor for that would indicate infection. Drinks 1-1.5 gallons of water daily. 3. Hydronephrosis (N13.30: Unspecified hydronephrosis) CT AP wo contrast 10/06/21 - Mild left hydroureteronephrosis extending to the urinary bladder, possibly related to adjacent bladder diverticulum, largest along the left adjacent to the ureter measuring 2.6 cm axial 3. VASQUEZ 07/12/22 - Mild left pelviectasis. Findings may relate to normal variant, obstruction or reflux. 4. BPH with urinary obstruction (N40.1: Benign prostatic hyperplasia with lower urinary tract symptoms) PSA: 08/19/21 - 1.01 08/20/22 - 0.80 10/14/23 - 1.30 & 23.1% S/p TUIP 04/25/08. Cysto 06/14/22 - Diffuse inflammatory changes throughout the bladder, severe bladder damage with thick exaggerated trabeculation and multiple deep diverticula, no evidence of bladder tumors. IPSS not completed (16). Not taking any BPH meds. PSA overall normal however slightly elevated, likely due to slight infection (see #1). Follow up 1 yr with PSA from PCP or sooner if needed. Pt understands and agrees with plan. 5. 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 No pain w/ sexual intercourse. Able to penetrate despite curve. Does not seem to be worsening. [1] Follow-up With When Contact Information MIGUELINA SNIDER, Karthikeyan Julien, URL [facility] [address], [place] [address]- Additional Instructions: 1 yr with PSA from PCP Patient Education Clean Intermittent Catheterization, Male I, Roya Chang, personally scribed for Dr. Muse on 03/05/2024 10:23:19. . Documentation recorded by the scribe, Roya Chang, accurately reflects the services(s) I performed and decisions made by me. Authenticated by Dr. Muse on 03/05/2024 10:28:50. Problem List/Past Medical History Ongoing Acute UTI Alcohol abuse Arthritis Back pain, chronic Benign [...] of prostate (04/25/2008), Colonoscopy (2007), Tonsillectomy, Vasectomy. Medications traMADOL 50 mg Tab Allergies Bactrim (Hives) ciprofloxacin (Hives) sulfamethoxazole (Unknown) Social History Alcohol Never., 03/05/2024 Tobacco 5-9 cigarettes (between 1/4 to 1/2 pack)/day in last 30 days Tobacco Use:. Smokeless tobacco user within last 30 days Smokeless Tobacco Use:. Cigarettes, 03/05/2024 Family History Family history is negative Lab Results Ambulatory Point of Care Results Bilirubin Urine Dipstick: Negative (03/05/24 09:37:00) Blood Urine Dipstick: Trace-intact (03/05/24 09:37:00) Glucose Urine Dipstick: Negative (03/05/24 09:37:00) Ketones Urine Dipstick: Negative (03/05/24 09:37:00) Leukocytes Urine Dipstick: 1+ Small (03/05/24 09:37:00) Nitrite Urine Dipstick: Positive (03/05/24 09:37:00) Protein Urine Dipstick: Negative (03/05/24 09:37:00) Specific [place] Urine Dipstick: 1.020 (03/05/24 09:37:00) Urine Appearance Urine Dipstick: Clear (03/05/24 09:37:00) Urine Color Urine Dipstick: Light yellow (03/05/24 09:37:00) Urobilinogen Urine Dipstick: Normal 0.2-1 EU/dl (03/05/24 09:37:00) pH Urine Dipstick: 5.5 (03/05/24 09:37:00) [1] URO- recurrent UTIs; ELINA PARIKH TK Giron 05/19/2023 15:44 EDT Result Comment: Electronical ly Signed By: Karthikeyan MUSE MD\.br\Date and Time Signed: 03/05/24 10:28 EST\.br\Electronically Co-Signed By: Roya Chang\.br\Date and Time Co-Signed: 03/05/24 10:23 EST\.br\Electronically Co-Signed By: Roya Chang\.br\Date and Time Co-Signed: 03/05/24 10:25 EST PATIENT EDUCATION Observed: 03/05/2024 10:05 AM Status: F Source: [facility] Patient Education Urology Clean Intermittent Catheterization, Male Clean intermittent catheterization (CIC) is a procedure to drain pee (urine) from the bladder by placing a soft tube (catheter) into the bladder though the urethra. The urethra is a tube in the body that carries pee from the bladder out of the body. CIC reduces the risk of infection and other problems that may arise when pee is not completely emptied from the bladder. CIC may be done when: ??? You cannot completely empty your bladder on your own. This may be due to a blockage in the bladder or urethra. ??? Your bladder leaks pee. This may happen when the muscles or nerves near the bladder are not working normally, so the bladder overflows. Your health care provider will show you how to do the procedure. You will also be given the supplies you need to do the procedure. Supplies needed: ??? Germ-free (sterile), water-based lubricant. ??? A container for pee collection. You may also use the toilet to dispose of pee from the catheter. ??? A catheter. Your provider will determine the best size for you. ? Use this catheter size: ??? Clean gloves. ??? Soap and water. ??? Clean washcloth and towel. How to perform this procedure: Most people need CIC at least 4 times per day to completely empty the bladder. Your provider will tell you how often you should do CIC. ??? Number of times per day to perform CIC: To perform CIC, follow these steps: 1. Wash your hands with soap and water for 20 seconds. If soap and water are not available, use hand nut orchardist. 2. Clean your penis with soap and water. Dry the tip of your penis completely. 3. Prepare the supplies that you will use during the procedure. Open the catheter package and lubricant. 4. Get in a comfortable position. Possible positions include: ??? Sitting on a toilet, a chair, or the edge of a bed. ??? Standing near a toilet. ??? Lying down with your head raised on pillows and your knees pointing to the ceiling. You may wish to place a waterproof mat or pad under you. 5. If you are using a pee collection container, position it between your legs. 6. Pee, if you are able. 7. Put on gloves. 8. Apply lubricant to about 2 inches (5 cm) of the tip of the catheter. 9. Set the catheter down on a clean, dry surface within reach. 10. Gently stretch your penis out from your body. Pull back any skin that covers the end of your penis (foreskin). Clean the end of your penis with sterile swabs as told by your provider. 11. Hold your penis upward at a 45?60 degree angle. This helps to straighten the urethra. 12. Slowly insert the lubricated catheter straight into your urethra until pee flows freely. This is usually about 6?8 inches (15?20 cm). 13. When pee starts to flow freely, insert the catheter 1 inch (3 cm) more. Allow pee to drain into the toilet or the pee collection container. 14. When pee stops flowing, slowly remove the catheter. 15. Note the color, amount, and odor of the pee. 16. Measure your pee and note the amount, if told by your provider. 17. Discard the pee in the toilet. 18. Clean your penis [...] after each use. How often should I do this procedure? Do CIC to empty your bladder every 4?6 hours or as often as told by your provider. ??? If you have symptoms of too much pee in your bladder (overdistension) and you are not able to pee, perform CIC. Symptoms of overdistension may include: ? Restlessness. ? Sweating or chills. ? Headache. ? Flushed or pale skin. ? Bloated lower abdomen. What are the risks? The provider will talk with you about the risks. These may include: ??? Infection. ??? Injury to the urethra. ??? Irritation of the urethra. Follow these instructions at home General instructions ??? Drink enough fluid to keep your pee pale yellow. ??? Throw away a catheter when it becomes dry, brittle, or cloudy. This usually happens after you use the catheter for 1 week. ??? Avoid caffeine. Caffeine may make you need to pee more frequently and more urgently. ??? When traveling, bring extra supplies with you in case of delays. Keep supplies with you in a place that you can access easily. If traveling by plane: ? Make sure that the lubricant in your carry-on bag is less than 3.4 ounces (100 mL). ? Use a single-use catheter. It may be difficult to clean a reusable catheter in a small bathroom. ??? Take yrnc-lim-ynegkms and prescription medicines only as told by your provider. Contact a health care provider if: ??? You have difficulty doing CIC. ??? You have pee leaking around the catheter during CIC. ??? You have: ? Dark or cloudy pee. ? Blood in your pee or in your catheter. ? A change in the smell of your pee or discharge. ? A burning feeling while you pee. ??? You vomit or feel like you may vomit. ??? You have pain in your abdomen, your back, or your sides below your ribs. ??? You have swelling or redness around the opening of your urethra. ??? You develop a rash or sores on your skin. Get help right away if: ??? You have a fever. ??? You have symptoms that do not go away after 3 days. ??? You have symptoms that suddenly get worse. ??? You have severe pain. ??? You start passing a little pee, or a little pee drains from your bladder. This information is not intended to replace advice given to you by your health care provider. Make sure you discuss any questions you have with your health care provider. Document Revised: 10/11/2022 Document Reviewed: 10/11/2022 [employer] Patient Education ? 2023 [employer] ALLERGIES DATE TYPE / CODE NAME / CODE REACTION SEVERITY SOURCE 05/17/2024 Drug Allergy/416 241316(SNOM ED CT) sulfamethoxazole/A14004 2827(RXNORM) Hives Unknown [facility] 05/17/2024 Drug Allergy/416 316428(SNOM ED CT) trimethoprim/I422086322 (RXNORM) Hives Unknown [facility] 05/17/2024 Drug Allergy/416 344808(SNOM ED CT) ciprofloxacin/Y18367503 2(RXNORM) Hives Unknown [facility] DR/60154945 6(SNOMED CT) ciprofloxacin [id number] [facility] /25861055 6(SNOMED CT) penicillin 802160821 [facility] /81406139 6(SNOMED CT) sulfamethoxazole 291386261 [facility] /79838342 6(SNOMED CT) Bactrim [id number] Moderate (Severity Modifier) (Qualifier Value) [facility] ENCOUNTERS ADMIT/DISCHARGE ACCOUNT NUMBER ADMITTING ENCOUNTER CLASS LOCATION SOURCE 05/17/2024/05/18/19 [id number] [facility]rmila Styles [facility] 05/17/2024/05/18/19 [id number] Ambulatory Building:[facility] 03/05/2024/03/05/19 [id number] Karthikeyan MUSE [facility]ulatory [facility] 03/05/2024/03/05/19 [id number] [facility]ulatory [facility] [facility] : Exam 3 [facility] PAYERS ENCOUNTER GUARANTOR PAYER SUBSCRIBER SOURCE 05/17/2024 [address] [address]Vni: (HP) Primary Insurance:Combs BC/BSPolicy Number: [id number] alissa Date:2024-05-17 Shaw Hernandez TippieDOB: [id number] [address]Wkb: (HP) [facility] 05/17/2024 Secondary Insurance:Self PayPolicy Number: Effective Date:2024-05-17 NOT GIVENUNK [facility] 05/17/2024 SHAW Hernandez TIPPIEDOB: [id number] [address] [address]Qhn: (HP) Primary Insurance:BCBSPoli cy Number: [id number] alissa Date:2021-02-28 SHAW Hernandez TIPPIEDOB: [id number] [address] [address] [facility] 03/05/2024 SHAW Hernandez TIPPIEDOB: [id number] [facility] [address] [facility] ETel: ~[phone]) Primary Insurance:AnthemPo licy Number: [id number] alissa Date:[id number] [address] [place] [address] [place] [address]TP: SHAW Hernandez EMILINK [facility] 03/05/2024 SHAW Hernandez TIPPIEDOB: [id number] [place] [address] ETel: ~[phone] (HP) Primary Insurance:AnthemPo licy Number: [id number] alissa Date:[id number], [place] [address]AS: SHAW MORTENSEN [facility]
--- OUTSIDE RECORDS SUMMARY | 2024-09-03 15:17 | XMS_ITS | Clinical Summary ---
Author Organization [facility] Address [address] [place] [address] Care Team Providers Care Meter Tester Name Role Phone Claudio Soto DO Primary Care Provider [phone] Allergies Active Allergy Reactions Criticality Noted Date Comments Sulfamethoxazole-Trimet hoprim 07/22/2014 Ciprofloxacin 07/22/2014 Ondansetron Hcl Other (See Comments) 07/25/2014 Pt reports bradycardia Medications ondansetron (ZOFRAN ODT) 4 MG disintegrating tablet Take 1 tablet by mouth every 8 hours as needed for Nausea 20 tablet 0 5 Active tamsulosin (FLOMAX) 0.4 MG capsule Take 0.4 mg by mouth daily Active promethazine (PHENERGAN) 12.5 MG tablet Take 12.5 mg by mouth every 6 hours as needed for Nausea Active amoxicillin-clavula jody (AUGMENTIN) 500-125 MG per tablet Take 1 tablet by mouth daily Active traMADol (ULTRAM) 50 MG tablet Take 50 mg by mouth every 6 hours as needed for Pain Active Active Problems Problem Noted Date Diagnosed Date SAH (subarachnoid hemorrhage) 07/22/2014 Distal radius fracture, right 07/22/2014 Fracture of right ulnar styloid 07/22/2014 Fall from ladder 07/22/2014 Elevated amylase and lipase 07/22/2014 Social History Tobacco Use Types Packs/Day Years Used Date Smoking Tobacco: Former Alcohol Use Standard Drinks/Week Comments Yes 1 (1 standard drink = 0.6 oz pur e alcohol) Sex and Gender Information Value Date Recorded Sex Assigned at Not on file Legal Sex Male 3:29 PM EST Gender Identity Not on file Sexual Orientation Not on file Last Filed Vital Signs Vital Sign Reading Time Taken Comments Blood Pressure 112/73 07/26/2014 12:40 PM EDT Pulse 64 07/26/2014 12:40 PM EDT Temperature 36.7 C (98.1 F) 07/26/2014 8:05 AM EDT Respiratory Rate 17 07/26/2014 12:40 PM EDT Oxygen Saturation 95% 07/26/2014 12:40 PM EDT Inhaled Oxygen Concentration - - Weight 75.5 kg (166 lb 7.2 oz) 07/26/2014 1:40 A M EDT Height 182.9 cm (6') 07/26/2014 1:40 AM EDT Body Mass Index 22.57 07/26/2014 1:40 AM EDT Plan of Treatment Not on file Insurance [employer] Advance Directives * Full Code (Latest Code Status on File) Date Activated Date Inactivated Comments 07/26/2014 1:55 AM 07/26/2014 4:09 PM * Full Code Date Activated Date Inactivated Comments 07/22/2014 11:23 PM 07/23/2014 5:01 PM Care Teams Meter Tester Relationship Specialty Start Date End Date Claudio Soto DO PCP - General 07/25/14
--- OUTSIDE RECORDS SUMMARY | 2024-09-03 15:17 | XMS_ITS | Clinical Summary ---
Author Organization [facility] Address [address] [place] [address] Care Team Providers Care Strip Cutter Name Role Phone Claudio Soto DO Primary Care Provider [phone] Allergies Active Allergy Reactions Criticality Noted Date Comments Ciprofloxacin Unknown 05/17/2024 Sulfamethoxazole-Trimethoprim Hives Medium 2014 Medications No known medications Social History Tobacco Use Types Packs/Day Years Used Date Smoking Tobacco: Never Assessed Sex and Gender Information Value Date Recorded Sex Assigned at Not on file Legal Sex Male 6:55 PM EDT Gender Identity Not on file Sexual Orientation Not on file Last Filed Vital Signs Vital Sign Reading Time Taken Comments Blood Pressure 130/84 05/17/2024 9:22 AM EDT Pulse 90 05/17/2024 9:22 AM EDT Temperature 36.7 C (98 F) 05/17/2024 9:22 AM EDT Respiratory Rate 20 05/17/2024 9:22 AM EDT Oxygen Saturation 98% 05/17/2024 9:22 AM EDT Inhaled Oxygen Concentration - - Weight 74.8 kg (165 lb) 05/17/2024 9:22 AM EDT Height 180.3 cm (5' 11 ) 01/14/2022 12:00 PM EST Body Mass Index 23.01 01/14/2022 12:00 PM EST Plan of Treatment Not on file Insurance [facility] Care Teams Strip Cutter Relationship Specialty Start Date End Date Claudio Soto DO PCP - General Internal Medicine 05/17/24
--- OUTSIDE RECORDS SUMMARY | 2024-09-03 15:17 | XMS_ITS | Clinical Summary ---
Author Organization [facility] Address [address] [place] [address] Care Team Providers Care Casserole Preparer Name Role Phone Yaron Soto Primary Care Provider [phone] Allergies Active Allergy Reactions Criticality Noted Date Comments Ciprofloxacin Hives 07/22/2014 Ondansetron Hcl Other: See Comments 07/25/2014 Pt reports bradycardia Sulfamethoxazole-Trimet hoprim Hives 07/22/2014 Medications traMADol (ULTRAM) 50 mg tablet 2 06/10/2017 Active Active Problems No known active problems Social History Tobacco Use Types Packs/Day Years Used Date Smoking Tobacco: Every Day Smokeless Tobacco: Never Area Deprivation Index Answer Date Jayro rded National Score (1-100), lower number is lower ri sk Not on file 02/04/2020 State Score (1-10), lower number is lower risk N ot on file 02/04/2020 Data from: https://www.neighborhoodatlas.medicine.[facility].edu/. Last address used for calculation Not on file 02/04/2020 Sex and Gender Information Value Date Recorded Sex Assigned at Not on file Legal Sex Male 8:58 AM EST Gender Identity Not on file Sexual Orientation Not on file Last Filed Vital Signs Vital Sign Reading Time Taken Comments Blood Pressure 129/90 06/28/2017 2:01 PM EDT Pulse 62 06/28/2017 2:01 PM EDT Temperature - - Respiratory Rate - - Oxygen Saturation - - Inhaled Oxygen Concentration - - Weight - - Height - - Body Mass Index - - Plan of Treatment Health Maintenance Due Date Last Done Comments Anxiety Screening 1980 Depression Screening 1980 HIV Screening 1980 Hepatitis C Screening 1980 DTaP,Tdap,Td Vaccine (1 - Tdap) [address] Colonography 07/03/2007 Cologuard (FIT-DNA) 07/03/2007 Colonoscopy 07/03/2007 Colorectal Cancer Screening 07/03/2007 Diabetes Screening 07/03/2007 Fecal Occult Blood 07/03/2007 Prostate Cancer Screening Discussion 07/03/2007 Sigmoidoscopy 07/03/2007 Pneumococcal Vaccine: 50+ (1 of 1 - PCV) 2012 Shingrix Vaccine (1 of 2) 2012 Covid-19 Vaccine (1 - 2023-25 season) 2023 Influenza Vaccine (#1) 2024 RSV Vaccine (1 - 1-dose 75+ series) 2037 Insurance [employer] OOS Care Teams Casserole Preparer Relationship Specialty Start Date End Date Yaron Soto [address] [place] [id number] PCP - General Family Medicine 01/25/17
[2024-09-03 15:36] LABS: Hematocrit 43.9 % (42.0-54.0); Hemoglobin 15.2 g/dL (14.0-18.0); Immature Granulocytes Abs Auto 0.04 10^3/uL (0.00-0.03); Immature Granulocytes Pct Auto 0.4 % (0.0-0.5); Lymphocytes Absolute Auto 2.4 10^3/uL (1.2-3.8); Mean Corpuscular HGB Conc 34.6 g/dL (29.9-35.2); Mean Corpuscular Hemoglobin 32.5 pg (25.9-34.0); Mean Corpuscular Volume 93.8 fL (80.0-94.0); Platelet Count 314 10^3/uL (150-450); Red Blood Count 4.68 10^6/uL (4.70-6.10); White Blood Count 9.7 10^3/uL (4.0-11.0)
[2024-09-03 15:47] LABS: Alanine Aminotransferase 24 U/L (16-63); Albumin Globulin Ratio 1.2; Albumin Level 3.6 g/dL (3.4-5.0); Alkaline Phosphatase 85 U/L (46-116); Anion Gap 6.2; Aspartate Amino Transferase 17 U/L (15-37); Blood Urea Nitrogen 18.0 mg/dL (7.0-18.0); Calcium 9.2 mg/dL (8.5-10.1); Carbon Dioxide 33.0 mmol/L (21.0-32.0); Chloride 103 mmol/L (98-107); Cholesterol 154 mg/dL (<=200); Estimated GFR (African America >60 (>=60 mL/min/1.73m^2); Estimated GFR (Non-African Ame >60 (>=60 mL/min/1.73m^2); Globulin 3.1 g/dL; Glucose 99 mg/dL (74-106); HDL Cholesterol 88 mg/dL (40-60); Potassium 4.2 mmol/L (3.5-5.1); Sodium 138 mmol/L (136-145); Total Protein 6.7 g/dL (6.4-8.2); Triglycerides 49 mg/dL (<=150); VLDL CHOLESTEROL 9.8 mg/dL
== END 2024-09-03 15:15 | disposition home or self-care (01) ==
LOC: LAB 15:16
PROVIDERS: PCP Internal Medicine; Visit Provider Internal Medicine
DX: Z00.00 Encounter for general adult medical examination without abnormal findings (principal); Z12.5 Encounter for screening for malignant neoplasm of prostate
CPT/HCPCS: 36415; 80053; 80061; 85025; G0103

== ENCOUNTER 2024-10-04 14:17 | Emergency (ER) | payer BC, SELFPAY ==
[2024-10-04 14:22] VITALS: BP 128/94; PULSE 60; TEMP 36.6; O2SAT 99; BMI 21.7
--- NOTE | 2024-10-04 14:44 | XR_ITS ---
The [address] [address] Patient Name: SHAW GALVAN MRN: [id number] date: 1960 Sex: M Assigned Patient Location: ER Current Patient Location: ER Accession/Order Number: [id number] Exam Date: 10/04/2024 15:56 Report Date: 10/04/2024 15:56 At the request of: TORY GRECO Procedure: XR chest 2V Chest 2 views CLINICAL HISTORY: cough COMPARISON: Chest 10/24/2023 FINDINGS: Heart normal in size. Lungs are clear. No free air. XR/XR chest 2V IMPRESSION: NO ACUTE CARDIOPULMONARY ABNORMALITY. Impression dictated by: Jerry Peters Jr., D.OEmerson 10/04/2024 3:56 PM Dictation Location: [place] [address] Electronically authenticated by: [id number] Y Date: 10/04/2024 15:56
--- NOTE | 2024-10-04 14:44 | CT_ITS ---
The [address] [address] Patient Name: SHAW GALVAN MRN: [id number] date: 1960 Sex: M Assigned Patient Location: ER Current Patient Location: ER Accession/Order Number: [id number] Exam Date: 10/04/2024 15:56 Report Date: 10/04/2024 16:01 At the request of: TORY GRECO Procedure: CT abdomen pelvis w con CT ABDOMEN AND PELVIS WITH INTRAVENOUS CONTRAST: CLINICAL HISTORY: rlq/ flank pain COMPARISON: None TECHNIQUE: Spiral images were obtained through the abdomen and pelvis following the administration of intravenous contrast. This CT exam was performed using one or more following dose reduction techniques: Automated exposure control, adjustment of the mA and/or kV according to patient size, or use of iterative reconstruction technique. FINDINGS: Lung Bases: [Dependent atelectatic changes.] Organs:Intra as well as extrahepatic dilatation with the CBD measuring 1 cm. Gallbladder appears unremarkable. No enhancing liver lesion. Portal vein appears patent. Splenic granulomas. There appears to be dilatation of the intrahepatic ducts without evidence of pancreatitis. Indeterminate nodule left adrenal gland measuring 2.7 cm right adrenal gland appears unremarkable. Small cyst right kidney. Left kidney appears unremarkable. Abdominal aorta appears normal in caliber.[ GI: Stomach is grossly unremarkable. Small bowel appears nondilated. Left colon diverticulosis.[ Pelvis:[Diffuse urinary bladder wall thickening. Prostatomegaly.] Peritoneum/Retroperitoneum:No free air or free fluid or lymphadenopathy.[ Abd wall/Bones:No acute findings. Osseous structures demonstrate degenerative change.[ CT/CT abdomen pelvis w con IMPRESSION: Wall thickening involving the urinary bladder. Underlying cystitis cannot be stated. Correlation with urinalysis is recommended. Biliary dilatation with the CBD measuring 1 cm. If further evaluation is needed, MRCP is suggested. No CT evidence of acute cholecystitis. Indeterminate nodule left adrenal gland. Nonemergent adrenal CT is recommended for complete characterization. Impression dictated by: Jerry Peters Jr., D.O. 10/04/2024 4:01 PM Dictation Location: [place] [address] Electronically authenticated by: [id number] Y Date: 10/04/2024 16:01
--- NOTE | 2024-10-04 14:50 | ED.GENADUL1 ---
HPI HPI - General Adult General Chief complaint: Urogenital-Male Stated complaint: UTI Time Seen by Provider: 10/04/24 14:23 Source: patient Mode of arrival: walk-in Limitations: no limitations History of Present Illness HPI narrative: Patient presents with multiple complaints beginning with 2-month history of side pain and pain with urination. Does have history of bladder surgery notes that he gets frequent UTIs. He does self cath daily x 5. Patient took no medications prior to arrival. Worsened 2 days ago now includes nauseousness, vomiting, diarrhea longstanding cough. Patient denies any ear pain, sore throat patient, ambulatory in emergency room. Patient's symptoms worsen with touch motion or change in position and including right side. Onset (ago): month(s) (Worsened 2 days ago) Location: Reports head, back and abdomen Radiation: Reports back, abdomen and flank Severity: moderate Quality: Reports sharp Pain Consistency: Reports intermittent Exacerbating factors: Reports movement Treatments prior to arrival: Reports none Related Data Home Medications ?Medication ?Instructions ?Recorded ?Confirmed tramadol 50 mg tablet 50 mg PO Q6H PRN pain 09/24/22 10/24/23 Previous Rx's ?Medication ?Instructions ?Recorded famotidine 20 mg tablet (Pepcid) 20 mg PO BID #10 tabs 10/24/23 orphenadrine citrate 100 mg 100 mg PO BID PRN muscle spasm #14 10/24/23 tablet,extended release tabs prednisone 20 mg tablet 40 mg (2 x 20 mg) PO DAILY 5 days 10/24/23 #10 tabs cephalexin 500 mg capsule 500 mg PO BID 10 days #20 caps 10/04/24 ibuprofen 600 mg tablet 600 mg PO Q8H PRN pain #20 tabs 10/04/24 Allergies Allergy/AdvReac Type Severity Reaction Status Date / Time ciprofloxacin (From Cipro) Allergy Unknown Verified 09/24/22 06:32 sulfamethoxazole (From Allergy Unknown Verified 09/24/22 06:32 Bactrim) trimethoprim (From Bactrim) Allergy Unknown Verified 09/24/22 06:32 Opioid HPI Opioid Management Most Recent Opioid Data: Last Pain Scale 5 Today, 15:10 Last MAR Pain Assessment Today, 15:10 Review of Systems ROS Status of ROS 10 or more systems reviewed and unremarkable except as noted in history and below Constitutional Reports: fever, chills and night sweats Eyes Denies: change in vision Ears, nose, mouth, and throat Denies: throat pain Cardiovascular Denies: chest pain Respiratory Reports: cough Gastrointestinal Reports: abdominal pain, nausea, vomiting and diarrhea; Denies: blood in stool Genitourinary Reports: other (discolored urine) Musculoskeletal Reports: back pain Integumentary/Breast Denies: rash Neurological Reports: headache (X 2 months) Allergic/Immunologic Denies: hives PFSH PFSH Social History Smoking status: Current every day smoker Little interest or pleasure in doing things: not at all Feeling down, depressed, or hopeless: not at all Exam Constitutional Vital Signs, click to edit/add: Last Vital Signs Temp 97.8 F 10/04/24 14:22 Pulse 85 10/04/24 16:46 Resp 18 10/04/24 16:46 BP 121/77 10/04/24 16:46 Pulse Ox 97 10/04/24 16:46 O2 Del Method Room Air 10/04/24 16:46 Documenting provider has reviewed patient's vital signs: yes Common normals: no apparent distress, average body habitus and oriented x3 General appearance: cooperative and well developed Orientation/consciousness: Yes awake HENMT Common normals: normocephalic, external ears normal and TMs normal bilaterally Head and scalp: normal to inspection Face and sinus: normal facial exam Eye Common normals: PERRL and EOMs intact bilaterally Neck & C-Spine Common normals: full ROM and supple Chest Common normals: inspection of chest normal and palpation of chest normal Respiratory Common normals: normal respiratory effort Effort & inspection: able to speak in complete sentences Auscultation: wheezes left lower Cardio Common normals: regular rate, regular rhythm, S1 normal heart sound, S2 normal heart sound and peripheral pulses 2+ throughout GI Common normals: tender Auscultation: normoactive bowel sounds Palpation: soft and tender Details: RLQ Back & Pelvis Common normals: no thoracic nor lumbar tenderness and thoraco-lumbar ROM normal Lumbar spine/lower back: paraspinal muscle tenderness (Lumbar tenderness and flank tenderness) Extremity Common normals: normal to inspection General: no edema Neuro Common normals: moves all extremities Sensorium/orientation: awake and alert Psych Common normals: mental status grossly normal and thought process normal Course Vital Signs Vital signs: Vital Signs Temperature 97.8 F 10/04/24 14:22 Pulse Rate 60 10/04/24 14:22 Respiratory Rate 16 10/04/24 14:22 Blood Pressure 128/94 H 10/04/24 14:22 Pulse Oximetry 99 10/04/24 14:22 Oxygen Delivery Method Room Air 10/04/24 14:22 Temperature 97.8 F 10/04/24 14:22 Pulse Rate 85 10/04/24 16:46 Respiratory Rate 18 10/04/24 16:46 Blood Pressure 121/77 10/04/24 16:46 Pulse Oximetry 97 10/04/24 16:46 Oxygen Delivery Method Room Air 10/04/24 16:46 Medical Decision Making MDM Narrative Medical decision making narrative: Patient presents with right lower quadrant flank pain discolored urine with history of multiple UTIs. He also has had feeling hot and cold, nausea, vomiting. Will add CBC CMP lipase urinalysis with reflex to culture CAT scan abdomen pelvis with contrast. Had chest x-ray. Patient has cough with slight wheeze. Discussed plan of care with patient he is agreeable to plan of care. Differential Diagnosis Differential Diagnosis: UTI, Pyelonephritis, kidney stone, appendicitis. Lab Data Labs: Lab Results 10/04/24 10/04/24 Range/Units 14:40 14:45 WBC 10.1 (4.0-11.0) 10^3/uL RBC 4.92 (4.70-6.10) 10^6/uL Hgb 16.0 (14.0-18.0) g/dL Hct 45.5 (42.0-54.0) % MCV 92.5 (80.0-94.0) fL MCH 32.5 (25.9-34.0) pg MCHC 35.2 (29.9-35.2) g/dL RDW 13.3 (11.0-15.0) % Plt Count 295 (150-450) 10^3/uL MPV 8.3 L (9.5-13.5) fL Neut % (Auto) 88.3 H (43.0-75.0) % Lymph % (Auto) 5.5 L (20.5-60.0) % [place] % (Auto) 4.8 (1.7-12.0) % Eos % (Auto) 0.6 L (0.9-7.0) % Baso % (Auto) 0.4 (0.2-2.0) % Neut # (Auto) 8.9 H (1.4-6.5) 10^3/uL Lymph # (Auto) 0.6 L (1.2-3.8) 10^3/uL [place] # (Auto) 0.5 (0.3-0.8) 10^3/uL Eos # (Auto) 0.1 (0.0-0.7) 10^3/uL Baso # (Auto) 0.0 (0.0-0.1) 10^3/uL Abs Immat Gran (auto) 0.04 H (0.00-0.03) 10^3/uL Imm/Tot Granulo (auto) 0.4 (0.0-0.5) % Sodium 138 (136-145) mmol/L Potassium 3.8 (3.5-5.1) mmol/L Chloride 104 (98-107) mmol/L Carbon Dioxide 25.6 (21.0-32.0) mmol/L Anion Gap 12.2 BUN 16.0 (7.0-18.0) mg/dL Creatinine 0.74 (0.70-1.30) mg/dL Est GFR ( Amer) >60 (>=60 mL/min/1.73m^2) Est GFR (Non-Af Amer) >60 (>=60 mL/min/1.73m^2) BUN/Creatinine Ratio 21.6 Glucose 123 H (74-106) mg/dL Calcium 8.5 (8.5-10.1) mg/dL Magnesium 1.9 (1.8-2.4) mg/dL Total Bilirubin 1.1 H (0.2-1.0) mg/dL AST 25 (15-37) U/L ALT 31 (16-63) U/L Alkaline Phosphatase 75 (46-116) U/L Total Protein 6.3 L (6.4-8.2) g/dL Albumin 3.3 L (3.4-5.0) g/dL Globulin 3.0 g/dL Albumin/Globulin Ratio 1.1 Lipase 34.0 (16.0-77.0) U/L Urine Color Lt. yellow (YELLOW) Urine Clarity Clear (CLEAR) Urine pH 6.0 (5.0-9.0) Ur Specific [place] <=1.005 A (1.005-1.025) Urine Protein Negative (NEG/TRACE) mg/dL Urine Glucose (UA) Negative (NEGATIVE) mg/dL Urine Ketones Negative (NEGATIVE) mg/dL Urine Occult Blood Negative (NEGATIVE) Urine Nitrite Positive A (NEGATIVE) Urine Bilirubin Negative (NEGATIVE) Urine Urobilinogen 0.2 (0.2-1.0) EU/dL Ur Leukocyte Esterase Trace A (NEGATIVE) Urine RBC 0-2 (0-2) #/HPF Urine WBC 10-20 A (NONE SEEN) #/HPF Ur Squamous Epith Cells None seen (NONE/RARE) #/LPF Urine Crystals None seen (None Seen) #/HPF Urine Bacteria Large A (NONE SEEN) #/HPF Urine Casts None seen (NONE SEEN) #/LPF Urine Mucus Trace A (NONE SEEN) Ur Culture Indicated? Yes-[facility] [place] Discharge Plan Discharge Chief Complaint: Urogenital-Male Clinical Impression: UTI (urinary tract infection), Abdominal pain, Acute flank pain, Cough Patient Disposition: Home, Self-Care Time of Disposition Decision: 16:19 Condition: Good Mode of Transportation: Private Vehicle Prescriptions / Home Meds: New cephalexin 500 mg capsule 500 mg PO BID 10 Days Qty: 20 0RF ibuprofen 600 mg tablet 600 mg PO Q8H PRN (Reason: pain) Qty: 20 0RF No Action tramadol 50 mg tablet 50 mg PO Q6H PRN (Reason: pain) orphenadrine citrate 100 mg tablet extended release 100 mg PO BID PRN (Reason: muscle spasm) Qty: 14 0RF prednisone 20 mg tablet 40 mg PO DAILY 5 Days Qty: 10 0RF famotidine [Pepcid] 20 mg tablet 20 mg PO BID Qty: 10 0RF Print Language: Nepali Instructions: Urinary Tract Infection in Men (ED), Abdominal Pain (ED) Additional Instructions: Follow-up with primary care and your urologist. Return to ER if any symptoms worsen or new symptoms develop. Discontinue smoking. Referrals: Claudio Soto DO [Primary Care Provider, Internal Medicine] - 1 week Discharge Date/Time: 10/04/24 16:46
[2024-10-04 15:10] LABS: Hematocrit 45.5 % (42.0-54.0); Hemoglobin 16.0 g/dL (14.0-18.0); Immature Granulocytes Abs Auto 0.04 10^3/uL (0.00-0.03); Immature Granulocytes Pct Auto 0.4 % (0.0-0.5); Lymphocytes Absolute Auto 0.6 10^3/uL (1.2-3.8); Mean Corpuscular HGB Conc 35.2 g/dL (29.9-35.2); Mean Corpuscular Hemoglobin 32.5 pg (25.9-34.0); Mean Corpuscular Volume 92.5 fL (80.0-94.0); Platelet Count 295 10^3/uL (150-450); Red Blood Count 4.92 10^6/uL (4.70-6.10); White Blood Count 10.1 10^3/uL (4.0-11.0)
[2024-10-04] MEDS: KETOROLAC TROMETHAMINE 30 MG/ML VIAL IVP (15:10)
[2024-10-04 15:12] LABS: Glucose Urine UA NEGATIVE (NEGATIVE)
[2024-10-04 15:25] LABS: Alanine Aminotransferase 31 U/L (16-63); Albumin Globulin Ratio 1.1; Albumin Level 3.3 g/dL (3.4-5.0); Alkaline Phosphatase 75 U/L (46-116); Anion Gap 12.2; Aspartate Amino Transferase 25 U/L (15-37); Blood Urea Nitrogen 16.0 mg/dL (7.0-18.0); Calcium 8.5 mg/dL (8.5-10.1); Carbon Dioxide 25.6 mmol/L (21.0-32.0); Chloride 104 mmol/L (98-107); Estimated GFR (African America >60 (>=60 mL/min/1.73m^2); Estimated GFR (Non-African Ame >60 (>=60 mL/min/1.73m^2); Globulin 3.0 g/dL; Glucose 123 mg/dL (74-106); Lipase 34.0 U/L (16.0-77.0); Magnesium 1.9 mg/dL (1.8-2.4); Potassium 3.8 mmol/L (3.5-5.1); Sodium 138 mmol/L (136-145); Total Protein 6.3 g/dL (6.4-8.2)
[2024-10-04 15:35] LABS: Cast Seen? NONE SEEN #/LPF (NONE SEEN); Crystals Seen? None Seen #/HPF (None Seen); Urine Culture Indicated YES-FRMC
[2024-10-04 16:46] VITALS: BP 121/77; PULSE 85; O2SAT 97
== END 2024-10-04 16:46 | disposition home or self-care (01) ==
PROVIDERS: Physician Assistant; Emergency Provider Emergency Medicine; PCP Internal Medicine
DX: N39.0 Urinary tract infection, site not specified (principal); R10.84 Generalized abdominal pain; R10.31 Right lower quadrant pain; R05.9 Cough, unspecified; R11.2 Nausea with vomiting, unspecified; R19.7 Diarrhea, unspecified
CPT/HCPCS: 36415; 71046; 74177; 80053; 81001; 83690; 83735; 85025; 87086; 87088; 87186; 96365; 96375; 99285; J0696; J1885; J2405; Q9967